=== PATIENT | male | born 1955 | race Caucasian/White ===

== ENCOUNTER 2016-07-17 11:03 | Inpatient (IN) | payer OTHER ==
[~2016-07-17] VITALS: Ht 172.7 cm; Wt 62.0 kg
[~2016-07-17 11:03] MED LIST: ATIVAN 2 MG. TAB2 MG PO; COREG 12.5MG12.5 MG PO; FIRST-VANCOM25 MG/ML PO; FOLIC ACID 1 MG PO; LISINOPRIL20 MG PO; MAGNESIUM OXID400 MG PO; METFORMIN HCL500 MG PO; NICODERM C14 MG/24 H TOP; NOVOLOG100 U/ML SC; PROBIOTIC FORMU1 CAP PO; Theragran Vitamins PO; VITAMIN B1100 MG PO
--- NOTE | 2016-07-17 11:05 | NUR ---
BIBA AFTER BEING FOUND ON FLOOR FOR UNKNOWN LENGTH OF TIME. FINGER STICK GLUCOSE READ HIGH PER EMS. PT WITH GARBLED SPEECH, VERY DRY MOUTH, SOME CONFUSION. SKIN MOTTLED, COLD, TEMP 91.4 RECTAL TEMP. NO RESP DISTRESS, DENIES PAIN. NON BLANCHABLE REDNESS ON RIGHT ELBOW, SACRAL AREA
--- NOTE | 2016-07-17 11:20 | NUR ---
PT AWAKE, ALERT WITH VERY GARBLED SPEECH. MOUTH WITH DRIED SALIVA IN IT. PT GIVEN SIP OF WATER TO HELP IMPROVED SPEECH. PT COUGHED AFTER SIP OF WATER. PT SOMEWHAT CONFUSED. KNOWS WHERE HE IS BUT CONFUSED ABOUT MONTH. FOLLOWING SOME COMMANDS BUT NOT ALL COMMANDS. POSSIBLE LEFT ARM WEAKNESS BUT NO DRIFT NOTED IN ARMS OR LEGS.
--- NOTE | 2016-07-17 11:25 | NUR ---
BEAR PABLITO PLACED FOR RECTAL TEMP OF 91.3. DR. GEOVANNY WALSH.
--- NOTE | 2016-07-17 11:25 | NUR ---
IV PLACED AND LABS AND BLOOD CULTURES DRAWN. TYMPANIC TEMP 93. RECTAL TEMP CHECKED. PT PLACED ON BEAR HUGGER.
--- NOTE | 2016-07-17 11:43 | NUR ---
DR. SMALL AT BEDSIDE FOR EVAL.
--- NOTE | 2016-07-17 12:09 | NUR ---
PT SENT FOR CT SCAN
[2016-07-17 12:18] LABS: ABSOLUTE BASOPHIL COUNT 0 /CUMM (0.0-0.2); ABSOLUTE EOSINOPHIL COUNT 0 /CUMM (0.0-0.7); ABSOLUTE GRANULOCYTE CT 9.8 /CUMM (1.4-6.5); ABSOLUTE LYMPH COUNT 1.5 /CUMM (1.2-3.4); ABSOLUTE MONOCYTE COUNT 1.6 /CUMM (0.10-0.60); BASOPHIL % 0.3 % (0.0-2.0); EOSINOPHIL % 0 % (0-5); MEAN CORPUSCULAR HGB 28.7 PG (27.0-31.0); MEAN CORPUSCULAR VOLUME 86.8 FL (80.0-94.0); MEAN PLATELET VOLUME 9.3 FL (7.4-10.4); PLATELET COUNT 191 /CUMM (130-400); RBC DISTRIBUTION WIDTH 14.1 % (11.5-14.5); RED BLOOD CELL CT 5.19 /CUMM (4.70-6.10); WHITE BLOOD CELL COUNT 12.9 /CUMM (4.8-10.8)
--- NOTE | 2016-07-17 12:37 | RADIOLOGY REPORT ---
EXAMINATION: XR PORTABLE CHEST CLINICAL INFORMATION: Weakness COMPARISON: Priors are not available TECHNIQUE: Portable AP view of the chest was obtained. FINDINGS: Heart size is normal. Pulmonary vascularity is normal. The aorta is tortuous. Lungs are clear. No focal consolidation or atelectasis is seen. There is no pneumothorax or pleural effusion. There is probable old healed fracture of the left fifth lateral rib. No acute bony abnormality is seen IMPRESSION: Normally expanded and grossly clear lungs with no acute findings.
--- NOTE | 2016-07-17 12:41 | NUR ---
PT RETURNED FROM CT SCAN. PUT BACK ON BEAR HUGGER. TEMP CHECKED AND IS RISING. 93.9. PEREZ PLACED AND URINE SPECIMEN SENT TO LAB.
--- NOTE | 2016-07-17 12:47 | CT SCAN REPORT ---
EXAMINATION: CT HEAD WITHOUT CONTRAST CLINICAL INFORMATION: 60-year-old man with slurred speech. COMPARISON: 10/28/[address] report TECHNIQUE: Contiguous axial imaging was performed from the skull base to vertex without intravenous administration of contrast. DLP: 601 mGy-cm. FINDINGS: There is no evidence of acute intracranial hemorrhage or territorial infarction. No abnormal mass effect or midline shift is seen. Wolf to white matter differentiation is well preserved. No extra-axial fluid collections are identified. The ventricles are normal in size. Mild chronic microvascular ischemic changes are seen throughout the supratentorial white matter. The osseous structures and soft tissues are normal. The mastoid air cells and visualized portions of the paranasal sinuses are well aerated. IMPRESSION: No acute intracranial pathology.
--- NOTE | 2016-07-17 12:54 | NUR ---
CRITICAL TEST RESULTS [id number] JENNA GIBBONS 60 M TESTS AND RESULTS: GLUCOSE 753, CARBON DIOXIDE 6 AND TROPONIN 0.11 Results received and read back by: VINCE PALACIOS Results received date and time: 07/17/16 1254 The following provider was notified of the results, and read the results back: DR. SMALL Notified date and time: 07/17/16 at 1253
--- NOTE | 2016-07-17 13:14 | NUR ---
PT SLEEPING BUT EASILY AROUSABLE. MOUTH CARE GIVEN DUE TO DRY CRUSTED SALIVA IN MOUTH AND LIPS. PT WITH FOUL SMELLING BREATH. MOUTH CLEANED WITH BOTH GREEN TIP SWABS AND LEMON GLYCERIN SWABS
--- NOTE | 2016-07-17 13:31 | ED AMS/SEIZURE/WEAK/DIZZY ---
History of Present Illness General Chief Complaint: Fall Stated Complaint: UNWITNESS FALL, HIGH GLUCOSE Source: patient, family, old records Exam Limitations: clinical condition Vital Signs & Intake/Output Vital Signs & Intake/Output Vital Signs Date Time Temp Pulse Resp B/P Pulse O2 O2 Flow FiO2 Ox Delivery Rate 07/17 1425 98 16 138/75 98 Room Air 07/17 1400 96.1 110 18 127/75 100 Room Air 07/17 1242 Room Air 07/17 1239 93.9 102 16 125/83 96 Room Air 07/17 1110 91.3 100 18 128/68 100 Room Air Allergies Coded Allergies: NO KNOWN ALLERGIES (03/17/14) Reconcile Medications Carvedilol (Coreg) 12.5 MG TABLET 1 TAB PO BID BLOOD PRESSURE Folic Acid 1 MG TABLET 1 TAB PO DAILY SUPPLEMENT Insulin Aspart, Recombinant (Novolog) 100 U/ML DAMARIS 0 UNITS SC SI DIABETES 80-150 no chnage 151-200 plus 2 units 201-250 plus 4 units 251-300 plus 6 units 301-350 plus 8 units 351-400 plus 10 units >400 plus 12 units and call your doctor PLEASE CHECK FINGER STICKS BEFORE EACH MEAL Lactobacillus Acidophilus (Probiotic Formula Capsule) 1 EACH CAPSULE 1 CAP PO BID PROBIOTIC Lisinopril 20 MG TABLET 1 TAB PO DAILY BLOOD PRESSURE Magnesium Oxide 400 MG TABLET 1 TAB PO BID HYPOMAGNESEMIA recheck serum magnesium levels on 11/11 and continue magnesium supplements if appropriate Metformin Hydrochloride (Metformin HCl) 500 MG TAB 1 TAB PO BID DIABETES Nicotine (Nicoderm Cq) 14 MG/24 HR TDM 1 PAT TOP DAILY SMOKING CESSATION PLEASE DO NOT APPLY IF YOU RESTART SMOKING [Theragran Vitamins] 1 TAB PO DAILY SUPPLEMENT Thiamine (Vitamin B1) 100 MG TAB 1 TAB PO DAILY SUPPLEMENT Vancomycin Oral Solution 25MG/Ml (First-Vancomycin 25) 25 MG/ML DAMARIS 1 TAB PO Q4 C.DIFF DIARRHEA last dose of vancomycin on 11/14 evening Triage Note: BIBA AFTER BEING FOUND ON FLOOR FOR UNKNOWN LENGTH OF TIME. FINGER STICK GLUCOSE READ HIGH PER EMS. PT WITH GARBLED SPEECH, VERY DRY MOUTH, SOME CONFUSION. SKIN MOTTLED, COLD, TEMP 91.4 RECTAL TEMP. NO RESP DISTRESS, DENIES PAIN. NON BLANCHABLE REDNESS ON RIGHT ELBOW, SACRAL AREA Triage Nurses Notes Reviewed? yes Onset: possibly 3-4 days Duration: day(s):, constant, continues in ED Timing: recent history Injury Environment: home Severity: moderate Modifying Factors: Improves With: rest. Worsens With: movement. HPI: The patient was lasting 3-4 days prior to admission. He was found prior to admission by friends who check in on him. He was noted to have difficulty speaking increased weakness unable to get off floor and unable to right legibly. He denies fever chills nausea vomiting diarrhea abdominal pain chest pain shortness of breath headache dysuria rash bleeding Past History Travel History Traveled to [place] past 21 day No Medical History Any Pertinent Medical History? see below for history Neurological: UNKNOWN EENT: NONE Cardiovascular: hypertension, hyperlipidemia Respiratory: NONE Gastrointestinal: NONE Hepatic: NONE Renal: NONE Musculoskeletal: AMBULATES WITH WALKER Psychiatric: by history, alcohol abuse Endocrine: DIABETES (PATIENT DENIES) Blood Disorders: NONE Cancer(s): NONE History of MRSA: No History of VRE: No History of CDIFF: No Surgical History Surgical History: non-contributory Psychosocial History Who do you live with Patient/Self Services at Home Social Work What is your primary language Pashto Tobacco Use: Never used ETOH Use: denies use Family History Family History, If Any: FATHER, , Age 60+. MOTHER, , Age 60+. Relation not specified for: FH: dementia Hx Contributory? No Review of Systems Review of Systems Constitutional: Reports: see HPI, weakness. EENTM: Reports: no symptoms. Respiratory: Reports: no symptoms. Cardiovascular: Reports: no symptoms. GI: Reports: no symptoms. Genitourinary: Reports: no symptoms. Musculoskeletal: Reports: no symptoms. Skin: Reports: no symptoms. Neurological/Psychological: Reports: see HPI, confusion, weakness. Hematologic/Endocrine: Reports: no symptoms. Immunologic/Allergic: Reports: no symptoms. All Other Systems: Reviewed and Negative Physical Exam Physical Exam General Appearance: well developed/nourished, alert, awake, moderate distress, thin Head: atraumatic, normal appearance Eyes: Bilateral: normal appearance, PERRL, EOMI. Ears, Nose, Throat: normal pharynx, normal ENT inspection, dry mucous membranes Neck: normal inspection, supple, full range of motion Respiratory: normal breath sounds, chest non-tender, no respiratory distress, quiet respiration, lungs clear Cardiovascular: regular rate/rhythm, murmur, normal peripheral pulses, norml femoral pulses equa Peripheral Pulses: 4+ carotid (R), 4+ carotid (L), 2+ radial (R), 2+ radial (L) Gastrointestinal: normal bowel sounds, soft, non-tender, no organomegaly Back: normal inspection, normal range of motion Extremities: normal range of motion, no ligament instability Neurologic/Psych: awake, alert, aphasia, disoriented x 3, motor weakness Reflexes: 2+: bicep (R), bicep (L). Skin: intact, normal color Lymphatic: no anterior cervical linn Core Measures ACS in differential dx? Yes CVA/TIA Diagnosis: No Severe Sepsis Present: No Septic Shock Present: No Progress Differential Diagnosis: arrythmia, CVA/stroke, electrolyte imbalance, hypoglycemia, hypoxia, intracranial Hem., pneumonia, sepsis, UTI/pyelo Plan of Care: Orders Procedure Date/time Status Nothing by Mouth 07/17 D Active TSH REFLEX 07/17 1500 Active ICU LAB BUNDLE 07/17 1500 Active FREE T4 07/17 1500 Active LACTIC ACID 07/17 1449 Active Pathway - chart 07/17 1423 Active House Staff 07/17 1423 Active Patient Data 07/17 1423 Active Code Status 07/17 1423 Active ARTERIAL BLOOD GAS (GEN) 07/17 1411 Complete FingerStick- Glucose 07/17 1411 Active Patient Data 07/17 1315 Active Admit to inpatient 07/17 1258 Active Bales, Insertion/Removal/Asses 07/17 1241 Active Intake & Output 07/17 1216 Active BLOOD CULTURE 07/17 1149 Active URINALYSIS 07/17 1149 Complete TROPONIN LEVEL 07/17 1149 Complete SERUM OSMOLALITY 07/17 1149 Complete LACTIC ACID 07/17 1149 Complete COMPREHENSIVE METABOLIC PANEL 07/17 1149 Complete CREATINE PHOSPHOKINASE 07/17 1149 Complete CBC WITHOUT DIFFERENTIAL 07/17 1149 Complete ACETONE 07/17 1149 Complete EKG 07/17 1149 Active FingerStick- Glucose 07/17 1116 Active XRY-SHOULDER COMPLETE-RIGHT 07/17 UNK Active XRY-HIP 2-3 VIEWS, RIGHT 07/17 UNK Active VTE Mechanical Prophylaxis 07/17 UNK Active Current Medications Sig/Lorrie Start time Last Medication Dose Stop Time Status Admin Sodium Chloride 1,000 ML BOLUS ONE 07/17 1515 CAN (Normal Saline 0.9%) 07/17 1714 Sodium Chloride 1,000 ML .Q2H 07/17 1445 AC 07/17 1849 Heparin Sodium 5,000 UNIT Q8 07/17 1418 AC (Porcine) Ondansetron HCl 4 MG Q8P PRN 07/17 1415 AC (Zofran) Laboratory Tests 07/17/16 1504: Lactic Acid Pending 07/17/16 1504: Sodium Pending, Potassium Pending, Chloride Pending, Carbon Dioxide Pending, Anion Gap Pending, BUN Pending, Creatinine Pending, Glucose Pending, Calcium Pending, Phosphorus Pending, Magnesium Pending, Total Bilirubin Pending, AST Pending, ALT Pending, Albumin Pending, Free T4 Pending, TSH &T3 &Free T4 Intrp Pending 07/17/16 1422: pH 7.27 *L, pCO2 13 L, pO2 111 H, HCO3 6 L, ABG O2 Sat (Measured) 98.0, P-50 (Temp Corrected) YES, Carboxyhemoglobin 0.2 L, O2 Concentration % RA, Temperature 93.9 L, O2 Delivery Method RA, Phlebotomy Draw Site RIGHT RADIAL 07/17/16 1225: Urine Color YEL, Urine Clarity CLEAR, Urine pH 6.0, Ur Specific [place] 1.020, Urine Protein 30 H, Urine Ketones >=80, Urine Nitrite NEG, Urine Bilirubin NEG@ ICTO, Urine Urobilinogen 0.2, Ur Leukocyte Esterase NEG, Ur Microscopic SEDIMENT EXAMINED, Urine RBC 5-10 H, Urine WBC RARE, Ur Epithelial Cells RARE, Hyaline Casts RARE H, Granular Casts 1-3 H, Urine Mucus FEW, Urine Hemoglobin MOD H, Urine Glucose >=1000 H 07/17/16 1145: Anion Gap 39 H, Estimated GFR 32 L, BUN/Creatinine Ratio 30.0 H, Glucose 753 *H, Serum Osmolality 410 H, Lactic Acid 1.7, Calcium 9.9, Total Bilirubin 0.6, AST 12 L, ALT 17 L, Alkaline Phosphatase 228 H, Creatine Kinase 126, Troponin I 0.11 *H, Total Protein 7.9, Albumin 4.7, Globulin 3.2, Albumin/Globulin Ratio 1.5, CBC w Diff NO MAN DIFF REQ, RBC 5.19, MCV 86.8, MCH 28.7, RDW 14.1, MPV 9.3 , Gran % 76.0 H, Lymphocytes % 11.6 L, Monocytes % 12.1 H, Eosinophils % 0, Basophils % 0.3, Absolute Granulocytes 9.8 H, Absolute Lymphocytes 1.5, Absolute Monocytes 1.6 H, Absolute Eosinophils 0, Absolute Basophils 0, PUBS MCHC 33.0, Acetone Level POSITIVE AT 1:16 DIL Microbiology 07/17 1249 BLOOD: Blood Culture - RECD 07/17 1145 BLOOD: Blood Culture - RECD Diagnostic Imaging: Viewed by Me: Radiology Read, CT Scan. Discussed w/RAD: Radiology Read, CT Scan. Radiology Impression: no acute abnormality CXR Impression: no acute abnormality Initial ED EKG: normal axis, normal intervals, normal p-waves, normal QRS complex, normal sinus rhythm, nonspecific ST T wave chg Prior EKG: unchanged Rhythm Strip: normal sinus rhythm Departure Departure Time of Disposition: 8 Disposition: STILL A PATIENT Condition: Stable Clinical Impression Primary Impression: DKA (diabetic ketoacidoses) Qualifiers: Diabetes mellitus type: other specified (including MACHELLE) Diabetes mellitus complication detail: without coma Qualified Code: E13.10 - Other specified diabetes mellitus with ketoacidosis without coma Secondary Impressions: Acute kidney injury (nontraumatic) Elevated troponin Hypothermia Qualifiers: Encounter type: initial encounter Qualified Code: T68.XXXA - Hypothermia, initial encounter Syncope and collapse Referrals: HAIM HERNANDEZ,BRIDGET [facility] (PCP/Family) Departure Forms: Customer Survey General Discharge Information Admission Note Spoke With: ANGIE BHARDWAJ M.D Documentation of Exam: Documentation of any treatments & extenuating circumstances including Concerns Regarding Discharge (functional status, medication knowledge or non-compliance, living conditions, etc.) that warrant an admission rather than observation: Insulin drip IV hydration serial lab exam cardiac monitoring medication adjustment physical therapy neurology evaluation endocrinology evaluation and care discharge planning Critical Care Note Critical Care Note Critical Care Time: 30-74 min (45)
--- NOTE | 2016-07-17 13:48 | NUR ---
HOUSE STAFF IN TO SEE PT
--- NOTE | 2016-07-17 14:02 | NUR ---
SPOKE WITH MAK TINSLEY TO CLARIFY PLAN OF CARE. WILL DO HOURLY FINGERSTICKS AND CALL TO TABLET MAKING MACHINE OPERATOR HELPER/RESIDENT. WILL RECHECK LABS AT 1500.
--- NOTE | 2016-07-17 14:04 | NUR ---
PT TURNED AND REPOSITIONED. TALIA CARE DONE. TEMP 96,1 RECTALLY. SKIN COLOR IMPROVING. MOST OF MOTTLED COLOR IS GONE. PT STILL WITH REDNESS TO BOTH KNEES, RIGHT ELBOW AND SACRAL/BUTTOCKS AREA. BUTTOCKS WITH DIFFUSE REDNESS THAT IS RASH LIKE IN APPEARANCE. BUTTOCKS CLEANED WITH TALIA WIPES. PT POSITIONED TO LEFT SIDE WITH PILLOWS.
--- NOTE | 2016-07-17 14:14 | NUR ---
SPOKE WITH MAK TINSLEY ON PHONE. NOTIFIED HIM OF TEMP 96.1 RECTAL. ORDERS RECIVED TO KEEP PT ON WARMING BLANKET UNTIL TEMP 98.6
--- NOTE | 2016-07-17 14:31 | History & Physical ---
MAK SANCHEZ 07/17/16 1424: General Information and HPI MD Statement: I have seen and personally examined JENNA SANCHEZ and documented this H&P. The patient is a 60 year old M who presented with a patient stated chief complaint of [UNWITNESSED FALL, DKA]. Source of Information: patient, old records Exam Limitations: unable to give history, not alert/orientated, clinical condition, confusion History of Present Illness: Please note that the history was obtained from previous records as well as the emergency department staff as the patient is confused and not oriented. Mr. Sanchez is a 60-year-old gentleman with a past medical history of hypertension, hyperlipidemia, and diabetes who is brought in by ambulance after being found down on the floor at home for an unknown time. The patient lives home alone and has friends checking on him every 2 days. Per the ED staff, his friends saw him on Monday and and felt he was at baseline. They came in today and found him on the floor unable to get up. They note that at baseline he does have difficulty with speech. He is unable to communicate any medical history and denies that has DM or is on any medications. He does repeat a complaint that he is in pain, but cannot localize or describe the pain. Allergies/Medications Allergies: Coded Allergies: NO KNOWN ALLERGIES (03/17/14) Home Med list Carvedilol (Coreg) 12.5 MG TABLET 1 TAB PO BID BLOOD PRESSURE Finasteride 5 MG TABLET 1 TAB PO DAILY HTN (Reported) Folic Acid 1 MG TABLET 1 TAB PO DAILY SUPPLEMENT Insulin Aspart, Recombinant (Novolog) 100 U/ML DAMARIS 0 UNITS SC SI DIABETES 80-150 no chnage 151-200 plus 2 units 201-250 plus 4 units 251-300 plus 6 units 301-350 plus 8 units 351-400 plus 10 units >400 plus 12 units and call your doctor PLEASE CHECK FINGER STICKS BEFORE EACH MEAL Lactobacillus Acidophilus (Probiotic Formula Capsule) 1 EACH CAPSULE 1 CAP PO BID PROBIOTIC Lisinopril 20 MG TABLET 1 TAB PO DAILY BLOOD PRESSURE Magnesium Oxide 400 MG TABLET 1 TAB PO BID HYPOMAGNESEMIA recheck serum magnesium levels on 11/11 and continue magnesium supplements if appropriate Metformin Hydrochloride (Metformin HCl) 500 MG TAB 1 TAB PO BID DIABETES Montelukast Sodium 10 MG TABLET 1 TAB PO DAILY NOT SURE OF REASON (Reported) Nicotine (Nicoderm Cq) 14 MG/24 HR TDM 1 PAT TOP DAILY SMOKING CESSATION PLEASE DO NOT APPLY IF YOU RESTART SMOKING Phenytoin Sodium Extended 100 MG CAPSULE 1 CAP PO TID UNSURE OF REASON ( Reported) [Theragran Vitamins] 1 TAB PO DAILY SUPPLEMENT Thiamine (Vitamin B1) 100 MG TAB 1 TAB PO DAILY SUPPLEMENT Vancomycin Oral Solution 25MG/Ml (First-Vancomycin 25) 25 MG/ML DAMARIS 1 TAB PO Q4 C.DIFF DIARRHEA last dose of vancomycin on 11/14 evening Compliance With Home Meds: UNKNOWN Past History Travel History Traveled to [place] past 21 day No Medical History Neurological: UNKNOWN EENT: NONE Cardiovascular: hypertension, hyperlipidemia Respiratory: NONE Gastrointestinal: NONE Hepatic: NONE Renal: NONE Musculoskeletal: AMBULATES WITH WALKER Psychiatric: by history, alcohol abuse Endocrine: DIABETES (PATIENT DENIES) Blood Disorders: NONE Cancer(s): NONE History of MRSA: No History of VRE: No History of CDIFF: No Surgical History Surgical History: non-contributory Past Family/Social History Family History Relations & Conditions if any FATHER, , Age 60+. MOTHER, , Age 60+. Relation not specified for: FH: dementia Psychosocial History Services at Home: Social Work ETOH Use: denies use Review of Systems Review of Systems Constitutional: Reports: see HPI (unable to obtain). Exam & Diagnostic Data Last 24 Hrs of Vital Signs/I&O Vital Signs Date Time Temp Pulse Resp B/P Pulse O2 O2 Flow FiO2 Ox Delivery Rate 07/17 1425 98 16 138/75 98 Room Air 07/17 1400 96.1 110 18 127/75 100 Room Air 07/17 1242 Room Air 07/17 1239 93.9 102 16 125/83 96 Room Air 07/17 1110 91.3 100 18 128/68 100 Room Air Intake & Output 07/17 1600 07/17 0800 07/17 0000 Intake Total 1000 Output Total Balance 1000 Intake, IV 1000 Patient 82.1 kg Weight Physical Exam General Appearance Alert, Mild Distress, oriented x1 Skin multiple areas of hyperemia noted, not warm, possibly due to being down right sided HEENT Atraumatic, PERRLA, EOMI Neck Supple, No JVD, +2 Carotid Pulse wo Bruit Cardiovascular Regular Rate, Normal S1, Normal S2 Lungs Clear to Auscultation, Normal Air Movement Abdomen Normal Bowel Sounds, Soft, No Tenderness Neurological abnormal speech - slurring (worse than baseline per records) patient is unable to follow commands and raises on his left arm and wiggles right toes. strength cannot be fully assessed, but sensation appears to be in tact. cranial nerves could not be fully examined (unable to follow commands) but are grossly WNL. Extremities No Clubbing, No Cyanosis, No Tenderness/Swelling Last 24 Hrs of Labs/Elmer: Laboratory Tests 07/17/16 1422: pH 7.27 *L, pCO2 13 L, pO2 111 H, HCO3 6 L, ABG O2 Sat (Measured) 98.0, P-50 (Temp Corrected) YES, Carboxyhemoglobin 0.2 L, O2 Concentration % RA, Temperature 93.9 L, O2 Delivery Method RA, Phlebotomy Draw Site RIGHT RADIAL 07/17/16 1225: Urine Color YEL, Urine Clarity CLEAR, Urine pH 6.0, Ur Specific [place] 1.020, Urine Protein 30 H, Urine Ketones >=80, Urine Nitrite NEG, Urine Bilirubin NEG@ ICTO, Urine Urobilinogen 0.2, Ur Leukocyte Esterase NEG, Ur Microscopic SEDIMENT EXAMINED, Urine RBC 5-10 H, Urine WBC RARE, Ur Epithelial Cells RARE, Hyaline Casts RARE H, Granular Casts 1-3 H, Urine Mucus FEW, Urine Hemoglobin MOD H, Urine Glucose >=1000 H 07/17/16 1145: Anion Gap 39 H, Estimated GFR 32 L, BUN/Creatinine Ratio 30.0 H, Glucose 753 *H, Serum Osmolality 410 H, Lactic Acid 1.7, Calcium 9.9, Total Bilirubin 0.6, AST 12 L, ALT 17 L, Alkaline Phosphatase 228 H, Creatine Kinase 126, Troponin I 0.11 *H, Total Protein 7.9, Albumin 4.7, Globulin 3.2, Albumin/Globulin Ratio 1.5, CBC w Diff NO MAN DIFF REQ, RBC 5.19, MCV 86.8, MCH 28.7, RDW 14.1, MPV 9.3 , Gran % 76.0 H, Lymphocytes % 11.6 L, Monocytes % 12.1 H, Eosinophils % 0, Basophils % 0.3, Absolute Granulocytes 9.8 H, Absolute Lymphocytes 1.5, Absolute Monocytes 1.6 H, Absolute Eosinophils 0, Absolute Basophils 0, PUBS MCHC 33.0, Acetone Level POSITIVE AT 1:16 DIL Microbiology 07/17 1249 BLOOD: Blood Culture - RECD 07/17 1144 BLOOD: Blood Culture - RECD Diagnostic Data EKG Results sinus ryhthem at 98 with T wave inversions in 2, 3, aVF and V3-V6. No other ST-T changes noted CXR Results SERVICE DATE: 07/17/16 EXAM TYPE: RAD - XRY-PORTABLE CHEST XRAY EXAMINATION: XR PORTABLE CHEST CLINICAL INFORMATION: Weakness COMPARISON: Priors are not available TECHNIQUE: Portable AP view of the chest was obtained. FINDINGS: Heart size is normal. Pulmonary vascularity is normal. The aorta is tortuous. Lungs are clear. No focal consolidation or atelectasis is seen. There is no pneumothorax or pleural effusion. There is probable old healed fracture of the left fifth lateral rib. No acute bony abnormality is seen IMPRESSION: Normally expanded and grossly clear lungs with no acute findings. Other Results SERVICE DATE: 07/17/16 EXAM TYPE: CAT - CT HEAD WO IV CONTRAST EXAMINATION: CT HEAD WITHOUT CONTRAST CLINICAL INFORMATION: 60-year-old man with slurred speech. COMPARISON: 10/28/[address] report TECHNIQUE: Contiguous axial imaging was performed from the skull base to vertex without intravenous administration of contrast. DLP: 601 mGy-cm. FINDINGS: There is no evidence of acute intracranial hemorrhage or territorial infarction. No abnormal mass effect or midline shift is seen. Wolf to white matter differentiation is well preserved. No extra-axial fluid collections are identified. The ventricles are normal in size. Mild chronic microvascular ischemic changes are seen throughout the supratentorial white matter. The osseous structures and soft tissues are normal. The mastoid air cells and visualized portions of the paranasal sinuses are well aerated. IMPRESSION: No acute intracranial pathology. Assessment/Plan Assessment: Mr. Sanchez is a 60-year-old gentleman with a past medical history of hypertension, hyperlipidemia, and diabetes who is brought in by ambulance after being found down on the floor at home for an unknown time. He was found to be in DKA and was started on an insulin drip in the ED. Problem list/Assessment and Plan DKA * ? 2/2 non-compliance as patient was down for an unknown period of time and could not take his meds vs infectious process - CXR and UA show no signs of infection * Admit the patient to the ICU * pH showed significant metabolic acidosis w resp compensation = 7.27/HCO3 6/CO2 13 * He is currently on an insulin drip @8 units (0.1 units/kg) - blood sugar was 753 on admission with ketonuria, AG of 39, Bicarb of 6. Calculated Osm 370 or 353 if BUN is not taken into account. The meaured Osm was 410, giving him a significant osmolar gap - which explains his confusion/stupor at the moment * We will continue insulin drip at 8units/hour and check FSG hourly * Note he is also hypernatremic at 153. Taking his hyperglycemia into account, his corrected Na is 169. As he is clinically euvolemic and hypernatremic, we will start 1/2NS at 500cc/hour for 2 hours and reassess labs q2h. * His free water deficit was 10.2L * K is now 5.2 with no concerning EKG changes - we will consider adding K to his fluids once K drops <5.0 * Also consider adding dextrose to IVF once glucose drops <250 * We will repeat labs at 1500 and q2h from there until his gap closes/bicarb comes up Elevated troponin * Trop was 0.11 with EKG showing T wave flattenings/inversion in the inferior and precordial leads - previous review of his EKG in 2014 showed incomplete LBBB and nonspecific EKG changes. ECHO at that time was 35-40%. * We will trend trop and EKG for now and inform cardiology, he was seen by Dr. Rainey in the past. * Likely 2/2 demand/FAYE w acidosis. No active chest pain. ASA 325 given. We will not heparinize for now. Hypothermia * Litzy hugger on, last temp check 96 * Continue Litzy Hugger for now and we will d/c once his temp is approx 98 ?Seizure d/o * Med rec review shows the patient is on dilantin * dilantin level was low at 3 * I did speak w the inpatient pharamcy (patient fills his meds in the outpt pharm here @), and there is question of whether he gets 100XR of dilantin daily vs TID. As his level was low, we will dose TID, but please call the outpt pharmacy in the am to confirm. HTN/BPH/FAYE * Continue carvedilol 12.5 and holding lisinorpril due to FAYE * Continue finasteride for BPH FC NPO pain path tylenol PO, IV and morhine for severe heparin for dvt ppx As Ranked By This Provider Problem List: 1. Elevated troponin 2. Acute kidney injury (nontraumatic) 3. Hypothermia Qualifiers Encounter type: initial encounter Qualified Code: T68.XXXA - Hypothermia, initial encounter 4. DKA (diabetic ketoacidoses) Qualifiers Diabetes mellitus type: other specified (including MACHELLE) Diabetes mellitus complication detail: without coma Qualified Code: E13.10 - Other specified diabetes mellitus with ketoacidosis without coma Core Measures/Miscellaneous Acute Coronary Syndrome ACS Diagnosis: No Last Known EF % 35 Cerebrovascular Accident CVA/TIA Diagnosis: No Congestive Heart Failure CHF Diagnosis: No Venous Thromboembolism VTE Risk Factors: Acute medical illness, Age > 40 VTE Prophylaxis Ordered Inpt: Pharm- Heparin No Mech VTE prophylaxis d/t: No contraindications No VTE Pharm Prophylaxis d/t: VTE low risk, No contraindications VTE Diagnosis: No VTE Type: NONE VTE Confirmed by (Test): NONE Severe Sepsis Severe Sepsis Present: No Septic Shock Septic Shock Present: No Miscellaneous Documentation Attending Case Discussed With: ANGIE BHARDWAJ M.D Primary Care Physician: BRIDGET WHITMORE MD Patient sees these Specialists n/a Level of Patient Care: Critical Care (CRI) ANGIE BHARDWAJ MD 07/17/16 1535: Attending MD Review Statement Attending Statement Attending MD Statement: examined this patient, discuss w/resident/PA/CHIEF ADMINISTRATIVE OFFICER, agreed w/resident/PA/CHIEF ADMINISTRATIVE OFFICER, reviewed EMR data (avail), discussed with nursing, amended to note Attending Assessment/Plan: Patient is a 60-year-old male with medical history significant for hypertension, dyslipidemia and insulin-dependent diabetes mellitus. Was last seen by friends on . They went to check up on him today and found him on the floor and he would get up. It is unknown when exactly he fell how long he has been on the ground. Patient is awake and follows simple commands however his speech is markedly slurred and he is unable to provide any history. He is able to move his extremities to command very weakly with power of 3 over 5. Pupils were equal and reactive with no nystagmus. He had no carotid bruit. Heart sounds are regular with no audible normal. Lungs are clear to auscultation bilaterally. Abdomen soft and nontender. He had no peripheral edema. Skin was intact with no open areas. Patient's friends and family were not present in the emergency room by the time of my evaluation. I did leave a message on their answering machine. Problems: 1. Diabetic ketoacidosis 2. Encephalopathy; probably metabolic secondary to above 3. Troponin elevation; rule out that he currently syndrome. He does have T- wave inversions in the anterolateral leads new from previous EKGs. 4. Acute kidney injury 5. Chronic heart failure with reduced ejection fraction 6. Hypernatremia Plan: -Admit to the intensive care unit for further management. -Continue insulin infusion. He received a liter bolus in the emergency room. Recommend repeated fluid boluses 2 more liters and then maintenance fluid at 100 mL an hour. Utilizing 0.45% NaCl -When serum glucose level reaches 200 mg per DL change fluid to D5 1/2 NS at 150 mL per hour. -Check serum chemistry every 2 hours. Add potassium chloride to IV fluids if repeat potassium level remains less than 5.3. -Monitor pulse oximetry and respiratory status closely in view of his history of systolic dysfunction. -Repeat troponin on telemetry begin to trend downwards. Obtain echocardiogram. Obtain cardiology consultation. -Patient currently denies chest pain. Follow-up with the cardiology service regarding heparin infusion in view of his ischemic EKG and abnormal troponin. -Please fully catheter monitor input output closely. -Obtain a renal sonogram in a.m. if no significant improvement of renal function. -DVT prophylaxis with heparin subcutaneous. -Check urine and blood cultures. -Neuro watch every 4 hours. Follow-up with family and friends regarding baseline mental status. If this is not his baseline and he has no improvement of mental status following correction of his metabolic derangement would recommend an MRI for further evaluation. -Med list shows dilantin last filled in October 2015. Confirm med list with family. -Case discussed with Critical Care Medicine Jose Enrique Christensen MD. Place endocrinology consult.
--- NOTE | 2016-07-17 14:34 | NUR ---
MAK KEMP NOTIFIED OF GLUCOSE READING GREATER THEN 500 AFTER GETTING INSULIN IVP 10 UNITS AND GTT INFUSING AT 8 UNITS FOR 1 HOUR. ORDERS RECIEVED TO KEEP GTT AT 8 UNITS/HR BUT WILL CHANGE IVF TO 1/2NS
--- NOTE | 2016-07-17 15:19 | NUR ---
PT ADMITTED TO ROOM 105
--- NOTE | 2016-07-17 15:30 | NUR ---
ENDOCRINE MD IN TO SEE PT.
--- NOTE | 2016-07-17 15:32 | NUR ---
GLUCOSE CHECKED AND IS 406. MAK TINSLEY NOTIFIED AND ORDERS RECIEVED TO KEEP GTT AT 8UNITS/HR, PLAN IS TO REPEAT LABS AT 1700
--- NOTE | 2016-07-17 15:34 | Admission Certification ---
Admission Certification Certification Statement - As attending physician, I certify that at the time of - admission, based on clinical presentation, severity of - symptoms, need for further diagnostic testing and - therapeutic interventions, and risk of adverse outcomes - without in-hospital treatment, in my clinical assessment, - this patient requires an acute hospital stay for a minimum - of two nights or longer. I have also considered psychsocial - factors such as support system, advanced age, financial - issues, cognitive issues, and failed out-patient treatments, - past re-admission history, safety of patient, and lack of - compliance as applicable. Specific rationale supporting this admission is: Patient is being admitted to the intensive care unit where he will receive glucose infusion.
--- NOTE | 2016-07-17 15:39 | RADIOLOGY REPORT ---
EXAMINATION: XR SHOULDER, RIGHT XR HIP, RIGHT CLINICAL INFORMATION: Difficulty moving right shoulder and right leg following a fall. Patient unresponsive. COMPARISON: No relevant prior studies are available for comparison. TECHNIQUE: Two views of the right shoulder as well as 2 views of the right hip were obtained. FINDINGS: RIGHT SHOULDER: The right humerus is internally rotated. There is no fracture or dislocation. There is mild joint space narrowing and marginal osteophytosis at the acromioclavicular joint. There is no osseous erosion. There is no abnormal soft tissue calcification. RIGHT HIP: No fracture or dislocation. No significant joint space narrowing or marginal osteophytosis. No osseous erosion. Right inguinal atherosclerotic calcifications. Partially visualized Bales catheter. IMPRESSION: Right shoulder: Internally rotated humerus. No fracture or dislocation. Left hip: No fracture or dislocation.
--- NOTE | 2016-07-17 15:55 | Cons- Endocrinology ---
General Information and HPI Consulting Request Date of Consult: 07/17/16 Requested By: medical team Reason for Consult: Diabetic ketoacidosis Exam Limitations: unable to give history History of Present Illness: This 60-year-old male with a known history of diabetes treated with metformin and insulin in the past was found on the floor at home. An ambulance was called and he came to the emergency room. The patient cannot give a history at present. Review of his records reveals that he was last in the [facility] in 2014. At that time he was treated for C. difficile colitis. In addition to the diabetes there is a history of hypertension and hyperlipidemia. There is also mention of possible alcohol abuse. Review of his medications filled at [facility] prior to admission reveals that Dilantin was reported. Allergies/Medications Allergies: Coded Allergies: NO KNOWN ALLERGIES (03/17/14) Home Med List: Aspirin (Aspirin*) 81 MG TAB.CHEW 1 TAB PO DAILY Heart Health (Reported) Carvedilol (Coreg) 12.5 MG TABLET 1 TAB PO BID BLOOD PRESSURE Finasteride 5 MG TABLET 1 TAB PO DAILY HTN (Reported) Folic Acid 1 MG TABLET 1 TAB PO DAILY SUPPLEMENT Insulin Aspart (Novolog) 100 UNIT/ML VIAL 0 UNITS SC TIDAC/HS diabetes BEFORE MEALS Blood Insulin Sugar Units <80 0 81-150 4 151-200 6 201-250 8 251-300 9 301-350 10 351-400 11 >400 Call Doctor AT BEDTIME Blood Insulin Sugar Units <80 0 81-100 0 101-200 0 201-250 2 251-300 3 301-350 4 351-400 5 >400 Call Doctor Insulin Detemir (Levemir) 100 UNIT/ML VIAL 10 UNITS SC BID diabetes mellitus Lactobacillus Acidophilus (Probiotic Formula Capsule) 1 EACH CAPSULE 1 CAP PO BID PROBIOTIC Magnesium Oxide 400 MG TABLET 1 TAB PO BID HYPOMAGNESEMIA recheck serum magnesium levels on 11/11 and continue magnesium supplements if appropriate Montelukast Sodium 10 MG TABLET 1 TAB PO DAILY ALLERGY (Reported) Nicotine (Nicoderm Cq) 14 MG/24 HR TDM 1 PAT TOP DAILY SMOKING CESSATION PLEASE DO NOT APPLY IF YOU RESTART SMOKING Phenytoin Sodium Extended 100 MG CAPSULE 1 CAP PO SI SEIZURE DISORDER ( Reported) GIVE 2 TABLETS 8 :00 AM GIVE 1 TABLET 1:00 PM GIVE 2 TABLET 7:00 PM [Theragran Vitamins] 1 TAB PO DAILY SUPPLEMENT Thiamine (Vitamin B1) 100 MG TAB 1 TAB PO DAILY SUPPLEMENT Review of Systems Review of Systems Constitutional: Reports: no symptoms (cannot give review of systems). Past History Travel History Traveled to [place] past 21 day No Medical History Neurological: UNKNOWN EENT: NONE Cardiovascular: hypertension, hyperlipidemia Respiratory: NONE Gastrointestinal: NONE Hepatic: NONE Renal: NONE Musculoskeletal: AMBULATES WITH WALKER Psychiatric: by history, alcohol abuse Endocrine: DIABETES (PATIENT DENIES) Blood Disorders: NONE Cancer(s): NONE Surgical History Surgical History: non-contributory Family History Relations & Conditions If Any: FATHER, , Age 60+. MOTHER, , Age 60+. Relation not specified for: FH: dementia Psychosocial History Services at Home: Social Work ETOH Use: denies use Exam & Diagnostic Data Last 24 Hrs of Vital Signs/I&O Vital Signs Date Time Temp Pulse Resp B/P Pulse O2 O2 Flow FiO2 Ox Delivery Rate 07/17 1535 96.3 111 20 163/84 98 Room Air 07/17 1425 98 16 138/75 98 Room Air 07/17 1400 96.1 110 18 127/75 100 Room Air 07/17 1242 Room Air 07/17 1239 93.9 102 16 125/83 96 Room Air 07/17 1110 91.3 100 18 128/68 100 Room Air Intake & Output 07/17 1600 07/17 0800 07/17 0000 Intake Total 1500 Output Total Balance 1500 Intake, IV 1500 Patient 181 lb Weight Vital Signs Date Time Temp Pulse Resp B/P Pulse O2 O2 Flow FiO2 Ox Delivery Rate 07/17 1535 96.3 111 20 163/84 98 Room Air 07/17 1425 98 16 138/75 98 Room Air 07/17 1400 96.1 110 18 127/75 100 Room Air 07/17 1242 Room Air 07/17 1239 93.9 102 16 125/83 96 Room Air 07/17 1110 91.3 100 18 128/68 100 Room Air Intake & Output 07/17 1600 07/17 0800 07/17 0000 Intake Total 1500 Output Total Balance 1500 Intake, IV 1500 Patient 181 lb Weight Physical Exam General Appearance: alert, awake, confused Head: normal appearance Eyes: Bilateral: PERRL. Neck: normal inspection Respiratory: normal breath sounds Cardiovascular: regular rate/rhythm Gastrointestinal: normal bowel sounds, soft Extremities: normal inspection Neurologic/Psych: awake Skin: intact Labs/Elmer Results: Laboratory Tests 07/17 07/17 07/17 1504 1504 1422 Blood Gas pH (7.35 - 7.45 PH) 7.27 *L pCO2 (35 - 45 TORR) 13 L pO2 (80 - 100 TORR) 111 H HCO3 (21 - 28 MEQ/L) 6 L ABG O2 Sat (Measured) (>96.0 %) 98.0 P-50 (Temp Corrected) YES Carboxyhemoglobin (1.5 - 5.0 %) 0.2 L O2 Concentration % RA Temperature (97.0 - 100.0 FARH) 93.9 L O2 Delivery Method RA Chemistry Sodium Pending Potassium Pending Chloride Pending Carbon Dioxide Pending Anion Gap Pending BUN Pending Creatinine Pending Glucose Pending Lactic Acid Pending Calcium Pending Phosphorus Pending Magnesium Pending Total Bilirubin Pending AST Pending ALT Pending Albumin Pending Free T4 Pending TSH &T3 &Free T4 Intrp Pending Miscellaneous Phlebotomy Draw Site RIGHT RADIAL 07/17 1225 Urines Urine Color (YEL,AMB,STR) YEL Urine Clarity (CLEAR) CLEAR Urine pH (5.0 - 8.0) 6.0 Ur Specific [place] (1.001 - 1.035) 1.020 Urine Protein (NEG,<30 MG/DL) 30 H Urine Ketones (NEG) >=80 Urine Nitrite (NEG) NEG Urine Bilirubin (NEG) NEG@ICTO Urine Urobilinogen (0.1 - 1.0 EU/dl) 0.2 Ur Leukocyte Esterase (NEG) NEG Ur Microscopic SEDIMENT EXAMINED Urine RBC (0 - 5 /HPF) 5-10 H Urine WBC (0 - 2 /HPF) RARE Ur Epithelial Cells (NONE,FEW) RARE Hyaline Casts (0/LPF) RARE H Granular Casts (NONE /LPF) 1-3 H Urine Mucus (FEW,NONE) FEW Urine Hemoglobin (NEG) MOD H Urine Glucose (N MG/DL) >=1000 H 07/17 1145 Chemistry Sodium (137 - 145 mmol/L) 153 H Potassium (3.5 - 5.1 mmol/L) 5.2 H Chloride (98 - 107 mmol/L) 108 H Carbon Dioxide (22 - 30 mmol/L) 6 *L Anion Gap (5 - 16) 39 H BUN (9 - 20 mg/dL) 63 H Creatinine (0.7 - 1.2 mg/dL) 2.1 H Estimated GFR (>60 ml/min) 32 L BUN/Creatinine Ratio (7 - 25 %) 30.0 H Glucose (65 - 99 mg/dL) 753 *H Serum Osmolality (285 - 295 MOSM/KG) 410 H Lactic Acid (0.7 - 2.1 mmol/L) 1.7 Calcium (8.4 - 10.2 mg/dL) 9.9 Total Bilirubin (0.2 - 1.3 mg/dL) 0.6 AST (17 - 59 U/L) 12 L ALT (21 - 72 U/L) 17 L Alkaline Phosphatase (< 127 U/L) 228 H Creatine Kinase (55 - 170 U/L) 126 Troponin I (<0.11 ng/ml) 0.11 *H Total Protein (6.3 - 8.2 g/dL) 7.9 Albumin (3.5 - 5.0 g/dL) 4.7 Globulin (1.9 - 4.2 gm/dL) 3.2 Albumin/Globulin Ratio (1.1 - 2.2 %) 1.5 Hematology CBC w Diff NO MAN DIFF REQ WBC (4.8 - 10.8 /CUMM) 12.9 H RBC (4.70 - 6.10 /CUMM) 5.19 Hgb (14.0 - 18.0 G/DL) 14.9 Hct (42 - 52 %) 45.0 MCV (80.0 - 94.0 FL) 86.8 MCH (27.0 - 31.0 PG) 28.7 RDW (11.5 - 14.5 %) 14.1 Plt Count (130 - 400 /CUMM) 191 MPV (7.4 - 10.4 FL) 9.3 Gran % (42.2 - 75.2 %) 76.0 H Lymphocytes % (20.5 - 51.1 %) 11.6 L Monocytes % (1.7 - 9.3 %) 12.1 H Eosinophils % (0 - 5 %) 0 Basophils % (0.0 - 2.0 %) 0.3 Absolute Granulocytes (1.4 - 6.5 /CUMM) 9.8 H Absolute Lymphocytes (1.2 - 3.4 /CUMM) 1.5 Absolute Monocytes (0.10 - 0.60 /CUMM) 1.6 H Absolute Eosinophils (0.0 - 0.7 /CUMM) 0 Absolute Basophils (0.0 - 0.2 /CUMM) 0 PUBS MCHC (33.0 - 37.0 G/DL) 33.0 Toxicology Acetone Level (NEGATIVE) POSITIVE AT 1:16 DIL Assessment/Plan Assessment/Plan This 60-year-old male with a known history of diabetes was found on the floor by his friends. Apparently he lives alone and it is not known how long he was on the floor. His labs show glucose 753 BUN 63 creatinine 2.1. Sodium is elevated at 153 potassium 5.2 and carbon dioxide is 6. Anion gap is elevated at 39 along with a highly positive serum acetone. The patient's effective osmolality is 353. The current findings are consistent with diabetic ketoacidosis. The patient is very hyperosmolar in view of the very high sugar and high sodium at the same time. The patient should be treated with an insulin drip at at 0.1 units per kilogram per hour. Fingerstick blood sugars should be measured every hour. Since the patient is hypernatremic we should give IV fluids in the form of half-normal saline. We should repeat his labs including BUN/creatinine electrolytes and blood sugar every 2 hours. We do not want to correct the serum sodium by more than 1-2 mEq per hour. When his fingerstick sugar gets to 250 we can change his fluid to D5 half-normal saline with 20 mEq KCl so that we can continue to give the insulin drip. The patient also has evidence of acute renal insufficiency. There is a creatinine in the [employer] computer of 0.6 about one month ago. His present creatinine is 2.1. Since he is making some urine I feel we can continue the half-normal saline at 500 mL an hour for the next 2 hours and then reevaluate. Once the patient's potassium is less than 5.1 we can add 20 mEq of potassium to his IV fluids. Dilantin is listed as one of his drugs at the [facility]. We should measure a Dilantin level. Consult Acknowledgment - Thank you for your consult request.
--- NOTE | 2016-07-17 16:09 | NUR ---
PT NOT TOLERATING BEAR HUGGER BLANKET. COMPLAINING OF BEING HOT. PT KEEPS PULLING BLANKET OFF OF HIMSELF.
--- NOTE | 2016-07-17 16:09 | NUR ---
SECOND IV LINE PLACED. PT RESTING QUIETLY. SPEECH REMAINS GARBLED. PT ASKING FOR AND TOLERATING ICE CHIPS.
--- NOTE | 2016-07-17 16:10 | NUR ---
PT REPORTEDLY HAS NO FAMILY, SEVERAL YEARS AGO AND PT STATES HE HAS NO CHILDREN. UPON ARRIVAL TO ED PT WAS ACCOMPANIED BY FRIENDS WHO SAY THEY CHECK ON PT FREQUENTLY. THEY STATE THEY WERE SICK AND DID NOT CHECK ON HIM FOR A FEW DAYS. THEY HAVE PROVIDED SOME HISTORY ON PATIENT INCLUDING INSURANCE CARD. CONTACT INFORMATION FOR THEM IS FOLLOWS DANIELLE ROJAS [phone], . DANIELLE IS UNSURE IF PT HAS POA
--- NOTE | 2016-07-17 16:14 | NUR ---
CRITICAL TEST RESULTS [id number] JENNA GIBBONS 60 M TESTS AND RESULTS: GLUCOSE 504, SODIUM 160, POTASSIUM 3.3, CO2 9 Results received and read back by: VINCE PALACIOS Results received date and time: 07/17/16 1615 The following provider was notified of the results, and read the results back: MAK TALBOT MD Notified date and time: 07/17/16 at 1615
--- NOTE | 2016-07-17 16:47 | NUR ---
REPORT CALLED TO JANNET IN ICU
--- NOTE | 2016-07-17 16:48 | NUR ---
GLUCOSE 302. PAGED MAK TINSLEY TO REPORT GLUCOSE
--- NOTE | 2016-07-17 17:56 | NUR ---
DR TINSLEY NOTIFIED THAT HEART BEAT APPEARS TO BE AFIB , 12 LEAD INTERPRETATION IS WANDERING PACEMAKER. LAUREANO AWARE THAT GLUCOSE IS 318 AND INSULIN GTT CONTINUES AT 8U/HR. LAUREANO AWARE 1700 LABS WERE DRAWN AND ARE PENDING AND THAT A LAV TUBE WAS SENT WITH 1500 LABS
--- NOTE | 2016-07-17 17:57 | NUR ---
CRITICAL TEST RESULTS [id number] JENNA GIBBONS 60 [place] TESTS AND RESULTS: LACTIC ACID 2.4 Results received and read back by: MIO JARVIS Results received date and time: 07/17/16 1757 The following provider was notified of the results, and read the results back: MAK TINSLEY Notified date and time: 07/17/16 at 1757
[2016-07-17 18:35] LABS: ABSOLUTE BASOPHIL COUNT 0 /CUMM (0.0-0.2); ABSOLUTE EOSINOPHIL COUNT 0 /CUMM (0.0-0.7); ABSOLUTE GRANULOCYTE CT 8.4 /CUMM (1.4-6.5); ABSOLUTE MONOCYTE COUNT 1.3 /CUMM (0.10-0.60); BASOPHIL % 0.2 % (0.0-2.0); EOSINOPHIL % 0 % (0-5); GRANULOCYTE % 71.4 % (42.2-75.2); MEAN CORPUSCULAR HGB CONC 33.4 G/DL (33.0-37.0); MEAN CORPUSCULAR VOLUME 86.7 FL (80.0-94.0); MEAN PLATELET VOLUME 9.3 FL (7.4-10.4); PLATELET COUNT 171 /CUMM (130-400); RED BLOOD CELL CT 4.47 /CUMM (4.70-6.10); WHITE BLOOD CELL COUNT 11.8 /CUMM (4.8-10.8)
--- NOTE | 2016-07-17 18:36 | NUR ---
PT BROUGHT UP TO ICU
--- NOTE | 2016-07-17 18:37 | NUR ---
PRIOR TO LEAVE ED. RHYTHM EXAMINED WITH DR TINSLEY. DETERMINED THAT PT IN SINUS TACH AND NOT AFIB
--- NOTE | 2016-07-17 18:37 | NUR ---
CRITICAL TEST RESULTS [id number] JENNA GIBBONS 60 M TESTS AND RESULTS: NA 157 Results received and read back by: MIO JARVIS Results received date and time: 07/17/16 1837 The following provider was notified of the results, and read the results back: MAK TINSLEY Notified date and time: 07/17/16 at 1825
[2016-07-17] MEDS ORDERED: FINASTERIDE5 M1 PO (18:40)
[2016-07-17] MEDS ORDERED: MONTELUKAST SOD10 M1 PO (18:41)
[2016-07-17] MEDS ORDERED: PHENYTOIN SODI100 MG PO (18:41)
--- NOTE | 2016-07-17 18:42 | NUR ---
SPOKE WITH DANIELLE ON PHONE-PTS FRIEND AND ASKED IF SOMEONE COULD BRING IN ALL MEDS AND INSULIN FOR PT SO WE CAN VERIFY WHAT PT IS TAKING
[2016-07-17 18:43] LABS: HEMATOCRIT 38.7 % (42-52)
[2016-07-17 23:59] VITALS: BP 100/60
--- NOTE | 2016-07-18 00:30 | NUR ---
PT ADMITTED FROM ER. BEDSIDE REPORT RECEIVED FROM [employer]. PT IS AWAKE, SPEECH IS SLOW, WHICH HE STATES IS FROM HIS DIABETES. HE DENIES PAIN OR NAUSEA. HE HAS HAD SOME CONFUSION, IS CALLING OUT FOR HELP FREQUENTLY, DOES KNOW WHERE HE IS BUT IS UNABLE TO HOLD A COHERENT CONVERSATION. ACCUCHECKS DONE HOURLY AND INSULIN DRIP ADJUSTED ACCORDINGLY. IVF ARE CURRENTLY D51/2NS WITH 40 KCL AT 125 PER HOUR. HE WAS ABLE TO TAKE ALL HIS MEDS WITH WATER. HE WILL HAVE A SKIN ASSESSMENT IN THE AM AND THE APPROPRIATE MATTRESS WILL BE ORDERED. HIS COCCYX AND BUTTOCKS ARE NOT BLANCHABLE AND DISCOLORED. HIS KNEES AND ELBOWS LOOK LIKE EARLY BRUISING. HE IS IDENTIFIED HIGH FALL RISK AND HAS BED ALARM ON. HE WILL NEED SOCIAL SERVICE, RAIL BONDER CONSULT IT IS UNCLEAR WHAT HIS LIVING SITUATION IS WITH REGARD TO FOOD AND TRANSPORTATION AND MEDS.
[2016-07-18 04:36] LABS: ABSOLUTE BASOPHIL COUNT 0 /CUMM (0.0-0.2); ABSOLUTE EOSINOPHIL COUNT 0 /CUMM (0.0-0.7); ABSOLUTE MONOCYTE COUNT 1.9 /CUMM (0.10-0.60); MEAN PLATELET VOLUME 8.9 FL (7.4-10.4)
[2016-07-18 04:45] LABS: ABSOLUTE GRANULOCYTE CT 6.9 /CUMM (1.4-6.5); ABSOLUTE LYMPH COUNT 1.5 /CUMM (1.2-3.4); BASOPHIL % 0.3 % (0.0-2.0); EOSINOPHIL % 0.3 % (0-5); GRANULOCYTE % 66.7 % (42.2-75.2); MEAN CORPUSCULAR HGB 29.1 PG (27.0-31.0); MEAN CORPUSCULAR HGB CONC 34.1 G/DL (33.0-37.0); MEAN CORPUSCULAR VOLUME 85.5 FL (80.0-94.0); PLATELET COUNT 140 /CUMM (130-400); RBC DISTRIBUTION WIDTH 13.9 % (11.5-14.5); RED BLOOD CELL CT 3.88 /CUMM (4.70-6.10); WHITE BLOOD CELL COUNT 10.3 /CUMM (4.8-10.8)
[2016-07-18 04:53] LABS: HEMATOCRIT 33.2 % (42-52)
--- NOTE | 2016-07-18 07:34 | PN- Diabetes ---
Assessment/Plan Assessment: The patient is drowsy this morning. His blood pressure is borderline low and his urine output has gone down. The patient remains on an insulin drip at 4.5 units per hour and also D5 half- normal 40 mEq KCl at 1 25 mL per hour. His most recent labs show glucose 166 BUN 56 creatinine 1.4 sodium 153 potassium 4.8 chloride 122 CO2 21 anion gap 9. Plan: The patient's IV fluid should be changed to D5 half normal saline with 20 mEq KCl. We should increase the rate of his IV fluids to 175 mL per hour of the next 3-4 hours. His insulin drip should be adjusted to keep his sugar in the 180-200 range. I would repeat his labs including BUN/creatinine electrolytes and blood sugar in 4 hours. When he is more alert we should do a swallowing evaluation and begin his diet. When his diet is begun we can switch him to subcutaneous insulin. I would recommend giving Levemir 20 units twice a day the first dose stat at that time. We can also place him on sliding scale NovoLog. Sliding-scale NovoLog before meals should be 80-150 give 6 units NovoLog, 151-200 give 8 units NovoLog, 201- 250 give 9 units NovoLog, 251-300 give 10 units NovoLog, 301-350 give 11 units NovoLog, 351 of 400 give 12 units NovoLog. Subjective Subjective: Does not answer questions this morning Objective Last 24 Hrs of Vital Signs/I&O Vital Signs Date Time Temp Pulse Resp B/P Pulse O2 O2 Flow FiO2 Ox Delivery Rate 07/18 0400 96 Room Air 07/18 0000 Room Air 07/17 2359 98.5 92 12 100/60 97 Room Air 07/17 2250 100 123/70 07/17 1749 96.5 103 18 137/67 98 Room Air 07/17 1650 Room Air 07/17 1648 96.1 106 18 132/75 98 Room Air 07/17 1535 96.3 111 20 163/84 98 Room Air 07/17 1425 98 16 138/75 98 Room Air 07/17 1400 96.1 110 18 127/75 100 Room Air 07/17 1242 Room Air 07/17 1239 93.9 102 16 125/83 96 Room Air 07/17 1110 91.3 100 18 128/68 100 Room Air Intake & Output 07/18 0800 07/18 0000 07/17 1600 Intake Total 1215 4047 2560 Output Total 550 460 375 Balance 665 3587 2185 Intake, IV 1115 3247 2500 Intake, Oral 100 800 60 Number 0 Bowel Movements Output, Urine 550 460 375 Patient 137 lb 181 lb Weight Vital Signs Date Time Temp Pulse Resp B/P Pulse O2 O2 Flow FiO2 Ox Delivery Rate 07/18 0400 96 Room Air 07/18 0000 Room Air 07/17 2359 98.5 92 12 100/60 97 Room Air 07/17 2250 100 123/70 07/17 1749 96.5 103 18 137/67 98 Room Air 07/17 1650 Room Air 07/17 1648 96.1 106 18 132/75 98 Room Air 07/17 1535 96.3 111 20 163/84 98 Room Air 07/17 1425 98 16 138/75 98 Room Air 07/17 1400 96.1 110 18 127/75 100 Room Air 07/17 1242 Room Air 07/17 1239 93.9 102 16 125/83 96 Room Air 07/17 1110 91.3 100 18 128/68 100 Room Air Intake & Output 07/18 0800 07/18 0000 07/17 1600 Intake Total 1215 4047 2560 Output Total 550 460 375 Balance 665 3587 2185 Intake, IV 1115 3247 2500 Intake, Oral 100 800 60 Number 0 Bowel Movements Output, Urine 550 460 375 Patient 137 lb 181 lb Weight Physical Exam General Appearance: lethargic Head: normal appearance Neck: normal inspection Respiratory: normal breath sounds Cardiovascular: regular rate/rhythm Abdomen: normal bowel sounds Extremities: normal inspection Current Medications: Current Medications Sig/Lorrie Start time Last Medication Dose Route Stop Time Status Admin Acetaminophen 650 MG Q6P PRN 07/18 0030 AC PO Acetaminophen 1,000 MG Q6P PRN 07/18 0030 AC N/A 1 UNIT IV Aspirin 325 MG ONCE ONE 07/17 1999 DC 07/17 PO 07/17 2000 225 Carvedilol 12.5 MG BID 07/17 2199 AC 07/17 PO 2250 Finasteride 5 MG DAILY 07/17 194 AC 07/17 PO 2250 Heparin Sodium 0 .STK-MED ONE 07/17 1654 DC (Porcine) .ROUTE Heparin Sodium 5,000 UNIT Q8 07/17 1418 AC 07/18 (Porcine) SC 0547 Influenza Virus 0.5 ML ONCE ONE 07/17 2100 DC 07/17 Vaccine IM 07/17 2101 2251 Insulin Human Regular 10 UNITS ONCE ONE 07/17 1300 DC 07/17 IV 07/17 1301 1325 Insulin Human Regular 100 UNIT Q24H 07/17 1300 AC 07/17 Sodium Chloride 100 ML IV 1325 Non-Formulary 0 SEE ADMIN CRITERIA 07/17 1630 DC Medication ANY Ondansetron HCl 4 MG Q8P PRN 07/17 1415 AC IV Oxycodone/ 1 TAB Q6P PRN 07/18 0030 AC Acetaminophen PO Patient Medication 1 UNIT ONE NR 07/17 2000 DC Teaching ED 07/17 2030 Patient Medication 1 UNIT ONE NR 07/17 1430 DC Teaching ED 07/17 1500 Phenytoin 100 MG TID 07/17 2200 AC 07/17 PO 2252 Potassium Chloride 40 MEQ Q8H 07/17 2000 AC 07/18 Dextrose/Sodium 1,000 ML IV 0329 Chloride Potassium Chloride 0 .STK-MED ONE 07/17 1654 DC PO Potassium Chloride 40 MEQ ONE ONE 07/17 1645 DC 07/17 Sodium Chloride 500 ML IV 07/17 2044 1753 Potassium Chloride 40 MEQ ONCE ONE 07/17 1630 DC 07/17 PO 07/17 1631 1702 Potassium Phosphate 15 mMol ONE ONE 07/18 0045 DC 07/18 Dextrose/Water 245 ML IV 07/18 0444 0144 Sodium Chloride 1,000 ML BOLUS ONE 07/17 1515 CAN IV 07/17 1714 Sodium Chloride 1,000 ML .Q2H 07/17 1445 DC 07/17 IV 07/17 1849 1753 Sodium Chloride 1,000 ML BOLUS ONE 07/17 1415 DC 07/17 IV 07/17 1614 1400 Sodium Chloride 1,000 ML BOLUS ONE 07/17 1200 DC 07/17 IV 07/17 1259 1203 Findings Pertinent Lab/Elmer Results: Laboratory Tests 07/18 07/18 07/18 0315 0315 0300 Chemistry Sodium (137 - 145 mmol/L) 153 H Cancelled Potassium (3.5 - 5.1 mmol/L) 4.8 Cancelled Chloride (98 - 107 mmol/L) 122 H Cancelled Carbon Dioxide (22 - 30 mmol/L) 21 L Cancelled Anion Gap (5 - 16) 9 Cancelled BUN (9 - 20 mg/dL) 56 H Cancelled Creatinine (0.7 - 1.2 mg/dL) 1.4 H Cancelled Estimated GFR (>60 ml/min) 52 L Glucose (65 - 99 mg/dL) 166 H Cancelled Lactic Acid (0.7 - 2.1 mmol/L) 1.4 Calcium (8.4 - 10.2 mg/dL) 8.5 Cancelled Phosphorus (2.5 - 4.5 mg/dL) 2.0 L Cancelled Magnesium (1.6 - 2.3 mg/dL) 2.2 Cancelled Total Bilirubin (0.2 - 1.3 mg/dL) 0.4 Cancelled AST (17 - 59 U/L) 11 L Cancelled ALT (21 - 72 U/L) 18 L Cancelled Troponin I (<0.11 ng/ml) 0.22 *H Albumin (3.5 - 5.0 g/dL) 3.1 L Cancelled Hematology CBC w Diff NO MAN DIFF REQ WBC (4.8 - 10.8 /CUMM) 10.3 RBC (4.70 - 6.10 /CUMM) 3.88 L Hgb (14.0 - 18.0 G/DL) 11.3 L Hct (42 - 52 %) 33.2 L MCV (80.0 - 94.0 FL) 85.5 MCH (27.0 - 31.0 PG) 29.1 RDW (11.5 - 14.5 %) 13.9 Plt Count (130 - 400 /CUMM) 140 MPV (7.4 - 10.4 FL) 8.9 Gran % (42.2 - 75.2 %) 66.7 Lymphocytes % (20.5 - 51.1 %) 14.4 L Monocytes % (1.7 - 9.3 %) 18.3 H Eosinophils % (0 - 5 %) 0.3 Basophils % (0.0 - 2.0 %) 0.3 Absolute Granulocytes (1.4 - 6.5 /CUMM) 6.9 H Absolute Lymphocytes (1.2 - 3.4 /CUMM) 1.5 Absolute Monocytes (0.10 - 0.60 /CUMM) 1.9 H Absolute Eosinophils (0.0 - 0.7 /CUMM) 0 Absolute Basophils (0.0 - 0.2 /CUMM) 0 PUBS MCHC (33.0 - 37.0 G/DL) 34.1 07/18 07/17 07/17 07/17 07/17 0100 2255 2100 1950 1723 Chemistry Sodium (137 - 145 mmol/L) Cancelled 155 H Cancelled 156 *H 157 *H Potassium (3.5 - 5.1 mmol/L) Cancelled 4.2 Cancelled 4.1 3.5 Chloride (98 - 107 mmol/L) Cancelled 121 H Cancelled 119 H 118 H Carbon Dioxide (22 - 30 mmol/L) Cancelled 21 L Cancelled 19 L 14 L Anion Gap (5 - 16) Cancelled 12 Cancelled 18 H 25 H BUN (9 - 20 mg/dL) Cancelled 57 H Cancelled 61 H 65 H Creatinine (0.7 - 1.2 mg/dL) Cancelled 1.4 H Cancelled 1.5 H 1.7 H Estimated GFR (>60 ml/min) 52 L 48 L 41 L Glucose (65 - 99 mg/dL) Cancelled 150 H Cancelled 198 H 325 H Lactic Acid (0.7 - 2.1 mmol/L) 2.9 H Calcium (8.4 - 10.2 mg/dL) Cancelled 8.7 Cancelled 8.6 8.8 Phosphorus (2.5 - 4.5 mg/dL) Cancelled 1.3 L Cancelled 1.8 L 2.1 L Magnesium (1.6 - 2.3 mg/dL) Cancelled 2.2 Cancelled 2.2 2.4 H Total Bilirubin (0.2 - 1.3 mg/dL) Cancelled 0.4 Cancelled 0.5 0.6 AST (17 - 59 U/L) Cancelled 12 L Cancelled 12 L 12 L ALT (21 - 72 U/L) Cancelled 19 L Cancelled 19 L 16 L Troponin I (<0.11 ng/ml) 0.20 *H 0.14 *H Albumin (3.5 - 5.0 g/dL) Cancelled 3.3 L Cancelled 3.4 L 3.5 07/17 07/17 07/17 1504 1504 1500 Chemistry Sodium (137 - 145 mmol/L) 160 *H Potassium (3.5 - 5.1 mmol/L) 3.3 L Chloride (98 - 107 mmol/L) 119 H Carbon Dioxide (22 - 30 mmol/L) 9 *L Anion Gap (5 - 16) 32 H BUN (9 - 20 mg/dL) 63 H Creatinine (0.7 - 1.2 mg/dL) 1.9 H Estimated GFR (>60 ml/min) 36 L Glucose (65 - 99 mg/dL) 504 *H Lactic Acid (0.7 - 2.1 mmol/L) 2.4 H Calcium (8.4 - 10.2 mg/dL) 8.8 Phosphorus (2.5 - 4.5 mg/dL) 3.7 Magnesium (1.6 - 2.3 mg/dL) 2.6 H Total Bilirubin (0.2 - 1.3 mg/dL) 0.5 AST (17 - 59 U/L) 11 L ALT (21 - 72 U/L) 16 L Albumin (3.5 - 5.0 g/dL) 3.7 Free T4 (0.78 - 2.44 ng/dL) 0.77 L Total T3 (0.97 - 1.69 ng/mL) 0.44 L TSH &T3 &Free T4 Intrp (0.27 - 4.20 uIU/mL) 2.980 Hematology CBC w Diff NO MAN DIFF REQ WBC (4.8 - 10.8 /CUMM) 11.8 H RBC (4.70 - 6.10 /CUMM) 4.47 L Hgb (14.0 - 18.0 G/DL) 12.9 L Hct (42 - 52 %) 38.7 L MCV (80.0 - 94.0 FL) 86.7 MCH (27.0 - 31.0 PG) 29.0 RDW (11.5 - 14.5 %) 14.0 Plt Count (130 - 400 /CUMM) 171 MPV (7.4 - 10.4 FL) 9.3 Gran % (42.2 - 75.2 %) 71.4 Lymphocytes % (20.5 - 51.1 %) 17.0 L Monocytes % (1.7 - 9.3 %) 11.4 H Eosinophils % (0 - 5 %) 0 Basophils % (0.0 - 2.0 %) 0.2 Absolute Granulocytes (1.4 - 6.5 /CUMM) 8.4 H Absolute Lymphocytes (1.2 - 3.4 /CUMM) 2.0 Absolute Monocytes (0.10 - 0.60 /CUMM) 1.3 H Absolute Eosinophils (0.0 - 0.7 /CUMM) 0 Absolute Basophils (0.0 - 0.2 /CUMM) 0 PUBS MCHC (33.0 - 37.0 G/DL) 33.4 07/17 07/17 1422 1225 Blood Gas pH (7.35 - 7.45 PH) 7.27 *L pCO2 (35 - 45 TORR) 13 L pO2 (80 - 100 TORR) 111 H HCO3 (21 - 28 MEQ/L) 6 L ABG O2 Sat (Measured) (>96.0 %) 98.0 P-50 (Temp Corrected) YES Carboxyhemoglobin (1.5 - 5.0 %) 0.2 L O2 Concentration % RA Temperature (97.0 - 100.0 FARH) 93.9 L O2 Delivery Method RA Miscellaneous Phlebotomy Draw Site RIGHT RADIAL Toxicology Urine Opiates Screen (>2000 NG/ML) < 100.00 Methadone Screen (>300 NG/ML) < 40 Barbiturate Screen (>200 NG/ML) < 60 Ur Phencyclidine Scrn (>25 NG/ML) < 6.00 Amphetamines Screen (>1000 NG/ML) < 100 U Benzodiazepines Scrn (>200 NG/ML) < 85 Urine Cocaine Screen (>300 NG/ML) < 50 Urine Cannabis Screen (>50 NG/ML) < 5.00 Urines Urine Color (YEL,AMB,STR) YEL Urine Clarity (CLEAR) CLEAR Urine pH (5.0 - 8.0) 6.0 Ur Specific [place] (1.001 - 1.035) 1.020 Urine Protein (NEG,<30 MG/DL) 30 H Urine Ketones (NEG) >=80 Urine Nitrite (NEG) NEG Urine Bilirubin (NEG) NEG@ICTO Urine Urobilinogen (0.1 - 1.0 EU/dl) 0.2 Ur Leukocyte Esterase (NEG) NEG Ur Microscopic SEDIMENT EXAMINED Urine RBC (0 - 5 /HPF) 5-10 H Urine WBC (0 - 2 /HPF) RARE Ur Epithelial Cells (NONE,FEW) RARE Hyaline Casts (0/LPF) RARE H Granular Casts (NONE /LPF) 1-3 H Urine Mucus (FEW,NONE) FEW Urine Hemoglobin (NEG) MOD H Urine Glucose (N MG/DL) >=1000 H 07/17 1145 Chemistry Sodium (137 - 145 mmol/L) 153 H Potassium (3.5 - 5.1 mmol/L) 5.2 H Chloride (98 - 107 mmol/L) 108 H Carbon Dioxide (22 - 30 mmol/L) 6 *L Anion Gap (5 - 16) 39 H BUN (9 - 20 mg/dL) 63 H Creatinine (0.7 - 1.2 mg/dL) 2.1 H Estimated GFR (>60 ml/min) 32 L BUN/Creatinine Ratio (7 - 25 %) 30.0 H Glucose (65 - 99 mg/dL) 753 *H Serum Osmolality (285 - 295 MOSM/KG) 410 H Lactic Acid (0.7 - 2.1 mmol/L) 1.7 Calcium (8.4 - 10.2 mg/dL) 9.9 Total Bilirubin (0.2 - 1.3 mg/dL) 0.6 AST (17 - 59 U/L) 12 L ALT (21 - 72 U/L) 17 L Alkaline Phosphatase (< 127 U/L) 228 H Creatine Kinase (55 - 170 U/L) 126 Troponin I (<0.11 ng/ml) 0.11 *H Total Protein (6.3 - 8.2 g/dL) 7.9 Albumin (3.5 - 5.0 g/dL) 4.7 Globulin (1.9 - 4.2 gm/dL) 3.2 Albumin/Globulin Ratio (1.1 - 2.2 %) 1.5 Hematology CBC w Diff NO MAN DIFF REQ WBC (4.8 - 10.8 /CUMM) 12.9 H RBC (4.70 - 6.10 /CUMM) 5.19 Hgb (14.0 - 18.0 G/DL) 14.9 Hct (42 - 52 %) 45.0 MCV (80.0 - 94.0 FL) 86.8 MCH (27.0 - 31.0 PG) 28.7 RDW (11.5 - 14.5 %) 14.1 Plt Count (130 - 400 /CUMM) 191 MPV (7.4 - 10.4 FL) 9.3 Gran % (42.2 - 75.2 %) 76.0 H Lymphocytes % (20.5 - 51.1 %) 11.6 L Monocytes % (1.7 - 9.3 %) 12.1 H Eosinophils % (0 - 5 %) 0 Basophils % (0.0 - 2.0 %) 0.3 Absolute Granulocytes (1.4 - 6.5 /CUMM) 9.8 H Absolute Lymphocytes (1.2 - 3.4 /CUMM) 1.5 Absolute Monocytes (0.10 - 0.60 /CUMM) 1.6 H Absolute Eosinophils (0.0 - 0.7 /CUMM) 0 Absolute Basophils (0.0 - 0.2 /CUMM) 0 PUBS MCHC (33.0 - 37.0 G/DL) 33.0 Toxicology Phenytoin (10.0 - 20.0 ug/mL) < 3.0 L Acetone Level (NEGATIVE) POSITIVE AT 1:16 DIL
[2016-07-18 08:00] VITALS: BP 109/66
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
--- NOTE | 2016-07-18 13:11 | NUR ---
PT VSS. RA, LUNGS CLR, SATS >97. PT IS ON HOURLY ACCUCHECKS AND IS CURRENTLY ON INSULIN GTT AT 2U/ HR. CURRENT BS 146. SWALLOW EVAL OBTAINED. PT TO START PO DIET, INSULIN GTT TO BE DC'D AND STARTED ON SQ LEVIMER AND NOVOLOG.
[2016-07-18] MEDS ORDERED: ASPIRIN81 M4 PO (14:09)
--- NOTE | 2016-07-18 14:51 | Cons- Neurology ---
General Information and HPI Consulting Request Date of Consult: 07/18/16 Requested By: ANGIE BHARDWAJ M.D History of Present Illness: 60-year-old male admitted to Hospital on July 17 after he was found on the ground at his home. Patient is not certain as to how long he had been lying on the ground. This was an unwitnessed event. He was found yesterday with difficulty communicating and confused, unable to get up from the ground Patient stated that he tripped but this was not observed. There was no history of head trauma. On admission he was stated to the grossly confused and could not give a history Allergies/Medications Allergies: Coded Allergies: NO KNOWN ALLERGIES (03/17/14) Home Med List: Aspirin (Aspirin*) 81 MG TAB.CHEW 1 TAB PO DAILY Heart Health (Reported) Carvedilol (Coreg) 12.5 MG TABLET 1 TAB PO BID BLOOD PRESSURE Finasteride 5 MG TABLET 1 TAB PO DAILY HTN (Reported) Folic Acid 1 MG TABLET 1 TAB PO DAILY SUPPLEMENT Insulin Aspart, Recombinant (Novolog) 100 U/ML DAMARIS 0 UNITS SC SI DIABETES 80-150 no chnage 151-200 plus 2 units 201-250 plus 4 units 251-300 plus 6 units 301-350 plus 8 units 351-400 plus 10 units >400 plus 12 units and call your doctor PLEASE CHECK FINGER STICKS BEFORE EACH MEAL Lactobacillus Acidophilus (Probiotic Formula Capsule) 1 EACH CAPSULE 1 CAP PO BID PROBIOTIC Lisinopril 20 MG TABLET 1 TAB PO DAILY BLOOD PRESSURE Magnesium Oxide 400 MG TABLET 1 TAB PO BID HYPOMAGNESEMIA recheck serum magnesium levels on 11/11 and continue magnesium supplements if appropriate Metformin Hydrochloride (Metformin HCl) 500 MG TAB 1 TAB PO BID DIABETES Montelukast Sodium 10 MG TABLET 1 TAB PO DAILY ALLERGY (Reported) Nicotine (Nicoderm Cq) 14 MG/24 HR TDM 1 PAT TOP DAILY SMOKING CESSATION PLEASE DO NOT APPLY IF YOU RESTART SMOKING Phenytoin Sodium Extended 100 MG CAPSULE 1 CAP PO TID UNSURE OF REASON ( Reported) [Theragran Vitamins] 1 TAB PO DAILY SUPPLEMENT Thiamine (Vitamin B1) 100 MG TAB 1 TAB PO DAILY SUPPLEMENT Current Medications: Current Medications Sig/Lorrie Start time Last Medication Dose Route Stop Time Status Admin Acetaminophen 650 MG Q6P PRN 07/18 0030 AC PO Acetaminophen 1,000 MG Q6P PRN 07/18 0030 AC N/A 1 UNIT IV Aspirin 81 MG DAILY 07/18 1409 AC PO Aspirin 325 MG ONCE ONE 07/17 2000 DC 07/17 PO 07/17 2000 2250 Carvedilol 12.5 MG BID 07/17 2200 AC 07/18 PO 1220 Finasteride 5 MG DAILY 07/17 1943 AC 07/18 PO 1218 Heparin Sodium 0 .STK-MED ONE 07/17 1654 DC (Porcine) .ROUTE Heparin Sodium 5,000 UNIT Q8 07/17 1418 AC 07/18 (Porcine) SC 1346 Influenza Virus 0.5 ML ONCE ONE 07/17 2100 DC 07/17 Vaccine IM 07/17 2101 2251 Insulin Aspart 0 TIDAC 07/18 1700 AC SC Insulin Detemir 20 UNITS BID 07/18 1324 AC 07/18 SC 1347 Insulin Human Regular 100 UNIT Q24H 07/17 1300 DC 07/17 Sodium Chloride 100 ML IV 1325 Lactobacillus 1 CAP BID 07/18 2200 AC Acidophilus PO Montelukast Sodium 10 MG AT BEDTIME 07/18 2200 AC PO Multivitamins 1 TAB DAILY 07/19 1000 AC PO Non-Formulary 0 SEE ADMIN CRITERIA 07/17 1630 DC Medication ANY Ondansetron HCl 4 MG Q8P PRN 07/17 1415 AC IV Oxycodone/ 1 TAB Q6P PRN 07/18 0030 AC Acetaminophen PO Patient Medication 1 UNIT ONE NR 07/17 2000 [facility] 07/17 2030 Patient Medication 1 UNIT ONE NR 07/17 1430 [facility] Teaching ED 07/17 1500 Phenytoin 100 MG TID 07/17 2200 AC 07/18 PO 1218 Phosphate 250 MG ONCE ONE 07/18 0745 CAN PO 07/18 0746 Potassium Chloride 20 MEQ Q8H 07/18 0745 AC 07/18 Dextrose/Sodium 1,000 ML IV 0841 Chloride Potassium Chloride 40 MEQ Q8H 07/17 2000 DC 07/18 Dextrose/Sodium 1,000 ML IV 0329 Chloride Potassium Chloride 0 .STK-MED ONE 07/17 1654 DC PO Potassium Chloride 40 MEQ ONE ONE 07/17 1645 DC 07/17 Sodium Chloride 500 ML IV 07/17 2044 1753 Potassium Chloride 40 MEQ ONCE ONE 07/17 1630 DC 07/17 PO 07/17 1631 1702 Potassium Phosphate 15 mMol ONE ONE 07/18 1200 AC Dextrose/Water 245 ML IV 07/18 1559 Potassium Phosphate 15 mMol ONE ONE 07/18 0045 DC 07/18 Dextrose/Water 245 ML IV 07/18 0444 0144 Sodium Chloride 1,000 ML .Q2H 07/17 1445 DC 07/17 IV 07/17 1849 1753 Thiamine HCl 100 MG DAILY 07/19 1000 AC PO Review of Systems Review of Systems: Denies headache, vertigo, head trauma, weight loss, difficulty swallowing, chest pain, breathing difficulties, nausea or vomiting, incontinence, recent fevers or swelling He states that he has had speech difficulty for a few years. This is of an unknown etiology He has gait disorder and walks with a walker Past History Travel History Traveled to [place] past 21 day No Medical History Blood Transfusion Hx: No Neurological: UNKNOWN EENT: NONE Cardiovascular: hypertension, hyperlipidemia Respiratory: NONE Gastrointestinal: NONE Hepatic: NONE Renal: NONE Musculoskeletal: AMBULATES WITH WALKER Psychiatric: by history, alcohol abuse Endocrine: diabetes, DIABETES (PATIENT DENIES) Blood Disorders: NONE Cancer(s): NONE Surgical History Surgical History: non-contributory Family History Relations & Conditions If Any: FATHER, , Age 60+. MOTHER, , Age 60+. Relation not specified for: FH: dementia Psychosocial History Where Do You Live? Home Services at Home: Social Work Smoking Status: Current Everyday Smoker ETOH Use: denies use Functional Ability ADLs Independent: dressing, eating, toileting, bathing. IADLs Independent: shopping, housework, finances, food prep, telephone, transportation , medication admin. Exam & Diagnostic Data Vital Signs and I&O Vital Signs Date Time Temp Pulse Resp B/P Pulse O2 O2 Flow FiO2 Ox Delivery Rate 07/18 1220 82 133/86 07/18 1200 98 Room Air Room Air 07/18 0800 97 Room Air Room Air 07/18 0800 98.1 86 20 109/66 97 Room Air Room Air 07/18 0400 96 Room Air 07/18 0000 Room Air 07/17 2359 98.5 92 12 100/60 97 Room Air 07/17 2250 100 123/70 07/17 1749 96.5 103 18 137/67 98 Room Air 07/17 1650 Room Air 07/17 1648 96.1 106 18 132/75 98 Room Air 07/17 1535 96.3 111 20 163/84 98 Room Air Intake & Output 07/18 1600 07/18 0800 07/18 0000 Intake Total 1215 4047 Output Total 550 460 Balance 665 3587 Intake, IV 1115 3247 Intake, Oral 100 800 Number 0 Bowel Movements Output, Urine 550 460 Patient 137 lb Weight Alert, comfortable, Oriented to place, unsure as to how many days he has been in hospital Dysarthric Fund of knowledge impaired Extraocular movements full, pupils equal and reactive, fundi benign, visual johnson intact, no facial weakness, palate tongue and shoulders intact, hearing grossly intact Normal tone and strength upper and lower extremities No sensory loss to light touch Deep tendon reflexes diffusely hyperactive According to functions upper extremities intact Attempted gait not made due to absence of walker Physical Exam: Alert, cooperative, in no distress Oriented to place, confused as to days patient has been in hospital Unsure as to age Fund of knowledge impaired Heart sounds normal No carotid bruits Distal pulses intact Extraocular movements full, pupils equal reactive, fundi not adequately visualized, visual johnson intact, no facial weakness or sensory loss, palate tongue and shoulders intact, hearing grossly intact Dysarthric Normal tone and strength upper and lower extremities Deep tendon reflexes mildly hyperactive Coordinative functions upper extremities intact Gait not assessed due to absence of walker Last 48 Hours of Lab Results: Laboratory Tests 07/18 07/18 07/18 0930 0930 0315 Chemistry Sodium (137 - 145 mmol/L) 153 H Potassium (3.5 - 5.1 mmol/L) 4.4 Chloride (98 - 107 mmol/L) 124 H Carbon Dioxide (22 - 30 mmol/L) 20 L Anion Gap (5 - 16) 9 BUN (9 - 20 mg/dL) 51 H Creatinine (0.7 - 1.2 mg/dL) 1.2 Estimated GFR (>60 ml/min) > 60 Glucose (65 - 99 mg/dL) 134 H Lactic Acid (0.7 - 2.1 mmol/L) 1.4 Calcium (8.4 - 10.2 mg/dL) 8.5 Phosphorus (2.5 - 4.5 mg/dL) 2.1 L Magnesium (1.6 - 2.3 mg/dL) 2.2 Total Bilirubin (0.2 - 1.3 mg/dL) 0.4 AST (17 - 59 U/L) 13 L ALT (21 - 72 U/L) 17 L Troponin I (<0.11 ng/ml) Cancelled 0.19 *H Albumin (3.5 - 5.0 g/dL) 3.0 L 07/18 07/18 07/18 0315 0300 0100 Chemistry Sodium (137 - 145 mmol/L) 153 H Cancelled Cancelled Potassium (3.5 - 5.1 mmol/L) 4.8 Cancelled Cancelled Chloride (98 - 107 mmol/L) 122 H Cancelled Cancelled Carbon Dioxide (22 - 30 mmol/L) 21 L Cancelled Cancelled Anion Gap (5 - 16) 9 Cancelled Cancelled BUN (9 - 20 mg/dL) 56 H Cancelled Cancelled Creatinine (0.7 - 1.2 mg/dL) 1.4 H Cancelled Cancelled Estimated GFR (>60 ml/min) 52 L Glucose (65 - 99 mg/dL) 166 H Cancelled Cancelled Calcium (8.4 - 10.2 mg/dL) 8.5 Cancelled Cancelled Phosphorus (2.5 - 4.5 mg/dL) 2.0 L Cancelled Cancelled Magnesium (1.6 - 2.3 mg/dL) 2.2 Cancelled Cancelled Total Bilirubin (0.2 - 1.3 mg/dL) 0.4 Cancelled Cancelled AST (17 - 59 U/L) 11 L Cancelled Cancelled ALT (21 - 72 U/L) 18 L Cancelled Cancelled Troponin I (<0.11 ng/ml) 0.22 *H Albumin (3.5 - 5.0 g/dL) 3.1 L Cancelled Cancelled Hematology CBC w Diff NO MAN DIFF REQ WBC (4.8 - 10.8 /CUMM) 10.3 RBC (4.70 - 6.10 /CUMM) 3.88 L Hgb (14.0 - 18.0 G/DL) 11.3 L Hct (42 - 52 %) 33.2 L MCV (80.0 - 94.0 FL) 85.5 MCH (27.0 - 31.0 PG) 29.1 RDW (11.5 - 14.5 %) 13.9 Plt Count (130 - 400 /CUMM) 140 MPV (7.4 - 10.4 FL) 8.9 Gran % (42.2 - 75.2 %) 66.7 Lymphocytes % (20.5 - 51.1 %) 14.4 L Monocytes % (1.7 - 9.3 %) 18.3 H Eosinophils % (0 - 5 %) 0.3 Basophils % (0.0 - 2.0 %) 0.3 Absolute Granulocytes (1.4 - 6.5 /CUMM) 6.9 H Absolute Lymphocytes (1.2 - 3.4 /CUMM) 1.5 Absolute Monocytes (0.10 - 0.60 /CUMM) 1.9 H Absolute Eosinophils (0.0 - 0.7 /CUMM) 0 Absolute Basophils (0.0 - 0.2 /CUMM) 0 PUBS MCHC (33.0 - 37.0 G/DL) 34.1 07/17 07/17 07/17 07/17 07/17 2255 2100 1950 1723 1504 Chemistry Sodium (137 - 145 mmol/L) 155 H Cancelled 156 *H 157 *H Potassium (3.5 - 5.1 mmol/L) 4.2 Cancelled 4.1 3.5 Chloride (98 - 107 mmol/L) 121 H Cancelled 119 H 118 H Carbon Dioxide (22 - 30 mmol/L) 21 L Cancelled 19 L 14 L Anion Gap (5 - 16) 12 Cancelled 18 H 25 H BUN (9 - 20 mg/dL) 57 H Cancelled 61 H 65 H Creatinine (0.7 - 1.2 mg/dL) 1.4 H Cancelled 1.5 H 1.7 H Estimated GFR (>60 ml/min) 52 L 48 L 41 L Glucose (65 - 99 mg/dL) 150 H Cancelled 198 H 325 H Lactic Acid (0.7 - 2.1 mmol/L) 2.9 H 2.4 H Calcium (8.4 - 10.2 mg/dL) 8.7 Cancelled 8.6 8.8 Phosphorus (2.5 - 4.5 mg/dL) 1.3 L Cancelled 1.8 L 2.1 L Magnesium (1.6 - 2.3 mg/dL) 2.2 Cancelled 2.2 2.4 H Total Bilirubin (0.2 - 1.3 mg/dL) 0.4 Cancelled 0.5 0.6 AST (17 - 59 U/L) 12 L Cancelled 12 L 12 L ALT (21 - 72 U/L) 19 L Cancelled 19 L 16 L Troponin I (<0.11 ng/ml) 0.20 *H 0.14 *H Albumin (3.5 - 5.0 g/dL) 3.3 L Cancelled 3.4 L 3.5 07/17 07/17 1504 1500 Chemistry Sodium (137 - 145 mmol/L) 160 *H Potassium (3.5 - 5.1 mmol/L) 3.3 L Chloride (98 - 107 mmol/L) 119 H Carbon Dioxide (22 - 30 mmol/L) 9 *L Anion Gap (5 - 16) 32 H BUN (9 - 20 mg/dL) 63 H Creatinine (0.7 - 1.2 mg/dL) 1.9 H Estimated GFR (>60 ml/min) 36 L Glucose (65 - 99 mg/dL) 504 *H Calcium (8.4 - 10.2 mg/dL) 8.8 Phosphorus (2.5 - 4.5 mg/dL) 3.7 Magnesium (1.6 - 2.3 mg/dL) 2.6 H Total Bilirubin (0.2 - 1.3 mg/dL) 0.5 AST (17 - 59 U/L) 11 L ALT (21 - 72 U/L) 16 L Albumin (3.5 - 5.0 g/dL) 3.7 Free T4 (0.78 - 2.44 ng/dL) 0.77 L Total T3 (0.97 - 1.69 ng/mL) 0.44 L TSH &T3 &Free T4 Intrp (0.27 - 4.20 uIU/mL) 2.980 Hematology CBC w Diff NO MAN DIFF REQ WBC (4.8 - 10.8 /CUMM) 11.8 H RBC (4.70 - 6.10 /CUMM) 4.47 L Hgb (14.0 - 18.0 G/DL) 12.9 L Hct (42 - 52 %) 38.7 L MCV (80.0 - 94.0 FL) 86.7 MCH (27.0 - 31.0 PG) 29.0 RDW (11.5 - 14.5 %) 14.0 Plt Count (130 - 400 /CUMM) 171 MPV (7.4 - 10.4 FL) 9.3 Gran % (42.2 - 75.2 %) 71.4 Lymphocytes % (20.5 - 51.1 %) 17.0 L Monocytes % (1.7 - 9.3 %) 11.4 H Eosinophils % (0 - 5 %) 0 Basophils % (0.0 - 2.0 %) 0.2 Absolute Granulocytes (1.4 - 6.5 /CUMM) 8.4 H Absolute Lymphocytes (1.2 - 3.4 /CUMM) 2.0 Absolute Monocytes (0.10 - 0.60 /CUMM) 1.3 H Absolute Eosinophils (0.0 - 0.7 /CUMM) 0 Absolute Basophils (0.0 - 0.2 /CUMM) 0 PUBS MCHC (33.0 - 37.0 G/DL) 33.4 07/17 07/17 1422 1225 Blood Gas pH (7.35 - 7.45 PH) 7.27 *L pCO2 (35 - 45 TORR) 13 L pO2 (80 - 100 TORR) 111 H HCO3 (21 - 28 MEQ/L) 6 L ABG O2 Sat (Measured) (>96.0 %) 98.0 P-50 (Temp Corrected) YES Carboxyhemoglobin (1.5 - 5.0 %) 0.2 L O2 Concentration % RA Temperature (97.0 - 100.0 FARH) 93.9 L O2 Delivery Method RA Miscellaneous Phlebotomy Draw Site RIGHT RADIAL Toxicology Urine Opiates Screen (>2000 NG/ML) < 100.00 Methadone Screen (>300 NG/ML) < 40 Barbiturate Screen (>200 NG/ML) < 60 Ur Phencyclidine Scrn (>25 NG/ML) < 6.00 Amphetamines Screen (>1000 NG/ML) < 100 U Benzodiazepines Scrn (>200 NG/ML) < 85 Urine Cocaine Screen (>300 NG/ML) < 50 Urine Cannabis Screen (>50 NG/ML) < 5.00 Urines Urine Color (YEL,AMB,STR) YEL Urine Clarity (CLEAR) CLEAR Urine pH (5.0 - 8.0) 6.0 Ur Specific [place] (1.001 - 1.035) 1.020 Urine Protein (NEG,<30 MG/DL) 30 H Urine Ketones (NEG) >=80 Urine Nitrite (NEG) NEG Urine Bilirubin (NEG) NEG@ICTO Urine Urobilinogen (0.1 - 1.0 EU/dl) 0.2 Ur Leukocyte Esterase (NEG) NEG Ur Microscopic SEDIMENT EXAMINED Urine RBC (0 - 5 /HPF) 5-10 H Urine WBC (0 - 2 /HPF) RARE Ur Epithelial Cells (NONE,FEW) RARE Hyaline Casts (0/LPF) RARE H Granular Casts (NONE /LPF) 1-3 H Urine Mucus (FEW,NONE) FEW Urine Hemoglobin (NEG) MOD H Urine Glucose (N MG/DL) >=1000 H 07/17 1145 Chemistry Sodium (137 - 145 mmol/L) 153 H Potassium (3.5 - 5.1 mmol/L) 5.2 H Chloride (98 - 107 mmol/L) 108 H Carbon Dioxide (22 - 30 mmol/L) 6 *L Anion Gap (5 - 16) 39 H BUN (9 - 20 mg/dL) 63 H Creatinine (0.7 - 1.2 mg/dL) 2.1 H Estimated GFR (>60 ml/min) 32 L BUN/Creatinine Ratio (7 - 25 %) 30.0 H Glucose (65 - 99 mg/dL) 753 *H Serum Osmolality (285 - 295 MOSM/KG) 410 H Lactic Acid (0.7 - 2.1 mmol/L) 1.7 Calcium (8.4 - 10.2 mg/dL) 9.9 Total Bilirubin (0.2 - 1.3 mg/dL) 0.6 AST (17 - 59 U/L) 12 L ALT (21 - 72 U/L) 17 L Alkaline Phosphatase (< 127 U/L) 228 H Creatine Kinase (55 - 170 U/L) 126 Troponin I (<0.11 ng/ml) 0.11 *H Total Protein (6.3 - 8.2 g/dL) 7.9 Albumin (3.5 - 5.0 g/dL) 4.7 Globulin (1.9 - 4.2 gm/dL) 3.2 Albumin/Globulin Ratio (1.1 - 2.2 %) 1.5 Hematology CBC w Diff NO MAN DIFF REQ WBC (4.8 - 10.8 /CUMM) 12.9 H RBC (4.70 - 6.10 /CUMM) 5.19 Hgb (14.0 - 18.0 G/DL) 14.9 Hct (42 - 52 %) 45.0 MCV (80.0 - 94.0 FL) 86.8 MCH (27.0 - 31.0 PG) 28.7 RDW (11.5 - 14.5 %) 14.1 Plt Count (130 - 400 /CUMM) 191 MPV (7.4 - 10.4 FL) 9.3 Gran % (42.2 - 75.2 %) 76.0 H Lymphocytes % (20.5 - 51.1 %) 11.6 L Monocytes % (1.7 - 9.3 %) 12.1 H Eosinophils % (0 - 5 %) 0 Basophils % (0.0 - 2.0 %) 0.3 Absolute Granulocytes (1.4 - 6.5 /CUMM) 9.8 H Absolute Lymphocytes (1.2 - 3.4 /CUMM) 1.5 Absolute Monocytes (0.10 - 0.60 /CUMM) 1.6 H Absolute Eosinophils (0.0 - 0.7 /CUMM) 0 Absolute Basophils (0.0 - 0.2 /CUMM) 0 PUBS MCHC (33.0 - 37.0 G/DL) 33.0 Toxicology Phenytoin (10.0 - 20.0 ug/mL) < 3.0 L Acetone Level (NEGATIVE) POSITIVE AT 1:16 DIL Imaging/Other Studies: CT HEAD FINDINGS: There is no evidence of acute intracranial hemorrhage or territorial infarction. No abnormal mass effect or midline shift is seen. Wolf to white matter differentiation is well preserved. No extra-axial fluid collections are identified. The ventricles are normal in size. Mild chronic microvascular ischemic changes are seen throughout the supratentorial white matter. The osseous structures and soft tissues are normal. The mastoid air cells and visualized portions of the paranasal sinuses are well aerated. IMPRESSION: No acute intracranial pathology. Assessment/Plan Assessment: Unclear if patient fell or lost consciousness due to absence of witness Recommendations: Physical therapy B12 level Glucose and electrolyte correction EEG Consult Acknowledgment - Thank you for your consult request.
[2016-07-18 16:00] VITALS: BP 98/64
--- NOTE | 2016-07-18 22:00 | NUR ---
PT REMOVING BRIEF AND GRABBING FECES FROM RECTUM, TOLD PT THAT THIS BEHAVIOR IS NOT ACCEPTABLE AND UNHYGIENIC. AFTER LEAVING ROOM, PT CONTINUES TO REPEAT SAME BEHAVIORS, MD SANCHEZ NOTIFIED. BILATERAL MITTS APPLIED.
--- NOTE | 2016-07-18 23:32 | ECHOCARDIOGRAM REPORT ---
JENNA GIBBONS Age: 60 : 1955 Gender: M Exam Date: 07/18/2016 16:06 Exam Location: [facility] Ht (in): 68 Wt (lb): 136 BSA: 1.72 BP: 109 / 66 Ordering Physician: MAK SANCHEZ MD Referring Physician: MAK SANCHEZ MD Technologist: Gina Kim [facility] Room Number: 105 Indications: LV FUNCTION AFTER ACS Rhythm: Sinus Technical Quality: good FINDINGS Left Ventricle Normal left ventricular size with mild left ventricular hypertrophy. Normal systolic function with no obvious regional wall motion abnormalities. Normal left ventricular diastolic filling pattern for age. The ejection fraction is visually estimated at 60%. Right Ventricle The right ventricle is normal in size and function. Right Atrium The right atrium is normal in size. Left Atrium The left atrium is normal in size. The interatrial septum is intact. Mitral Valve The mitral valve demonstrates mild annular calcification with normal function. There is no mitral regurgitation. Aortic Valve Structurally normal aortic valve without significant sclerosis or stenosis. There is no aortic regurgitation. Tricuspid Valve The tricuspid valve is normal in structure and function. There is no tricuspid regurgitation. Pulmonic Valve Structurally normal pulmonic valve. There is no pulmonic regurgitation. Pericardium Normal pericardium without effusion. No pleural effusion. Great Vessels Normal aortic root dimension. The aortic arch and great vessels are well seen and are normal. CONCLUSIONS 1. Normal EF of 60%. 2. mild left ventricular hypertrophy. Ted Albrecht M.D. (Electronically Signed) Final Date: 18 July 2016 23:31 MEASUREMENTS (Male / Female) Normal Values 2D ECHO LV Diastolic Diameter PLAX 3.6 cm 4.2 - 5.9 / 3.9 - 5.3 cm LV Systolic Diameter PLAX 2.4 cm 2.1 - 4.0 cm LV Fractional Shortening PLAX 33.3 % 25 - 46 % LV Ejection Fraction 2D Teich 63.0 % IVS Diastolic Thickness 1.3 cm LVPW Diastolic Thickness 1.3 cm LV Relative Wall Thickness 0.7 RV Internal Dim ED PLAX 2.4 cm 1.9 - 3.8 cm LVOT Diameter 1.9 cm Aortic Root Diameter 3.8 cm LA Systolic Diameter LX 3.7 cm 3.0 - 4.0 / 2.7 - 3.8 cm LA Volume 28.0 cm 18 - 58 / 22 - 52 cm DOPPLER AV Peak Velocity 125.0 cm/s AV Peak Gradient 6.3 mmHg AV Mean Velocity 83.4 cm/s AV Mean Gradient 3.0 mmHg AV Velocity Time Integral 21.9 cm LVOT Peak Velocity 82.0 cm/s LVOT Peak Gradient 2.7 mmHg LVOT Mean Velocity 56.2 cm/s LVOT Mean Gradient 1.0 mmHg LVOT Velocity Time Integral 16.1 cm LVOT Stroke Volume 45.6 cm AV Area Cont Eq vti 2.1 cm AV Area Cont Eq pk 1.9 cm MV Peak Velocity 77.2 cm/s MV Peak Gradient 2.4 mmHg MV Mean Velocity 44.3 cm/s MV Mean Gradient 1.0 mmHg Mitral E Point Velocity 53.8 cm/s Mitral A Point Velocity 55.8 cm/s Mitral E to A Ratio 1.0 MV PHT Velocity 67.2 cm/s MV Deceleration [place] 254.0 cm/s MV Pressure Half Time 79.4 ms MV Area PHT 2.8 cm MV Deceleration Time 288.0 ms PV Peak Velocity 88.4 cm/s PV Peak Gradient 3.1 mmHg PV Mean Velocity 65.9 cm/s PV Mean Gradient 2.0 mmHg PV Velocity Time Integral 15.7 cm LV E' Lateral Velocity 8.6 cm/s Mitral E to LV E' Lateral Ratio 6.3 LV E' Septal Velocity 6.8 cm/s Mitral E to LV E' Septal Ratio 7.9
--- NOTE | 2016-07-18 23:46 | ELECTROENCEPHALOGRAM REPORT ---
Electroencephalogram Report Electroencephalogram Results Date of service: 07/18/16 Attending MD: ANGIE BHARDWAJ M.D Director Of Plant Operations: Priyanka Dhaliwal EEG Number: [id number] Test Utilizes: 21 electrode system Pertinent Hx/Physical/Neuro Findings/Clin Diagnosis: seizure disorder Inpatient Medications: Current Medications Sig/Lorrie Start time Last Medication Dose Route Stop Time Status Admin Acetaminophen 650 MG Q6P PRN 07/18 0030 AC PO Acetaminophen 1,000 MG Q6P PRN 07/18 0030 AC N/A 1 UNIT IV Aspirin 81 MG DAILY 07/18 1409 AC 07/18 PO 1513 Calcium Carbonate 500 MG DAILY NEEDED 07/18 1900 AC PO Carvedilol 12.5 MG BID 07/17 2200 AC 07/18 PO 2116 Finasteride 5 MG DAILY 07/17 1943 AC 07/18 PO 1218 Heparin Sodium 5,000 UNIT Q8 07/17 1418 AC 07/18 (Porcine) SC 2114 Insulin Aspart 0 TIDAC/HS 07/18 2100 AC 07/18 SC 2113 Insulin Aspart 0 TIDAC 07/18 1700 DC 07/18 SC 1636 Insulin Detemir 20 UNITS BID 07/18 1324 AC 07/18 SC 2115 Insulin Human Regular 100 UNIT Q24H 07/17 1300 DC 07/18 Sodium Chloride 100 ML IV 1513 Lactobacillus 1 CAP BID 07/18 2200 AC 07/18 Acidophilus PO 211 Montelukast Sodium 10 MG AT BEDTIME 07/18 2200 AC 07/18 PO 2115 Multivitamins 1 TAB DAILY 07/19 1000 AC PO Ondansetron HCl 4 MG Q8P PRN 07/17 1415 AC IV Oxycodone/ 1 TAB Q6P PRN 07/18 0030 AC Acetaminophen PO Phenytoin 100 MG TID 07/17 2200 AC 07/18 PO 2115 Phosphate 250 MG PC AND AT BEDTIME 07/18 1800 AC 07/18 PO 2114 Phosphate 250 MG ONCE ONE 07/18 0745 CAN PO 07/18 0746 Potassium Chloride 20 MEQ Q8H 07/18 1730 AC 07/18 Sodium Chloride 1,000 ML IV 1851 Potassium Chloride 20 MEQ Q8H 07/18 0745 DC 07/18 Dextrose/Sodium 1,000 ML IV 1513 Chloride Potassium Chloride 40 MEQ Q8H 07/17 2000 DC 07/18 Dextrose/Sodium 1,000 ML IV 0329 Chloride Potassium Phosphate 15 mMol ONE ONE 07/18 1200 CAN Dextrose/Water 245 ML IV 07/18 1559 Potassium Phosphate 15 mMol ONE ONE 07/18 0045 DC 07/18 Dextrose/Water 245 ML IV 07/18 0444 0144 Simethicone 80 MG Q6P PRN 07/18 1900 AC 07/18 PO 2115 Thiamine HCl 100 MG DAILY 07/19 1000 AC PO Interpretation: During wakefulness, background is 8 cps activity. In drowsyness, background slows to 506 cps activity Photic stim: no abnormalities No focal or epileptiform activity Impression: Normal EEG in wake and drowsy states
[2016-07-19] VITALS: BP 110/66
[2016-07-19 05:21] LABS: ABSOLUTE BASOPHIL COUNT 0 /CUMM (0.0-0.2); ABSOLUTE EOSINOPHIL COUNT 0 /CUMM (0.0-0.7); ABSOLUTE GRANULOCYTE CT 4.9 /CUMM (1.4-6.5); ABSOLUTE LYMPH COUNT 1.8 /CUMM (1.2-3.4); ABSOLUTE MONOCYTE COUNT 0.9 /CUMM (0.10-0.60); BASOPHIL % 0.2 % (0.0-2.0); EOSINOPHIL % 0.2 % (0-5); GRANULOCYTE % 63.7 % (42.2-75.2); HEMATOCRIT 30.8 % (42-52); MEAN CORPUSCULAR HGB 29.3 PG (27.0-31.0); MEAN CORPUSCULAR HGB CONC 33.9 G/DL (33.0-37.0); MEAN CORPUSCULAR VOLUME 86.4 FL (80.0-94.0); MEAN PLATELET VOLUME 8.8 FL (7.4-10.4); PLATELET COUNT 90 /CUMM (130-400); RBC DISTRIBUTION WIDTH 14.2 % (11.5-14.5); RED BLOOD CELL CT 3.57 /CUMM (4.70-6.10); WHITE BLOOD CELL COUNT 7.6 /CUMM (4.8-10.8)
--- NOTE | 2016-07-19 07:54 | PN- Diabetes ---
Assessment/Plan Assessment: The patient awakens easily this morning. He answers questions appropriately. His speech is somewhat garbled but apparently this is his baseline. The patient is now on Levemir 20 units twice a day subcutaneous as well as sliding scale NovoLog. His blood sugar in the lab this morning at 4:56 AM was 114 and is presently 85 by fingerstick. Patient is eating well. The patient's ketoacidosis is resolved. His blood sugar may be becoming somewhat low on an insulin regimen. Suggest reduce his Levemir to 16 units twice a day and continue the present sliding scale NovoLog before meals. However bedtime sliding scale should be less than 250 give no insulin, 251-300 give 2 units NovoLog, a 50 give 3 units NovoLog, 351 of 400 give 4 units NovoLog.. The patient serum sodium is almost normal and we can probably stop the IV fluids. I would also discontinue Neutra-Phos as phosphate repletion in patients with ketoacidosis has been shown to have detrimental effects rather than improve the outlook. If the patient eats normally he will automatically restore his phosphorus level to normal. I suggest that we measure the patient's anti-ANITRA antibody to see if he has evidence of autoimmune diabetes. This will be important in his future management. Plan: See above Subjective Subjective: Feels okay Objective Last 24 Hrs of Vital Signs/I&O Vital Signs Date Time Temp Pulse Resp B/P Pulse O2 O2 Flow FiO2 Ox Delivery Rate 07/19 0000 99.5 78 20 110/66 97 Room Air Room Air 07/18 2116 82 124/82 07/18 1600 98.0 80 10 98/64 98 Room Air Room Air 07/18 1600 98 Room Air Room Air 07/18 1220 82 133/86 07/18 1200 98 Room Air Room Air 07/18 0800 97 Room Air Room Air 07/18 0800 98.1 86 20 109/66 97 Room Air Room Air Intake & Output 07/19 0800 07/19 0000 07/18 1600 Intake Total 1030 1505 1483 Output Total 600 1000 350 Balance 696 454 7306 Intake, IV 910 1145 1423 Intake, Oral 120 360 60 Number 1 2 0 Bowel Movements Output, Urine 600 1000 350 Vital Signs Date Time Temp Pulse Resp B/P Pulse O2 O2 Flow FiO2 Ox Delivery Rate 07/19 0000 99.5 78 20 110/66 97 Room Air Room Air 07/18 2116 82 124/82 07/18 1600 98.0 80 10 98/64 98 Room Air Room Air 07/18 1600 98 Room Air Room Air 07/18 1220 82 133/86 07/18 1200 98 Room Air Room Air 07/18 0800 97 Room Air Room Air 07/18 0800 98.1 86 20 109/66 97 Room Air Room Air Intake & Output 07/19 0800 07/19 0000 07/18 1600 Intake Total 1030 1505 1483 Output Total 600 1000 350 Balance 097 708 6643 Intake, IV 910 1145 1423 Intake, Oral 120 360 60 Number 1 2 0 Bowel Movements Output, Urine 600 1000 350 Physical Exam General Appearance: alert, awake, comfortable Head: normal appearance Neck: normal inspection Respiratory: normal breath sounds Cardiovascular: regular rate/rhythm Extremities: normal inspection Skin: intact Current Medications: Current Medications Sig/Lorrie Start time Last Medication Dose Route Stop Time Status Admin Acetaminophen 650 MG Q6P PRN 07/18 0030 AC PO Acetaminophen 1,000 MG Q6P PRN 07/18 0030 AC N/A 1 UNIT IV Aspirin 81 MG DAILY 07/18 1409 AC 07/18 PO 1513 Calcium Carbonate 500 MG DAILY NEEDED 07/18 1900 AC PO Carvedilol 12.5 MG BID 07/17 2200 AC 07/18 PO 2116 Finasteride 5 MG DAILY 07/17 1943 AC 07/18 PO 1218 Heparin Sodium 5,000 UNIT Q8 07/17 1418 AC 07/19 (Porcine) [place] 0558 Insulin Aspart 0 TIDAC/HS 07/18 2100 AC 07/18 [place] 2112 Insulin Aspart 0 TIDAC 07/18 1700 DC 07/18 [place] 1636 Insulin Detemir 20 UNITS BID 07/18 1324 AC 07/18 SC 2115 Insulin Human Regular 100 UNIT Q24H 07/17 1300 DC 07/18 Sodium Chloride 100 ML IV 1513 Lactobacillus 1 CAP BID 07/18 2200 AC 07/18 Acidophilus PO 211 Montelukast Sodium 10 MG AT BEDTIME 07/18 2200 AC 07/18 PO 2115 Multivitamins 1 TAB DAILY 07/19 1000 AC PO Ondansetron HCl 4 MG Q8P PRN 07/17 1415 AC IV Oxycodone/ 1 TAB Q6P PRN 07/18 0030 AC Acetaminophen PO Phenytoin 100 MG TID 07/17 2200 AC 07/18 PO 211 Phosphate 250 MG PC AND AT BEDTIME 07/18 1800 DC 07/18 PO 2114 Phosphate 250 MG ONCE ONE 07/18 0745 CAN PO 07/18 0746 Potassium Chloride 20 MEQ Q8H 07/18 1730 DC 07/19 Sodium Chloride 1,000 ML IV 0347 Potassium Chloride 20 MEQ Q8H 07/18 0745 DC 07/18 Dextrose/Sodium 1,000 ML IV 1513 Chloride Potassium Phosphate 15 mMol ONE ONE 07/19 0645 CAN Dextrose/Water 250 ML IV 07/19 1044 Potassium Phosphate 15 mMol ONE ONE 07/18 1200 CAN Dextrose/Water 245 ML IV 07/18 1559 Simethicone 80 MG Q6P PRN 07/18 1900 AC 07/18 PO 2114 Thiamine HCl 100 MG DAILY 07/19 1000 AC PO Findings Pertinent Lab/Elmer Results: Laboratory Tests 07/19 07/19 07/18 07/18 0445 0025 1855 1528 Chemistry Sodium (137 - 145 mmol/L) 146 H 146 H 146 H 148 H Potassium (3.5 - 5.1 mmol/L) 3.9 4.3 4.2 4.6 Chloride (98 - 107 mmol/L) 118 H 117 H 116 H 117 H Carbon Dioxide (22 - 30 mmol/L) 20 L 19 L 19 L 21 L Anion Gap (5 - 16) 7 10 11 11 BUN (9 - 20 mg/dL) 35 H 40 H 46 H 48 H Creatinine (0.7 - 1.2 mg/dL) 0.8 0.9 1.1 1.1 Estimated GFR (>60 ml/min) > 60 > 60 > 60 > 60 Glucose (65 - 99 mg/dL) 114 H 244 H 435 H 343 H Calcium (8.4 - 10.2 mg/dL) 8.4 8.6 8.2 L 8.2 L Phosphorus (2.5 - 4.5 mg/dL) 1.7 L 1.6 L 1.8 L 2.0 L Magnesium (1.6 - 2.3 mg/dL) 2.0 2.1 2.0 2.0 Total Bilirubin (0.2 - 1.3 mg/dL) 0.4 0.4 0.4 0.4 AST (17 - 59 U/L) 17 18 16 L 15 L ALT (21 - 72 U/L) 17 L 16 L 13 L 20 L Albumin (3.5 - 5.0 g/dL) 2.7 L 2.8 L 2.9 L 3.0 L Hematology CBC w Diff NO MAN DIFF REQ WBC (4.8 - 10.8 /CUMM) 7.6 RBC (4.70 - 6.10 /CUMM) 3.57 L Hgb (14.0 - 18.0 G/DL) 10.4 L Hct (42 - 52 %) 30.8 L MCV (80.0 - 94.0 FL) 86.4 MCH (27.0 - 31.0 PG) 29.3 RDW (11.5 - 14.5 %) 14.2 Plt Count (130 - 400 /CUMM) 90 L MPV (7.4 - 10.4 FL) 8.8 Gran % (42.2 - 75.2 %) 63.7 Lymphocytes % (20.5 - 51.1 %) 23.6 Monocytes % (1.7 - 9.3 %) 12.3 H Eosinophils % (0 - 5 %) 0.2 Basophils % (0.0 - 2.0 %) 0.2 Absolute Granulocytes (1.4 - 6.5 /CUMM) 4.9 Absolute Lymphocytes (1.2 - 3.4 /CUMM) 1.8 Absolute Monocytes (0.10 - 0.60 /CUMM) 0.9 H Absolute Eosinophils (0.0 - 0.7 /CUMM) 0 Absolute Basophils (0.0 - 0.2 /CUMM) 0 PUBS MCHC (33.0 - 37.0 G/DL) 33.9 07/18 07/18 0930 0930 Chemistry Sodium (137 - 145 mmol/L) 153 H Potassium (3.5 - 5.1 mmol/L) 4.4 Chloride (98 - 107 mmol/L) 124 H Carbon Dioxide (22 - 30 mmol/L) 20 L Anion Gap (5 - 16) 9 BUN (9 - 20 mg/dL) 51 H Creatinine (0.7 - 1.2 mg/dL) 1.2 Estimated GFR (>60 ml/min) > 60 Glucose (65 - 99 mg/dL) 134 H Calcium (8.4 - 10.2 mg/dL) 8.5 Phosphorus (2.5 - 4.5 mg/dL) 2.1 L Magnesium (1.6 - 2.3 mg/dL) 2.2 Total Bilirubin (0.2 - 1.3 mg/dL) 0.4 AST (17 - 59 U/L) 13 L ALT (21 - 72 U/L) 17 L Troponin I (<0.11 ng/ml) Cancelled 0.19 *H Albumin (3.5 - 5.0 g/dL) 3.0 L
[2016-07-19 08:00] VITALS: BP 100/62
--- NOTE | 2016-07-19 10:14 | PN- CRCU ---
Subjective HPI/Critical Care Issues: Is much more awake and alert. His speech however remains garbled which is reported to be his baseline. He states he wants to go home. As per the staff, he was agitated overnight. Objective Current Medications: Current Medications Sig/Lorrie Start time Last Medication Dose Route Stop Time Status Admin Acetaminophen 650 MG Q6P PRN 07/18 0030 AC PO Acetaminophen 1,000 MG Q6P PRN 07/18 0030 AC N/A 1 UNIT IV Aspirin 81 MG DAILY 07/18 1409 AC 07/19 PO 1005 Calcium Carbonate 500 MG DAILY NEEDED 07/18 1900 AC PO Carvedilol 12.5 MG BID 07/17 2200 AC 07/19 PO 1005 Finasteride 5 MG DAILY 07/17 1943 AC 07/19 PO 1006 Heparin Sodium 5,000 UNIT Q8 07/17 1418 AC 07/19 (Porcine) SC 0558 Insulin Aspart 0 TIDAC/HS 07/18 2100 AC 07/18 SC 2113 Insulin Aspart 0 TIDAC 07/18 1700 DC 07/18 SC 1636 Insulin Detemir 20 UNITS BID 07/18 1324 AC 07/19 SC 1005 Insulin Human Regular 100 UNIT Q24H 07/17 1300 DC 07/18 Sodium Chloride 100 ML IV 1513 Lactobacillus 1 CAP BID 07/18 2200 AC 07/19 Acidophilus PO 1005 Montelukast Sodium 10 MG AT BEDTIME 07/18 2200 AC 07/18 PO 2115 Multivitamins 1 TAB DAILY 07/19 1000 AC 07/19 PO 1005 Ondansetron HCl 4 MG Q8P PRN 07/17 1415 AC IV Oxycodone/ 1 TAB Q6P PRN 07/18 0030 AC Acetaminophen PO Phenytoin 100 MG TID 07/17 2200 AC 07/19 PO 1005 Phosphate 250 MG PC AND AT BEDTIME 07/18 1800 DC 07/18 PO 2114 Phosphate 250 MG ONCE ONE 07/18 0745 CAN PO 07/18 0746 Potassium Chloride 20 MEQ Q8H 07/18 1730 DC 07/19 Sodium Chloride 1,000 ML IV 0347 Potassium Chloride 20 MEQ Q8H 07/18 0745 DC 07/18 Dextrose/Sodium 1,000 ML IV 1513 Chloride Potassium Phosphate 15 mMol ONE ONE 07/19 0645 CAN Dextrose/Water 250 ML IV 07/19 1044 Potassium Phosphate 15 mMol ONE ONE 07/18 1200 CAN Dextrose/Water 245 ML IV 07/18 1559 Simethicone 80 MG Q6P PRN 07/18 1900 AC 07/18 PO 2115 Thiamine HCl 100 MG DAILY 07/19 1000 AC 07/19 PO 1005 Vital Signs & I&O Last 24 Hrs of Vitals and I&O: Vital Signs Date Time Temp Pulse Resp B/P Pulse O2 O2 Flow FiO2 Ox Delivery Rate 07/19 1005 82 110/60 07/19 0800 100.3 80 18 100/62 97 Room Air 07/19 0000 99.5 78 20 110/66 97 Room Air Room Air 07/18 2116 82 124/82 07/18 1600 98.0 80 10 98/64 98 Room Air Room Air 07/18 1600 98 Room Air Room Air 07/18 1220 82 133/86 07/18 1200 98 Room Air Room Air Intake & Output 07/19 1600 07/19 0800 07/19 0000 Intake Total 1030 1505 Output Total 600 1000 Balance 430 505 Intake, IV 910 1145 Intake, Oral 120 360 Number 1 2 Bowel Movements Output, Urine 600 1000 Physical Exam General Appearance: well developed/nourished, mild distress Head: atraumatic, normal appearance Eyes: normal appearance, PERRL. Ears, Nose, Throat: normal pharynx Neck: normal inspection Respiratory: normal breath sounds, chest non-tender Cardiovascular: regular rate/rhythm Gastrointestinal: soft, non-tender Results Last 24 Hrs of Lab Results: Laboratory Tests 07/19/16 0445: Anion Gap 7, Estimated GFR > 60, Glucose 114 H, Calcium 8.4, Phosphorus 1.7 L, Magnesium 2.0, Total Bilirubin 0.4, AST 17, ALT 17 L, Albumin 2.7 L, CBC w Diff NO MAN DIFF REQ, RBC 3.57 L, MCV 86.4, MCH 29.3, RDW 14.2, MPV 8.8, Gran % 63.7, Lymphocytes % 23.6, Monocytes % 12.3 H, Eosinophils % 0.2, Basophils % 0.2, Absolute Granulocytes 4.9, Absolute Lymphocytes 1.8, Absolute Monocytes 0.9 H, Absolute Eosinophils 0, Absolute Basophils 0, PUBS MCHC 33.9 07/19/16 0025: Anion Gap 10, Estimated GFR > 60, Glucose 244 H, Calcium 8.6, Phosphorus 1.6 L , Magnesium 2.1, Total Bilirubin 0.4, AST 18, ALT 16 L, Albumin 2.8 L 07/18/16 1855: Anion Gap 11, Estimated GFR > 60, Glucose 435 H, Calcium 8.2 L, Phosphorus 1.8 L, Magnesium 2.0, Total Bilirubin 0.4, AST 16 L, ALT 13 L, Albumin 2.9 L 07/18/16 1528: Anion Gap 11, Estimated GFR > 60, Glucose 343 H, Calcium 8.2 L, Phosphorus 2.0 L, Magnesium 2.0, Total Bilirubin 0.4, AST 15 L, ALT 20 L, Albumin 3.0 L Impression/Plan Impression/Plan Impression/Plan: 1. Diabetic you acidosis with improvement in blood sugar and anion gap. 2. Hypernatremia, resolving. 3. Dehydration. 4. Resolved leukocytosis. 5. Thrombocytopenia, rule out etiology. 6. Positive troponin with T-wave inversions, demand ischemia versus non-ST elevation TX. Recommendations: * Follow up endocrinology's recommendations. Will discontinue IV fluids and adjust insulin as recommended. * Will follow up neurology's recommendations as well. * Please consult cardiology - Dr. Rainey, for evaluation of abnormal EKG and positive troponin. * Continue multivitamin, thiamine and folate. * Discontinue subcutaneous heparin as the patient's platelet count is dropping. * Alps for DVT prophylaxis. * Increase activity, out of bed to chair. * Downgrade to telemetry. * Continue home medications. * Appreciate all consultants input.
--- NOTE | 2016-07-19 10:37 | NUR ---
@0800-PT ALERT AND ORIENTED, GARBLED SPEECH-PT BASELINE. FOLLOWS COMMANDS. MITTS NOTED IN PLACE DUE TO ATTEMPTS TO REMOVE LINES OVERNIGHT-WILL ASSESS NEED FOR RESTRAINTS THIS AM. CONT ON RA, LUNGS CLEAR-DENIES SOB. NSR HR 60-80S. BP STABLE. C3 DIET PROVIDED, GOOD APPETITE NOTED. AM NOVOLOG SS DOSE HELD DUE TO ACCUCHECK 85-PER HOUSESTAFF-SS TO BE READJUSTED. PEREZ IN PLACE WITH ADEQUATE OUTPUT NOTED-RENEWED THIS AM. SKIN INTACT, BLANCHABLE REDDENED BUTTOCKS-CREAM APPLIED. IVF AND KPHOS BOLUS DISCONTINUED PER REQUEST OF DR ANTUNEZ. CONT TO MONITOR CLOSELY. CALL MCCANN WITHIN REACH.
--- NOTE | 2016-07-19 12:01 | PN- Resident CRCU ---
Subjective HPI/CRCU Issues: Pt in ICU for DKA; Hypernatremia Overnight pt was repeatedly found flicking his stool onto the floor of his room. He was requested to stop multiple times but he kept repeating the habit and as a result was placed in mitts. Otherwise, vitals stable. His blood sugars 116/269/483/146 and one episode of 86. Was given dextrose. Objective Vital Signs & I&O Last 8 Hrs of Vitals and I&O: Laboratory Tests 07/19 07/19 07/18 07/18 0445 0025 1855 1528 Chemistry Sodium (137 - 145 mmol/L) 146 H 146 H 146 H 148 H Potassium (3.5 - 5.1 mmol/L) 3.9 4.3 4.2 4.6 Chloride (98 - 107 mmol/L) 118 H 117 H 116 H 117 H Carbon Dioxide (22 - 30 mmol/L) 20 L 19 L 19 L 21 L Anion Gap (5 - 16) 7 10 11 11 BUN (9 - 20 mg/dL) 35 H 40 H 46 H 48 H Creatinine (0.7 - 1.2 mg/dL) 0.8 0.9 1.1 1.1 Estimated GFR (>60 ml/min) > 60 > 60 > 60 > 60 Glucose (65 - 99 mg/dL) 114 H 244 H 435 H 343 H Calcium (8.4 - 10.2 mg/dL) 8.4 8.6 8.2 L 8.2 L Phosphorus (2.5 - 4.5 mg/dL) 1.7 L 1.6 L 1.8 L 2.0 L Magnesium (1.6 - 2.3 mg/dL) 2.0 2.1 2.0 2.0 Total Bilirubin (0.2 - 1.3 mg/dL) 0.4 0.4 0.4 0.4 AST (17 - 59 U/L) 17 18 16 L 15 L ALT (21 - 72 U/L) 17 L 16 L 13 L 20 L Albumin (3.5 - 5.0 g/dL) 2.7 L 2.8 L 2.9 L 3.0 L Hematology CBC w Diff NO MAN DIFF REQ WBC (4.8 - 10.8 /CUMM) 7.6 RBC (4.70 - 6.10 /CUMM) 3.57 L Hgb (14.0 - 18.0 G/DL) 10.4 L Hct (42 - 52 %) 30.8 L MCV (80.0 - 94.0 FL) 86.4 MCH (27.0 - 31.0 PG) 29.3 RDW (11.5 - 14.5 %) 14.2 Plt Count (130 - 400 /CUMM) 90 L MPV (7.4 - 10.4 FL) 8.8 Gran % (42.2 - 75.2 %) 63.7 Lymphocytes % (20.5 - 51.1 %) 23.6 Monocytes % (1.7 - 9.3 %) 12.3 H Eosinophils % (0 - 5 %) 0.2 Basophils % (0.0 - 2.0 %) 0.2 Absolute Granulocytes (1.4 - 6.5 /CUMM) 4.9 Absolute Lymphocytes (1.2 - 3.4 /CUMM) 1.8 Absolute Monocytes (0.10 - 0.60 /CUMM) 0.9 H Absolute Eosinophils (0.0 - 0.7 /CUMM) 0 Absolute Basophils (0.0 - 0.2 /CUMM) 0 PUBS MCHC (33.0 - 37.0 G/DL) 33.9 Exam General Appearance: well developed/nourished, no apparent distress, alert, awake , comfortable Head: atraumatic, normal appearance Ears, Nose, Throat: normal pharynx, normal ENT inspection Neck: supple Respiratory: normal breath sounds, chest non-tender Cardiovascular: regular rate/rhythm Gastrointestinal: soft, non-tender IV Drips IV Drips: IVF: 1/2 NS Nutrition Nutrition: P.O. diet Current Medications: Current Medications Sig/Lorrie Start time Last Medication Dose Route Stop Time Status Admin Acetaminophen 650 MG Q6P PRN 07/18 0030 AC PO Acetaminophen 1,000 MG Q6P PRN 07/18 0030 AC N/A 1 UNIT IV Aspirin 81 MG DAILY 07/18 1409 AC 07/19 PO 1005 Calcium Carbonate 500 MG DAILY NEEDED 07/18 1900 AC PO Carvedilol 12.5 MG BID 07/17 2200 AC 07/19 PO 1005 Finasteride 5 MG DAILY 07/17 1943 AC 07/19 PO 1006 Heparin Sodium 5,000 UNIT Q8 07/17 1418 AC 07/19 (Porcine) SC 0558 Insulin Aspart 0 TIDAC/HS 07/18 2100 AC 07/19 SC 1155 Insulin Aspart 0 TIDAC 07/18 1700 DC 07/18 SC 1636 Insulin Detemir 20 UNITS BID 07/18 1324 AC 07/19 SC 1005 Insulin Human Regular 100 UNIT Q24H 07/17 1300 DC 07/18 Sodium Chloride 100 ML IV 1513 Lactobacillus 1 CAP BID 07/18 2200 AC 07/19 Acidophilus PO 1005 Montelukast Sodium 10 MG AT BEDTIME 07/18 2200 AC 07/18 PO 2115 Multivitamins 1 TAB DAILY 07/19 1000 AC 07/19 PO 1005 Ondansetron HCl 4 MG Q8P PRN 07/17 1415 AC IV Oxycodone/ 1 TAB Q6P PRN 07/18 0030 AC Acetaminophen PO Phenytoin 100 MG TID 07/17 2200 AC 07/19 PO 1005 Phosphate 250 MG PC AND AT BEDTIME 07/18 1800 DC 07/18 PO 2114 Potassium Chloride 20 MEQ Q8H 07/18 1730 DC 07/19 Sodium Chloride 1,000 ML IV 0347 Potassium Chloride 20 MEQ Q8H 07/18 0745 DC 07/18 Dextrose/Sodium 1,000 ML IV 1513 Chloride Potassium Phosphate 15 mMol ONE ONE 07/19 0645 CAN Dextrose/Water 250 ML IV 07/19 1044 Potassium Phosphate 15 mMol ONE ONE 07/18 1200 CAN Dextrose/Water 245 ML IV 07/18 1559 Simethicone 80 MG Q6P PRN 07/18 1900 AC 07/18 PO 2115 Thiamine HCl 100 MG DAILY 07/19 1000 AC 07/19 PO 1005 Impression/Plan Impression/Problem List Impression: This is a 60-year-old male with past medical history of hypertension, hyperlipidemia, diabetes BIBA after found on her floor. ED workup showed evidence of DKA, and patient was found to be hypothermic, with right-sided weakness and elevated troponins. As he required insulin drip patient was Admitted to ICU for further management. PLAN: Respiratory: STABLE.On admission ABG showed pH 7.27, PCO2 13, bicarbonate 6. This a.m., patient clinically looks improved. He is satting well on room air. He came in with metab alkalosis with respiratory compensation. Stable. Continue to monitor. ID: 1. Leukocytosis: RESOLVED. Patient came with white count 12.9, this a.m. at 7.6. His leukocytosis is likely reactionary secondary to his DKA. Blood cultures continue to be negative. X-ray on admission showed no acute intrathoracic pathology. CT head negative for any intracranial pathology * Follow-up blood cultures * Monitor CBC and vitals CVS: 1. T-wave inversion: Sinus rhythm at 98 with T wave inversions in 2, 3, aVF and V3-V6. No other ST-T changes noted. * Thank you cardiology recommendations. 2. Hypertension/Hyperlipidemia: Per patient's pharmacy he does not get lisinopril that is part of his home medication list. We will continue to hold the inpatient and monitor his blood pressure. * Hold lisinopril as he was hypotensive. * Monitor BP Heme/Onc: Stable; con't monitor. Musculoskeletal: Pt had some unilateral weakness noted after admission. He does have hx of difficulty with speech. He continues to have same weakness this morning. He is still confused this AM. * PT/OT GI: PO intake improving. He is now eating 50% of his plate. Cont' monitor Neuro: Pt has hx of seizures for which he takes Penytoin. However, on inspection of his pill bottles, there seems to be many doses of the previous month remaining. Unsure of pt's compliance with medication. It is possible that his fall was 2/2 seizure. His EEG during admission was negative. * Appreciate Neuro consult * F/U VIT B12 Endo: 1. DKA: Pt came in with DKA in blood sugar of 753. Anion gap of 39. He also had signficant osmolar gap. Pt is now off insulin drip and started on Levemir 20 bid and a sliding scale. However, he had an episode of hypoglycemia to 84 this AM. * Levemir 16 BID * Fingerstick every TIDAC/HS * Appreciate Endocrine consult * STOP repleting phos * Decrease mealtime sliding scale. 2. Hypernatremia: Patient came in with sodium at 170.Free water deficit calculated at 10.2 L. This am Na at 146. * D/C ivf * Monitor potassium repleted as necessary Consistent Carb 3 diet Full code chemical dvt ppx Problem List: 1. Elevated troponin 2. Acute kidney injury (nontraumatic) 3. DKA (diabetic ketoacidoses) Pain Ratin Tomorrow's Labs & Rationales: icu cbc Plan DVT/Prophylaxis: pharmacological
--- NOTE | 2016-07-19 13:50 | NUR ---
SPEECH THERAPY: SPOKE TO PT'S VISITING NURSE, KATHY, TO CLARIFY PT'S BASELINE. PER HER REPORT, PT HAS BASELINE SLURRED SPEECH, SPEAKS IN SHORT 1-2 WORD UTTERANCES, AND WILL REPEAT PHRASES; ST ALSO ASKED ABOUT UNRELIABLE RESPONSE TO YES/NO? AND SHE STATES THIS IS ALSO TYPICAL/BASELINE. FOLLOWING CONVERSATION WITH VISITING NURSE, PT'S SPEECH/LANGUAGE APPEARS TO BE AT BASELINE. A RESULT, NO SPEECH/LANGUAGE EVALUATION INDICATED AT THIS TIME. PER RN, PT TOLERATING OF REGULAR/THIN LIQUIDS W/ NO DIFFICULTY. DISCUSSED ALL RESULTS W/ PT'S RN, ANJALI. ST CONTINUE TO FOLLOW FOR DIET TOLERANCE X1 CLINICALLY INDICATED.
--- NOTE | 2016-07-19 13:53 | Cons- Cardiology ---
General Information and HPI Consulting Request Date of Consult: 07/19/16 Requested By: ANGIE BHARDWAJ M.D Reason for Consult: Positive troponin History of Present Illness: The patient is a 60-year-old male with history of hypertension, diabetes mellitus, and hyperlipidemia who was brought to the hospital by ambulance after being found down on the floor was home for an unknown period of time. The patient lives alone and has friends checking on him every 2 days. His friends found him on the floor unable to get up, and called EMS. At the time of admission he was having speech difficulty. The patient was found to be in diabetic ketoacidosis and was admitted to the intensive care unit. He was placed on insulin drip, and treated with IV fluid. Mental status has improved. DKA has improved with decrease in blood sugar an anion gap. I am consulted because of a positive troponin. The patient denies any recent chest discomfort. He also denies shortness of breath. No palpitations. No orthopnea. During his previous admission in 2014, he was noted to have decreased left ventricular systolic function, with LVEF 35 to 40%. He has not been seen for follow-up since that time. Allergies/Medications Allergies: Coded Allergies: NO KNOWN ALLERGIES (03/17/14) Home Med List: Aspirin (Aspirin*) 81 MG TAB.CHEW 1 TAB PO DAILY Heart Health (Reported) Carvedilol (Coreg) 12.5 MG TABLET 1 TAB PO BID BLOOD PRESSURE Finasteride 5 MG TABLET 1 TAB PO DAILY HTN (Reported) Folic Acid 1 MG TABLET 1 TAB PO DAILY SUPPLEMENT Insulin Aspart, Recombinant (Novolog) 100 U/ML DAMARIS 0 UNITS SC SI DIABETES 80-150 no chnage 151-200 plus 2 units 201-250 plus 4 units 251-300 plus 6 units 301-350 plus 8 units 351-400 plus 10 units >400 plus 12 units and call your doctor PLEASE CHECK FINGER STICKS BEFORE EACH MEAL Lactobacillus Acidophilus (Probiotic Formula Capsule) 1 EACH CAPSULE 1 CAP PO BID PROBIOTIC Lisinopril 20 MG TABLET 1 TAB PO DAILY BLOOD PRESSURE Magnesium Oxide 400 MG TABLET 1 TAB PO BID HYPOMAGNESEMIA recheck serum magnesium levels on 11/11 and continue magnesium supplements if appropriate Metformin Hydrochloride (Metformin HCl) 500 MG TAB 1 TAB PO BID DIABETES Montelukast Sodium 10 MG TABLET 1 TAB PO DAILY ALLERGY (Reported) Nicotine (Nicoderm Cq) 14 MG/24 HR TDM 1 PAT TOP DAILY SMOKING CESSATION PLEASE DO NOT APPLY IF YOU RESTART SMOKING Phenytoin Sodium Extended 100 MG CAPSULE 1 CAP PO TID UNSURE OF REASON ( Reported) [Theragran Vitamins] 1 TAB PO DAILY SUPPLEMENT Thiamine (Vitamin B1) 100 MG TAB 1 TAB PO DAILY SUPPLEMENT Current Medications: Current Medications Sig/Lorrie Start time Last Medication Dose Route Stop Time Status Admin Acetaminophen 650 MG Q6P PRN 07/18 0030 AC PO Acetaminophen 1,000 MG Q6P PRN 07/18 0030 AC N/A 1 UNIT IV Aspirin 81 MG DAILY 07/18 1409 AC 07/19 PO 1005 Calcium Carbonate 500 MG DAILY NEEDED 07/18 1900 AC PO Carvedilol 12.5 MG BID 07/17 2200 AC 07/19 PO 1005 Docusate Sodium 100 MG BID 07/19 1557 AC 07/19 PO 1637 Finasteride 5 MG DAILY 07/17 1943 AC 07/19 PO 1006 Heparin Sodium 0 .STK-MED ONE 07/17 1654 CAN (Porcine) .ROUTE Heparin Sodium 5,000 UNIT Q8 07/17 1418 DC 07/19 (Porcine) SC 0558 Insulin Aspart 0 TIDAC/HS 07/18 2100 AC 07/19 SC 1637 Insulin Aspart 0 TIDAC 07/18 1700 DC 07/18 SC 1636 Insulin Detemir 16 UNITS BID 07/19 2200 AC SC Insulin Detemir 20 UNITS BID 07/18 1324 DC 07/19 SC 1005 Lactobacillus 1 CAP BID 07/18 2200 AC 07/19 Acidophilus PO 1005 Montelukast Sodium 10 MG AT BEDTIME 07/18 2200 AC 07/18 PO 2115 Multivitamins 1 TAB DAILY 07/19 1000 AC 07/19 PO 1005 Ondansetron HCl 4 MG Q8P PRN 07/17 1415 AC IV Oxycodone/ 1 TAB Q6P PRN 07/18 0030 AC Acetaminophen PO Phenytoin 100 MG TID 07/17 2200 AC 07/19 PO 1637 Phosphate 250 MG PC AND AT BEDTIME 07/18 1800 DC 07/18 PO 2114 Potassium Chloride 20 MEQ Q8H 07/18 1730 DC 07/19 Sodium Chloride 1,000 ML IV 0347 Potassium Chloride 20 MEQ Q8H 07/18 0745 DC 07/18 Dextrose/Sodium 1,000 ML IV 1513 Chloride Potassium Phosphate 15 mMol ONE ONE 07/19 0645 CAN Dextrose/Water 250 ML IV 07/19 1044 Simethicone 80 MG Q6P PRN 07/18 1900 AC 07/18 PO 211 Thiamine HCl 100 MG DAILY 07/19 1000 AC 07/19 PO 1005 Review of Systems Review of Systems: No rash. No tremor. No melena. All other systems are reviewed and are noted to be negative. Past History Travel History Traveled to [place] past 21 day No Medical History Blood Transfusion Hx: No Neurological: UNKNOWN EENT: NONE Cardiovascular: hypertension, hyperlipidemia Respiratory: NONE Gastrointestinal: NONE Hepatic: NONE Renal: NONE Musculoskeletal: AMBULATES WITH WALKER Psychiatric: by history, alcohol abuse Endocrine: diabetes, DIABETES (PATIENT DENIES) Blood Disorders: NONE Cancer(s): NONE Surgical History Surgical History: non-contributory Family History Relations & Conditions If Any: FATHER, , Age 60+. MOTHER, , Age 60+. Relation not specified for: FH: dementia Psychosocial History Where Do You Live? Home Services at Home: Social Work Smoking Status: Current Everyday Smoker ETOH Use: denies use Functional Ability ADLs Independent: dressing, eating, toileting, bathing. IADLs Independent: shopping, housework, finances, food prep, telephone, transportation , medication admin. Exam & Diagnostic Data Vital Signs and I&O Vital Signs Date Time Temp Pulse Resp B/P Pulse O2 O2 Flow FiO2 Ox Delivery Rate 07/19 1600 98.7 79 18 106/68 94 Room Air 07/19 1005 82 110/60 07/19 0800 100.3 80 18 100/62 97 Room Air 07/19 0000 99.5 78 20 110/66 97 Room Air Room Air 07/18 2116 82 124/82 Intake & Output 07/19 1600 07/19 0800 07/19 0000 07/18 1600 07/18 0800 07/18 0000 Intake Total 500 1030 1505 1483 1215 4047 Output Total 536 191 0418 350 550 460 Balance 50 381 214 3737 665 3587 Intake, IV 0 910 1145 1423 1115 3247 Intake, Oral 500 120 360 60 100 800 Number 1 1 2 0 0 Bowel Movements Output, Urine 100 578 4402 350 550 460 Patient 137 lb Weight Physical Exam: Gen: The patient is in no acute distress HEENT: Normal nose, ears, and oropharynx. Pupils equal bilaterally. Conjunctiva normal. Neck: Supple with no JVD, no masses, and no thyromegaly Lungs: Clear to auscultation with normal respiratory effort Heart: RRR, S1, S2, no murmurs. No peripheral edema, 2+ pulses in the lower extremities bilaterally Abdomen: Soft, nontender, no masses. No hepatomegaly. No splenomegaly Extremities: No clubbing or cyanosis. Normal muscle strength in the upper and lower extremities. Skin: Normal skin turgor with no skin ulcers or lesions noted. Neuro: Cranial nerves intact. Sensation intact Psych: Alert and oriented 3 with appropriate affect Labs/Elmer Results: Laboratory Tests 07/19 07/19 07/19 0445 0025 0000 Chemistry Sodium (137 - 145 mmol/L) 146 H 146 H Potassium (3.5 - 5.1 mmol/L) 3.9 4.3 Chloride (98 - 107 mmol/L) 118 H 117 H Carbon Dioxide (22 - 30 mmol/L) 20 L 19 L Anion Gap (5 - 16) 7 10 BUN (9 - 20 mg/dL) 35 H 40 H Creatinine (0.7 - 1.2 mg/dL) 0.8 0.9 Estimated GFR (>60 ml/min) > 60 > 60 Glucose (65 - 99 mg/dL) 114 H 244 H Calcium (8.4 - 10.2 mg/dL) 8.4 8.6 Phosphorus (2.5 - 4.5 mg/dL) 1.7 L 1.6 L Magnesium (1.6 - 2.3 mg/dL) 2.0 2.1 Total Bilirubin (0.2 - 1.3 mg/dL) 0.4 0.4 AST (17 - 59 U/L) 17 18 ALT (21 - 72 U/L) 17 L 16 L Albumin (3.5 - 5.0 g/dL) 2.7 L 2.8 L Hematology CBC w Diff NO MAN DIFF REQ WBC (4.8 - 10.8 /CUMM) 7.6 RBC (4.70 - 6.10 /CUMM) 3.57 L Hgb (14.0 - 18.0 G/DL) 10.4 L Hct (42 - 52 %) 30.8 L MCV (80.0 - 94.0 FL) 86.4 MCH (27.0 - 31.0 PG) 29.3 RDW (11.5 - 14.5 %) 14.2 Plt Count (130 - 400 /CUMM) 90 L MPV (7.4 - 10.4 FL) 8.8 Gran % (42.2 - 75.2 %) 63.7 Lymphocytes % (20.5 - 51.1 %) 23.6 Monocytes % (1.7 - 9.3 %) 12.3 H Eosinophils % (0 - 5 %) 0.2 Basophils % (0.0 - 2.0 %) 0.2 Absolute Granulocytes (1.4 - 6.5 /CUMM) 4.9 Absolute Lymphocytes (1.2 - 3.4 /CUMM) 1.8 Absolute Monocytes (0.10 - 0.60 /CUMM) 0.9 H Absolute Eosinophils (0.0 - 0.7 /CUMM) 0 Absolute Basophils (0.0 - 0.2 /CUMM) 0 PUBS MCHC (33.0 - 37.0 G/DL) 33.9 Immunology ANITRA Antibody Pending 07/18 07/18 07/18 07/18 07/18 1855 1528 0930 0930 0315 Chemistry Sodium (137 - 145 mmol/L) 146 H 148 H 153 H Potassium (3.5 - 5.1 mmol/L) 4.2 4.6 4.4 Chloride (98 - 107 mmol/L) 116 H 117 H 124 H Carbon Dioxide (22 - 30 mmol/L) 19 L 21 L 20 L Anion Gap (5 - 16) 11 11 9 BUN (9 - 20 mg/dL) 46 H 48 H 51 H Creatinine (0.7 - 1.2 mg/dL) 1.1 1.1 1.2 Estimated GFR (>60 ml/min) > 60 > 60 > 60 Glucose (65 - 99 mg/dL) 435 H 343 H 134 H Lactic Acid (0.7 - 2.1 mmol/L) 1.4 Calcium (8.4 - 10.2 mg/dL) 8.2 L 8.2 L 8.5 Phosphorus (2.5 - 4.5 mg/dL) 1.8 L 2.0 L 2.1 L Magnesium (1.6 - 2.3 mg/dL) 2.0 2.0 2.2 Total Bilirubin (0.2 - 1.3 mg/dL) 0.4 0.4 0.4 AST (17 - 59 U/L) 16 L 15 L 13 L ALT (21 - 72 U/L) 13 L 20 L 17 L Troponin I (<0.11 ng/ml) Cancelled 0.19 *H Albumin (3.5 - 5.0 g/dL) 2.9 L 3.0 L 3.0 L 07/18 07/18 07/18 0315 0300 0100 Chemistry Sodium (137 - 145 mmol/L) 153 H Cancelled Cancelled Potassium (3.5 - 5.1 mmol/L) 4.8 Cancelled Cancelled Chloride (98 - 107 mmol/L) 122 H Cancelled Cancelled Carbon Dioxide (22 - 30 mmol/L) 21 L Cancelled Cancelled Anion Gap (5 - 16) 9 Cancelled Cancelled BUN (9 - 20 mg/dL) 56 H Cancelled Cancelled Creatinine (0.7 - 1.2 mg/dL) 1.4 H Cancelled Cancelled Estimated GFR (>60 ml/min) 52 L Glucose (65 - 99 mg/dL) 166 H Cancelled Cancelled Calcium (8.4 - 10.2 mg/dL) 8.5 Cancelled Cancelled Phosphorus (2.5 - 4.5 mg/dL) 2.0 L Cancelled Cancelled Magnesium (1.6 - 2.3 mg/dL) 2.2 Cancelled Cancelled Total Bilirubin (0.2 - 1.3 mg/dL) 0.4 Cancelled Cancelled AST (17 - 59 U/L) 11 L Cancelled Cancelled ALT (21 - 72 U/L) 18 L Cancelled Cancelled Troponin I (<0.11 ng/ml) 0.22 *H Albumin (3.5 - 5.0 g/dL) 3.1 L Cancelled Cancelled Hematology CBC w Diff NO MAN DIFF REQ WBC (4.8 - 10.8 /CUMM) 10.3 RBC (4.70 - 6.10 /CUMM) 3.88 L Hgb (14.0 - 18.0 G/DL) 11.3 L Hct (42 - 52 %) 33.2 L MCV (80.0 - 94.0 FL) 85.5 MCH (27.0 - 31.0 PG) 29.1 RDW (11.5 - 14.5 %) 13.9 Plt Count (130 - 400 /CUMM) 140 MPV (7.4 - 10.4 FL) 8.9 Gran % (42.2 - 75.2 %) 66.7 Lymphocytes % (20.5 - 51.1 %) 14.4 L Monocytes % (1.7 - 9.3 %) 18.3 H Eosinophils % (0 - 5 %) 0.3 Basophils % (0.0 - 2.0 %) 0.3 Absolute Granulocytes (1.4 - 6.5 /CUMM) 6.9 H Absolute Lymphocytes (1.2 - 3.4 /CUMM) 1.5 Absolute Monocytes (0.10 - 0.60 /CUMM) 1.9 H Absolute Eosinophils (0.0 - 0.7 /CUMM) 0 Absolute Basophils (0.0 - 0.2 /CUMM) 0 PUBS MCHC (33.0 - 37.0 G/DL) 34.1 07/17 07/17 07/17 07/17 2255 2100 1950 1723 Chemistry Sodium (137 - 145 mmol/L) 155 H Cancelled 156 *H 157 *H Potassium (3.5 - 5.1 mmol/L) 4.2 Cancelled 4.1 3.5 Chloride (98 - 107 mmol/L) 121 H Cancelled 119 H 118 H Carbon Dioxide (22 - 30 mmol/L) 21 L Cancelled 19 L 14 L Anion Gap (5 - 16) 12 Cancelled 18 H 25 H BUN (9 - 20 mg/dL) 57 H Cancelled 61 H 65 H Creatinine (0.7 - 1.2 mg/dL) 1.4 H Cancelled 1.5 H 1.7 H Estimated GFR (>60 ml/min) 52 L 48 L 41 L Glucose (65 - 99 mg/dL) 150 H Cancelled 198 H 325 H Lactic Acid (0.7 - 2.1 mmol/L) 2.9 H Calcium (8.4 - 10.2 mg/dL) 8.7 Cancelled 8.6 8.8 Phosphorus (2.5 - 4.5 mg/dL) 1.3 L Cancelled 1.8 L 2.1 L Magnesium (1.6 - 2.3 mg/dL) 2.2 Cancelled 2.2 2.4 H Total Bilirubin (0.2 - 1.3 mg/dL) 0.4 Cancelled 0.5 0.6 AST (17 - 59 U/L) 12 L Cancelled 12 L 12 L ALT (21 - 72 U/L) 19 L Cancelled 19 L 16 L Troponin I (<0.11 ng/ml) 0.20 *H 0.14 *H Albumin (3.5 - 5.0 g/dL) 3.3 L Cancelled 3.4 L 3.5 Diagnostic Data EKG Results EKG tracing is independently reviewed, and reveals normal sinus rhythm at 86, premature atrial complexes, low voltage in the frontal leads, T-wave abnormality CXR Results chest x-ray: Normally expanded and grossly clear lungs with no acute findings. Other Results Head CT: No acute intracranial pathology. Assessment/Plan Assessment/Plan The patient is a 63-year-old male with history of hypertension, hyperlipidemia, and diabetes mellitus who was admitted after a prolonged downtime, and is noted to be in DKA. He has now improved after several days treatment in the ICU. He is noted to have a mild troponin elevation, however he has had no definite cardiac symptoms. His EKG is abnormal with low voltage and T-wave abnormality. Previous echocardiogram in 2014 showed reduced ejection fraction, however the ejection fraction has now normalized. Recommendations: * Continue aspirin for cardiac protection * Continue carvedilol * Nuclear stress test as outpatient once clinically stable to rule out ischemia Consult Acknowledgment - Thank you for your consult request.
--- NOTE | 2016-07-19 14:35 | NUR ---
@1300-THIS RN DISIMPACTED PT AFTER MULT ATTEMPTS BY PT TO HAVE BM ON BEDPAN. DISIMPACTED MOD AMTS OF HARD STOOL. REPORTED TO HOUSESTAFF. ? START ON STOOL SOFTNER.
--- NOTE | 2016-07-19 15:33 | NUR ---
wound care: reported by nursing skin alterations present on admission - hx obtained from chart review and nursing - pt was noted on floor unknown period of time prior to admission - reports also of self inflicted injuries to rectum and perirectal tissue requiring redirection from nursing staff - alexandro elbows noted with areas of hyperpigmentation presumed dti 3 cm each - alexandro knees also noted wtih slight hyperpigmentation ? trauma related to recent falls - coccyx presents with poorly blanching erythema extending to alexandro buttocks wtih intact skin at this time - stage 1 begining vs evolving dti recommendation: cont with specialty mattress - encourage sidelying position and q 15 position shifts when oob to chair - monitor skin integrity qs, and apply moisture barrier qs and after inc episodes
[2016-07-19 16:00] VITALS: BP 106/68
[2016-07-19 19:30] VITALS: BP 100/64
--- NOTE | 2016-07-19 21:38 | NUR ---
UPON ASSESSMENT PT WAS COOL/CLAMMY BS WAS 56. 240ML OF OJ AND 2 PACKS OF CRACKERS GIVEN. UPON 30 MIN RECHECK BS WAS 112. PER MOIRS HICKS. WILL CONTINUE TO MONITOR.
[2016-07-19 22:00] VITALS: BP 102/62
--- NOTE | 2016-07-20 07:14 | PN- Housestaff ---
See Addendum AC HERNANDEZ,BETO 07/20/16 0714: Subjective Follow-up For: Diabetic ketoacidosis Anemia Complaints: no complaints Tele-Events Since Last Visit: No any overnight cardiac events Subjective: Patient is seen and examined at the bedside. He is having slurring of speech, which started a month ago for which he has already seen to the PCP and evaluated.He was not having any active complaints. Review of Systems Constitutional: Denies: no symptoms. EENTM: Denies: no symptoms. Cardiovascular: Denies: no symptoms. Respiratory: Denies: no symptoms. Gastrointestinal: Denies: no symptoms. Genitourinary: Denies: no symptoms. Musculoskeletal: Denies: no symptoms. Skin: Denies: no symptoms. Neurological/Psychological: Denies: no symptoms. Objective Last 24 Hrs of Vital Signs/I&O Vital Signs Date Time Temp Pulse Resp B/P Pulse O2 O2 Flow FiO2 Ox Delivery Rate 07/20 1052 108/70 07/20 0815 98.3 74 18 100/62 95 Room Air 07/20 0000 Room Air 07/19 2200 83 102/62 07/19 2200 99.1 83 16 102/62 98 Room Air 07/19 1930 98.1 84 18 100/64 100 Room Air 07/19 1600 98.7 79 18 106/68 94 Room Air Intake & Output 07/20 1600 07/20 0800 07/20 0000 Intake Total 260 Output Total 600 400 Balance -600 -140 Intake, Oral 260 Output, Urine 600 400 Physical Exam General Appearance: Alert, Oriented X3, Cooperative, No Acute Distress Skin: No Rashes, No Breakdown Neck: Supple, No JVD Cardiovascular: Regular Rate, Normal S1, Normal S2 Lungs: Clear to Auscultation, Normal Air Movement Abdomen: Soft, No Tenderness Neurological: slurred speech Extremities: No Clubbing, No Cyanosis, No Edema Vascular: Normal Pulses, Pulses Symmetrical Assessment/Plan Assessment: History was obtained from previous records as well as the emergency department staff as the patient is confused and not oriented. Mr. Sanchez is a 60-year- old gentleman with a past medical history of hypertension, hyperlipidemia, and diabetes who is brought in by ambulance after being found down on the floor at home for an unknown time. Vital signs-temperature 98.3, pulse 74, respiratory rate 18, blood pressure 100/ 62, SPO2 95% Problem list - Diabetic ketoacidosis Type 2 diabetes Normocytic Anemia Hyperkalemia recovered Demand ischemia Hypertension Plan - * Possible discharge tomorrow * According to the patient, he was not on elizalde catheter at the home, so we removed the Elizalde and will try for a voiding trial. * His blood sugars are -112, 142, 167, according to Dr. Huerta will continue the same amount of the insulin. We will wait for anti-nathaly antibody, to decide for his antidiabetic regimen at home. * He is taking lisinopril 40 mgs daily,we got the information from [employer], we will start at a low dose is 10 mgs per day, as blood pressure allowed and resume it to his doses slowely. * We'll continue aspirin/carvedilol/lisinopril/phenytoin as before. * He is able to go to the bathroom without any help.According to the PT patient should go to STR. * Diet - Diabetic diet * DVT prophylaxis-ALP S/heparin * CODE STATUS-full code Problem List: 1. Elevated troponin 2. Acute kidney injury (nontraumatic) 3. DKA (diabetic ketoacidoses) Pain Ratin Pain Location: none Pain Goal: Remain pain free Pain Plan: mild Tomorrow's Labs & Rationales: nothing DVT/Prophylaxis: mechanical, pharmacological YVETTE HERNANDEZ,PHU 07/20/16 1000: Attending MD Review Statement Attending Statement Attending MD Statement: examined this patient, discuss w/resident/PA/INSPECTOR [employer]BAG FRAMES, agreed w/resident/PA/INSPECTOR [employer]BAG FRAMES, reviewed EMR data (avail), discussed with nursing, discussed with case mgmt Attending Assessment/Plan: 60-year-old male past medical history diabetes, hypertension and hyperlipidemia who was admitted with diabetic ketoacidosis and a fall. He was also noted to have borderline troponin likely demand ischemia in the setting of his multiple risk factors. On Admission his antihypertensives were held and now is slowly clarifying and restarting. He is on aspirin and statin and beta michaela and will clarify the use of the OTTONIEL inhibitor. Endocrine is helping us with the diabetes management. He has slurred speech but that apparently is his baseline. His EEG was normal and his echo didn't show any acute wall motion abnormalities and normal EF. PT is recommending STR.
--- NOTE | 2016-07-20 07:55 | Patient Discharge Instructions ---
Discharge Instructions General Discharge Information Special Instructions: Please follow up with your chief crna for Nuclear Stress Test as outpatient for further monitoring of abnormal EKG. Please follow up with your PCP within one week of discharge. Please continue to monitor your blood sugars on daily basis. Your BP medication - Lisinorpil has been held. If BP on higher side please resume at low doses 10mg first and increase as needed to regular home dosage 20mg and then 40 mg. Please continue to take your seizure medications 200mg QAM, 100 MG 1pm and 200 MG QHS and please recheck medication level in 1 to 2 weeks from now and report to your PCP. Diet Continue normal diet: No Recommended Diet: Heart Healthy Activity Full Activity/No Limits: No Activity Self Limited: Yes Acute Coronary Syndrome Inclusion Criteria At DC or during hospital stay patient has or had the following: ACS DIAGNOSIS No Discharge Core Measures Meds if any: Prescribed or Continued at Discharge Meds if any: NOT Prescribed or Continued at Discharge Congestive Heart Failure Inclusion Criteria At DC or during hospital stay patient has or had the following: CHF DIAGNOSIS No Discharge Core Measures Meds if any: Prescribed or Continued at Discharge Meds if any: NOT Prescribed or Continued at Discharge Cerebrovascular accident Inclusion Criteria At DC or during hospital stay patient has or had the following: CVA/TIA Diagnosis No Discharge Core Measures Meds if any: Prescribed or Continued at Discharge Meds if any: NOT Prescribed or Continued at Discharge Venous thromboembolism Inclusion Criteria VTE Diagnosis No VTE Type NONE VTE Confirmed by (Test) NONE Discharge Core Measures - Per Current guidelines, there needs to be overlap - treatment for the first 5 days of Warfarin therapy. - If discharged on Warfarin prior to 5 days of - overlap therapy, the patient will need to be - assessed for post discharge needs including - *Post discharge parental anticoagulation - *Warfarin and/or parental anticoagulation education - *Follow up date to check INR post discharge At least 5 days overlap therapy as Inpatient No Meds if any: Prescribed or Continued at Discharge Note: Overlap Therapy is Warfarin and Anticoagulant Meds if any: NOT Prescribed or Continued at Discharge
[2016-07-20 07:56] LABS: ABSOLUTE BASOPHIL COUNT 0 /CUMM (0.0-0.2); ABSOLUTE EOSINOPHIL COUNT 0 /CUMM (0.0-0.7); ABSOLUTE GRANULOCYTE CT 4.3 /CUMM (1.4-6.5); ABSOLUTE LYMPH COUNT 2.5 /CUMM (1.2-3.4); ABSOLUTE MONOCYTE COUNT 0.7 /CUMM (0.10-0.60); BASOPHIL % 0.1 % (0.0-2.0); EOSINOPHIL % 0.3 % (0-5); HEMATOCRIT 31.5 % (42-52); MEAN CORPUSCULAR HGB 29.6 PG (27.0-31.0); MEAN CORPUSCULAR HGB CONC 33.9 G/DL (33.0-37.0); MEAN CORPUSCULAR VOLUME 87.2 FL (80.0-94.0); MEAN PLATELET VOLUME 9.5 FL (7.4-10.4); RBC DISTRIBUTION WIDTH 14.6 % (11.5-14.5); RED BLOOD CELL CT 3.61 /CUMM (4.70-6.10); WHITE BLOOD CELL COUNT 7.5 /CUMM (4.8-10.8)
--- NOTE | 2016-07-20 08:12 | Transfer of Care Summary ---
Hospital Course Course Hospital Course: This is a 60-year-old male with past medical history of hypertension, hyperlipidemia, unknown seizure and gait disorder, Diabetes who was BIBA after being found on his floor. ED workup showed evidence of DKA, patient was found to be hypothermic, with right-sided weakness and elevated troponins. As he required insulin drip patient was Admitted to ICU for further management. PLAN: 1. DKA: Pt came in with DKA in blood sugar of 753; AG of 39, Bicarb of 6. Calculated Osm 370 or 353 if BUN is not taken into account. The meaured Osm was 410, giving him a significant osmolar gap. Patient was started on insulin drip and transitioned to sliding scale insulin with Levemir for coverage. Endo was consulted. Diet restarted. Subsequently, gap closed and pt less obtunded and confused. 2. Hypernatremia: Patient came in with corrected sodium at 169. Free water deficit calculated at 10.2 L. He was given aggressive hydration with D5 1/2 NS and eventually just 1/2NS; his electrolytes were repleted as necessary. Next day the Na dropped to 146 and we continued to encourage PO intake of fluids. * Reassess fluid status. 3. Respiratory Alkalosis: On admission ABG showed pH 7.27, PCO2 13, bicarbonate 6. He came in with metab alkalosis with respiratory compensation. Yesterday pt was satting well on NC and on room air. Continue to monitor. 4. Leukocytosis. RESOLVED. Patient came with white count 12.9, next measured at 7.6. His leukocytosis is likely reactionary secondary to his DKA. Blood cultures continue to be negative. X-ray on admission showed no acute intrathoracic pathology. CT head negative for any intracranial pathology * Follow-up blood cultures * Monitor CBC and vitals 5. T-wave inversion: Sinus rhythm at 98 with T wave inversions in 2, 3, aVF and V3-V6. No other ST-T changes noted. These changes were noted during admission and remained persistent. In addition pt. leaked troponins up to .22, then trended down. * Dr. Santacruz worth following and he states Nuclear stress test outpatient and to continue asa, carvedilol. 6. Hypertension/Hyperlipidemia: Per patient's pharmacy he does not get lisinopril that is part of his home medication list. We will continue to hold the medication while inpatient and monitor his blood pressure. * Monitor BP if elevated consider re-starting med 7. Musculoskeletal/gait disorder: Pt had some unilateral weakness noted after admission. He does have hx of difficulty with speech and gait disorder. He uses a walker at baseline. 8. Neuro: Pt has a hx of head trauma--> seizure disorder and gait disorder. During initial presentation he was obtunded and confused. However after 24 hrs he improved and is able to respond to commands. Additionally, he came in with r.sided weakness that he seems to think is his baseline. Head CT didn't show any remarkable findings. His baseline seems to be a little confused. This gentleman does not seem like he is capable of taking all his medications as necessary and he lives alone. Additionally, EEG done was WNL; no evidence of seizure disorder. * Follow up B 12 level * Consider social work and STR. Assessment/Plan: see above. water deficit calculated at 10.2 L. * We started him on 20 mEq of potassium with D5 half and S running at 175 mL/h this AM. * Monitor potassium repleted as necessary * Dextrose to IV fluids once glucose dropped below 250 * Repeat labs at 3 PM Assessment/Plan: see above.
[2016-07-20 08:15] VITALS: BP 100/62
--- NOTE | 2016-07-20 08:16 | Discharge Summary ---
Visit Information Visit Dates Admission Date: 07/17/16 Discharge Date: 07/21/2016 Hospital Course Course Attending Physician: YVETTE HERNANDEZ,PHU Ly Primary Care Physician: BRIDGET WHITMORE MD Consulting Request: Consulting Specialty: Cardiology Hospital Course: This is a 60-year-old male with past medical history of hypertension, hyperlipidemia, unknown seizure and gait disorder, Diabetes who was BIBA after being found on his floor. ED workup showed evidence of DKA, was brought in on after being found down on the floor at home for unknown time and was found to be hypothermic, with right-sided weakness and elevated troponins on admission.As he required insulin drip patient ,he was Admitted to ICU for further management.He was further downgraded to telemetry on day 4 of admission. 1. DKA: * Pt came in with DKA in blood sugar of 753; AG of 39, Bicarb of 6. Calculated Osm 370 or 353 if BUN is not taken into account. The measured Osm gap was 410, giving him a significant osmolar gap.Endocrinology was on board. * Patient was started on insulin drip , once gap was closed and bicarbonate levels improved he was transitioned to sliding scale insulin with Levemir for coverage. 2. Metabolic Encephalopathy * This was thought to be 2/2 to him being in DKA. His mental statsu resolved as his hyperglycemia improved, AG closed and electrolytes were within normal limit. 3. Hypernatremia: * Patient came in with corrected sodium at 169. Free water deficit calculated at 10.2 L. He was given aggressive hydration with D5 1/2 NS and eventually just 1/2NS; his electrolytes were repleted as necessary. Next day the Na dropped to 146 and continued to encourage PO intake of fluids. 4. Respiratory Alkalosis: * On admission ABG showed pH 7.27, PCO2 13, bicarbonate 6. He came in with metab alkalosis with respiratory compensation. Yesterday pt was satting well on NC and on room air. 5. Leukocytosis. * Patient came with white count 12.9, next measured at 7.6. His leukocytosis is likely reactionary secondary to his DKA. Blood cultures continue to be negative. X-ray on admission showed no acute intrathoracic pathology. CT head negative for any intracranial pathology 6. T-wave inversion : * Sinus rhythm at 98 with T wave inversions in 2, 3, aVF and V3-V6. No other ST- T changes noted. These changes were noted during admission and remained persistent. In addition pt. leaked troponins up to .22, then trended down. * Dr. Santacruz worth following and hepatient will be following up with him Out Patient for Nuclear stress test and he is to continue asa, carvedilol. 7. Hypertension/Hyperlipidemia : * Per patient's pharmacy he does not get lisinopril that is part of his home medication list, but we went throught the records from his PCP and talked to her , and as per them lisinopril was never stopped.His B/p is slightly on lower side for now. * We will continue to hold the lisinorpil for now with the instructions for close monitoring of the BP. We have instructed him that at any point his BP is noted to be on higher side he can start taking lisinorpil at 10 mg daily and increase if need be after consulting PCP. 7. Musculoskeletal/gait disorder : * Pt had some unilateral weakness noted after admission. He does have hx of difficulty with speech and gait disorder. He uses a walker at baseline. 8. Seizure Disorder : * Pt has a hx of head trauma--> seizure disorder and gait disorder. During initial presentation he was obtunded and confused. However after 24 hrs he improved and is able to respond to commands. Additionally, he came in with r.sided weakness that he seems to think is his baseline. Head CT didn't show any remarkable findings. His baseline seems to be a little confused. This gentleman does not seem like he is capable of taking all his medications as necessary and he lives alone. Additionally, EEG done was WNL; no evidence of seizure disorder.We also clarified his antiseizure medications which were phenytoin TID daily- 200 mg in am and QHS and 100 mg at 1 pm. WE will discharge o nthe same dose but will ask him to repeat dilantin levels in a week from now, to make sure levels are not too high and if any further titration of medication is needed. He is follow up with his PCP within one week of discharge. Allergies: Coded Allergies: NO KNOWN ALLERGIES (03/17/14) Significant Procedures: SERVICE DATE: 07/17/16- EXAM TYPE: RAD - XRY-HIP 2-3 VIEWS, RIGHT; XRY-SHOULDER COMPLETE-RIGHT FINDINGS: RIGHT SHOULDER: The right humerus is internally rotated. There is no fracture or dislocation. There is mild joint space narrowing and marginal osteophytosis at the acromioclavicular joint. There is no osseous erosion. There is no abnormal soft tissue calcification. RIGHT HIP: No fracture or dislocation. No significant joint space narrowing or marginal osteophytosis. No osseous erosion. Right inguinal atherosclerotic calcifications. Partially visualized Bales catheter. IMPRESSION: Right shoulder: Internally rotated humerus. No fracture or dislocation. Left hip: No fracture or dislocation. SERVICE DATE: 07/17/16 EXAM TYPE: RAD - XRY-PORTABLE CHEST XRAY IMPRESSION: Normally expanded and grossly clear lungs with no acute findings. SERVICE DATE: 07/17/16 EXAM TYPE: CAT - CT HEAD WO IV CONTRAST FINDINGS: There is no evidence of acute intracranial hemorrhage or territorial infarction. No abnormal mass effect or midline shift is seen. Wolf to white matter differentiation is well preserved. No extra-axial fluid collections are identified. The ventricles are normal in size. Mild chronic microvascular ischemic changes are seen throughout the supratentorial white matter. The osseous structures and soft tissues are normal. The mastoid air cells and visualized portions of the paranasal sinuses are well aerated. IMPRESSION: No acute intracranial pathology. SERVICE DATE: 07/18/16- EXAM TYPE: CARD - ECHOCARDIOGRAM FINDINGS Left Ventricle Normal left ventricular size with mild left ventricular hypertrophy. Normal systolic function with no obvious regional wall motion abnormalities. Normal left ventricular diastolic filling pattern for age. The ejection fraction is visually estimated at 60%. Right Ventricle The right ventricle is normal in size and function. Right Atrium The right atrium is normal in size. Left Atrium The left atrium is normal in size. The interatrial septum is intact. Mitral Valve The mitral valve demonstrates mild annular calcification with normal function. There is no mitral regurgitation. Aortic Valve Structurally normal aortic valve without significant sclerosis or stenosis. There is no aortic regurgitation. Tricuspid Valve The tricuspid valve is normal in structure and function. There is no tricuspid regurgitation. Pulmonic Valve Structurally normal pulmonic valve. There is no pulmonic regurgitation. Pericardium Normal pericardium without effusion. No pleural effusion. Great Vessels Normal aortic root dimension. The aortic arch and great vessels are well seen and are normal. CONCLUSIONS 1. Normal EF of 60%. 2. mild left ventricular hypertrophy. Ted Albrecht M.D. (Electronically Signed) Final Date: 18 July 2016 23:31 MEASUREMENTS (Male / Female) Normal Values 2D ECHO LV Diastolic Diameter PLAX 3.6 cm 4.2 - 5.9 / 3.9 - 5.3 cm LV Systolic Diameter PLAX 2.4 cm 2.1 - 4.0 cm LV Fractional Shortening PLAX 33.3 % 25 - 46 % LV Ejection Fraction 2D Teich 63.0 % IVS Diastolic Thickness 1.3 cm LVPW Diastolic Thickness 1.3 cm LV Relative Wall Thickness 0.7 RV Internal Dim ED PLAX 2.4 cm 1.9 - 3.8 cm LVOT Diameter 1.9 cm Aortic Root Diameter 3.8 cm LA Systolic Diameter LX 3.7 cm 3.0 - 4.0 / 2.7 - 3.8 cm LA Volume 28.0 cm 18 - 58 / 22 - 52 cm DOPPLER AV Peak Velocity 125.0 cm/s AV Peak Gradient 6.3 mmHg AV Mean Velocity 83.4 cm/s AV Mean Gradient 3.0 mmHg AV Velocity Time Integral 21.9 cm LVOT Peak Velocity 82.0 cm/s LVOT Peak Gradient 2.7 mmHg LVOT Mean Velocity 56.2 cm/s LVOT Mean Gradient 1.0 mmHg LVOT Velocity Time Integral 16.1 cm LVOT Stroke Volume 45.6 cm AV Area Cont Eq vti 2.1 cm AV Area Cont Eq pk 1.9 cm MV Peak Velocity 77.2 cm/s MV Peak Gradient 2.4 mmHg MV Mean Velocity 44.3 cm/s MV Mean Gradient 1.0 mmHg Mitral E Point Velocity 53.8 cm/s Mitral A Point Velocity 55.8 cm/s Mitral E to A Ratio 1.0 MV PHT Velocity 67.2 cm/s MV Deceleration [place] 254.0 cm/s MV Pressure Half Time 79.4 ms MV Area PHT 2.8 cm MV Deceleration Time 288.0 ms PV Peak Velocity 88.4 cm/s PV Peak Gradient 3.1 mmHg PV Mean Velocity 65.9 cm/s PV Mean Gradient 2.0 mmHg PV Velocity Time Integral 15.7 cm LV E' Lateral Velocity 8.6 cm/s Mitral E to LV E' Lateral Ratio 6.3 LV E' Septal Velocity 6.8 cm/s Mitral E to LV E' Septal Ratio 7.9 DICTATED BY: RUEL HERNANDEZ PhD,TED [place] DATE/TIME DICTATED:07/18/162330 RN HOME CARE:RAHEEL DATE/TIME TRANSCRIBED:07/18/162330 Electroencephalogram Report Electroencephalogram Results Date of service: 07/18/16 Attending MD: ANGIE BHARDWAJ M.D Interpretation: During wakefulness, background is 8 cps activity. In drowsyness, background slows to 506 cps activity Photic stim: no abnormalities No focal or epileptiform activity Impression: Normal EEG in wake and drowsy states Disposition Summary Disposition Principal Diagnosis: Diabetic Ketoacidosis Additional Diagnosis: Hypernatremia, Demand ischemia, Chronic thrombocytopenia Discharge Disposition: SNF Discharge Instructions General Discharge Information Code Status: Full Code Patient's Diet: Consistent Carbohydrate (diabetic) diet Patient's Activity: As tolerated Follow-Up Instructions/Appts: 1. Please follow up with your senior category manager for Nuclear Stress Test as outpatient for further monitoring of abnormal EKG. 2. Please follow up with your PCP within one week of discharge. 3. Please continue to monitor your blood sugars on daily basis. 4. Your BP medication - Lisinorpil has been held. If BP on higher side please resume at low doses 10mg first and increase as needed to regular home dosage 20mg and then 40 mg. 5. Please continue to take your seizure medications 200mg QAM, 100 MG 1pm and 200 MG QHS and please recheck medication level in 1 to 2 weeks from now and report to your PCP. Medications at Discharge Discharge Medications: Stop taking the following medications: Lisinopril (Lisinopril) 20 MG TABLET ORAL DAILY Qty = 20 Vancomycin Oral Solution 25MG/Ml (First-Vancomycin 25) 25 MG/ML DAMARIS ORAL Every 4 hours Qty = 30 Continue taking these medications: Folic Acid (Folic Acid) 1 MG TABLET 1 Tablet ORAL DAILY Days = 30 Comments: LAST DOSE GIVEN 11/07/14 AT 09:30 [Theragran Vitamins] 1 Tablet ORAL DAILY Qty = 30 Comments: LAST DOSE GIVEN 11/07/14 AT 09:30 Nicotine (Nicoderm Cq) 14 MG/24 HR TDM 1 Patch On the skin DAILY Qty = 7 Instructions: PLEASE DO NOT APPLY IF YOU RESTART SMOKING Comments: LAST DOSE GIVEN 11/07/14 AT 09:30 Thiamine (Vitamin B1) 100 MG TAB 1 Tablet ORAL DAILY Qty = 30 Comments: LAST DOSE GIVEN 11/07/14 AT 09:30 Carvedilol (Coreg) 12.5 MG TABLET 1 Tablet ORAL TWICE DAILY Qty = 30 Comments: LAST DOSE GIVEN 11/07/14 AT 09:30 Lactobacillus Acidophilus (Probiotic Formula Capsule) 1 EACH CAPSULE 1 Capsule ORAL TWICE DAILY Qty = 30 Comments: LAST DOSE GIVEN 11/07/14 AT 09:30 Insulin Aspart, Recombinant (Novolog) 100 U/ML DAMARIS 0 Units Inject into fatty tissue See Instructions Qty = 1 Instructions: 80-150 no chnage 151-200 plus 2 units 201-250 plus 4 units 251-300 plus 6 units 301-350 plus 8 units 351-400 plus 10 units >400 plus 12 units and call your doctor PLEASE CHECK FINGER STICKS BEFORE EACH MEAL Comments: LAST DOSE GIVEN 11/07/14 AT 12:30, 4 UNITS GIVEN Metformin Hydrochloride (Metformin HCl) 500 MG TAB 1 Tablet ORAL TWICE DAILY Qty = 20 Comments: PATIENT DID NOT RECIEVE WHILE HOSPITALIZED Magnesium Oxide (Magnesium Oxide) 400 MG TABLET 1 Tablet ORAL TWICE DAILY Qty = 10 Instructions: recheck serum magnesium levels on 11/11 and continue magnesium supplements if appropriate Comments: IV MAGNESIUM BOLUS GIVEN 11/07/14 AT 10:00 Finasteride (Finasteride) 5 MG TABLET 1 Tablet ORAL DAILY Qty = 30 Phenytoin Sodium Extended (Phenytoin Sodium Extended) 100 MG CAPSULE 1 Capsule ORAL See Instructions Qty = 30 Instructions: GIVE 2 TABLETS 8 :00 AM GIVE 1 TABLET 1:00 PM GIVE 2 TABLET 7:00 PM Montelukast Sodium (Montelukast Sodium) 10 MG TABLET 1 Tablet ORAL DAILY Qty = 30 Aspirin (Aspirin*) 81 MG TAB.CHEW 1 Tablet ORAL DAILY Copies To: HAIM HERNANDEZ,BRIDGET [place]; ALEENA HERNANDEZ,KORINA
[2016-07-20 08:44] LABS: PLATELET COUNT 58 /CUMM (130-400)
--- NOTE | 2016-07-20 08:57 | PN- Diabetes ---
Assessment/Plan Assessment: The patient is awake this morning. He answers questions appropriately. His speech is somewhat garbled but apparently this is his baseline. The patient is now on Levemir 16 units units twice a day subcutaneous as well as sliding scale NovoLog. His blood sugar this morning is 142 which is in a good range. His Levemir was reduced yesterday. Patient is eating well. I Plan: Suggest continue the present insulin. As continue the Bales catheter. The patient should probably go to rehabilitation until he is stronger. We need to await the anti-ANITRA antibody before making further decisions as to his diabetic regimen. Subjective Subjective: Feels improved Review of Systems Constitutional: Denies: chills, fever. Cardiovascular: Denies: chest pain. Respiratory: Denies: short of breath. Neurological/Psychological: Denies: anxiety. Objective Last 24 Hrs of Vital Signs/I&O Vital Signs Date Time Temp Pulse Resp B/P Pulse O2 O2 Flow FiO2 Ox Delivery Rate 07/20 814 98.3 74 18 100/ 95 Room Air 07/20 0000 Room Air 07/19 2199 83 102/07/19 99.1 83 16 / 98 Room Air 07/19 1930 98.1 84 18 100/64 100 Room Air 07/19 1600 98.7 79 18 / 94 Room Air 07/19 1005 82 110/60 Intake & Output 07/20 1600 07/20 0000 Intake Total 260 Output Total 600 400 Balance -600 -140 Intake, Oral 260 Output, Urine 600 400 Vital Signs Date Time Temp Pulse Resp B/P Pulse O2 O2 Flow FiO2 Ox Delivery Rate 07/20 814 98.3 74 18 100/62 95 Room Air 07/20 0000 Room Air 07/190 83 102/62 07/190 99.1 83 16 102/62 98 Room Air 07/19 1930 98.1 84 18 100/64 100 Room Air 07/19 1600 98.7 79 18 106/ 94 Room Air 07/19 1005 82 110/60 Intake & Output 07/20 1600 07/20 0000 Intake Total 260 Output Total 600 400 Balance -600 -140 Intake, Oral 260 Output, Urine 600 400 Physical Exam General Appearance: alert, awake, comfortable Head: normal appearance Respiratory: normal breath sounds Cardiovascular: regular rate/rhythm Abdomen: normal bowel sounds Extremities: no edema Current Medications: Current Medications Sig/Lorrie Start time Last Medication Dose Route Stop Time Status Admin Acetaminophen 650 MG Q6P PRN 07/18 0030 AC PO Acetaminophen 1,000 MG Q6P PRN 07/18 0030 AC N/A 1 UNIT IV Aspirin 81 MG DAILY 07/18 1409 AC 07/19 PO 1005 Calcium Carbonate 500 MG DAILY NEEDED 07/18 1900 AC PO Carvedilol 12.5 MG BID 07/17 2200 AC 07/19 PO 2200 Docusate Sodium 100 MG BID 07/19 1557 AC 07/19 PO 2200 Finasteride 5 MG DAILY 07/17 1943 AC 07/19 PO 1006 Heparin Sodium 0 .STK-MED ONE 07/17 1654 CAN (Porcine) .ROUTE Heparin Sodium 5,000 UNIT Q8 07/17 1418 DC 07/19 (Porcine) SC 0558 Insulin Aspart 0 TIDAC/HS 07/18 2100 AC 07/20 SC 0825 Insulin Detemir 16 UNITS BID 07/19 2200 AC SC Insulin Detemir 20 UNITS BID 07/18 1324 DC 07/19 NH 1005 Lactobacillus 1 CAP BID 07/18 2200 AC 07/19 Acidophilus PO 2159 Montelukast Sodium 10 MG AT BEDTIME 07/18 2200 AC 07/19 PO 2159 Multivitamins 1 TAB DAILY 07/19 1000 AC 07/19 PO 1005 Ondansetron HCl 4 MG Q8P PRN 07/17 1415 AC IV Oxycodone/ 1 TAB Q6P PRN 07/18 0030 AC Acetaminophen PO Phenytoin 100 MG TID 07/17 2200 AC 07/19 PO 2200 Potassium Chloride 20 MEQ BID 07/20 1000 AC PO Simethicone 80 MG Q6P PRN 07/18 1900 AC 07/18 PO 2115 Thiamine HCl 100 MG DAILY 07/19 1000 AC 07/19 PO 1005 Findings Pertinent Lab/Elmer Results: Laboratory Tests 07/20 0620 Chemistry Sodium (137 - 145 mmol/L) 142 Potassium (3.5 - 5.1 mmol/L) 3.6 Chloride (98 - 107 mmol/L) 112 H Carbon Dioxide (22 - 30 mmol/L) 24 Anion Gap (5 - 16) 6 BUN (9 - 20 mg/dL) 23 H Creatinine (0.7 - 1.2 mg/dL) 0.7 Estimated GFR (>60 ml/min) > 60 Glucose (65 - 99 mg/dL) 126 H Calcium (8.4 - 10.2 mg/dL) 8.1 L Phosphorus (2.5 - 4.5 mg/dL) 2.7 Magnesium (1.6 - 2.3 mg/dL) 1.9 Total Bilirubin (0.2 - 1.3 mg/dL) 0.4 AST (17 - 59 U/L) 21 ALT (21 - 72 U/L) 21 Albumin (3.5 - 5.0 g/dL) 2.4 L Hematology CBC w Diff NO MAN DIFF REQ WBC (4.8 - 10.8 /CUMM) 7.5 RBC (4.70 - 6.10 /CUMM) 3.61 L Hgb (14.0 - 18.0 G/DL) 10.7 L Hct (42 - 52 %) 31.5 L MCV (80.0 - 94.0 FL) 87.2 MCH (27.0 - 31.0 PG) 29.6 RDW (11.5 - 14.5 %) 14.6 H Plt Count (130 - 400 /CUMM) 58 L MPV (7.4 - 10.4 FL) 9.5 Gran % (42.2 - 75.2 %) 57.0 Lymphocytes % (20.5 - 51.1 %) 33.2 Monocytes % (1.7 - 9.3 %) 9.4 H Eosinophils % (0 - 5 %) 0.3 Basophils % (0.0 - 2.0 %) 0.1 Absolute Granulocytes (1.4 - 6.5 /CUMM) 4.3 Absolute Lymphocytes (1.2 - 3.4 /CUMM) 2.5 Absolute Monocytes (0.10 - 0.60 /CUMM) 0.7 H Absolute Eosinophils (0.0 - 0.7 /CUMM) 0 Absolute Basophils (0.0 - 0.2 /CUMM) 0 PUBS MCHC (33.0 - 37.0 G/DL) 33.9
--- NOTE | 2016-07-20 10:53 | PN- Cardiology ---
Subjective Subjective: The patient sitting at his bedside chair. He denies any specific cardiovascular symptoms or complaints. He is very anxious to go home. Objective Vital Signs and I&Os Vital Signs Date Time Temp Pulse Resp B/P Pulse O2 O2 Flow FiO2 Ox Delivery Rate 07/20 0815 98.3 74 18 100/62 95 Room Air 07/20 0000 Room Air 07/19 2200 83 102/62 07/19 2200 99.1 83 16 102/62 98 Room Air 07/19 1930 98.1 84 18 100/64 100 Room Air 07/19 1600 98.7 79 18 106/68 94 Room Air Intake & Output 07/20 1600 07/20 0800 07/20 0000 07/19 1600 07/19 0800 07/19 0000 Intake Total 796 742 3730 1505 Output Total 600 400 638 920 7289 Balance -600 -140 50 430 505 Intake, IV 0 910 1145 Intake, Oral 260 500 120 360 Number 1 1 2 Bowel Movements Output, Urine 600 400 555 420 2772 Physical Exam: General Appearance alert and oriented, vital signs stable, no specific complaints HEENT normal Neck Supple, JVP normal, carotids normal bilaterally with no bruits Cardiovascular Regular Rate, Normal S1, Normal S2, 1/6 systolic murmur Lungs Clear to Auscultation and percussion bilaterally Abdomen Normal Neurological nonfocal; the patient's speech is slightly distorted, however, this is apparently his baseline Extremities no cyanosis, clubbing, or edema Current Medications: Current Medications Sig/Lorrie Start time Last Medication Dose Route Stop Time Status Admin Acetaminophen 650 MG Q6P PRN 07/18 0030 AC PO Acetaminophen 1,000 MG Q6P PRN 07/18 0030 AC N/A 1 UNIT IV Aspirin 81 MG DAILY 07/18 1409 AC 07/19 PO 1005 Calcium Carbonate 500 MG DAILY NEEDED 07/18 1900 AC PO Carvedilol 12.5 MG BID 07/17 2200 AC 07/19 PO 2200 Docusate Sodium 100 MG BID 07/19 1557 AC 07/19 PO 2200 Finasteride 5 MG DAILY 07/17 1943 AC 07/19 PO 1006 Heparin Sodium 0 .STK-MED ONE 07/17 1654 CAN (Porcine) .ROUTE Heparin Sodium 5,000 UNIT Q8 07/17 1418 DC 07/19 (Porcine) SC 0558 Insulin Aspart 0 TIDAC/HS 07/18 2100 AC 07/20 MD 0825 Insulin Detemir 16 UNITS BID 07/190 AC SC Insulin Detemir 20 UNITS BID 07/18 1324 DC 07/19 SC 1005 Lactobacillus 1 CAP BID 07/18 2199 AC 07/19 Acidophilus PO 2158 Montelukast Sodium 10 MG AT BEDTIME 07/18 220 AC 07/19 PO 2159 Multivitamins 1 TAB DAILY 07/19 1000 AC 07/19 PO 1005 Ondansetron HCl 4 MG Q8P PRN 07/17 1415 AC IV Oxycodone/ 1 TAB Q6P PRN 07/18 0030 AC Acetaminophen PO Phenytoin 100 MG TID 07/17 220 AC 07/19 PO 2200 Potassium Chloride 20 MEQ BID 07/20 1000 AC PO Simethicone 80 MG Q6P PRN 07/18 1900 AC 07/18 PO 2115 Thiamine HCl 100 MG DAILY 07/19 1000 AC 07/19 PO 1005 Results Last 48 Hrs of Labs/Mics: Laboratory Tests 07/20/16 0620: Anion Gap 6, Estimated GFR > 60, Glucose 126 H, Calcium 8.1 L, Phosphorus 2.7, Magnesium 1.9, Total Bilirubin 0.4, AST 21, ALT 21, Albumin 2.4 L, CBC w Diff NO MAN DIFF REQ, RBC 3.61 L, MCV 87.2, MCH 29.6, RDW 14.6 H, MPV 9.5, Gran % 57.0, Lymphocytes % 33.2, Monocytes % 9.4 H, Eosinophils % 0.3, Basophils % 0.1 , Absolute Granulocytes 4.3, Absolute Lymphocytes 2.5, Absolute Monocytes 0.7 H , Absolute Eosinophils 0, Absolute Basophils 0, PUBS MCHC 33.9 07/19/16 0445: Anion Gap 7, Estimated GFR > 60, Glucose 114 H, Calcium 8.4, Phosphorus 1.7 L, Magnesium 2.0, Total Bilirubin 0.4, AST 17, ALT 17 L, Albumin 2.7 L, CBC w Diff NO MAN DIFF REQ, RBC 3.57 L, MCV 86.4, MCH 29.3, RDW 14.2, MPV 8.8, Gran % 63.7, Lymphocytes % 23.6, Monocytes % 12.3 H, Eosinophils % 0.2, Basophils % 0.2, Absolute Granulocytes 4.9, Absolute Lymphocytes 1.8, Absolute Monocytes 0.9 H, Absolute Eosinophils 0, Absolute Basophils 0, PUBS MCHC 33.9 07/19/16 0025: Anion Gap 10, Estimated GFR > 60, Glucose 244 H, Calcium 8.6, Phosphorus 1.6 L , Magnesium 2.1, Total Bilirubin 0.4, AST 18, ALT 16 L, Albumin 2.8 L 07/19/16 0000: ANITRA Antibody Pending 07/18/16 1855: Anion Gap 11, Estimated GFR > 60, Glucose 435 H, Calcium 8.2 L, Phosphorus 1.8 L, Magnesium 2.0, Total Bilirubin 0.4, AST 16 L, ALT 13 L, Albumin 2.9 L 07/18/16 1528: Anion Gap 11, Estimated GFR > 60, Glucose 343 H, Calcium 8.2 L, Phosphorus 2.0 L, Magnesium 2.0, Total Bilirubin 0.4, AST 15 L, ALT 20 L, Albumin 3.0 L Assessment/Plan Assessment/Plan Assessment: 1. Mild troponin elevation 2. Previously abnormal left ventricular ejection fraction on echocardiogram-now improved 3. DKA 4. Hypertension 5. Hypokalemia 6. Diabetes 7. Normocytic anemia Recommendations: -Continue current medication regimen -Follow-up with Dr. Rainey post discharge. Pharmacologic nuclear stress test to be arranged as outpatient. -Out of bed with ambulation;? PT evaluation Continue telemetry? Yes
--- NOTE | 2016-07-20 13:29 | NUR ---
Referral received late on 07/18/16. The patient is a 60 year old man, admitted to the hospital om 07/17/16 with DKA. Reason for social work consult was related to patients lack of support in the community, and the need for
--- NOTE | 2016-07-20 13:49 | NUR ---
Referral received late in day on 07/18/16. Patient is a 60 year old man, admitted to the hospital on 07/17/16 with DKA. Social Work consult received due to lack of support in the community. Call received from home care agency, [facility], reporting that it is their opinion that patient needs a higher level of care. EHR review reveals involvement with Elderly Protective Services at time of last inpatient hospitalization Will discuss with case management and support efforts for appropriate discharge planning.
[2016-07-20 16:00] VITALS: BP 100/72
[2016-07-21] VITALS: BP 120/78
[2016-07-21 08:22] VITALS: BP 100/62
--- NOTE | 2016-07-21 08:40 | PN- Diabetes ---
Assessment/Plan Assessment: The patient is awake this morning. He answers questions appropriately. His speech is somewhat garbled but apparently this is his baseline. The patient is now on Levemir 16 units units twice a day subcutaneous as well as sliding scale NovoLog. He is also on sliding scale NovoLog. His blood sugar became low this morning at 64. I Plan: Suggest reduce the patient's Levemir to 10 units twice a day. Continue sliding- scale NovoLog but would reduce the sliding scale before meals to 80-150 give 4 units NovoLog, 151-200 give 6 units NovoLog, 201-250 give 8 units NovoLog, 251- 300 give 9 units NovoLog, 301-350 give 10 units NovoLog, 351 of 400 give 11 units NovoLog. Bedtime sliding scale NovoLog can remain the same. Subjective Subjective: feels OK. Objective Last 24 Hrs of Vital Signs/I&O Vital Signs Date Time Temp Pulse Resp B/P Pulse O2 O2 Flow FiO2 Ox Delivery Rate 07/21 821 97.8 72 18 100/62 99 Room Air 07/21 0000 98.4 76 18 120/78 99 Room Air 07/20 2110 76 120/78 07/20 1600 98.7 72 20 100/72 96 Room Air 07/20 1516 Room Air Room Air 07/20 1052 108/70 Intake & Output 07/21 1600 07/21 0807/21 0000 Intake Total 120 0 Output Total 500 Balance -380 0 Intake, Oral 120 0 Output, Urine 500 Vital Signs Date Time Temp Pulse Resp B/P Pulse O2 O2 Flow FiO2 Ox Delivery Rate 07/21 821 97.8 72 18 100/62 99 Room Air 07/21 0000 98.4 76 18 120/78 99 Room Air 07/20 2110 76 120/78 07/20 1600 98.7 72 20 100/72 96 Room Air 07/20 1516 Room Air Room Air 07/20 1052 108/70 Intake & Output 07/21 1600 07/21 0807/21 0000 Intake Total 120 0 Output Total 500 Balance -380 0 Intake, Oral 120 0 Output, Urine 500 Physical Exam General Appearance: alert, awake, comfortable Head: normal appearance Neck: normal inspection Respiratory: normal breath sounds Cardiovascular: regular rate/rhythm Abdomen: normal bowel sounds Extremities: normal inspection Current Medications: Current Medications Sig/Lorrie Start time Last Medication Dose Route Stop Time Status Admin Acetaminophen 650 MG Q6P PRN 07/18 0030 AC PO Acetaminophen 1,000 MG Q6P PRN 07/18 0030 AC N/A 1 UNIT IV Aspirin 81 MG DAILY 07/18 1409 AC 07/20 PO 1052 Calcium Carbonate 500 MG DAILY NEEDED 07/18 1900 AC PO Carvedilol 12.5 MG BID 07/17 2200 AC 07/20 PO 2110 Docusate Sodium 100 MG BID 07/19 1557 AC 07/19 PO 2200 Finasteride 5 MG DAILY 07/17 1943 AC 07/20 PO 1052 Insulin Aspart 0 TIDAC/HS 07/18 2100 AC 07/20 SC 1725 Insulin Detemir 16 UNITS BID 07/19 220 AC 07/20 SC 2252 Lactobacillus 1 CAP BID 07/18 220 AC 07/20 Acidophilus PO 2110 Montelukast Sodium 10 MG AT BEDTIME 07/18 2200 AC 07/20 PO 2110 Multivitamins 1 TAB DAILY 07/19 1000 AC 07/20 PO 1052 Ondansetron HCl 4 MG Q8P PRN 07/17 1415 AC IV Oxycodone/ 1 TAB Q6P PRN 07/18 0030 AC Acetaminophen PO Phenytoin 100 MG TID 07/17 2200 AC 07/20 PO 2110 Polyethylene Glycol 17 GM DAILY 07/20 1418 AC PO Potassium Chloride 20 MEQ BID 07/20 1000 AC 07/20 PO 2110 Senna/Docusate Sodium 1 TAB BID 07/20 1418 AC PO Simethicone 80 MG Q6P PRN 07/18 1900 AC 07/18 PO 2115 Thiamine HCl 100 MG DAILY 07/19 1000 AC 07/20 PO 1052
[2016-07-21] MEDS ORDERED: LEVEMIR100 UNIT/1 SC (09:42)
[2016-07-21] MEDS ORDERED: NOVOLOG100 UNIT/2 SC (09:45)
--- NOTE | 2016-07-21 10:23 | PN- Att Addend ---
Attending Addendum Attending Brief Note Patient seen and examined. Agree with the financial services internship's note. He was walking around with physical therapy with assistance. He is a 60-year-old with diabetes and a history of alcohol abuse in the past and chronic thrombocytopenia was admitted with a fall and DKA. His sugars are much better and will to the Levemir and insulin sliding scale per endocrine. Is going to leave on his beta michaela and aspirin. They can watch his blood pressure and restart the OTTONIEL inhibitor as his BP tolerates and is can have outpatient follow-up for a stress test.
[2016-07-21 10:30] VITALS: BP 108/60
--- NOTE | 2016-07-21 11:21 | PN- Housestaff ---
Subjective Follow-up For: Diabetic ketoacidosis Anemia Complaints: no complaints Tele-Events Since Last Visit: No any overnight cardiac events Subjective: Patient is seen and examined at the bedside. He is having slurring of speech, which started a month ago for which he has already seen to the PCP and evaluated.He was not having any active complaints Review of Systems Constitutional: Reports: no symptoms. Objective Last 24 Hrs of Vital Signs/I&O Last 24 Hrs of Vital Signs/I&O Vital Signs Date Time Temp Pulse Resp B/P Pulse O2 O2 Flow FiO2 Ox Delivery Rate 07/20 1052 108/70 07/20 0815 98.3 74 18 100/62 95 Room Air 07/20 0000 Room Air 07/19 2200 83 102/62 07/19 2200 99.1 83 16 102/62 98 Room Air 07/19 1930 98.1 84 18 100/64 100 Room Air 07/19 1600 98.7 79 18 106/68 94 Room Air Physical Exam General Appearance: Alert, Oriented X3, Cooperative, No Acute Distress Skin: No Rashes, No Breakdown HEENT: Atraumatic, PERRLA, EOMI Neck: Supple, No JVD Cardiovascular: Regular Rate, Normal S1, Normal S2 Lungs: Clear to Auscultation, Normal Air Movement Abdomen: Soft, No Tenderness Neurological: slurred speech Extremities: No Clubbing, No Cyanosis, No Edema Vascular: Normal Pulses, Pulses Symmetrical Assessment/Plan Assessment: History was obtained from previous records as well as the emergency department staff as the patient is confused and not oriented. Mr. Sanchez is a 60-year- old gentleman with a past medical history of hypertension, hyperlipidemia, and diabetes who is brought in by ambulance after being found down on the floor at home for an unknown time. Vital signs-temperature 98.3, pulse 74, respiratory rate 18, blood pressure 100/ 62, SPO2 95% Problem list - Diabetic ketoacidosis Type 2 diabetes Normocytic Anemia Hyperkalemia recovered Demand ischemia Hypertension Plan - * Discharge today * His blood sugars are -112, 142, 167, according to Dr. Huerta will continue the same amount of the insulin. We will wait for anti-nathaly antibody, to decide for his antidiabetic regimen at home. * He is taking lisinopril 40 mgs daily,we got the information from [place], we will start at a low dose is 10 mgs per day, as blood pressure allowed and resume it to his doses slowely. * We'll continue aspirin/carvedilol/lisinopril/phenytoin as before. * He is able to go to the bathroom without any help.According to the PT patient should go to [facility]. * Diet - Diabetic diet * DVT prophylaxis-ALP S/heparin * CODE STATUS-full code Problem List: 1. Diabetes 2. DKA (diabetic ketoacidoses) Pain Ratin Pain Location: none Pain Goal: Remain pain free Pain Plan: mild Tomorrow's Labs & Rationales: none DVT/Prophylaxis: mechanical Consulting Request: Consulting Specialty: Cardiology
--- NOTE | 2016-07-21 13:10 | NUR ---
Late Entry: Aware of patients discharge this am. Patient was accepted at and secured a bed for himself at [facility]. Call placed to [employer], as it was noted that he had been involved with that agency during his last admission. EPS did not have an active case with this client currently, and as there was a safe plan being inplemented for him, there was not an indication for the agency to reopen the case. Please call if other social work needs arise.
== END 2016-07-21 12:05 | DRG 420 ==
LOC: ENRESERVTM → ENRESERVDT → ERH 11:03 → CRI 12:58 → ERHI 12:58 → 1NO 12:58 → ENPENDDIS 12:58 → CRI 18:45 → 1NO 07-19 19:27
PROVIDERS: Emergency Medicine; Internal Medicine Cardiovascular Disease; Student in an Organized Health Care Education/Training Program; ADMIT Internal Medicine
DX: E13.10 Other specified diabetes mellitus with ketoacidosis without coma (principal); Z79.4 Long term (current) use of insulin; Z79.84 Long term (current) use of oral hypoglycemic drugs; T68.XXXA Hypothermia, initial encounter; G93.41 Metabolic encephalopathy; I11.0 Hypertensive heart disease with heart failure; I50.22 Chronic systolic (congestive) heart failure; N17.9 Acute kidney failure, unspecified; E87.0 Hyperosmolality and hypernatremia; E86.0 Dehydration; D69.6 Thrombocytopenia, unspecified; I24.8 Other forms of acute ischemic heart disease; E78.5 Hyperlipidemia, unspecified; Z72.0 Tobacco use; G40.909 Epilepsy, unspecified, not intractable, without status epilepticus; R26.9 Unspecified abnormalities of gait and mobility
CPT/HCPCS: 1NSP; 83519; CCU; 36415; 73030-RT; 73502-RT; 80307; 81001; 82436; 87040; 93005; 93010; 93306; 95816; 96361; 96374; 97110-GO; 97116-GO; 97162-GP; 97166-GO; 97530-GO; 99291; J1644; J1815; J3490; J7042; J7060; Q2036

== ENCOUNTER 2017-07-14 14:29 | Inpatient (IN) | payer OTHER ==
[~2017-07-14] VITALS: Ht 170.2 cm; Wt 56.7 kg
[~2017-07-14 14:29] MED LIST changes: +ASPIRIN81 M4 PO; +FINASTERIDE5 M1 PO; +LEVEMIR100 UNIT/1 SC; +MONTELUKAST SOD10 M1 PO; +NOVOLOG100 UNIT/2 SC; +PHENYTOIN SODI100 MG PO
--- NOTE | 2017-07-14 14:53 | ED AMS/SEIZURE/WEAK/DIZZY ---
History of Present Illness General Chief Complaint: Altered Mental Status Stated Complaint: BIBA AMS Source: patient, EMS Exam Limitations: poor historian Vital Signs & Intake/Output Vital Signs & Intake/Output Vital Signs Date Time Temp Pulse Resp B/P B/P Pulse O2 O2 Flow FiO2 Mean Ox Delivery Rate 07/18 0843 81 118/66 07/18 0800 97.3 78 18 118/66 96 Room Air 07/18 0600 70 20 124/50 07/18 0400 70 20 120/60 ED Intake and Output 07/19 0000 07/18 1200 Intake Total 1200 200 Output Total 620 450 Balance 580 -250 Intake, Oral 1200 200 Number 0 Bowel Movements Output, Stool 0 Output, Urine 620 450 Allergies Coded Allergies: NO KNOWN ALLERGIES (03/17/14) Triage Nurses Notes Reviewed? yes Onset: Gradual Duration: week(s): Timing: recent history Injury Environment: home Severity: severe HPI: 61-year-old male with history of diabetes brought in by ambulance from home for altered mental status. HPI is limited due to patient's difficulty speaking and altered status. Patient states he has not taken his insulin for 2 weeks. Patient had a visiting nurse see him today, today was the first encountered together. Visiting nurse felt the patient was altered and called for an ambulance. En route to the hospital patient's blood glucose was >650 on glucometer. Patient is currently denying pain. He does report shortness of breath. He denies recent fevers, chills, illness, nausea, vomiting, abdominal pain, chest pain. (Joyce HESTER,Christal Garcia) Reconcile Medications Aspirin (Aspirin*) 81 MG TAB.CHEW 1 TAB PO DAILY Heart Health (Reported) Carvedilol 12.5 MG TABLET 1 TAB PO BID HEART HEALTH (Reported) Fexofenadine HCl 180 MG TABLET 1 TAB PO DAILY ALLERGIES (Reported) Finasteride 5 MG TABLET 1 TAB PO DAILY HTN (Reported) Furosemide 40 MG TABLET 1 TAB PO BID WATER RETENTION (Reported) Insulin Aspart (Novolog) 100 UNIT/ML VIAL 0 SC ADD ADMIN CRITERIA DM Insulin Detemir (Levemir) 100 UNIT/ML VIAL 15 UNITS SC BID DM Levothyroxine Sodium 50 MCG TABLET 1 TAB PO DAILY THYROID HEALTH (Reported) Montelukast Sodium 10 MG TABLET 1 TAB PO DAILY ALLERGY (Reported) Phenytoin Sodium Extended 100 MG CAPSULE 1 CAP PO 1300 SEIZURE (Reported) (Avis HERNANDEZ,Familia Heredia) Past History Travel History Traveled to [place] past 21 day No Medical History Any Pertinent Medical History? see below for history Neurological: UNKNOWN EENT: NONE Cardiovascular: hypertension, hyperlipidemia Respiratory: NONE Gastrointestinal: NONE Hepatic: NONE Renal: NONE Musculoskeletal: AMBULATES WITH WALKER Psychiatric: by history, alcohol abuse Endocrine: diabetes, DIABETES (PATIENT DENIES) Blood Disorders: NONE Cancer(s): NONE History of MRSA: No History of VRE: No History of CDIFF: No Surgical History Surgical History: non-contributory Psychosocial History Who do you live with Patient/Self Services at Home Social Work What is your primary language Maltese Family History Family History, If Any: FATHER, , Age 60+. MOTHER, , Age 60+. Relation not specified for: FH: dementia Hx Contributory? No (Christal Vang) Review of Systems Review of Systems Constitutional: Reports: see HPI. EENTM: Reports: no symptoms. Respiratory: Reports: see HPI. Cardiovascular: Reports: no symptoms. GI: Reports: no symptoms. Genitourinary: Reports: no symptoms. Musculoskeletal: Reports: no symptoms. Skin: Reports: no symptoms. Neurological/Psychological: Reports: see HPI. Hematologic/Endocrine: Reports: see HPI. Immunologic/Allergic: Reports: no symptoms. All Other Systems: Reviewed and Negative (Christal Vang) Physical Exam Physical Exam General Appearance: well developed/nourished, no apparent distress, alert, awake Head: atraumatic, normal appearance Eyes: Bilateral: normal appearance, PERRL, EOMI. Ears, Nose, Throat: normal pharynx, hearing grossly normal Neck: normal inspection, supple, full range of motion Respiratory: normal breath sounds, no respiratory distress Cardiovascular: tachycardia Gastrointestinal: normal bowel sounds, soft, non-tender, no organomegaly Back: normal inspection, vertebral tenderness Extremities: normal range of motion Neurologic/Psych: awake, alert, oriented to person and place, not to time Skin: intact, normal color, warm/dry Core Measures ACS in differential dx? Yes CVA/TIA Diagnosis No Sepsis Present: No Sepsis Focused Exam Completed? No (Christal Vang) Progress Differential Diagnosis: arrythmia, alcohol intoxication, anemia, CVA/stroke, dehydration, encephalitis, electrolyte imbalance, hypoglycemia, intracranial Hem., intracranial mass/tumor, pneumonia, DKA, hyperglycemia, sepsis Plan of Care: Orders Procedure Date/time Status Change service to 07/18 1328 Active Therapeutic Exercise 07/18 UNK Complete Gait Training 07/18 UNK Complete Discharge Patient 07/18 UNK Active Laboratory Tests 07/18/17 0600: Anion Gap 9, Estimated GFR > 60, Glucose 162 H, Calcium 8.6, Phosphorus 2.5, Magnesium 2.2, Total Bilirubin 0.3, AST 19, ALT 19 L, Albumin 3.0 L, CBC w Diff NO MAN DIFF REQ, RBC 4.38 L, MCV 85.5, MCH 28.9, MCHC 33.8, RDW 13.6, MPV 10.2, Gran % 53.2, Lymphocytes % 37.1, Monocytes % 8.6, Eosinophils % 0.7, Basophils % 0.4, Absolute Granulocytes 4.3, Absolute Lymphocytes 3.0, Absolute Monocytes 0.7 H, Absolute Eosinophils 0.1, Absolute Basophils 0 Patient's blood work shows signs of DKA with elevated anion gap, glucose greater than 700, BUN/creatinine and GFR elevated. Blood gas obtained. Patient started on IV fluids, IV and subcutaneous insulin. Spoke with Dr. Pearce regarding this patient, she recommends insulin drip at 6 units per hour, potassium replacement. Dr. Pearce present to see and evaluate patient. Discussed this patient with Dr. Marcelino regarding his ICU admission for DKA. Diagnostic Imaging: Viewed by Me: CT Scan. Discussed w/RAD: CT Scan. Radiology Impression: PATIENT: JENNA GIBBONS PRESENT AGE: 61 PATIENT ACCOUNT NO: [id number] : 54 LOCATION: [facility] ORDERING PHYSICIAN: Christal HESTER SERVICE DATE: 07/14/17-1524 EXAM TYPE: CAT - CT HEAD WO IV CONTRAST EXAMINATION: CT HEAD WITHOUT CONTRAST CLINICAL INFORMATION: Facial droop. Altered mental status. Suspected intracranial hemorrhage. COMPARISON: CT of the head done on 07/17/2016. TECHNIQUE: Contiguous axial imaging was performed from the skull base to vertex without intravenous administration of contrast. DLP: 614.76 mGy-cm FINDINGS: There is no evidence of acute intracranial hemorrhage or territorial infarction. No abnormal mass effect or midline shift is seen. Wolf to white matter differentiation is well preserved. No extra-axial fluid collections are identified. The ventricles are normal in size. Age-appropriate mild diffuse cortical atrophy and mild chronic microvascular deep white matter ischemic changes are noted. Incidental note is made of a small lacunar infarction within the upper part of the candi to the left of the midline, similar to prior study ( see the wasserman images). The osseous structures and soft tissues are normal. The mastoid air cells and visualized portions of the paranasal sinuses are well aerated. IMPRESSION: No acute intracranial pathology, unchanged since 2016. DICTATED BY: aGnesh Rodríguez MD DATE/TIME DICTATED:07/14/171553 EMBROIDERY ASSISTANT:RAHEEL DATE/TIME TRANSCRIBED:07/14/171553 CONFIDENTIAL, DO NOT COPY WITHOUT APPROPRIATE AUTHORIZATION. <Electronically signed in Other Vendor System> SIGNED BY: Ganesh Rodríguez MD 07/14/17 1602 Initial ED EKG: sinus rhythm @97bpm, artifact present Prior EKG: changed (07/18/16) (Joyce HESTER,Christal Garcia) Departure Departure Disposition: STILL A PATIENT Condition: Stable Referrals: Melissa HERNANDEZ,Sailaja Vences (PCP/Family) Departure Forms: Customer Survey General Discharge Information Admission Note Spoke With: Faith Marcelino MD Documentation of Exam: Documentation of any treatments & extenuating circumstances including Concerns Regarding Discharge (functional status, medication knowledge or non-compliance, living conditions, etc.) that warrant an admission rather than observation: [ Diabetic ketoacidosis requiring IV fluids, IV insulin drip, repeat labs, monitoring of electrolytes, potassium replacement, endocrinology consult, ICU monitoring, premature discharge would be medically unsafe.] (Christal Vang) Departure Clinical Impression Primary Impression: DKA (diabetic ketoacidoses) Qualifiers: Diabetes mellitus complication detail: without coma Secondary Impressions: Altered mental status Prescriptions: Current Visit Scripts Insulin Aspart (Novolog) 0 SC ADD ADMIN CRITERIA #30 VIAL Insulin Detemir (Levemir) 15 UNITS SC BID #30 VIAL PA/[employer] Co-Sign Statement Statement: ED Attending supervision documentation- [X] I saw and evaluated the patient. I have also reviewed all the pertinent lab results and diagnostic results. I agree with the findings and the plan of care as documented in the PA's/[employer]'s documentation. [] I have reviewed the ED Record and agree with the PA's/[employer]'s documentation. [] Additions or exceptions (if any) to the PAs/[employer]'s note and plan are summarized below: [] (Avis HERNANDEZ,Familia Heredia) Critical Care Note Critical Care Note Critical Care Time: 30-74 min (Joyce HESTER,Christal Garcia) Acetone Level POSITIVE AT 1:16 DIL Microbiology 07/14 1655 BLOOD: Blood Culture - ORD 07/14 1655 BLOOD: Blood Culture - ORD 07/14 1644 URINE ROUT: Urine Culture - RECD Patient's blood work shows signs of DKA with elevated anion gap, glucose greater than 700, BUN/creatinine and GFR elevated. Blood gas obtained. Patient started on IV fluids, IV and subcutaneous insulin. Spoke with Dr. Pearce regarding this patient, she recommends insulin drip at 6 units per hour, potassium replacement. Dr. Pearce present to see and evaluate patient. Discussed this patient with Dr. Marcelino regarding his ICU admission for DKA. Diagnostic Imaging: Viewed by Me: CT Scan. Discussed w/RAD: CT Scan. Radiology Impression: PATIENT: JENNA GIBBONS PRESENT AGE: 61 PATIENT ACCOUNT NO: [id number] : 54 LOCATION: [facility] ORDERING PHYSICIAN: Christal HESTER SERVICE DATE: 07/14/17 EXAM TYPE: CAT - CT HEAD WO IV CONTRAST EXAMINATION: CT HEAD WITHOUT CONTRAST CLINICAL INFORMATION: Facial droop. Altered mental status. Suspected intracranial hemorrhage. COMPARISON: CT of the head done on 07/17/2016. TECHNIQUE: Contiguous axial imaging was performed from the skull base to vertex without intravenous administration of contrast. DLP: 614.76 mGy-cm FINDINGS: There is no evidence of acute intracranial hemorrhage or territorial infarction. No abnormal mass effect or midline shift is seen. Wolf to white matter differentiation is well preserved. No extra-axial fluid collections are identified. The ventricles are normal in size. Age-appropriate mild diffuse cortical atrophy and mild chronic microvascular deep white matter ischemic changes are noted. Incidental note is made of a small lacunar infarction within the upper part of the candi to the left of the midline, similar to prior study ( see the wasserman images). The osseous structures and soft tissues are normal. The mastoid air cells and visualized portions of the paranasal sinuses are well aerated. IMPRESSION: No acute intracranial pathology, unchanged since 2016. DICTATED BY: Ganesh Rodríguez MD DATE/TIME DICTATED:07/14/171553 EMBROIDERY ASSISTANT:RAHEEL DATE/TIME TRANSCRIBED:07/14/171553 CONFIDENTIAL, DO NOT COPY WITHOUT APPROPRIATE AUTHORIZATION. <Electronically signed in Other Vendor System> SIGNED BY: Ganesh Rodríguez MD 07/14/17 1602 Initial ED EKG: sinus rhythm @97bpm, artifact present Prior EKG: changed (07/18/16) Departure Departure Disposition: STILL A PATIENT Condition: Stable Clinical Impression Primary Impression: DKA (diabetic ketoacidoses) Qualifiers: Diabetes mellitus complication detail: without coma Secondary Impressions: Altered mental status Referrals: Melissa HERNANDEZ,Sailaja Vences (PCP/Family) Departure Forms: Customer Survey General Discharge Information Admission Note Spoke With: Faith Marcelino MD Documentation of Exam: Documentation of any treatments & extenuating circumstances including Concerns Regarding Discharge (functional status, medication knowledge or non-compliance, living conditions, etc.) that warrant an admission rather than observation: [ Diabetic ketoacidosis requiring IV fluids, IV insulin drip, repeat labs, monitoring of electrolytes, potassium replacement, endocrinology consult, ICU monitoring, premature discharge would be medically unsafe.] Critical Care Note Critical Care Note Critical Care Time: 30-74 min
[2017-07-14] MEDS ORDERED: FUROSEMIDE40 M1 PO (15:02)
[2017-07-14] MEDS ORDERED: LEVOTHYROXINE50 MCG PO (15:03)
[2017-07-14] MEDS ORDERED: FEXOFENADINE H180 MG PO (15:05)
[2017-07-14] MEDS ORDERED: CARVEDILOL12.5 M1 PO (15:06)
[2017-07-14 15:08] LABS: ABSOLUTE BASOPHIL COUNT 0 /CUMM (0.0-0.2); ABSOLUTE EOSINOPHIL COUNT 0 /CUMM (0.0-0.7); ABSOLUTE GRANULOCYTE CT 14.3 /CUMM (1.4-6.5); ABSOLUTE LYMPH COUNT 1.4 /CUMM (1.2-3.4); ABSOLUTE MONOCYTE COUNT 1.5 /CUMM (0.10-0.60); BASOPHIL % 0.1 % (0.0-2.0); EOSINOPHIL % 0 % (0-5); GRANULOCYTE % 83.2 % (42.2-75.2); HEMATOCRIT 46.2 % (42-52); MEAN CORPUSCULAR HGB 28.9 PG (27.0-31.0); MEAN CORPUSCULAR HGB CONC 33.5 G/DL (33.0-37.0); MEAN CORPUSCULAR VOLUME 86.2 FL (80.0-94.0); MEAN PLATELET VOLUME 10.5 FL (7.4-10.4); PLATELET COUNT 243 /CUMM (130-400); RBC DISTRIBUTION WIDTH 13.6 % (11.5-14.5); RED BLOOD CELL CT 5.36 /CUMM (4.70-6.10); WHITE BLOOD CELL COUNT 17.2 /CUMM (4.8-10.8)
--- NOTE | 2017-07-14 16:02 | CT SCAN REPORT ---
EXAMINATION: CT HEAD WITHOUT CONTRAST CLINICAL INFORMATION: Facial droop. Altered mental status. Suspected intracranial hemorrhage. COMPARISON: CT of the head done on 07/17/2016. TECHNIQUE: Contiguous axial imaging was performed from the skull base to vertex without intravenous administration of contrast. DLP: 614.76 mGy-cm FINDINGS: There is no evidence of acute intracranial hemorrhage or territorial infarction. No abnormal mass effect or midline shift is seen. Wolf to white matter differentiation is well preserved. No extra-axial fluid collections are identified. The ventricles are normal in size. Age-appropriate mild diffuse cortical atrophy and mild chronic microvascular deep white matter ischemic changes are noted. Incidental note is made of a small lacunar infarction within the upper part of the candi to the left of the midline, similar to prior study (see the wasserman images). The osseous structures and soft tissues are normal. The mastoid air cells and visualized portions of the paranasal sinuses are well aerated. IMPRESSION: No acute intracranial pathology, unchanged since 07/17/2016.
--- NOTE | 2017-07-14 16:22 | History & Physical ---
Nelsy Mcpherson 07/14/17 1621: General Information and HPI MD Statement: I have seen and personally examined JENNA GIBBONS and documented this H&P. The patient is a 61 year old M who presented with a patient stated chief complaint of [altered mental status]. Source of Information: patient, friend Exam Limitations: clinical condition History of Present Illness: 61-year-old male with a past medical history of DM, hypertension, hyperlipidemia , seizure disorder who presents to the ER with chief complaint of altered mental status. History is limited as patient is minimally verbal at baseline. History ois obtained from the nursing staff down in the ER who spoke with the patient's friend Nikki ([phone]). Reportedly patient was [facility] about [facility] ago ( unsure why he was at [facility]). He had some insurance issues and was not able to get insulin. Reportedly, patient lives by himself and had a visiting nurse come to his house for the first time today and found him confused. SHe called 911 and brought the patient in. Patient during most of [facility] intervbiew, nods and is minimally verbal . Deneis any CP, SOB, does endorse nasuea, and an episode of non-bloody emesis. Deneis any abdominal pain, dysuria, diarrhea, fevers, chills, recent URI. Of note he drinks 2 galsses of vodka on a daily basis. Was a former smoker. Ambulates by himself. He does have bruises on his body incluing his knees and elbows, hwoever deneis any abuse or falls at home. Reportedly, his just . Allergies/Medications Allergies: Coded Allergies: NO KNOWN ALLERGIES (03/17/14) Home Med list Aspirin (Aspirin*) 81 MG TAB.CHEW 1 TAB PO DAILY Heart Health (Reported) Carvedilol 12.5 MG TABLET 1 TAB PO BID HEART HEALTH (Reported) Fexofenadine HCl 180 MG TABLET 1 TAB PO DAILY ALLERGIES (Reported) Finasteride 5 MG TABLET 1 TAB PO DAILY HTN (Reported) Furosemide 40 MG TABLET 1 TAB PO BID WATER RETENTION (Reported) Insulin Aspart (Novolog) 100 UNIT/ML VIAL 0 UNITS SC TIDAC/HS diabetes BEFORE MEALS Blood Insulin Sugar Units <80 0 81-150 4 151-200 6 201-250 8 251-300 9 301-350 10 351-400 11 >400 Call Doctor AT BEDTIME Blood Insulin Sugar Units <80 0 81-100 0 101-200 0 201-250 2 251-300 3 301-350 4 351-400 5 >400 Call Doctor Insulin Detemir (Levemir) 100 UNIT/ML VIAL 12 UNITS SC BID DM (Reported) Levothyroxine Sodium 50 MCG TABLET 1 TAB PO DAILY THYROID HEALTH (Reported) Montelukast Sodium 10 MG TABLET 1 TAB PO DAILY ALLERGY (Reported) Phenytoin Sodium Extended 100 MG CAPSULE 1 CAP PO 1300 SEIZURE (Reported) Compliance With Home Meds: POOR Past History Travel History Traveled to [place] past 21 day No Medical History Neurological: NONE EENT: NONE Cardiovascular: hypertension, hyperlipidemia Respiratory: NONE Gastrointestinal: NONE Hepatic: NONE Renal: NONE Musculoskeletal: AMBULATES WITH WALKER Psychiatric: by history, alcohol abuse Endocrine: diabetes, DIABETES (PATIENT DENIES) Blood Disorders: NONE Cancer(s): NONE 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 MOTHER, , Age 60+. Relation not specified for: FH: dementia Psychosocial History Where do you live? Home Who Do You Live With? self Services at Home: Nursing Smoking Status: Former Smoker ETOH Use: daily use of vodka Illicit Drug Use: NONE Functional Ability ADLs Independent: dressing, eating, toileting, bathing. Ambulation: independent IADLs Independent: shopping, housework, finances, food prep, telephone, transportation , medication admin. Review of Systems Review of Systems Constitutional: Denies: chills, fever, weakness. EENTM: Denies: visual changes. Cardiovascular: Denies: chest pain, orthopena, palpitations, syncope. Respiratory: Denies: cough, orthopnea, short of breath, sputum production, wheezing. GI: Reports: nausea, vomiting. Denies: abdominal pain, constipation, diarrhea, changes in stool. Genitourinary: Denies: discharge, dysuria, frequency, hematuria. Musculoskeletal: Reports: no symptoms. Neurological/Psychological: Denies: headache, numbness, tingling, tremors. Exam & Diagnostic Data Last 24 Hrs of Vital Signs/I&O Vital Signs Date Time Temp Pulse Resp B/P B/P Pulse O2 O2 Flow FiO2 Mean Ox Delivery Rate 07/14 2208 97.6 106 18 141/80 100 Room Air 07/14 220 98.9 106 18 141/80 07/14 2026 98.7 103 18 143/84 100 Room Air 07/14 1912 104 13 145/78 100 Room Air 07/14 1807 99.2 101 18 162/75 100 Room Air 07/14 1711 100 16 150/83 100 Room Air 07/14 1455 Room Air 07/14 1434 98.0 97 18 148/82 99 Room Air Intake & Output 07/15 0800 07/15 0000 07/14 1600 Intake Total 1000 1000 Output Total 750 Balance 250 1000 Intake, IV 1000 1000 Output, Urine 750 Patient 125 lb Weight Weight Reported by Patient Measurement Method Physical Exam General Appearance Alert, Cooperative, No Acute Distress, oreinted to place and person ? off HEENT Atraumatic, PERRLA, EOMI, very dry mucous membranes Neck Supple, No JVD, No thryomegaly Cardiovascular Regular Rate, Normal S1, Normal S2, No Murmurs Lungs Clear to Auscultation, Normal Air Movement Abdomen Normal Bowel Sounds, Soft, No Tenderness Neurological minimally verbal, and a little dysarthic Extremities trace edema, has brusies on his knees bilaterally,a nd his elbows. Vascular Normal Pulses, Pulses Symmetrical Last 24 Hrs of Labs/Elmer: Laboratory Tests 07/15/17 0030: Anion Gap 17 H, Estimated GFR 47 L, Glucose 240 H, Calcium 9.1, Phosphorus 1.6 L, Magnesium 2.4 H, Total Bilirubin 0.5, AST 19, ALT 17 L, Albumin 3.6 07/14/172104: Anion Gap 24 H, Estimated GFR 44 L, BUN/Creatinine Ratio 36.9 H, Phosphorus 1.7 L, Magnesium 2.5 H, Troponin I 0.15 *H 07/14/17 170: Lactic Acid 2.0 07/14/17 170: Anion Gap 35 H, Estimated GFR 34 L, BUN/Creatinine Ratio 29.0 H, Glucose 620 *H, Calcium 9.0, Total Bilirubin 0.4, AST 19, ALT 19 L, Alkaline Phosphatase 139 H, Total Protein 7.1, Albumin 4.5, Globulin 2.6, Albumin/Globulin Ratio 1.7 07/14/17 1644: Urinalysis MOD H, Urine Color YEL, Urine Clarity CLEAR, Urine pH 6.0, Ur Specific [place] 1.025, Urine Protein 30 H, Urine Ketones 40 H, Urine Nitrite NEG, Urine Bilirubin NEG@ICTO, Urine Urobilinogen 0.2, Ur Leukocyte Esterase NEG , Ur Microscopic SEDIMENT EXAMINED, Urine RBC 1-3, Urine WBC 1-3 H, Granular Casts RARE H, Urine Hemoglobin MOD H, Urine Glucose >=1000 H 07/14/17 1600: pH 7.16 *L, pCO2 13 L, pO2 142 H, HCO3 4.5 L, ABG O2 Sat (Measured) 98.0, Carboxyhemoglobin 0.3 L, O2 Concentration % RA, O2 Delivery Method RA, Phlebotomy Draw Site LEFT RADIAL 07/14/17 1505: Ammonia 10 07/14/17 1459: Anion Gap 34 H, Estimated GFR 34 L, BUN/Creatinine Ratio 29.0 H, Glucose 718 *H, Lactic Acid 1.6, Calcium 9.5, Total Bilirubin 0.5, AST 19, ALT 16 L, Alkaline Phosphatase 155 H, Troponin I 0.11 *H, Total Protein 7.8, Albumin 5.0, Globulin 2.8, Albumin/Globulin Ratio 1.8, CBC w Diff MAN DIFF ORDERED, RBC 5.36, MCV 86.2, MCH 28.9, MCHC 33.5, RDW 13.6, MPV 10.5 H, Gran % 83.2 H, Lymphocytes % 8.0 L, Monocytes % 8.7, Eosinophils % 0, Basophils % 0.1, Absolute Granulocytes 14.3 H, Segmented Neutrophils 88 H, Band Neutrophils 3, Absolute Lymphocytes 1.4, Lymphocytes 5 L, Monocytes 4, Absolute Monocytes 1.5 H, Absolute Eosinophils 0, Absolute Basophils 0, Platelet Estimate ADEQUATE, Normocytic RBCs VERIFIED, Normochromic RBCs VERIFIED, Serum Alcohol < 10.0, Acetone Level POSITIVE AT 1:16 DIL Microbiology 07/15 0130 GI: Surveillance Culture - RECD 07/15 0010 UPPER RESP: Surveillance Culture - RECD 07/140 BLOOD: Blood Culture - RECD 07/14 2245 BLOOD: Blood Culture - RECD 07/14 1644 URINE ROUT: Urine Culture - RECD Diagnostic Data EKG Results NSR, HR: 97, T wave inversion in V4-V6 (unachneged from prior) Other Results Head CT FINDINGS: There is no evidence of acute intracranial hemorrhage or territorial infarction. No abnormal mass effect or midline shift is seen. Wolf to white matter differentiation is well preserved. No extra-axial fluid collections are identified. The ventricles are normal in size. Age-appropriate mild diffuse cortical atrophy and mild chronic microvascular deep white matter ischemic changes are noted. Incidental note is made of a small lacunar infarction within the upper part of the candi to the left of the midline, similar to prior study (see the wasserman images). The osseous structures and soft tissues are normal. The mastoid air cells and visualized portions of the paranasal sinuses are well aerated. IMPRESSION: No acute intracranial pathology, unchanged since 07/17/2016. Assessment/Plan Assessment: 61-year-old male with a past medical history of insulin, hypertension, hyperlipidemia, seizure disorder who presents to the ER with chief complaint of altered mental status. Vitals on admission blood pressure 148/82, respiratory rate of 18, pulse 97, afebrile saturating 99% on room air. Labs pertinent for leukocytosis with a white blood cell count of 17,200, H&H of 15.5/46.2 and an MCV of 86.2 with a platelet count of 243. Serum chemistries pertinent for sodium of 141, potassium of 4.3, bicarbonate of 8, anion gap of 34 , BUN 58 with a creatinine of 2.0 and serum glucose elevated to 718. Lactic acid was 1.6. LFTs pertinent for an AST/ALT of 19/16, total bili 0.5 and an alkaline phosphatase of 155. First set of troponin 0.11. Serum acetone was positive and serum alcohol was less than 10. UA not receive. Head CT showed no acute intracranial pathology. There is a small lacunar infarct within the upper part of the candi to the left middle which is unchanged from previous study. Echo done in June 2016 showed a normal left ventricular ejection fraction of 60% In the ER he received a normal saline bolus of 1 L and 10 units of subcutaneous Novolin R 8 units of IV. Assessment and Plan: Admit patient to ICU for DKA #DKA - His ABG and serum chemisteries are c/w metabolic acidosis - Give him boluses of NS 500mls x2, and F/U pending ICU bundle. - Pending results of his blood work, will switch him to 40Meq of KCL with wither NS/ 1/2 NS. - Start him on an insulin drip @ 6units per hr and F/U FSG q 1 hr. - Once FSG < 250, will switch to D5 I/2NS - Ensure to mainatin K>4 - Titrate insulin drip accordingly. - COntinueto monitor ICU bundle incluidng K, AG, HCO3 q4 hrs to ensure anion gap is resloving and h=bicarb is coming up. - Will not adminster bicarb as his pH is above 7. - Dr. Pearce already saw the patient. Will follow up with her regarding further recs. Pancultuer to endurse he does not have any udnerlying infection given leukocytosis (most likely recative) which may have sent him to DKA (jose j). #Elevated troponins - No changes in EKG, most liekly demand ischemia. - Of note patient has underlying CAD sicne he is a diabetic - Trend trop and EKG x3 till they peak. - Echo to r/o RWMA - Cardio consult with Dr. Dyson in AM has been placed. #AGMA - Most likely 2/2 DKA iwth underlying alcoholic ketosis given patient drinks 2 pints of vodka on a daily basis. #FAYE - Most likely 2/2 dehydration - Will hydrate with IVF and F/U BEP q 4 hrs. #HTN - Continue Coreg # BPH - Continue Finasteride. #Hypothyroidism - Continue Levothyroxine #Seizure disorder - Contineu Phenytoin #Alcohol dependence - Will start him on ATivan per CIWA protocol. - DVT prophylaxis - Heaprni 5000IU TID SC - Diet - NPO fo rnow - Code Status - Full code Would obatin further details form his friend Nikki [phone], adn JOHNNY Farfan [phone] As Ranked By This Provider Problem List: 1. Altered mental status 2. Elevated troponin 3. Acute kidney injury (nontraumatic) 4. DKA (diabetic ketoacidoses) Qualifiers Diabetes mellitus complication detail: without coma Core Measures/Misc (03/05) Acute Coronary Syndrome ACS Diagnosis: No Congestive Heart Failure Congestive Heart Failure Diagnosis No Cerebrovascular Accident CVA/TIA Diagnosis: No VTE (View Protocol) VTE Risk Factors Age>40 No Mechanical VTE Prophylaxis d/t N/A MechProphylax Ordered No VTE Pharm Prophylaxis d/t NA PharmProphylax ordered Sepsis (View protocol) Sepsis Present: No Resident Review Statement Resident Statement: admitted by resident Chari HERNANDEZMarileecadence 07/14/171950: Attending MD Review Statement Attending Statement Attending MD Statement: examined this patient, discuss w/resident/PA/ASSEMBLER [employer]AY UPS, agreed w/resident/PA/ASSEMBLER [employer]AY UPS, reviewed EMR data (avail) Attending Assessment/Plan: 61M PMH HTN, HLD, T2DM with a history of DKA sent in by visiting nurse for lethargy and confusion, found to be in DKA. Patient is poor historian due to his confusion. Similar presentation to a year ago. Patient appears dehydrated and confused. Labs show hyperglycemia 700 with anion gap 38, bicarb 7, creatinine 2.0. 1. Type 2 diabetic ketoacidosis 2. Metabolic encephalopathy 3. Severe metabolic acidosis, anion gap Plan - Admit to ICU - Insulin drip - Aggressive IV hydration - Replete potassium aggressively - BEP, VBG, Mg, Phos q4h - Replete Mg an Phos as needed - Send blood and urine cultures - Neuro checks qshift - Endocrine consult - DVT PPx
[2017-07-14] MEDS ORDERED: PHENYTOIN SODI100 MG PO (16:35)
[2017-07-14] MEDS ORDERED: LEVEMIR100 UNIT/1 SC (16:36)
--- NOTE | 2017-07-14 16:41 | Cons- Endocrinology ---
General Information and HPI Consulting Request Date of Consult: 07/14/17 Requested By: ER Reason for Consult: management of DKA Source of Information: patient, old records Exam Limitations: poor historian History of Present Illness: 61 y/o male with a hx of ETOH abuse, was in in 06/2016 for DKA. ANITRA 65 antibody was negative. He was supposed to be on Levemir 12 units twice a day, Novolog coverage before meals. However, as per patient, he wasn't taking insulin for the past two weeks. He was brought to ER for changes of mental status. In ER , his glucose level was 718, Cr 2.0, carbon dioxide 8, AG 34 , K 4.3 and Troponin 0.11. ABG showed pH 7.16. He was given insulin sc and insulin iv and then insulin drip at 6 units per hour. In addition, he has been on NA with 20 meq of KCL at 250 ml/hour. His glucose level has been improving. Allergies/Medications Allergies: Coded Allergies: NO KNOWN ALLERGIES (03/17/14) Home Med List: Aspirin (Aspirin*) 81 MG TAB.CHEW 1 TAB PO DAILY Heart Health (Reported) Carvedilol 12.5 MG TABLET 1 TAB PO BID HEART HEALTH (Reported) Fexofenadine HCl 180 MG TABLET 1 TAB PO DAILY ALLERGIES (Reported) Finasteride 5 MG TABLET 1 TAB PO DAILY HTN (Reported) Furosemide 40 MG TABLET 1 TAB PO BID WATER RETENTION (Reported) Insulin Aspart (Novolog) 100 UNIT/ML VIAL 0 UNITS SC TIDAC/HS diabetes BEFORE MEALS Blood Insulin Sugar Units <80 0 81-150 4 151-200 6 201-250 8 251-300 9 301-350 10 351-400 11 >400 Call Doctor AT BEDTIME Blood Insulin Sugar Units <80 0 81-100 0 101-200 0 201-250 2 251-300 3 301-350 4 351-400 5 >400 Call Doctor Insulin Detemir (Levemir) 100 UNIT/ML VIAL 12 UNITS SC BID DM (Reported) Levothyroxine Sodium 50 MCG TABLET 1 TAB PO DAILY THYROID HEALTH (Reported) Montelukast Sodium 10 MG TABLET 1 TAB PO DAILY ALLERGY (Reported) Phenytoin Sodium Extended 100 MG CAPSULE 1 CAP PO 1300 SEIZURE (Reported) Review of Systems Review of Systems Constitutional: Reports: see HPI, weakness. Cardiovascular: Denies: chest pain. Respiratory: Denies: short of breath. GI: Denies: abdominal pain, nausea. Genitourinary: Denies: dysuria. Neurological/Psychological: Reports: confusion. Hematologic/Endocrine: Denies: polyuria, polydipsia. 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 MOTHER, , Age 60+. Relation not specified for: FH: dementia Psychosocial History Services at Home: Social Work ETOH Use: occasional use Illicit Drug Use: NONE Functional Ability ADLs Independent: dressing, eating, toileting, bathing. IADLs Independent: shopping, housework, finances, food prep, telephone, transportation , medication admin. Exam & Diagnostic Data Last 24 Hrs of Vital Signs/I&O Vital Signs Date Time Temp Pulse Resp B/P B/P Pulse O2 O2 Flow FiO2 Mean Ox Delivery Rate 07/14 2026 98.7 103 18 143/84 100 Room Air 07/14 1912 104 13 145/78 100 Room Air 07/14 1807 99.2 101 18 162/75 100 Room Air 07/14 1711 100 16 150/83 100 Room Air 07/14 1455 Room Air 07/14 1434 98.0 97 18 148/82 99 Room Air Intake & Output 07/14 1600 07/14 0800 07/14 0000 Intake Total Output Total Balance Patient 125 lb Weight Weight Reported by Patient Measurement Method Physical Exam General Appearance: mild distress, mild confusion Neck: normal inspection Respiratory: lungs clear Cardiovascular: tachycardia Gastrointestinal: soft, non-tender Extremities: no edema Neurologic/Psych: awake Skin: dry Labs/Elmer Results: Laboratory Tests 07/14 07/14 07/14 1701 1701 1644 Chemistry Sodium (137 - 145 mmol/L) 147 H Potassium (3.5 - 5.1 mmol/L) 3.7 Chloride (98 - 107 mmol/L) 105 Carbon Dioxide (22 - 30 mmol/L) 7 *L Anion Gap (5 - 16) 35 H BUN (9 - 20 mg/dL) 58 H Creatinine (0.7 - 1.2 mg/dL) 2.0 H Estimated GFR (>60 ml/min) 34 L BUN/Creatinine Ratio (7 - 25 %) 29.0 H Glucose (65 - 99 mg/dL) 620 *H Lactic Acid (0.7 - 2.1 mmol/L) 2.0 Calcium (8.4 - 10.2 mg/dL) 9.0 Total Bilirubin (0.2 - 1.3 mg/dL) 0.4 AST (17 - 59 U/L) 19 ALT (21 - 72 U/L) 19 L Alkaline Phosphatase (< 127 U/L) 139 H Total Protein (6.3 - 8.2 g/dL) 7.1 Albumin (3.5 - 5.0 g/dL) 4.5 Globulin (1.9 - 4.2 gm/dL) 2.6 Albumin/Globulin Ratio (1.1 - 2.2 %) 1.7 Urines Urinalysis MOD H Urine Color (YEL,AMB,STR) YEL Urine Clarity (CLEAR) CLEAR Urine pH (5.0 - 8.0) 6.0 Ur Specific [place] (1.001 - 1.035) 1.025 Urine Protein (NEG,<30 MG/DL) 30 H Urine Ketones (NEG) 40 H Urine Nitrite (NEG) NEG Urine Bilirubin (NEG) NEG@ICTO Urine Urobilinogen (0.1 - 1.0 EU/dl) 0.2 Ur Leukocyte Esterase (NEG) NEG Ur Microscopic SEDIMENT EXAMINED Urine RBC (0 - 5 /HPF) 1-3 Urine WBC (0 - 2 /HPF) 1-3 H Granular Casts (NONE /LPF) RARE H Urine Hemoglobin (NEG) MOD H Urine Glucose (N MG/DL) >=1000 H 07/14 07/14 1600 1505 Blood Gas pH (7.35 - 7.45 PH) 7.16 *L pCO2 (35 - 45 TORR) 13 L pO2 (80 - 100 TORR) 142 H HCO3 (21 - 28 MEQ/L) 4.5 L ABG O2 Sat (Measured) (>96.0 %) 98.0 Carboxyhemoglobin (1.5 - 5.0 %) 0.3 L O2 Concentration % RA O2 Delivery Method RA Chemistry Ammonia (9 - 30 umol/L) 10 Miscellaneous Phlebotomy Draw Site LEFT RADIAL 01/26 1459 Chemistry Sodium (137 - 145 mmol/L) 141 Potassium (3.5 - 5.1 mmol/L) 4.3 Chloride (98 - 107 mmol/L) 99 Carbon Dioxide (22 - 30 mmol/L) 8 *L Anion Gap (5 - 16) 34 H BUN (9 - 20 mg/dL) 58 H Creatinine (0.7 - 1.2 mg/dL) 2.0 H Estimated GFR (>60 ml/min) 34 L BUN/Creatinine Ratio (7 - 25 %) 29.0 H Glucose (65 - 99 mg/dL) 718 *H Lactic Acid (0.7 - 2.1 mmol/L) 1.6 Calcium (8.4 - 10.2 mg/dL) 9.5 Total Bilirubin (0.2 - 1.3 mg/dL) 0.5 AST (17 - 59 U/L) 19 ALT (21 - 72 U/L) 16 L Alkaline Phosphatase (< 127 U/L) 155 H Troponin I (<0.11 ng/ml) 0.11 *H Total Protein (6.3 - 8.2 g/dL) 7.8 Albumin (3.5 - 5.0 g/dL) 5.0 Globulin (1.9 - 4.2 gm/dL) 2.8 Albumin/Globulin Ratio (1.1 - 2.2 %) 1.8 Hematology CBC w Diff MAN DIFF ORDERED WBC (4.8 - 10.8 /CUMM) 17.2 H RBC (4.70 - 6.10 /CUMM) 5.36 Hgb (14.0 - 18.0 G/DL) 15.5 Hct (42 - 52 %) 46.2 MCV (80.0 - 94.0 FL) 86.2 MCH (27.0 - 31.0 PG) 28.9 MCHC (33.0 - 37.0 G/DL) 33.5 RDW (11.5 - 14.5 %) 13.6 Plt Count (130 - 400 /CUMM) 243 MPV (7.4 - 10.4 FL) 10.5 H Gran % (42.2 - 75.2 %) 83.2 H Lymphocytes % (20.5 - 51.1 %) 8.0 L Monocytes % (1.7 - 9.3 %) 8.7 Eosinophils % (0 - 5 %) 0 Basophils % (0.0 - 2.0 %) 0.1 Absolute Granulocytes (1.4 - 6.5 /CUMM) 14.3 H Segmented Neutrophils (42.2 - 75.2 %) 88 H Band Neutrophils (0.0 - 5.0 %) 3 Absolute Lymphocytes (1.2 - 3.4 /CUMM) 1.4 Lymphocytes (20.5 - 51.1 %) 5 L Monocytes (1.7 - 9.3 %) 4 Absolute Monocytes (0.10 - 0.60 /CUMM) 1.5 H Absolute Eosinophils (0.0 - 0.7 /CUMM) 0 Absolute Basophils (0.0 - 0.2 /CUMM) 0 Platelet Estimate (ADEQUATE) ADEQUATE Normocytic RBCs VERIFIED Normochromic RBCs VERIFIED Toxicology Serum Alcohol (<10 MG/DL) < 10.0 Acetone Level (NEGATIVE) POSITIVE AT 1:16 DIL Assessment/Plan Assessment/Plan 61 y/o male with a hx of ETOH abuse, was in in 06/2016 for DKA. ANITRA 65 antibody was negative. He was supposed to be on Levemir 12 units twice a day, Novolog coverage before meals. However, as per patient, he wasn't taking insulin for the past two weeks. He was brought to ER for changes of mental status. In ER , his glucose level was 718, Cr 2.0, carbon dioxide 8, AG 34 , K 4.3 and Troponin 0.11. ABG showed pH 7.16.1 DM type 1 / DKA managment: 1. continue insulin drip and monitor FSG every one hour; 2. adjust insulin drip accordingly to lower glucose level by 50-100 mg/dl/hour; 3. monitor in/out and electrolytes every 3-4 hours, then adjust IVF accordingly; 4. replete K to keep K level at around 4.0; 5. add dextrose to the IVF after glucose level is below 250; 6. continue the current other supportive treatment. will follow. Please call if there are any questions. Consult Acknowledgment - Thank you for your consult request.
--- NOTE | 2017-07-14 20:02 | Admission Certification ---
Admission Certification Certification Statement - As attending physician, I certify that at the time of - admission, based on clinical presentation, severity of - symptoms, need for further diagnostic testing and - therapeutic interventions, and risk of adverse outcomes - without in-hospital treatment, in my clinical assessment, - this patient requires an acute hospital stay for a minimum - of two nights or longer. I have also considered psychsocial - factors such as support system, advanced age, financial - issues, cognitive issues, and failed out-patient treatments, - past re-admission history, safety of patient, and lack of - compliance as applicable. Specific rationale supporting this admission is: DKA
[2017-07-15] VITALS: BP 98/58
[2017-07-15 02:00] VITALS: BP 110/80
[2017-07-15 05:59] LABS: ABSOLUTE BASOPHIL COUNT 0.1 /CUMM (0.0-0.2); ABSOLUTE EOSINOPHIL COUNT 0 /CUMM (0.0-0.7); ABSOLUTE LYMPH COUNT 1.1 /CUMM (1.2-3.4); ABSOLUTE MONOCYTE COUNT 0.8 /CUMM (0.10-0.60); BASOPHIL % 0.5 % (0.0-2.0); EOSINOPHIL % 0 % (0-5); MEAN CORPUSCULAR HGB 29.3 PG (27.0-31.0); MEAN CORPUSCULAR HGB CONC 34.1 G/DL (33.0-37.0); MEAN CORPUSCULAR VOLUME 85.8 FL (80.0-94.0); MEAN PLATELET VOLUME 9.3 FL (7.4-10.4); PLATELET COUNT 161 /CUMM (130-400); RBC DISTRIBUTION WIDTH 13.4 % (11.5-14.5); RED BLOOD CELL CT 4.21 /CUMM (4.70-6.10); WHITE BLOOD CELL COUNT 12.9 /CUMM (4.8-10.8)
[2017-07-15 06:19] LABS: HEMATOCRIT 36.1 % (42-52)
[2017-07-15 07:35] LABS: GRANULOCYTE % 85.2 % (42.2-75.2)
--- NOTE | 2017-07-15 07:51 | Event Note ---
Event Note Event Note: I spoke with employee benefits insurance agent Dr. Pearce regarding patient's blood sugar levels and management of his DKA over phone. Since his glucose was <250 ml/hr, his IV fluids was changed to "D5 1/2 NS with 40 meq KCl" at 250 ml/hr, and his Insulin drip was being tapered. His sugar level started to rise instead of lower after the change. Of note, the phos supplement was also in D5 although not much in volume. At 7: 30 am, the supplement was over, and BEP was back with normal K level, 147 Na, anion gap closed, normal bicarb and this was relayed to Dr Pearce. She suggested: - Continue Insulin drip at 3 U/hr and titrate it down. - Decrease the rate of IV fluids from 250 ml/hr to 150 ml/hr. - No other changes for now. Will monitor for sugar level changes in next couple of hrs. When glc is less than 250, most likely we will switch the insulin drip to SQ insulin. - Continue to manage per endocrinology protocol.
[2017-07-15 08:00] VITALS: BP 126/50
--- NOTE | 2017-07-15 08:27 | PN- Resident CRCU ---
See Addendum Subjective HPI/CRCU Issues: DKA Elevated troponins FAYE 24 Hour Events: No acute events overnight. Patient currently on insulin drip for correction of his DKA. His white count has trended down though still slightly elevated. His Cr has improved. Patient seen and examined this morning. Offers no complaints. Objective Vital Signs & I&O Last 8 Hrs of Vitals and I&O: . Intake & Output 07/15 1600 Intake Total Output Total Balance Patient 125 lb Weight Exam General Appearance: well developed/nourished, no apparent distress, lethargic Head: atraumatic, normal appearance Neck: normal inspection, supple Respiratory: normal breath sounds, chest non-tender, lungs clear Cardiovascular: regular rate/rhythm Gastrointestinal: soft, non-tender Extremities: no edema Cranial Nerves: normal hearing, normal speech Skin: intact Skin Temp/Moisture Exam: Warm/Dry Sepsis Skin Exam (color): Normal for Ethnicity Current Medications: Current Medications Sig/Lorrie Start time Last Medication Dose Route Stop Time Status Admin Aspirin 81 MG DAILY 07/15 1000 AC 07/15 PO 1051 Carvedilol 12.5 MG BID 07/14 2200 AC 07/15 PO 1051 Finasteride 5 MG DAILY 07/14 1919 AC 07/15 PO 1051 Folic Acid 1 MG DAILY 07/15 1000 AC 07/15 PO 1051 Heparin Sodium 5,000 UNIT Q8 07/14 2200 AC 07/15 (Porcine) SC 0603 Heparin Sodium 0 .STK-MED ONE 07/14 2157 DC (Porcine) .ROUTE Insulin Human Regular 100 UNIT Q20H 07/15 1100 AC 07/15 Sodium Chloride 100 ML IV 1051 Insulin Human Regular 100 UNIT Q24H 07/14 1730 DC Sodium Chloride 100 ML IV Insulin Human Regular 100 UNIT ONCE ONE 07/14 1645 DC 07/14 Sodium Chloride 100 ML IV 07/14 1646 1836 Insulin Human Regular 10 UNITS ONCE ONE 07/14 1600 DC 07/14 SC 07/14 1601 1606 Insulin Human Regular 8 UNITS ONCE ONE 07/14 1600 DC 07/14 IV 07/14 1601 1606 Levothyroxine Sodium 0.05 MG DAILY AC 07/15 0700 AC 07/15 PO 0659 Lorazepam 0 Q1P PRN 07/14 1800 AC IV Magnesium Sulfate 1 GM Q2H 07/14 2200 CAN Dextrose/Water 100 ML IV 07/15 0159 Multivitamins 1 TAB DAILY 07/15 1000 AC 07/15 PO 1051 Ondansetron HCl 4 MG Q6P PRN 07/14 2315 AC 07/15 IV 0124 Phenytoin 100 MG 1300 07/15 1300 AC PO Phosphate 250 MG ONCE ONE 07/14 2200 DC PO 07/14 2201 Potassium Chloride 40 MEQ Q6H 07/15 1100 AC 07/15 Dextrose/Sodium 1,000 ML IV 1052 Chloride Potassium Chloride 40 MEQ Q4H 07/15 0200 DC 07/15 Dextrose/Sodium 1,000 ML IV 0603 Chloride Potassium Chloride 40 MEQ CONTINOUS INFUSION 07/15 0145 CAN IV Potassium Chloride 10 MEQ Q1H 07/14 2215 DC 07/15 IV 07/14 2216 0054 Potassium Chloride 20 MEQ Q8H 07/14 1930 DC 07/14 Sodium Chloride 1,000 ML IV 07/14 2329 2221 Potassium Chloride 40 MEQ Q4H 07/14 1915 DC 07/14 Sodium Chloride 1,000 ML IV 2110 Potassium Chloride 20 MEQ Q8H 07/14 1730 DC 07/14 Sodium Chloride 1,000 ML IV 2010 Potassium Chloride 20 MEQ ONCE ONE 07/14 1630 CAN Sodium Chloride 1,000 ML IV 07/14 2029 Potassium Phosphate 15 mMol ONE ONE 07/15 0145 DC 07/15 Dextrose/Water 250 ML IV 07/15 0549 0252 Sodium Chloride 1,000 ML BOLUS ONE 07/14 1600 DC 07/14 IV 07/14 1659 1602 Sodium Chloride 1,000 ML BOLUS ONE 07/14 1600 DC 07/14 IV 07/14 1659 1636 Thiamine HCl 100 MG DAILY 07/15 1000 AC 07/15 PO 1051 Impression/Plan Impression/Problem List Impression: 61-year-old male with a past medical history of insulin, hypertension, hyperlipidemia, seizure disorder who presented to the ER with chief complaint of altered mental status. Echo in June 2016 showed a normal left ventricular ejection fraction of 60% Assessment and Plan: Diabetic KetoAcidosis: * Continue Insulin drip until anion gap closes and glucose <200. Currently at 3units. Will titrate accordingly. * Will transition to SC insulin once above goals are met. * Continue D5-1/2NS @75ml/hr. * Repeat BEP q4 for now. * Endo recs appreciated. Elevated troponins: * No EKG changes. Could be due to reduced clearance in the setting of FAYE or Type II UT. He does have risk factors for CAD. * His troponins have a slight elevation. * Will continue to trend until peak * Cardiology consult with Dr Rainey. FAYE: * Most likely due to dehydration. * Cr has improved today to 1.3 from 2.0 on admission. * Will continue IVF History of Hypertension: * Continue Coreg History of BPH: * Continue Finasteride. History of Hypothyroidism: * Continue Levothyroxine History of Seizures: * Continue Phenytoin Alcohol dependence: * Continue Aivan per CIWA protocol. DVT Prophylaxis * SC Heparin x3 Diet: * Continue NPO for now Code Status: Full code Further details may be obtained from his friend Nikki , and JOHNNY Farfan [phone] Problem List: 1. DKA (diabetic ketoacidoses) Pain Ratin Tomorrow's Labs & Rationales: CBC, ICU bundle Plan DVT/Prophylaxis: mechanical
--- NOTE | 2017-07-15 12:53 | PN- Diabetes ---
Assessment/Plan Assessment: 61 y/o male with a hx of ETOH abuse, was in in 06/2016 for DKA. ANITRA 65 antibody was negative. He was supposed to be on Levemir 12 units twice a day, Novolog coverage before meals. However, as per patient, he wasn't taking insulin for the past two weeks. He was brought to ER for changes of mental status. In ER , his glucose level was 718, Cr 2.0, carbon dioxide 8, AG 34 , K 4.3 and Troponin 0.11. ABG showed pH 7.16.1 He was on IVF and iv insulin drip. Clinically he has been feeling better and he feels hungry and would like to eat. Currently he is on D5 1/2 NS with 40 meq of KCL at 75 ml/hour. Insulin drip at 4 units per hour. His last FSG was 294. Plan: 1. change IVF to 1/2 NS at 75 ml/hour; 2. start Levemir 12 units twice a day with first dose now; then insulin drip can be discontinued in one hour; 3. start Novolog coverage before meals and Novolog coverage at bedtime; detail see the insulin orders; 4. monitor FSGs; 5. monitor electrolytes later today. will follow. Inpatient Diabetes Orders Before Each Meal: Bolus Insulin: Novolog < 80 mg/dl: no coverage 80-100 mg/dl: 4 units 101-120 mg/dl: 4 units 121-150 mg/dl: 4 units 151-200 mg/dl: 5 units 201-250 mg/dl: 6 units 251-300 mg/dl: 7 units 301-350 mg/dl: 8 units 351-400 mg/dl: 9 units > 400 mg/dl: 10 units Bedtime: Bolus Insulin: Novolog < 80 mg/dl: no coverage 80-100 mg/dl: no coverage 101-120 mg/dl: no coverage 121-150 mg/dl: no coverage 151-200 mg/dl: no coverage 201-250 mg/dl: no coverage 251-300 mg/dl: 2 units 301-350 mg/dl: 3 units 351-400 mg/dl: 4 units > 400 mg/dl: 5 units Subjective Subjective: He feels better and would like to eat. Objective Last 24 Hrs of Vital Signs/I&O Vital Signs Date Time Temp Pulse Resp B/P B/P Pulse O2 O2 Flow FiO2 Mean Ox Delivery Rate 07/15 1051 88 131/68 07/15 0800 Room Air 07/15 0800 98.8 86 14 126/50 97 Room Air 07/15 0200 84 18 110/80 07/15 0000 88 18 98/58 07/15 0000 96 Room Air 07/14 2209 97.6 106 18 141/80 100 Room Air 07/14 2201 98.9 106 18 141/80 07/14 2027 98.7 103 18 143/84 100 Room Air 07/14 1912 104 13 145/78 100 Room Air 07/14 1807 99.2 101 18 162/75 100 Room Air 07/14 1711 100 16 150/83 100 Room Air 07/14 1455 Room Air 07/14 1434 98.0 97 18 148/82 99 Room Air Intake & Output 07/15 1600 07/15 0800 07/15 0000 Intake Total 2000 Output Total 750 Balance 1250 Intake, IV 2000 Output, Urine 750 Patient 125 lb 162 lb Weight Findings Pertinent Lab/Elmer Results: Laboratory Tests 07/15 07/15 07/15 1003 1003 0530 Chemistry Sodium (137 - 145 mmol/L) Pending Cancelled 147 H Potassium (3.5 - 5.1 mmol/L) Pending Cancelled 4.5 Chloride (98 - 107 mmol/L) Pending Cancelled 117 H Carbon Dioxide (22 - 30 mmol/L) Pending Cancelled 17 L Anion Gap (5 - 16) Pending Cancelled 14 BUN (9 - 20 mg/dL) Pending Cancelled 51 H Creatinine (0.7 - 1.2 mg/dL) Pending Cancelled 1.3 H Estimated GFR (>60 ml/min) 56 L BUN/Creatinine Ratio (7 - 25 %) Pending Cancelled Glucose (65 - 99 mg/dL) 350 H Calcium (8.4 - 10.2 mg/dL) 8.6 Phosphorus (2.5 - 4.5 mg/dL) 1.8 L 2.6 Magnesium (1.6 - 2.3 mg/dL) 2.3 2.3 Total Bilirubin (0.2 - 1.3 mg/dL) 0.3 AST (17 - 59 U/L) 19 ALT (21 - 72 U/L) 20 L Troponin I (<0.11 ng/ml) 0.14 *H Albumin (3.5 - 5.0 g/dL) 3.2 L Triglycerides (<150 mg/dL) 121 Cholesterol (< 200 MG/DL) 188 LDL Cholesterol, Calc (65 - 129 mg/dL) 109 HDL Cholesterol (40 - 60 mg/dL) 55 Cholesterol/HDL Ratio (0.00 - 4.88 %) 3 Hematology CBC w Diff NO MAN DIFF REQ WBC (4.8 - 10.8 /CUMM) 12.9 H RBC (4.70 - 6.10 /CUMM) 4.21 L Hgb (14.0 - 18.0 G/DL) 12.3 L Hct (42 - 52 %) 36.1 L MCV (80.0 - 94.0 FL) 85.8 MCH (27.0 - 31.0 PG) 29.3 MCHC (33.0 - 37.0 G/DL) 34.1 RDW (11.5 - 14.5 %) 13.4 Plt Count (130 - 400 /CUMM) 161 MPV (7.4 - 10.4 FL) 9.3 Gran % (42.2 - 75.2 %) 85.2 H Lymphocytes % (20.5 - 51.1 %) 8.1 L Monocytes % (1.7 - 9.3 %) 6.2 Eosinophils % (0 - 5 %) 0 Basophils % (0.0 - 2.0 %) 0.5 Absolute Granulocytes (1.4 - 6.5 /CUMM) 11.0 H Absolute Lymphocytes (1.2 - 3.4 /CUMM) 1.1 L Absolute Monocytes (0.10 - 0.60 /CUMM) 0.8 H Absolute Eosinophils (0.0 - 0.7 /CUMM) 0 Absolute Basophils (0.0 - 0.2 /CUMM) 0.1 07/15 07/15 07/14 07/14 07/14 0230 0030 2105 1701 1701 Chemistry Sodium (137 - 145 mmol/L) 148 H 148 H 147 H Potassium (3.5 - 5.1 mmol/L) 3.3 L 3.0 L 3.7 Chloride (98 - 107 mmol/L) 114 H 112 H 105 Carbon Dioxide (22 - 30 mmol/L) 16 L 12 L 7 *L Anion Gap (5 - 16) 17 H 24 H 35 H BUN (9 - 20 mg/dL) 57 H 59 H 58 H Creatinine (0.7 - 1.2 mg/dL) 1.5 H 1.6 H 2.0 H Estimated GFR (>60 ml/min) 47 L 44 L 34 L BUN/Creatinine Ratio (7 - 25 %) 36.9 H 29.0 H Glucose (65 - 99 mg/dL) 240 H 620 *H Lactic Acid (0.7 - 2.1 mmol/L) 2.0 Calcium (8.4 - 10.2 mg/dL) 9.1 9.0 Phosphorus (2.5 - 4.5 mg/dL) 1.6 L 1.7 L Magnesium (1.6 - 2.3 mg/dL) 2.4 H 2.5 H Total Bilirubin (0.2 - 1.3 mg/dL) 0.5 0.4 AST (17 - 59 U/L) 19 19 ALT (21 - 72 U/L) 17 L 19 L Alkaline Phosphatase (< 127 U/L) 139 H Troponin I (<0.11 ng/ml) 0.18 *H 0.15 *H Total Protein (6.3 - 8.2 g/dL) 7.1 Albumin (3.5 - 5.0 g/dL) 3.6 4.5 Globulin (1.9 - 4.2 gm/dL) 2.6 Albumin/Globulin Ratio (1.1 - 2.2 %) 1.7 07/14 07/14 07/14 1644 1600 1505 Blood Gas pH (7.35 - 7.45 PH) 7.16 *L pCO2 (35 - 45 TORR) 13 L pO2 (80 - 100 TORR) 142 H HCO3 (21 - 28 MEQ/L) 4.5 L ABG O2 Sat (Measured) (>96.0 %) 98.0 Carboxyhemoglobin (1.5 - 5.0 %) 0.3 L O2 Concentration % RA O2 Delivery Method RA Chemistry Ammonia (9 - 30 umol/L) 10 Miscellaneous Phlebotomy Draw Site LEFT RADIAL Urines Urinalysis MOD H Urine Color (YEL,AMB,STR) YEL Urine Clarity (CLEAR) CLEAR Urine pH (5.0 - 8.0) 6.0 Ur Specific [place] (1.001 - 1.035) 1.025 Urine Protein (NEG,<30 MG/DL) 30 H Urine Ketones (NEG) 40 H Urine Nitrite (NEG) NEG Urine Bilirubin (NEG) NEG@ICTO Urine Urobilinogen (0.1 - 1.0 EU/dl) 0.2 Ur Leukocyte Esterase (NEG) NEG Ur Microscopic SEDIMENT EXAMINED Urine RBC (0 - 5 /HPF) 1-3 Urine WBC (0 - 2 /HPF) 1-3 H Granular Casts (NONE /LPF) RARE H Urine Hemoglobin (NEG) MOD H Urine Glucose (N MG/DL) >=1000 H 07/14 1459 Chemistry Sodium (137 - 145 mmol/L) 141 Potassium (3.5 - 5.1 mmol/L) 4.3 Chloride (98 - 107 mmol/L) 99 Carbon Dioxide (22 - 30 mmol/L) 8 *L Anion Gap (5 - 16) 34 H BUN (9 - 20 mg/dL) 58 H Creatinine (0.7 - 1.2 mg/dL) 2.0 H Estimated GFR (>60 ml/min) 34 L BUN/Creatinine Ratio (7 - 25 %) 29.0 H Glucose (65 - 99 mg/dL) 718 *H Lactic Acid (0.7 - 2.1 mmol/L) 1.6 Calcium (8.4 - 10.2 mg/dL) 9.5 Total Bilirubin (0.2 - 1.3 mg/dL) 0.5 AST (17 - 59 U/L) 19 ALT (21 - 72 U/L) 16 L Alkaline Phosphatase (< 127 U/L) 155 H Troponin I (<0.11 ng/ml) 0.11 *H Total Protein (6.3 - 8.2 g/dL) 7.8 Albumin (3.5 - 5.0 g/dL) 5.0 Globulin (1.9 - 4.2 gm/dL) 2.8 Albumin/Globulin Ratio (1.1 - 2.2 %) 1.8 Hematology CBC w Diff MAN DIFF ORDERED WBC (4.8 - 10.8 /CUMM) 17.2 H RBC (4.70 - 6.10 /CUMM) 5.36 Hgb (14.0 - 18.0 G/DL) 15.5 Hct (42 - 52 %) 46.2 MCV (80.0 - 94.0 FL) 86.2 MCH (27.0 - 31.0 PG) 28.9 MCHC (33.0 - 37.0 G/DL) 33.5 RDW (11.5 - 14.5 %) 13.6 Plt Count (130 - 400 /CUMM) 243 MPV (7.4 - 10.4 FL) 10.5 H Gran % (42.2 - 75.2 %) 83.2 H Lymphocytes % (20.5 - 51.1 %) 8.0 L Monocytes % (1.7 - 9.3 %) 8.7 Eosinophils % (0 - 5 %) 0 Basophils % (0.0 - 2.0 %) 0.1 Absolute Granulocytes (1.4 - 6.5 /CUMM) 14.3 H Segmented Neutrophils (42.2 - 75.2 %) 88 H Band Neutrophils (0.0 - 5.0 %) 3 Absolute Lymphocytes (1.2 - 3.4 /CUMM) 1.4 Lymphocytes (20.5 - 51.1 %) 5 L Monocytes (1.7 - 9.3 %) 4 Absolute Monocytes (0.10 - 0.60 /CUMM) 1.5 H Absolute Eosinophils (0.0 - 0.7 /CUMM) 0 Absolute Basophils (0.0 - 0.2 /CUMM) 0 Platelet Estimate (ADEQUATE) ADEQUATE Normocytic RBCs VERIFIED Normochromic RBCs VERIFIED Toxicology Serum Alcohol (<10 MG/DL) < 10.0 Acetone Level (NEGATIVE) POSITIVE AT 1:16 DIL
[2017-07-15 16:00] VITALS: BP 100/60
[2017-07-15 20:00] VITALS: BP 126/80
--- NOTE | 2017-07-15 20:48 | Cons- Cardiology ---
General Information and HPI Consulting Request Date of Consult: 07/15/17 Requested By: Faith Marcelino MD Reason for Consult: Elevated troponin History of Present Illness: The patient is a 61-year-old male with history diabetes mellitus, hypertension, and hyperlipidemia, seizure disorder brought to the emergency department with altered mental status. The patient was discharged from [facility] 2 weeks ago. He has of insurance issues she was not able to get insulin. Now admitted with DKA. He is noted to have mild troponin elevation. He has had no chest pain. No palpitations.The pain shortness of breath. Allergies/Medications Allergies: Coded Allergies: NO KNOWN ALLERGIES (03/17/14) Home Med List: Aspirin (Aspirin*) 81 MG TAB.CHEW 1 TAB PO DAILY Heart Health (Reported) Carvedilol 12.5 MG TABLET 1 TAB PO BID HEART HEALTH (Reported) Fexofenadine HCl 180 MG TABLET 1 TAB PO DAILY ALLERGIES (Reported) Finasteride 5 MG TABLET 1 TAB PO DAILY HTN (Reported) Furosemide 40 MG TABLET 1 TAB PO BID WATER RETENTION (Reported) Insulin Aspart (Novolog) 100 UNIT/ML VIAL 0 UNITS SC TIDAC/HS diabetes BEFORE MEALS Blood Insulin Sugar Units <80 0 81-150 4 151-200 6 201-250 8 251-300 9 301-350 10 351-400 11 >400 Call Doctor AT BEDTIME Blood Insulin Sugar Units <80 0 81-100 0 101-200 0 201-250 2 251-300 3 301-350 4 351-400 5 >400 Call Doctor Insulin Detemir (Levemir) 100 UNIT/ML VIAL 12 UNITS SC BID DM (Reported) Levothyroxine Sodium 50 MCG TABLET 1 TAB PO DAILY THYROID HEALTH (Reported) Montelukast Sodium 10 MG TABLET 1 TAB PO DAILY ALLERGY (Reported) Phenytoin Sodium Extended 100 MG CAPSULE 1 CAP PO 1300 SEIZURE (Reported) Past History Travel History Traveled to [place] past 21 day No Medical History Neurological: NONE EENT: NONE Cardiovascular: hypertension, hyperlipidemia Respiratory: NONE Gastrointestinal: NONE Hepatic: NONE Renal: NONE Musculoskeletal: AMBULATES WITH WALKER Psychiatric: by history, alcohol abuse Endocrine: diabetes, DIABETES (PATIENT DENIES) Blood Disorders: NONE Cancer(s): NONE VISUAL COORDINATOR/Reproductive: NONE Surgical History Surgical History: unobtainable Family History Relations & Conditions If Any: FATHER, , Age 60+. MOTHER, , Age 60+. Relation not specified for: FH: dementia Psychosocial History Where Do You Live? Home Who Do You Live With? self Services at Home: Nursing Smoking Status: Former Smoker ETOH Use: daily use of vodka Illicit Drug Use: NONE Functional Ability ADLs Independent: dressing, eating, toileting, bathing. Ambulation: independent IADLs Independent: shopping, housework, finances, food prep, telephone, transportation , medication admin. Exam & Diagnostic Data Vital Signs and I&O Vital Signs Date Time Temp Pulse Resp B/P B/P Pulse O2 O2 Flow FiO2 Mean Ox Delivery Rate 07/15 1600 98.3 68 14 100/60 07/15 1600 97 Room Air 07/15 1600 98.3 68 14 100/60 97 Room Air 07/15 1051 88 131/68 07/15 0800 Room Air 07/15 0800 98.8 86 14 126/50 97 Room Air 07/15 0200 84 18 110/80 07/15 0000 88 18 98/58 07/15 0000 96 Room Air 07/14 2209 97.6 106 18 141/80 100 Room Air 07/14 2201 98.9 106 18 141/80 Intake & Output 07/15 1600 07/15 0800 07/15 0000 07/14 1600 07/14 0800 07/14 0000 Intake Total 670 1000 1000 Output Total 210 750 Balance 583 223 8284 Intake, IV 450 1000 1000 Intake, Oral 220 Output, Urine 210 750 Patient 125 lb 162 lb 125 lb Weight Weight Reported by Patient Measurement Method Labs/Elmer Results: Laboratory Tests 07/15 07/15 07/15 07/15 1800 1438 1003 1003 Chemistry Sodium (137 - 145 mmol/L) 148 H 148 H Cancelled Potassium (3.5 - 5.1 mmol/L) 4.1 4.2 Cancelled Chloride (98 - 107 mmol/L) 118 H 118 H Cancelled Carbon Dioxide (22 - 30 mmol/L) 18 L 17 L Cancelled Anion Gap (5 - 16) 12 13 Cancelled BUN (9 - 20 mg/dL) 43 H 47 H Cancelled Creatinine (0.7 - 1.2 mg/dL) 1.1 1.2 Cancelled Estimated GFR (>60 ml/min) > 60 > 60 BUN/Creatinine Ratio (7 - 25 %) 39.1 H 39.2 H Cancelled Phosphorus (2.5 - 4.5 mg/dL) Cancelled 1.8 L Magnesium (1.6 - 2.3 mg/dL) 2.3 Troponin I (<0.11 ng/ml) 0.14 *H 07/15 07/15 07/15 0530 0230 0030 Chemistry Sodium (137 - 145 mmol/L) 147 H 148 H Potassium (3.5 - 5.1 mmol/L) 4.5 3.3 L Chloride (98 - 107 mmol/L) 117 H 114 H Carbon Dioxide (22 - 30 mmol/L) 17 L 16 L Anion Gap (5 - 16) 14 17 H BUN (9 - 20 mg/dL) 51 H 57 H Creatinine (0.7 - 1.2 mg/dL) 1.3 H 1.5 H Estimated GFR (>60 ml/min) 56 L 47 L Glucose (65 - 99 mg/dL) 350 H 240 H Calcium (8.4 - 10.2 mg/dL) 8.6 9.1 Phosphorus (2.5 - 4.5 mg/dL) 2.6 1.6 L Magnesium (1.6 - 2.3 mg/dL) 2.3 2.4 H Total Bilirubin (0.2 - 1.3 mg/dL) 0.3 0.5 AST (17 - 59 U/L) 19 19 ALT (21 - 72 U/L) 20 L 17 L Troponin I (<0.11 ng/ml) 0.18 *H Albumin (3.5 - 5.0 g/dL) 3.2 L 3.6 Triglycerides (<150 mg/dL) 121 Cholesterol (< 200 MG/DL) 188 LDL Cholesterol, Calc (65 - 129 mg/dL) 109 HDL Cholesterol (40 - 60 mg/dL) 55 Cholesterol/HDL Ratio (0.00 - 4.88 %) 3 Hematology CBC w Diff NO MAN DIFF REQ WBC (4.8 - 10.8 /CUMM) 12.9 H RBC (4.70 - 6.10 /CUMM) 4.21 L Hgb (14.0 - 18.0 G/DL) 12.3 L Hct (42 - 52 %) 36.1 L MCV (80.0 - 94.0 FL) 85.8 MCH (27.0 - 31.0 PG) 29.3 MCHC (33.0 - 37.0 G/DL) 34.1 RDW (11.5 - 14.5 %) 13.4 Plt Count (130 - 400 /CUMM) 161 MPV (7.4 - 10.4 FL) 9.3 Gran % (42.2 - 75.2 %) 85.2 H Lymphocytes % (20.5 - 51.1 %) 8.1 L Monocytes % (1.7 - 9.3 %) 6.2 Eosinophils % (0 - 5 %) 0 Basophils % (0.0 - 2.0 %) 0.5 Absolute Granulocytes (1.4 - 6.5 /CUMM) 11.0 H Absolute Lymphocytes (1.2 - 3.4 /CUMM) 1.1 L Absolute Monocytes (0.10 - 0.60 /CUMM) 0.8 H Absolute Eosinophils (0.0 - 0.7 /CUMM) 0 Absolute Basophils (0.0 - 0.2 /CUMM) 0.1 07/14 07/14 07/14 2105 1701 1701 Chemistry Sodium (137 - 145 mmol/L) 148 H 147 H Potassium (3.5 - 5.1 mmol/L) 3.0 L 3.7 Chloride (98 - 107 mmol/L) 112 H 105 Carbon Dioxide (22 - 30 mmol/L) 12 L 7 *L Anion Gap (5 - 16) 24 H 35 H BUN (9 - 20 mg/dL) 59 H 58 H Creatinine (0.7 - 1.2 mg/dL) 1.6 H 2.0 H Estimated GFR (>60 ml/min) 44 L 34 L BUN/Creatinine Ratio (7 - 25 %) 36.9 H 29.0 H Glucose (65 - 99 mg/dL) 620 *H Lactic Acid (0.7 - 2.1 mmol/L) 2.0 Calcium (8.4 - 10.2 mg/dL) 9.0 Phosphorus (2.5 - 4.5 mg/dL) 1.7 L Magnesium (1.6 - 2.3 mg/dL) 2.5 H Total Bilirubin (0.2 - 1.3 mg/dL) 0.4 AST (17 - 59 U/L) 19 ALT (21 - 72 U/L) 19 L Alkaline Phosphatase (< 127 U/L) 139 H Troponin I (<0.11 ng/ml) 0.15 *H Total Protein (6.3 - 8.2 g/dL) 7.1 Albumin (3.5 - 5.0 g/dL) 4.5 Globulin (1.9 - 4.2 gm/dL) 2.6 Albumin/Globulin Ratio (1.1 - 2.2 %) 1.7 07/14 07/14 07/14 1644 1600 1505 Blood Gas pH (7.35 - 7.45 PH) 7.16 *L pCO2 (35 - 45 TORR) 13 L pO2 (80 - 100 TORR) 142 H HCO3 (21 - 28 MEQ/L) 4.5 L ABG O2 Sat (Measured) (>96.0 %) 98.0 Carboxyhemoglobin (1.5 - 5.0 %) 0.3 L O2 Concentration % RA O2 Delivery Method RA Chemistry Ammonia (9 - 30 umol/L) 10 Miscellaneous Phlebotomy Draw Site LEFT RADIAL Urines Urinalysis MOD H Urine Color (YEL,AMB,STR) YEL Urine Clarity (CLEAR) CLEAR Urine pH (5.0 - 8.0) 6.0 Ur Specific [place] (1.001 - 1.035) 1.025 Urine Protein (NEG,<30 MG/DL) 30 H Urine Ketones (NEG) 40 H Urine Nitrite (NEG) NEG Urine Bilirubin (NEG) NEG@ICTO Urine Urobilinogen (0.1 - 1.0 EU/dl) 0.2 Ur Leukocyte Esterase (NEG) NEG Ur Microscopic SEDIMENT EXAMINED Urine RBC (0 - 5 /HPF) 1-3 Urine WBC (0 - 2 /HPF) 1-3 H Granular Casts (NONE /LPF) RARE H Urine Hemoglobin (NEG) MOD H Urine Glucose (N MG/DL) >=1000 H 07/14 1459 Chemistry Sodium (137 - 145 mmol/L) 141 Potassium (3.5 - 5.1 mmol/L) 4.3 Chloride (98 - 107 mmol/L) 99 Carbon Dioxide (22 - 30 mmol/L) 8 *L Anion Gap (5 - 16) 34 H BUN (9 - 20 mg/dL) 58 H Creatinine (0.7 - 1.2 mg/dL) 2.0 H Estimated GFR (>60 ml/min) 34 L BUN/Creatinine Ratio (7 - 25 %) 29.0 H Glucose (65 - 99 mg/dL) 718 *H Lactic Acid (0.7 - 2.1 mmol/L) 1.6 Calcium (8.4 - 10.2 mg/dL) 9.5 Total Bilirubin (0.2 - 1.3 mg/dL) 0.5 AST (17 - 59 U/L) 19 ALT (21 - 72 U/L) 16 L Alkaline Phosphatase (< 127 U/L) 155 H Troponin I (<0.11 ng/ml) 0.11 *H Total Protein (6.3 - 8.2 g/dL) 7.8 Albumin (3.5 - 5.0 g/dL) 5.0 Globulin (1.9 - 4.2 gm/dL) 2.8 Albumin/Globulin Ratio (1.1 - 2.2 %) 1.8 Hematology CBC w Diff MAN DIFF ORDERED WBC (4.8 - 10.8 /CUMM) 17.2 H RBC (4.70 - 6.10 /CUMM) 5.36 Hgb (14.0 - 18.0 G/DL) 15.5 Hct (42 - 52 %) 46.2 MCV (80.0 - 94.0 FL) 86.2 MCH (27.0 - 31.0 PG) 28.9 MCHC (33.0 - 37.0 G/DL) 33.5 RDW (11.5 - 14.5 %) 13.6 Plt Count (130 - 400 /CUMM) 243 MPV (7.4 - 10.4 FL) 10.5 H Gran % (42.2 - 75.2 %) 83.2 H Lymphocytes % (20.5 - 51.1 %) 8.0 L Monocytes % (1.7 - 9.3 %) 8.7 Eosinophils % (0 - 5 %) 0 Basophils % (0.0 - 2.0 %) 0.1 Absolute Granulocytes (1.4 - 6.5 /CUMM) 14.3 H Segmented Neutrophils (42.2 - 75.2 %) 88 H Band Neutrophils (0.0 - 5.0 %) 3 Absolute Lymphocytes (1.2 - 3.4 /CUMM) 1.4 Lymphocytes (20.5 - 51.1 %) 5 L Monocytes (1.7 - 9.3 %) 4 Absolute Monocytes (0.10 - 0.60 /CUMM) 1.5 H Absolute Eosinophils (0.0 - 0.7 /CUMM) 0 Absolute Basophils (0.0 - 0.2 /CUMM) 0 Platelet Estimate (ADEQUATE) ADEQUATE Normocytic RBCs VERIFIED Normochromic RBCs VERIFIED Toxicology Serum Alcohol (<10 MG/DL) < 10.0 Acetone Level (NEGATIVE) POSITIVE AT 1:16 DIL Diagnostic Data EKG Results EKG tracing is independently reviewed, and reveals normal sinus rhythm at 78, premature atrial complexes, nonspecific T-wave abnormality Other Results Head CT: No acute intracranial pathology, unchanged since 07/17/2016. Echocardiogram 07/18/16: 1. Normal EF of 60%. 2. mild left ventricular hypertrophy. Assessment/Plan Assessment/Plan 1. DKA 2. Mild troponin elevation, likely secondary to type II ID. No evidence of acute coronary syndrome at this time 3. Acute kidney injury 4. Hypertension Plan: * Continue cardiac medications * Monitor for chest pain * Echocardiogram Consult Acknowledgment - Thank you for your consult request.
[2017-07-15 22:00] VITALS: BP 135/71
[2017-07-16] VITALS (7 sets, daily range): BP systolic 92–140; BP diastolic 56–80
[2017-07-16 04:24] LABS: ABSOLUTE BASOPHIL COUNT 0 /CUMM (0.0-0.2); ABSOLUTE EOSINOPHIL COUNT 0 /CUMM (0.0-0.7); ABSOLUTE GRANULOCYTE CT 4.8 /CUMM (1.4-6.5); ABSOLUTE LYMPH COUNT 2.3 /CUMM (1.2-3.4); ABSOLUTE MONOCYTE COUNT 0.7 /CUMM (0.10-0.60); BASOPHIL % 0.4 % (0.0-2.0); EOSINOPHIL % 0.1 % (0-5); GRANULOCYTE % 60.9 % (42.2-75.2); HEMATOCRIT 34.4 % (42-52); MEAN CORPUSCULAR HGB 29.1 PG (27.0-31.0); MEAN CORPUSCULAR HGB CONC 33.9 G/DL (33.0-37.0); MEAN CORPUSCULAR VOLUME 85.9 FL (80.0-94.0); MEAN PLATELET VOLUME 10.4 FL (7.4-10.4); PLATELET COUNT 134 /CUMM (130-400); RBC DISTRIBUTION WIDTH 13.5 % (11.5-14.5); RED BLOOD CELL CT 4.01 /CUMM (4.70-6.10); WHITE BLOOD CELL COUNT 7.8 /CUMM (4.8-10.8)
--- NOTE | 2017-07-16 08:47 | PN- Resident CRCU ---
See Addendum Subjective HPI/CRCU Issues: - DKA - Type II AR - FAYE 2/2 dehydration - Alcohol dependence 24 Hour Events: Patient seen and exmaiend at bedside. He stats he is doing great, and denies any rest discomfort, changes of breath, nausea, vomiting, abdominal pain, diarrhea or constipation. Vitals over the past 24 hours normal sinus rhythm, afebrile heart rate between 68-86 with a respiratory rate between 11-14. His blood pressure was between 107-135 systolic and 65-78 diastolic. Accu-Cheks within the past 24 hours of being between 2 and 3-419. Of note patient is off insulin drip and was transitioned to subcutaneous insulin after his anion gap closed yesterday His total input has been 3740 mL balloon output has been 18.0. Of note is leukocytosis has resolved. Objective Vital Signs & I&O Last 8 Hrs of Vitals and I&O: Vital Signs Date Time Temp Pulse Resp B/P B/P Pulse O2 O2 Flow FiO2 Mean Ox Delivery Rate 07/16 0953 98 122/68 07/16 0800 98.7 75 20 140/80 95 Room Air 07/16 0600 72 18 95/56 07/16 0400 97.6 84 20 122/60 07/16 0400 95 Room Air 07/16 0200 58 16 112/60 07/16 0000 97.7 71 16 120/70 07/16 0000 96 Room Air 07/16 0000 96.3 71 16 120/70 96 Room Air 07/15 2220 76 20 134/74 07/15 2200 74 14 135/71 07/15 2000 97.6 80 14 126/80 07/15 2000 96 Room Air 07/15 1600 98.3 68 14 100/60 07/15 1600 97 Room Air 07/15 1600 98.3 68 14 100/60 97 Room Air Intake & Output 07/16 1600 07/16 0800 07/16 0000 Intake Total 800 1460 Output Total 400 850 Balance 400 610 Intake, IV 600 860 Intake, Oral 200 600 Output, Urine 400 850 Exam General Appearance: no apparent distress, alert, awake, comfortable Head: atraumatic Neck: supple Respiratory: normal breath sounds, chest non-tender, no respiratory distress, quiet respiration, lungs clear Cardiovascular: regular rate/rhythm Gastrointestinal: normal bowel sounds, soft, non-tender Extremities: no edema, bruises on knees bilaterally and his elbows Cranial Nerves: normal hearing, PERRL, abnormal speech Nutrition Nutrition: P.O. diet Current Medications: Current Medications Sig/Lorrie Start time Last Medication Dose Route Stop Time Status Admin Aspirin 81 MG DAILY 07/15 1000 AC 07/15 PO 1051 Carvedilol 12.5 MG BID 07/14 2200 AC 07/15 PO 2220 Finasteride 5 MG DAILY 07/14 1919 AC 07/15 PO 1051 Folic Acid 1 MG DAILY 07/15 1000 AC 07/15 PO 1051 Heparin Sodium 5,000 UNIT Q8 07/14 2200 AC 07/16 (Porcine) SC 0530 Insulin Aspart 0 TIDAC/HS 07/15 1700 AC 07/16 SC 0807 Insulin Detemir 12 UNITS BID 07/15 1343 AC 07/16 SC 0807 Insulin Human Regular 100 UNIT Q20H 07/15 1100 DC 07/15 Sodium Chloride 100 ML IV 07/15 1440 1051 Insulin Human Regular 100 UNIT Q24H 07/14 1730 DC Sodium Chloride 100 ML IV Levothyroxine Sodium 0.05 MG DAILY AC 07/15 0700 AC 07/16 PO 0609 Lorazepam 0 Q1P PRN 07/14 1800 AC IV Multivitamins 1 TAB DAILY 07/15 1000 AC 07/15 PO 1051 Ondansetron HCl 4 MG Q6P PRN 07/14 2315 AC 07/15 IV 0124 Phenytoin 100 MG 1300 07/15 1300 AC 07/15 PO 1325 Potassium Chloride 40 MEQ Q13H 07/15 1330 DC Dextrose/Sodium 1,000 ML IV Chloride Potassium Chloride 40 MEQ Q20H 07/15 1215 DC Dextrose/Sodium 1,000 ML IV Chloride Potassium Chloride 40 MEQ Q6H 07/15 1100 DC 07/15 Dextrose/Sodium 1,000 ML IV 1052 Chloride Potassium Chloride 40 MEQ Q4H 07/15 0200 DC 07/15 Dextrose/Sodium 1,000 ML IV 0603 Chloride Potassium Phosphate 15 mMol ONE ONE 07/15 1530 DC 07/15 Dextrose/Water 250 ML IV 07/15 1934 1723 Sodium Chloride 1,000 ML .[id number] 07/15 1400 AC 07/16 IV 0400 Thiamine HCl 100 MG DAILY 07/15 1000 AC 07/15 PO 1051 Antibiotics Antibiotics? none CT Scan Findings: CAT - CT HEAD WO IV CONTRAST FINDINGS: There is no evidence of acute intracranial hemorrhage or territorial infarction. No abnormal mass effect or midline shift is seen. Wolf to white matter differentiation is well preserved. No extra-axial fluid collections are identified. The ventricles are normal in size. Age-appropriate mild diffuse cortical atrophy and mild chronic microvascular deep white matter ischemic changes are noted. Incidental note is made of a small lacunar infarction within the upper part of the candi to the left of the midline, similar to prior study (see the wasserman images). The osseous structures and soft tissues are normal. The mastoid air cells and visualized portions of the paranasal sinuses are well aerated. IMPRESSION: No acute intracranial pathology, unchanged since 07/17/2016. Impression/Plan Impression/Problem List Impression: 61-year-old male with a past medical history of insulin, hypertension, hyperlipidemia, seizure disorder who presents to the ER with chief complaint of altered mental status. Vitals on admission blood pressure 148/82, respiratory rate of 18, pulse 97, afebrile saturating 99% on room air. Labs pertinent for leukocytosis with a white blood cell count of 17,200, H&H of 15.5/46.2 and an MCV of 86.2 with a platelet count of 243. Serum chemistries pertinent for sodium of 141, potassium of 4.3, bicarbonate of 8, anion gap of 34 , BUN 58 with a creatinine of 2.0 and serum glucose elevated to 718. Lactic acid was 1.6. LFTs pertinent for an AST/ALT of 19/16, total bili 0.5 and an alkaline phosphatase of 155. First set of troponin 0.11. Serum acetone was positive and serum alcohol was less than 10. UA not receive. Head CT showed no acute intracranial pathology. There is a small lacunar infarct within the upper part of the candi to the left middle which is unchanged from previous study. Echo done in June 2016 showed a normal left ventricular ejection fraction of 60% In the ER he received a normal saline bolus of 1 L and 10 units of subcutaneous Novolin R 8 units of IV. Assessment and Plan: Admit patient to ICU for DKA #DKA - Resolved. - Transitioned to levemir 12 units BID, adn Novolog sliding scale. - FSGs elevated to 300's yesterday, 2/2 unclear instructions for sliding scale. - Readjusted his regimen today. - Appreciate Endo recs. - Patient can be downgraded to Tele. #Elevated troponins - 2/2 type II AR - Of note patient has underlying CAD sicne he is a diabetic - F/U Echo to r/o RWMA - Appreciate cardiology recs. #AGMA - Resolved - Most likely 2/2 DKA with underlying alcoholic ketosis given patient drinks 2 pints of vodka on a daily basis. #FAYE - Resolved - Most likely 2/2 dehydration #HTN - Continue Coreg 12.5mg BID # BPH - Continue Finasteride. #Hypothyroidism - Continue Levothyroxine #Seizure disorder - Continue Phenytoin #Alcohol dependence - Continue Ativan per [facility] protocol. - DVT prophylaxis - HeapriN 5000IU TID SC - Diet - DiaBetic diet - Code Status - Full code Problem List: 1. Alcohol withdrawal 2. DKA (diabetic ketoacidoses) Pain Ratin Tomorrow's Labs & Rationales: ICU- electolytes and CBC - H&H Plan DVT/Prophylaxis: mechanical
--- NOTE | 2017-07-16 11:24 | PN- Diabetes ---
Assessment/Plan Assessment: 61 y/o male with a hx of ETOH abuse, was in in 06/2016 for DKA. ANITRA 65 antibody was negative. He was supposed to be on Levemir 12 units twice a day, Novolog coverage before meals. However, as per patient, he wasn't taking insulin for the past two weeks. He was brought to ER for changes of mental status. In ER , his glucose level was 718, Cr 2.0, carbon dioxide 8, AG 34 , K 4.3 and Troponin 0.11. ABG showed pH 7.16.1 He was on IVF and iv insulin drip. Now he is on Levemir 12 units twice a day, Novolog coverage before meals, Novolog coverage at bedtime. Due to the confusion of the order of Novolog coverage before meals, patient was receiving 3 units Novolog before meals when his glucose level was > 300. His FSGs were 246, 203, 367 and 296. Plan: 1. continue the current Levemir 12 units twice a day; 2. adjusted order for Novolog coverage before meals Before Each Meal: Bolus Insulin: Novolog < 80 mg/dl: no coverage 80-100 mg/dl: 4 units 101-120 mg/dl: 4 units 121-150 mg/dl: 4 units 151-200 mg/dl: 5 units 201-250 mg/dl: 6 units 251-300 mg/dl: 7 units 301-350 mg/dl: 8 units 351-400 mg/dl: 9 units > 400 mg/dl: 10 units 3. continue the current Novolog coverage at bedtime; 4. monitor FSGs. will follow. Subjective Subjective: He feels much better this morning. Objective Last 24 Hrs of Vital Signs/I&O Vital Signs Date Time Temp Pulse Resp B/P B/P Pulse O2 O2 Flow FiO2 Mean Ox Delivery Rate 07/16 0953 98 122/68 07/16 0800 98.7 75 20 140/80 95 Room Air 07/16 0600 72 18 95/56 07/16 0400 97.6 84 20 122/60 07/16 0400 95 Room Air 07/16 0200 58 16 112/60 07/16 0000 97.7 71 16 120/70 07/16 0000 96 Room Air 07/16 0000 96.3 71 16 120/70 96 Room Air 07/15 2220 76 20 134/74 07/15 2200 74 14 135/71 07/15 1999 97.6 80 14 126/80 07/15 1999 96 Room Air 07/15 1600 98.3 68 14 100/60 07/15 1600 97 Room Air 07/15 1600 98.3 68 14 97 Room Air Intake & Output 07/16 1600 07/16 0800 07/16 0000 Intake Total 800 1460 Output Total 400 850 Balance 400 610 Intake, IV 600 860 Intake, Oral 200 600 Output, Urine 400 850 Findings Pertinent Lab/Elmer Results: Laboratory Tests 07/16 07/15 07/15 0343 2145 1800 Chemistry Sodium (137 - 145 mmol/L) 145 143 Potassium (3.5 - 5.1 mmol/L) 3.9 4.5 Chloride (98 - 107 mmol/L) 114 H 113 H Carbon Dioxide (22 - 30 mmol/L) 16 L 17 L Anion Gap (5 - 16) 16 13 BUN (9 - 20 mg/dL) 36 H 42 H Creatinine (0.7 - 1.2 mg/dL) 1.0 1.3 H Estimated GFR (>60 ml/min) > 60 56 L Glucose (65 - 99 mg/dL) 316 H 390 H Calcium (8.4 - 10.2 mg/dL) 8.5 8.5 Phosphorus (2.5 - 4.5 mg/dL) 2.7 3.2 Cancelled Magnesium (1.6 - 2.3 mg/dL) 2.2 2.2 Total Bilirubin (0.2 - 1.3 mg/dL) 0.5 0.3 AST (17 - 59 U/L) 26 32 ALT (21 - 72 U/L) 19 L 22 Albumin (3.5 - 5.0 g/dL) 2.9 L 3.0 L Hematology CBC w Diff NO MAN DIFF REQ WBC (4.8 - 10.8 /CUMM) 7.8 RBC (4.70 - 6.10 /CUMM) 4.01 L Hgb (14.0 - 18.0 G/DL) 11.7 L Hct (42 - 52 %) 34.4 L MCV (80.0 - 94.0 FL) 85.9 MCH (27.0 - 31.0 PG) 29.1 MCHC (33.0 - 37.0 G/DL) 33.9 RDW (11.5 - 14.5 %) 13.5 Plt Count (130 - 400 /CUMM) 134 MPV (7.4 - 10.4 FL) 10.4 Gran % (42.2 - 75.2 %) 60.9 Lymphocytes % (20.5 - 51.1 %) 29.1 Monocytes % (1.7 - 9.3 %) 9.5 H Eosinophils % (0 - 5 %) 0.1 Basophils % (0.0 - 2.0 %) 0.4 Absolute Granulocytes (1.4 - 6.5 /CUMM) 4.8 Absolute Lymphocytes (1.2 - 3.4 /CUMM) 2.3 Absolute Monocytes (0.10 - 0.60 /CUMM) 0.7 H Absolute Eosinophils (0.0 - 0.7 /CUMM) 0 Absolute Basophils (0.0 - 0.2 /CUMM) 0 07/15 1438 Chemistry Sodium (137 - 145 mmol/L) 148 H Potassium (3.5 - 5.1 mmol/L) 4.1 Chloride (98 - 107 mmol/L) 118 H Carbon Dioxide (22 - 30 mmol/L) 18 L Anion Gap (5 - 16) 12 BUN (9 - 20 mg/dL) 43 H Creatinine (0.7 - 1.2 mg/dL) 1.1 Estimated GFR (>60 ml/min) > 60 BUN/Creatinine Ratio (7 - 25 %) 39.1 H
--- NOTE | 2017-07-16 15:10 | Transfer of Care Summary ---
Hospital Course Course Hospital Course: 61-year-old male with a past medical history of DM, hypertension, hyperlipidemia , seizure disorder alcohol dependence who presents to the ER with chief complaint of altered mental status. Reportedly patient was discharged from [facility] rehab about 2 weeks ago ( unsure why he was at the rehab facility). He had some insurance issues and was not able to get insulin. Reportedly, patient lives by himself and had a visiting nurse come to his house for the first time on day of admission and found him confused. She called 911 and brought the patient in. Patient during most of the intervbiew, nods and is minimally verbal Vitals on admission blood pressure 148/82, respiratory rate of 18, pulse 97, afebrile saturating 99% on room air. Labs on admission pertinent for leukocytosis with a white blood cell count of 17 ,200, H&H of 15.5/46.2 and an MCV of 86.2 with a platelet count of 243. Serum chemistries pertinent for sodium of 141, potassium of 4.3, bicarbonate of 8, anion gap of 34, BUN 58 with a creatinine of 2.0 and serum glucose elevated to 718. Lactic acid was 1.6. LFTs pertinent for an AST/ALT of 19/16, total bili 0.5 and an alkaline phosphatase of 155. First set of troponin 0.11. Serum acetone was positive and serum alcohol was less than 10. UA not receive. Head CT showed no acute intracranial pathology. There is a small lacunar infarct within the upper part of the candi to the left middle which is unchanged from previous study. Echo done in June 2016 showed a normal left ventricular ejection fraction of 60% In the ER he received a normal saline bolus of 1 L and 10 units of subcutaneous Novolin R 8 units of IV. He was admit to ICU for managament of DKA. #DKA - He was started on insulin drip and subseuqently transitioned to levemir 12 units BID, and Novolog sliding scale as per Endo recommendations once his anion gap closed. - Of note his FSGs were elevated to 300's yesterday, 2/2 unclear instructions for sliding scale. His scale was readjusted today. - F/U Endo recs - Accuchecks TIDAC/HS - F/U HbA1c. #AMS 2/2 DKA. Patient mentation improved with resolution of his DKA. Of note he does have some dysarthia at baseline. #Elevated troponins - Patient had elevated troponins on admission 2/2 type II SD. His trop peaked at 0.18. He was seen by cardiology. - Of note patient must has underlying CAD sicne he is a diabetic. F/U Echo to r/o RWMA. - Cardio on board. F/U recs #AGMA - Resolved - Most likely 2/2 DKA with underlying alcoholic ketosis given patient drinks 2 pints of vodka on a daily basis. #FAYE - Resolved. This was most likely 2/2 dehydration #HTN - He was continued on Coreg 12.5mg BID # BPH - He was continued on Finasteride. #Hypothyroidism - He as continued on Levothyroxine #Seizure disorder - He was continued on Phenytoin #Alcohol dependence - He was placed on Ativan per [facility] protocol. - Social work consult placed. Of note wayne lives by himself, and has bruises all over. ? safe discharge planning - DVT prophylaxis - HeapriN 5000IU TID SC - Diet - DiaBetic diet - Code Status - Full code Complications: None Significant Procedures: SERVICE DATE: 07/14/17 EXAM TYPE: CAT - CT HEAD WO IV CONTRAST FINDINGS: There is no evidence of acute intracranial hemorrhage or territorial infarction. No abnormal mass effect or midline shift is seen. Wolf to white matter differentiation is well preserved. No extra-axial fluid collections are identified. The ventricles are normal in size. Age-appropriate mild diffuse cortical atrophy and mild chronic microvascular deep white matter ischemic changes are noted. Incidental note is made of a small lacunar infarction within the upper part of the candi to the left of the midline, similar to prior study (see the wasserman images). The osseous structures and soft tissues are normal. The mastoid air cells and visualized portions of the paranasal sinuses are well aerated. IMPRESSION: No acute intracranial pathology, unchanged since 07/17/2016. Assessment/Plan: Please see above
--- NOTE | 2017-07-16 15:22 | PN- Cardiology ---
Subjective Subjective: No chest pain. No SOB. No palp. No lightheadedness. Objective Vital Signs and I&Os Vital Signs Date Time Temp Pulse Resp B/P B/P Pulse O2 O2 Flow FiO2 Mean Ox Delivery Rate 07/16 0953 98 122/68 07/16 0800 98.7 75 20 140/80 95 Room Air 07/16 0600 72 18 95/56 07/16 0400 97.6 84 20 122/60 07/16 0400 95 Room Air 07/16 0200 58 16 112/60 07/16 0000 97.7 71 16 120/70 07/16 0000 96 Room Air 07/16 0000 96.3 71 16 120/70 96 Room Air 07/15 2220 76 20 134/74 07/15 2200 74 14 135/71 07/15 2000 97.6 80 14 126/80 07/15 2000 96 Room Air 07/15 1600 98.3 68 14 100/60 07/15 1600 97 Room Air 07/15 1600 98.3 68 14 100/60 97 Room Air Intake & Output 07/16 1600 07/16 0800 07/16 0000 07/15 1600 07/15 0800 07/15 0000 Intake Total 267 860 9507 670 2000 Output Total 1200 400 850 210 750 Balance -960 400 024 890 2875 Intake, IV 600 681 803 9873 Intake, Oral 240 200 600 220 Output, Urine 1200 400 850 210 750 Patient 125 lb 162 lb Weight Physical Exam: Gen: NAD HEENT: normal Lungs: clear to auscultation, normal resp. effort Heart: RRR, S1, S2, no murmurs Abdomen: Soft, nontender, no masses Extremities: No clubbing, cyanosis, or edema. Neuro: Alert and oriented x 3, cranial nerves intact Current Medications: Current Medications Sig/Lorrie Start time Last Medication Dose Route Stop Time Status Admin Aspirin 81 MG DAILY 07/15 1000 AC 07/16 PO 0953 Carvedilol 12.5 MG BID 07/14 2199 AC 07/16 PO 0953 Finasteride 5 MG DAILY 07/14 1919 AC 07/16 PO 0953 Folic Acid 1 MG DAILY 07/15 1000 AC 07/16 PO 0954 Heparin Sodium 5,000 UNIT Q8 07/140 AC 07/16 (Porcine) SC 1327 Insulin Aspart 0 TIDAC/HS 07/15 1700 AC 07/16 SC 0807 Insulin Detemir 12 UNITS BID 07/15 1343 AC 07/16 SC 0807 Levothyroxine Sodium 0.05 MG DAILY AC 07/15 0700 AC 07/16 PO 0609 Lorazepam 0 Q1P PRN 07/14 1800 AC IV Multivitamins 1 TAB DAILY 07/15 1000 AC 07/16 PO 0954 Ondansetron HCl 4 MG Q6P PRN 07/14 2315 AC 07/15 IV 0124 Phenytoin 100 MG 1300 07/15 1300 AC 07/15 PO 1325 Potassium Phosphate 15 mMol ONE ONE 07/15 1530 DC 07/15 Dextrose/Water 250 ML IV 07/15 1934 1723 Sodium Chloride 1,000 ML .[id number] 07/15 1400 DC 07/16 IV 0400 Thiamine HCl 100 MG DAILY 07/15 1000 AC 07/16 PO 0954 Results Last 48 Hrs of Labs/Mics: Laboratory Tests 07/16/17 0343: Anion Gap 16, Estimated GFR > 60, Glucose 316 H, Hemoglobin A1c Pending, Calcium 8.5, Phosphorus 2.7, Magnesium 2.2, Total Bilirubin 0.5, AST 26, ALT 19 L, Albumin 2.9 L, CBC w Diff NO MAN DIFF REQ, RBC 4.01 L, MCV 85.9, MCH 29.1, MCHC 33.9, RDW 13.5, MPV 10.4, Gran % 60.9, Lymphocytes % 29.1, Monocytes % 9.5 H, Eosinophils % 0.1, Basophils % 0.4, Absolute Granulocytes 4.8, Absolute Lymphocytes 2.3, Absolute Monocytes 0.7 H, Absolute Eosinophils 0, Absolute Basophils 0 07/15/17 2145: Anion Gap 13, Estimated GFR 56 L, Glucose 390 H, Calcium 8.5, Phosphorus 3.2, Magnesium 2.2, Total Bilirubin 0.3, AST 32, ALT 22, Albumin 3.0 L 07/15/17 1800: Phosphorus Cancelled 07/15/17 1438: Anion Gap 12, Estimated GFR > 60, BUN/Creatinine Ratio 39.1 H 07/15/17 1003: Anion Gap 13, Estimated GFR > 60, BUN/Creatinine Ratio 39.2 H, Phosphorus 1.8 L, Magnesium 2.3, Troponin I 0.14 *H 07/15/17 1003: Sodium Cancelled, Potassium Cancelled, Chloride Cancelled, Carbon Dioxide Cancelled, Anion Gap Cancelled, BUN Cancelled, Creatinine Cancelled, BUN/ Creatinine Ratio Cancelled 07/15/17 0530: Anion Gap 14, Estimated GFR 56 L, Glucose 350 H, Calcium 8.6, Phosphorus 2.6, Magnesium 2.3, Total Bilirubin 0.3, AST 19, ALT 20 L, Albumin 3.2 L, Triglycerides 121, Cholesterol 188, LDL Cholesterol, Calc 109, HDL Cholesterol 55, Cholesterol/HDL Ratio 3, CBC w Diff NO MAN DIFF REQ, RBC 4.21 L, MCV 85.8, MCH 29.3, MCHC 34.1, RDW 13.4, MPV 9.3, Gran % 85.2 H, Lymphocytes % 8.1 L, Monocytes % 6.2, Eosinophils % 0, Basophils % 0.5, Absolute Granulocytes 11.0 H , Absolute Lymphocytes 1.1 L, Absolute Monocytes 0.8 H, Absolute Eosinophils 0 , Absolute Basophils 0.1 07/15/17 0230: Troponin I 0.18 *H 07/15/17 0030: Anion Gap 17 H, Estimated GFR 47 L, Glucose 240 H, Calcium 9.1, Phosphorus 1.6 L, Magnesium 2.4 H, Total Bilirubin 0.5, AST 19, ALT 17 L, Albumin 3.6 07/14/17 2105: Anion Gap 24 H, Estimated GFR 44 L, BUN/Creatinine Ratio 36.9 H, Phosphorus 1.7 L, Magnesium 2.5 H, Troponin I 0.15 *H 07/14/17 1701: Lactic Acid 2.0 07/14/17 1701: Anion Gap 35 H, Estimated GFR 34 L, BUN/Creatinine Ratio 29.0 H, Glucose 620 *H, Calcium 9.0, Total Bilirubin 0.4, AST 19, ALT 19 L, Alkaline Phosphatase 139 H, Total Protein 7.1, Albumin 4.5, Globulin 2.6, Albumin/Globulin Ratio 1.7 07/14/17 1644: Urinalysis MOD H, Urine Color YEL, Urine Clarity CLEAR, Urine pH 6.0, Ur Specific [place] 1.025, Urine Protein 30 H, Urine Ketones 40 H, Urine Nitrite NEG, Urine Bilirubin NEG@ICTO, Urine Urobilinogen 0.2, Ur Leukocyte Esterase NEG , Ur Microscopic SEDIMENT EXAMINED, Urine RBC 1-3, Urine WBC 1-3 H, Granular Casts RARE H, Urine Hemoglobin MOD H, Urine Glucose >=1000 H 07/14/17 1600: pH 7.16 *L, pCO2 13 L, pO2 142 H, HCO3 4.5 L, ABG O2 Sat (Measured) 98.0, Carboxyhemoglobin 0.3 L, O2 Concentration % RA, O2 Delivery Method RA, Phlebotomy Draw Site LEFT RADIAL Microbiology 07/15 0130 GI: Surveillance Culture - COMP 07/15 0010 UPPER RESP: Surveillance Culture - COMP METH RESIST STAPH AUREUS 07/14 1644 URINE ROUT: Urine Culture - COMP Assessment/Plan Assessment/Plan 1. DKA 2. Mild troponin elevation, likely secondary to type II AL. No evidence of acute coronary syndrome at this time 3. Acute kidney injury 4. Hypertension Plan: * Continue cardiac medications * Monitor for chest pain * Echocardiogram Continue telemetry? Yes
[2017-07-17] VITALS: BP 120/60
[2017-07-17 02:00] VITALS: BP 120/60
[2017-07-17 04:00] VITALS: BP 124/50
[2017-07-17 04:24] LABS: ABSOLUTE BASOPHIL COUNT 0 /CUMM (0.0-0.2); ABSOLUTE EOSINOPHIL COUNT 0 /CUMM (0.0-0.7); ABSOLUTE GRANULOCYTE CT 3.2 /CUMM (1.4-6.5); ABSOLUTE LYMPH COUNT 2.8 /CUMM (1.2-3.4); ABSOLUTE MONOCYTE COUNT 0.7 /CUMM (0.10-0.60); BASOPHIL % 0.4 % (0.0-2.0); EOSINOPHIL % 0.5 % (0-5); GRANULOCYTE % 47.7 % (42.2-75.2); MEAN CORPUSCULAR HGB 29.3 PG (27.0-31.0); MEAN CORPUSCULAR HGB CONC 34.2 G/DL (33.0-37.0); MEAN CORPUSCULAR VOLUME 85.6 FL (80.0-94.0); MEAN PLATELET VOLUME 10.1 FL (7.4-10.4); PLATELET COUNT 124 /CUMM (130-400); RBC DISTRIBUTION WIDTH 13.5 % (11.5-14.5); RED BLOOD CELL CT 3.98 /CUMM (4.70-6.10); WHITE BLOOD CELL COUNT 6.8 /CUMM (4.8-10.8)
[2017-07-17 06:00] VITALS: BP 124/60
--- NOTE | 2017-07-17 06:59 | PN- Resident CRCU ---
Giselle HERNANDEZ,[facility] 07/17/17 0659: Subjective HPI/CRCU Issues: DKA Elevated troponins FAYE 24 Hour Events: No active issues overnight. Patient has been downgraded to telemetry for further monitoring. Patient was seen and examined at bedside. Offers no complaints. His friend Godwin called this morning mentioning that the patient would benefit from ECF than community home, as he is extremely noncompliant with his insulin and ends up getting back in the hospital. The patient is reported to have slurred speech at baseline. Objective Vital Signs & I&O Last 8 Hrs of Vitals and I&O: Intake & Output 07/17 1600 Intake Total Output Total 350 Balance -350 Output, Urine 350 Exam General Appearance: no apparent distress, alert, awake, comfortable Head: atraumatic, normal appearance Respiratory: normal breath sounds, chest non-tender, lungs clear Cardiovascular: regular rate/rhythm Gastrointestinal: soft, non-tender Extremities: no edema Cranial Nerves: normal hearing, abnormal speech Skin: intact Skin Temp/Moisture Exam: Warm/Dry Sepsis Skin Exam (color): Normal for Ethnicity Current Medications: Current Medications Sig/Lorrie Start time Last Medication Dose Route Stop Time Status Admin Aspirin 81 MG DAILY 07/15 1000 AC 07/17 PO 1032 Carvedilol 12.5 MG BID 07/14 2200 AC 07/17 PO 1032 Finasteride 5 MG DAILY 07/14 1919 AC 07/17 PO 1032 Folic Acid 1 MG DAILY 07/15 1000 AC 07/16 PO 0954 Heparin Sodium 5,000 UNIT Q8 07/14 2200 AC 07/17 (Porcine) SC 0606 Insulin Aspart 0 TIDAC/HS 07/15 1700 AC 07/17 SC 0841 Insulin Detemir 15 UNITS BID 07/17 1000 AC 07/17 SC 1033 Insulin Detemir 12 UNITS BID 07/15 1343 DC 07/16 SC 2212 Levothyroxine Sodium 0.05 MG DAILY AC 07/15 0700 AC 07/17 PO 0605 Lorazepam 0 Q1P PRN 07/14 1800 AC IV Multivitamins 1 TAB DAILY 07/15 1000 AC 07/17 PO 1032 Ondansetron HCl 4 MG Q6P PRN 07/14 2315 AC 07/15 IV 0124 Phenytoin 100 MG 1300 07/15 1300 AC 07/15 PO 1325 Potassium Chloride 40 MEQ ONCE ONE 07/17 0830 CAN PO 07/17 0831 Potassium Chloride 60 MEQ ONCE ONE 07/17 0645 DC 07/17 PO 07/17 0646 0633 Potassium Chloride 40 MEQ ONCE ONE 07/17 0630 CAN PO 07/17 0631 Potassium Chloride 40 MEQ ONCE ONE 07/17 0615 CAN PO 07/17 0616 Potassium Chloride 60 MEQ ONCE ONE 07/17 0600 DC PO 07/17 0601 Thiamine HCl 100 MG DAILY 07/15 1000 AC 07/17 PO 1032 Impression/Plan Impression/Problem List Impression: 61-year-old male with a past medical history of insulin, hypertension, hyperlipidemia, seizure disorder who presented to the ER with chief complaint of altered mental status. Echo in June 2016 showed a normal left ventricular ejection fraction of 60% Assessment and Plan: Diabetic KetoAcidosis: - resolved * Endo recs appreciated. Diabetes: * Continue SC Levemir 15mg BID * Novolog insulin for meal time coverage adjusted per Endo recs. Type II MA: * No EKG changes. Elevated Troponins was likely due to Type II MA * Echocardiogram shows stage I diastolic dysfunction with normal LVEF >60%. * Cardiology recs appreciated. FAYE: - resolved * Most likely due to dehydration. History of Hypertension: * Continue Coreg History of BPH: * Continue Finasteride. History of Hypothyroidism: * Continue Levothyroxine History of Seizures: * Continue Phenytoin Alcohol dependence: * Continue Aivan per [facility] protocol. DVT Prophylaxis * SC Heparin x3 Diet: * Continue NPO for now Code Status: Full code Further details may be obtained from his friend Nikki [phone], and JOHNNY Farfan [phone] Problem List: 1. Elevated troponin Pain Ratin Tomorrow's Labs & Rationales: CBC, BEP Plan DVT/Prophylaxis: anne Finney MD,Tiarra 07/17/17 1151: Attending MD Review Statement Attending Sign Off Attending Cosign Statement: I have: examined this patient, reviewed [facility] EMR data, personally reviewd images, discussd w/resident/PA/POSTMASTER RELIEF, discussed mgmt plan w/jenn, discussed mgmt plan w/pt, agreed w/resident/PA/POSTMASTER RELIEF, amended to note. Other Findings: Patient seen and examined, claims that he feels fine. Patient currently on subcutaneous insulin per endocrinology recommendations. He is off of insulin drip. Blood sugars are running in 200s to 300. His Levemir dose has been increased per Dr. Pearce's recommendations. Vital Signs Date Time Temp Pulse Resp B/P B/P Pulse O2 O2 Flow FiO2 Mean Ox Delivery Rate 07/17 1032 74 118/70 07/17 0600 78 20 124/60 07/17 0400 88 20 124/50 07/17 0200 88 20 120/60 07/17 0000 98.0 86 20 120/60 07/17 0000 96 Room Air 07/17 0000 98.0 86 20 120/60 96 Room Air 07/16 2212 82 132/70 07/16 2200 84 18 132/70 07/16 1600 96.8 81 21 92/60 07/16 1600 99 Room Air 07/16 1600 97.7 73 18 112/68 99 Room Air on exam; awake, nad. cv; s1,s2, rrr resp; clear abnd; soft, nt, bs+ ext; no edema. Laboratory Tests 07/17 399 Chemistry Sodium (137 - 145 mmol/L) 143 Potassium (3.5 - 5.1 mmol/L) 3.4 L Chloride (98 - 107 mmol/L) 110 H Carbon Dioxide (22 - 30 mmol/L) 23 Anion Gap (5 - 16) 10 BUN (9 - 20 mg/dL) 25 H Creatinine (0.7 - 1.2 mg/dL) 0.7 Estimated GFR (>60 ml/min) > 60 Glucose (65 - 99 mg/dL) 201 H Calcium (8.4 - 10.2 mg/dL) 8.4 Phosphorus (2.5 - 4.5 mg/dL) 2.1 L Magnesium (1.6 - 2.3 mg/dL) 2.1 Total Bilirubin (0.2 - 1.3 mg/dL) 0.3 AST (17 - 59 U/L) 23 ALT (21 - 72 U/L) 23 Albumin (3.5 - 5.0 g/dL) 2.7 L Hematology CBC w Diff NO MAN DIFF REQ WBC (4.8 - 10.8 /CUMM) 6.8 RBC (4.70 - 6.10 /CUMM) 3.98 L Hgb (14.0 - 18.0 G/DL) 11.6 L Hct (42 - 52 %) 34.0 L MCV (80.0 - 94.0 FL) 85.6 MCH (27.0 - 31.0 PG) 29.3 MCHC (33.0 - 37.0 G/DL) 34.2 RDW (11.5 - 14.5 %) 13.5 Plt Count (130 - 400 /CUMM) 124 L MPV (7.4 - 10.4 FL) 10.1 Gran % (42.2 - 75.2 %) 47.7 Lymphocytes % (20.5 - 51.1 %) 41.1 Monocytes % (1.7 - 9.3 %) 10.3 H Eosinophils % (0 - 5 %) 0.5 Basophils % (0.0 - 2.0 %) 0.4 Absolute Granulocytes (1.4 - 6.5 /CUMM) 3.2 Absolute Lymphocytes (1.2 - 3.4 /CUMM) 2.8 Absolute Monocytes (0.10 - 0.60 /CUMM) 0.7 H Absolute Eosinophils (0.0 - 0.7 /CUMM) 0 Absolute Basophils (0.0 - 0.2 /CUMM) 0 A/P; 61-year-old male with past history significant for diabetes, hypertension, seizure disorder, codependent admitted with DKA and also has type II NSTEMI. Patient is now off of insulin drip. Blood sugars are running high. Seen by endocrinology in insulin dose has been increased. Also followed by cardiology. Echocardiogram results reviewed and it shows stage I diastolic dysfunction. Patient on aspirin and beta michaela. Continue multivitamin, folate and thiamine. Please order PT evaluation. DVT prophylaxis: Heparin subcutaneous. Disposition: We'll discuss with the case management about safe discharge plan. Apparently patient was not taking insulin at home because he says that he did not have any left.
[2017-07-17 08:00] VITALS: BP 102/70
--- NOTE | 2017-07-17 08:19 | PN- Diabetes ---
Assessment/Plan Assessment: 61 y/o male with a hx of ETOH abuse, was in in 06/2016 for DKA. ANITRA 65 antibody was negative. He was supposed to be on Levemir 12 units twice a day, Novolog coverage before meals. However, as per patient, he wasn't taking insulin for the past two weeks. He was brought to ER for changes of mental status. In ER , his glucose level was 718, Cr 2.0, carbon dioxide 8, AG 34 , K 4.3 and Troponin 0.11. ABG showed pH 7.16.1 He was on IVF and iv insulin drip. Now he is on Levemir 12 units twice a day, Novolog coverage before meals, Novolog coverage at bedtime. His FSGs were 296, 356, 328, 307 and 201. Plan: 1. increase Levemir to 15 units twice a day; 2. adjust Novolog coverage before meals; detail see the inpatient DM order; 3. continue the current Novolog coverage at bedtime; 4. monitor FSGs. 5. replete K; 6. continue monitor electrolytes. will follow. Inpatient Diabetes Orders Before Each Meal: Bolus Insulin: Novolog < 80 mg/dl: no coverage 80-100 mg/dl: 6 units 101-120 mg/dl: 6 units 121-150 mg/dl: 6 units 151-200 mg/dl: 7 units 201-250 mg/dl: 8 units 251-300 mg/dl: 9 units 301-350 mg/dl: 10 units 351-400 mg/dl: 12 units > 400 mg/dl: 14 units Subjective Subjective: He feels well. Objective Last 24 Hrs of Vital Signs/I&O Vital Signs Date Time Temp Pulse Resp B/P B/P Pulse O2 O2 Flow FiO2 Mean Ox Delivery Rate 07/17 0600 78 20 124/60 07/17 0400 88 20 124/50 07/17 0200 88 20 120/60 07/17 0000 98.0 86 20 120/60 07/17 0000 96 Room Air 07/17 0000 98.0 86 20 120/60 96 Room Air 07/16 2212 82 132/70 07/16 2200 84 18 132/70 07/16 1600 96.8 81 21 92/60 07/16 1600 99 Room Air 07/16 1600 97.7 73 18 112/68 99 Room Air 07/16 0953 98 122/68 Intake & Output 07/17 1600 07/17 0800 07/17 0000 Intake Total 240 450 Output Total 650 1000 Balance -410 -550 Intake, Oral 240 450 Output, Stool 0 Output, Urine 650 1000 Findings Pertinent Lab/Elmer Results: Laboratory Tests 07/17 0400 Chemistry Sodium (137 - 145 mmol/L) 143 Potassium (3.5 - 5.1 mmol/L) 3.4 L Chloride (98 - 107 mmol/L) 110 H Carbon Dioxide (22 - 30 mmol/L) 23 Anion Gap (5 - 16) 10 BUN (9 - 20 mg/dL) 25 H Creatinine (0.7 - 1.2 mg/dL) 0.7 Estimated GFR (>60 ml/min) > 60 Glucose (65 - 99 mg/dL) 201 H Calcium (8.4 - 10.2 mg/dL) 8.4 Phosphorus (2.5 - 4.5 mg/dL) 2.1 L Magnesium (1.6 - 2.3 mg/dL) 2.1 Total Bilirubin (0.2 - 1.3 mg/dL) 0.3 AST (17 - 59 U/L) 23 ALT (21 - 72 U/L) 23 Albumin (3.5 - 5.0 g/dL) 2.7 L Hematology CBC w Diff NO MAN DIFF REQ WBC (4.8 - 10.8 /CUMM) 6.8 RBC (4.70 - 6.10 /CUMM) 3.98 L Hgb (14.0 - 18.0 G/DL) 11.6 L Hct (42 - 52 %) 34.0 L MCV (80.0 - 94.0 FL) 85.6 MCH (27.0 - 31.0 PG) 29.3 MCHC (33.0 - 37.0 G/DL) 34.2 RDW (11.5 - 14.5 %) 13.5 Plt Count (130 - 400 /CUMM) 124 L MPV (7.4 - 10.4 FL) 10.1 Gran % (42.2 - 75.2 %) 47.7 Lymphocytes % (20.5 - 51.1 %) 41.1 Monocytes % (1.7 - 9.3 %) 10.3 H Eosinophils % (0 - 5 %) 0.5 Basophils % (0.0 - 2.0 %) 0.4 Absolute Granulocytes (1.4 - 6.5 /CUMM) 3.2 Absolute Lymphocytes (1.2 - 3.4 /CUMM) 2.8 Absolute Monocytes (0.10 - 0.60 /CUMM) 0.7 H Absolute Eosinophils (0.0 - 0.7 /CUMM) 0 Absolute Basophils (0.0 - 0.2 /CUMM) 0
--- NOTE | 2017-07-17 09:33 | ECHOCARDIOGRAM REPORT ---
JENNA GIBBONS Age: 61 : 1955 Gender: M Exam Date: 07/16/2017 08:56 Exam Location: [facility] Ht (in): 67 Wt (lb): 125 BSA: 1.63 BP: 154 / 77 Ordering Physician: Nelsy Mcpherson MD Referring Physician: Juve Rainey MD Technologist: Gina Kim [facility] Room Number: 113 Indications: MYOCARDIAL ISCHEMIA/VA Rhythm: Sinus Technical Quality: Good FINDINGS Left Ventricle Normal size left ventricle. Moderate concentric left ventricular hypertrophy. Normal left ventricular ejection fraction visually estimated at >60%. Abnormal relaxation filling pattern of the left ventricle for age (stage 1 diastolic dysfunction). Right Ventricle Normal right ventricular size and function. Right Atrium Normal right atrial size. Left Atrium Normal left atrial size. Mitral Valve Mild mitral annular calcification. Mitral valve thickened. Trace mitral regurgitation. Aortic Valve Aortic valve mildly thickened.no aortic regurgitation. Tricuspid Valve Tricuspid valve not well visualized, grossly normal. Trace tricuspid regurgitation. No evidence of pulmonary hypertension. Pulmonic Valve Pulmonic valve not well visualized, grossly normal. Mild pulmonic regurgitation. Pericardium No pericardial effusion. Great Vessels Normal size aortic root. CONCLUSIONS Normal size left ventricle. Moderate concentric left ventricular hypertrophy. Normal left ventricular ejection fraction visually estimated at > 60%. Abnormal relaxation filling pattern of the left ventricle for age (stage 1 diastolic dysfunction). Trace mitral regurgitation. Trace tricuspid regurgitation. Mild pulmonic regurgitation. Juve Rainey M.D. (Electronically Signed) Final Date: 17 July 2017 09:32 MEASUREMENTS (Male / Female) Normal Values 2D ECHO LV Diastolic Diameter PLAX 4.4 cm 4.2 - 5.9 / 3.9 - 5.3 cm LV Systolic Diameter PLAX 2.8 cm 2.1 - 4.0 cm LV Fractional Shortening PLAX 36.4 % 25 - 46 % LV Ejection Fraction 2D Teich 66.3 % IVS Diastolic Thickness 1.6 cm LVPW Diastolic Thickness 1.6 cm LV Relative Wall Thickness 0.7 RV Internal Dim ED PLAX 2.7 cm 1.9 - 3.8 cm LVOT Diameter 2.0 cm Aortic Root Diameter 3.6 cm LA Systolic Diameter LX 4.1 cm 3.0 - 4.0 / 2.7 - 3.8 cm LA Volume 42.0 cm 18 - 58 / 22 - 52 cm Ascending Aorta Diameter 3.5 cm DOPPLER AV Peak Velocity 161.0 cm/s AV Peak Gradient 10.4 mmHg AV Mean Velocity 103.0 cm/s AV Mean Gradient 5.0 mmHg AV Velocity Time Integral 27.6 cm LVOT Peak Velocity 114.0 cm/s LVOT Peak Gradient 5.2 mmHg LVOT Mean Velocity 65.3 cm/s LVOT Mean Gradient 2.0 mmHg LVOT Velocity Time Integral 19.1 cm LVOT Stroke Volume 60.0 cm AV Area Cont Eq vti 2.2 cm AV Area Cont Eq pk 2.2 cm MV Peak Velocity 99.2 cm/s MV Peak Gradient 3.9 mmHg MV Mean Velocity 54.0 cm/s MV Mean Gradient 1.0 mmHg Mitral E Point Velocity 75.0 cm/s Mitral A Point Velocity 81.4 cm/s Mitral E to A Ratio 0.9 MV PHT Velocity 78.2 cm/s MV Deceleration Ross 218.0 cm/s MV Pressure Half Time 107.6 ms MV Area PHT 2.0 cm MV Deceleration Time 259.0 ms TR Peak Velocity 116.0 cm/s TR Peak Gradient 5.4 mmHg Right Atrial Pressure 5.0 mmHg Pulmonary Artery Systolic Pressu 10.4 mmHg Right Ventricular Systolic Press 10.4 mmHg PV Peak Velocity 89.6 cm/s PV Peak Gradient 3.2 mmHg PV Mean Velocity 67.2 cm/s PV Mean Gradient 2.0 mmHg PV Velocity Time Integral 17.0 cm LV E' Lateral Velocity 11.0 cm/s Mitral E to LV E' Lateral Ratio 6.8 LV E' Septal Velocity 6.1 cm/s Mitral E to LV E' Septal Ratio 12.2
[2017-07-17 16:00] VITALS: BP 116/78
--- NOTE | 2017-07-17 19:00 | PN- Cardiology ---
Subjective Subjective: The patient is comfortable. He denies any chest pain. No palpitations. No shortness of breath. Objective Vital Signs and I&Os Vital Signs Date Time Temp Pulse Resp B/P B/P Pulse O2 O2 Flow FiO2 Mean Ox Delivery Rate 07/17 1510 Room Air 07/17 1458 Room Air 07/17 1032 74 118/70 07/17 0800 98.1 76 20 102/70 07/17 0800 98.1 76 20 102/70 97 Room Air 07/17 0600 78 20 124/60 07/17 0400 88 20 124/50 07/17 0200 88 20 120/60 07/17 0000 98.0 86 20 120/60 07/17 0000 96 Room Air 07/17 0000 98.0 86 20 120/60 96 Room Air 07/16 2212 82 132/70 07/16 2200 84 18 132/70 Intake & Output 07/17 1600 07/17 0800 07/17 0000 07/16 1600 07/16 0800 07/16 0000 Intake Total 940 240 450 144 697 1868 Output Total 949 837 8780 1200 400 850 Balance 390 -410 -550 -960 400 610 Intake, IV 20 600 860 Intake, Oral 920 240 450 240 200 600 Number 1 Bowel Movements Output, Stool 0 Output, Urine 114 809 4315 1200 400 850 Physical Exam: Gen: NAD HEENT: normal Lungs: clear to auscultation, normal resp. effort Heart: RRR, S1, S2, no murmurs Abdomen: Soft, nontender, no masses Extremities: No clubbing, cyanosis, or edema. Neuro: Alert and oriented x 3, cranial nerves intact Current Medications: Current Medications Sig/Lorrie Start time Last Medication Dose Route Stop Time Status Admin Aspirin 81 MG DAILY 07/15 1000 AC 07/17 PO 1032 Carvedilol 12.5 MG BID 07/14 PO 1032 Finasteride 5 MG DAILY 07/14 1919 AC 07/17 PO 1032 Folic Acid 1 MG DAILY 07/15 1000 AC 07/17 PO 1229 Heparin Sodium 5,000 UNIT Q8 07/14 (Porcine) SC 1452 Insulin Aspart 0 TIDAC/HS 07/15 1700 AC 07/17 SC 1648 Insulin Detemir 15 UNITS BID 07/17 1000 AC 07/17 SC 1033 Insulin Detemir 12 UNITS BID 07/15 1343 DC 07/16 SC 2212 Levothyroxine Sodium 0.05 MG DAILY AC 07/15 0700 AC 07/17 PO 0605 Lorazepam 0 Q1P PRN 07/14 1800 AC IV Multivitamins 1 TAB DAILY 07/15 1000 AC 07/17 PO 1032 Ondansetron HCl 4 MG Q6P PRN 07/14 2315 AC 07/15 IV 0124 Phenytoin 100 MG 1300 07/15 1300 AC 07/15 PO 1325 Potassium Chloride 40 MEQ ONCE ONE 07/17 0830 CAN PO 07/17 0831 Potassium Chloride 60 MEQ ONCE ONE 07/17 0645 DC 07/17 PO 07/17 0646 0633 Potassium Chloride 40 MEQ ONCE ONE 07/17 0630 CAN PO 07/17 0631 Potassium Chloride 40 MEQ ONCE ONE 07/17 0615 CAN PO 07/17 0616 Potassium Chloride 60 MEQ ONCE ONE 07/17 0600 DC PO 07/17 0601 Thiamine HCl 100 MG DAILY 07/15 1000 AC 07/17 PO 1032 Results Last 48 Hrs of Labs/Mics: Laboratory Tests 07/17/17 0400: Anion Gap 10, Estimated GFR > 60, Glucose 201 H, Calcium 8.4, Phosphorus 2.1 L , Magnesium 2.1, Total Bilirubin 0.3, AST 23, ALT 23, Albumin 2.7 L, CBC w Diff NO MAN DIFF REQ, RBC 3.98 L, MCV 85.6, MCH 29.3, MCHC 34.2, RDW 13.5, MPV 10.1, Gran % 47.7, Lymphocytes % 41.1, Monocytes % 10.3 H, Eosinophils % 0.5, Basophils % 0.4, Absolute Granulocytes 3.2, Absolute Lymphocytes 2.8, Absolute Monocytes 0.7 H, Absolute Eosinophils 0, Absolute Basophils 0 07/16/17 0343: Anion Gap 16, Estimated GFR > 60, Glucose 316 H, Hemoglobin A1c 12.7 H, Calcium 8.5, Phosphorus 2.7, Magnesium 2.2, Total Bilirubin 0.5, AST 26, ALT 19 L, Albumin 2.9 L, CBC w Diff NO MAN DIFF REQ, RBC 4.01 L, MCV 85.9, MCH 29.1, MCHC 33.9, RDW 13.5, MPV 10.4, Gran % 60.9, Lymphocytes % 29.1, Monocytes % 9.5 H, Eosinophils % 0.1, Basophils % 0.4, Absolute Granulocytes 4.8, Absolute Lymphocytes 2.3, Absolute Monocytes 0.7 H, Absolute Eosinophils 0, Absolute Basophils 0 07/15/17 2145: Anion Gap 13, Estimated GFR 56 L, Glucose 390 H, Calcium 8.5, Phosphorus 3.2, Magnesium 2.2, Total Bilirubin 0.3, AST 32, ALT 22, Albumin 3.0 L Recent Imaging Studies: Chest x-ray: Normally expanded and grossly clear lungs with no acute findings. Echocardiogram 07/17/17: Normal size left ventricle. Moderate concentric left ventricular hypertrophy. Normal left ventricular ejection fraction visually estimated at > 60%. Abnormal relaxation filling pattern of the left ventricle for age (stage 1 diastolic dysfunction). Trace mitral regurgitation. Trace tricuspid regurgitation. Mild pulmonic regurgitation. Assessment/Plan Assessment/Plan 1. DKA 2. Mild troponin elevation, likely secondary to type II MO. No evidence of acute coronary syndrome at this time 3. Acute kidney injury 4. Hypertension 5. Essentially normal echocardiogram Plan: * Continue current cardiac medications per * Cardiac status is stable. No further inpatient cardiac workup is indicated Continue telemetry? Not applicable
[2017-07-18] VITALS: BP 120/60
[2017-07-18 04:00] VITALS: BP 120/60
[2017-07-18 06:00] VITALS: BP 124/50
[2017-07-18 06:18] LABS: ABSOLUTE BASOPHIL COUNT 0 /CUMM (0.0-0.2); ABSOLUTE EOSINOPHIL COUNT 0.1 /CUMM (0.0-0.7); ABSOLUTE GRANULOCYTE CT 4.3 /CUMM (1.4-6.5); ABSOLUTE MONOCYTE COUNT 0.7 /CUMM (0.10-0.60); BASOPHIL % 0.4 % (0.0-2.0); EOSINOPHIL % 0.7 % (0-5); GRANULOCYTE % 53.2 % (42.2-75.2); HEMATOCRIT 37.5 % (42-52); MEAN CORPUSCULAR HGB 28.9 PG (27.0-31.0); MEAN CORPUSCULAR HGB CONC 33.8 G/DL (33.0-37.0); MEAN CORPUSCULAR VOLUME 85.5 FL (80.0-94.0); MEAN PLATELET VOLUME 10.2 FL (7.4-10.4); PLATELET COUNT 129 /CUMM (130-400); RBC DISTRIBUTION WIDTH 13.6 % (11.5-14.5); RED BLOOD CELL CT 4.38 /CUMM (4.70-6.10); WHITE BLOOD CELL COUNT 8.1 /CUMM (4.8-10.8)
--- NOTE | 2017-07-18 07:33 | PN- Housestaff ---
Giselle HERNANDEZ,[facility] 07/18/17 0733: Subjective Follow-up For: DKA Elevated troponins Complaints: no complaints Subjective: Patient was seen and examined at bedside. Reports doing great. Offers no complaints. Review of Systems Constitutional: Reports: no symptoms. Objective Last 24 Hrs of Vital Signs/I&O Vital Signs Date Time Temp Pulse Resp B/P B/P Pulse O2 O2 Flow FiO2 Mean Ox Delivery Rate 07/18 0843 81 118/66 07/18 0600 70 20 124/50 07/18 0400 70 20 120/60 07/18 0000 98.0 72 20 120/60 07/18 0000 98.0 72 20 120/60 96 Room Air 07/18 0000 96 Room Air 07/17 2201 84 136/74 07/17 1600 97.1 77 16 116/78 07/17 1600 98 Room Air 07/17 1600 97.1 77 16 78 98 Room Air 07/17 1510 Room Air 07/17 1458 Room Air Intake & Output 07/18 1600 07/18 0800 07/18 0000 Intake Total 200 650 Output Total 450 695 Balance -250 -45 Intake, Oral 200 650 Output, Urine 450 695 Physical Exam General Appearance: Alert, Oriented X3, Cooperative, No Acute Distress Skin: No Rashes, No Breakdown Skin Temp/Moisture Exam: Warm/Dry Sepsis Skin Exam (color): Normal for Ethnicity HEENT: Atraumatic Cardiovascular: Normal S1, Normal S2, No Murmurs Lungs: Clear to Auscultation, diminished air entry Abdomen: Soft, No Tenderness Neurological: slurred speech Extremities: No Edema Current Medications: Current Medications Sig/Lorrie Start time Last Medication Dose Route Stop Time Status Admin Aspirin 81 MG DAILY 07/15 1000 AC 07/18 PO 0843 Carvedilol 12.5 MG BID 07/14 2199 AC 07/18 PO 0843 Docusate Sodium 100 MG DAILY PRN 07/17 2130 AC 07/18 PO 0650 Finasteride 5 MG DAILY 07/14 1919 AC 07/18 PO 0843 Folic Acid 1 MG DAILY 07/15 1000 AC 07/18 PO 0843 Heparin Sodium 5,000 UNIT Q8 07/140 AC 07/18 (Porcine) SC 0644 Insulin Aspart 0 TIDAC/HS 07/15 1700 AC 07/18 SC 0837 Insulin Detemir 15 UNITS BID 07/17 1000 AC 07/18 SC 1052 Levothyroxine Sodium 0.05 MG DAILY AC 07/15 0700 AC 07/18 PO 0644 Lorazepam 0 Q1P PRN 07/14 1800 AC IV Multivitamins 1 TAB DAILY 07/15 1000 AC 07/18 PO 0843 Ondansetron HCl 4 MG Q6P PRN 07/14 2315 AC 07/15 IV 0124 Phenytoin 100 MG 1300 07/15 1300 AC 07/15 PO 1325 Polyethylene Glycol 17 GM DAILY PRN 07/17 2130 AC PO Senna 187 MG AT BEDTIME PRN 07/17 2200 AC PO Thiamine HCl 100 MG DAILY 07/15 1000 AC 07/18 PO 0843 Last 24 Hrs of Lab/Elmer Results Last 24 Hrs of Labs/Mics: Laboratory Tests 07/18/17 0600: Anion Gap 9, Estimated GFR > 60, Glucose 162 H, Calcium 8.6, Phosphorus 2.5, Magnesium 2.2, Total Bilirubin 0.3, AST 19, ALT 19 L, Albumin 3.0 L, CBC w Diff NO MAN DIFF REQ, RBC 4.38 L, MCV 85.5, MCH 28.9, MCHC 33.8, RDW 13.6, MPV 10.2, Gran % 53.2, Lymphocytes % 37.1, Monocytes % 8.6, Eosinophils % 0.7, Basophils % 0.4, Absolute Granulocytes 4.3, Absolute Lymphocytes 3.0, Absolute Monocytes 0.7 H, Absolute Eosinophils 0.1, Absolute Basophils 0 Assessment/Plan Assessment: 61-year-old male with a past medical history of insulin, hypertension, hyperlipidemia, seizure disorder who presented to the ER with chief complaint of altered mental status. Echo in June 2016 showed a normal left ventricular ejection fraction of 60% Assessment and Plan: Diabetic KetoAcidosis: - resolved * He is stable to be discharged from a medical standpoint. He awaits a bed placement. If one is available, he can be discharged later during the day. Diabetes: * Continue SC Levemir 15mg BID * Novolog insulin for meal time coverage adjusted per Endo recs. Type II IA: * No EKG changes. Elevated Troponins was likely due to Type II IA * Echocardiogram shows stage I diastolic dysfunction with normal LVEF >60%. * Cardiology recs appreciated. FAYE: - resolved * Most likely due to dehydration. History of Hypertension: * Continue Coreg History of BPH: * Continue Finasteride. History of Hypothyroidism: * Continue Levothyroxine History of Seizures: * Continue Phenytoin DVT Prophylaxis * SC Heparin x3 Diet: * Consistent Carbohydrate 1 Code Status: Full code Problem List: 1. DKA (diabetic ketoacidoses) Pain Ratin Pain Location: none Pain Goal: Remain pain free Pain Plan: none Tomorrow's Labs & Rationales: CBC, BEP Reg HERNANDEZ,Tiarra 07/18/17 1137: Attending MD Review Statement Attending Statement Attending MD Statement: examined this patient, discuss w/resident/PA/PROPERTY STAFF ACCOUNTANT, agreed w/resident/PA/PROPERTY STAFF ACCOUNTANT, reviewed EMR data (avail), discussed with nursing, discussed with case mgmt, reviewed images, amended to note Attending Assessment/Plan: Patient seen and examined, feels well. Offers no complaints. blood sugars are ok this am. Vital Signs Date Time Temp Pulse Resp B/P B/P Pulse O2 O2 Flow FiO2 Mean Ox Delivery Rate 07/18 0843 81 118/66 07/18 0600 70 20 124/50 07/18 0400 70 20 120/60 07/18 0000 98.0 72 20 120/60 07/18 0000 98.0 72 20 120/60 96 Room Air 07/18 0000 96 Room Air 07/17 2201 84 136/74 07/17 1600 97.1 77 16 116/78 07/17 1600 98 Room Air 07/17 1600 97.1 77 16 116/78 98 Room Air 07/17 1510 Room Air 07/17 1458 Room Air on exam; aox3, nad. cv; s1,s2, rrr resp; clear abd; soft, nt, bs+ ext; no edema. Laboratory Tests 07/18 0600 Chemistry Sodium (137 - 145 mmol/L) 141 Potassium (3.5 - 5.1 mmol/L) 3.6 Chloride (98 - 107 mmol/L) 106 Carbon Dioxide (22 - 30 mmol/L) 27 Anion Gap (5 - 16) 9 BUN (9 - 20 mg/dL) 24 H Creatinine (0.7 - 1.2 mg/dL) 0.7 Estimated GFR (>60 ml/min) > 60 Glucose (65 - 99 mg/dL) 162 H Calcium (8.4 - 10.2 mg/dL) 8.6 Phosphorus (2.5 - 4.5 mg/dL) 2.5 Magnesium (1.6 - 2.3 mg/dL) 2.2 Total Bilirubin (0.2 - 1.3 mg/dL) 0.3 AST (17 - 59 U/L) 19 ALT (21 - 72 U/L) 19 L Albumin (3.5 - 5.0 g/dL) 3.0 L Hematology CBC w Diff NO MAN DIFF REQ WBC (4.8 - 10.8 /CUMM) 8.1 RBC (4.70 - 6.10 /CUMM) 4.38 L Hgb (14.0 - 18.0 G/DL) 12.6 L Hct (42 - 52 %) 37.5 L MCV (80.0 - 94.0 FL) 85.5 MCH (27.0 - 31.0 PG) 28.9 MCHC (33.0 - 37.0 G/DL) 33.8 RDW (11.5 - 14.5 %) 13.6 Plt Count (130 - 400 /CUMM) 129 L MPV (7.4 - 10.4 FL) 10.2 Gran % (42.2 - 75.2 %) 53.2 Lymphocytes % (20.5 - 51.1 %) 37.1 Monocytes % (1.7 - 9.3 %) 8.6 Eosinophils % (0 - 5 %) 0.7 Basophils % (0.0 - 2.0 %) 0.4 Absolute Granulocytes (1.4 - 6.5 /CUMM) 4.3 Absolute Lymphocytes (1.2 - 3.4 /CUMM) 3.0 Absolute Monocytes (0.10 - 0.60 /CUMM) 0.7 H Absolute Eosinophils (0.0 - 0.7 /CUMM) 0.1 Absolute Basophils (0.0 - 0.2 /CUMM) 0 A/P; 61-year-old male with past history significant for diabetes, hypertension, seizure disorder, codependent admitted with DKA and also has type II NSTEMI. Patient doing well overall. Blood sugars are running stable. Has been followed by cardiology and no further recommendations were made. Patient is medically stable for discharge today. She spoke with case management about going to rehabilitation. If there is a bed available then he can be discharged to rehabilitation today. Please confirm with endocrinology about dose for Levemir.
[2017-07-18 08:00] VITALS: BP 118/66
[2017-07-18 08:43] VITALS: BP 118/66
--- NOTE | 2017-07-18 11:03 | Patient Discharge Instructions ---
Discharge Instructions General Discharge Information You were seen/treated for: Diabetic Ketoacidosis Type II [place] Special Instructions: Please follow up with your spanish language lecturer, PCP and diabetes doctor within one week of discharge. Diet Continue normal diet: Yes Recommended Diet: Diabetic Activity Full Activity/No Limits: Yes Acute Coronary Syndrome Inclusion Criteria At DC or during hospital stay patient has or had the following: ACS DIAGNOSIS No Discharge Core Measures Meds if any: Prescribed or Continued at Discharge Meds if any: NOT Prescribed or Continued at Discharge Congestive Heart Failure Inclusion Criteria At DC or during hospital stay patient has or had the following: CHF DIAGNOSIS No Discharge Core Measures Meds if any: Prescribed or Continued at Discharge Meds if any: NOT Prescribed or Continued at Discharge Cerebrovascular accident Inclusion Criteria At DC or during hospital stay patient has or had the following: CVA/TIA Diagnosis No Discharge Core Measures Meds if any: Prescribed or Continued at Discharge Meds if any: NOT Prescribed or Continued at Discharge Venous thromboembolism Inclusion Criteria VTE Diagnosis No VTE Type NONE VTE Confirmed by (Test) NONE Discharge Core Measures - Per Current guidelines, there needs to be overlap - treatment for the first 5 days of Warfarin therapy. - If discharged on Warfarin prior to 5 days of - overlap therapy, the patient will need to be - assessed for post discharge needs including - *Post discharge parental anticoagulation - *Warfarin and/or parental anticoagulation education - *Follow up date to check INR post discharge At least 5 days overlap therapy as Inpatient No Meds if any: Prescribed or Continued at Discharge Note: Overlap Therapy is Warfarin and Anticoagulant Meds if any: NOT Prescribed or Continued at Discharge
--- NOTE | 2017-07-18 11:11 | Discharge Summary ---
Visit Information Visit Dates Admission Date: 07/14/17 Discharge Date: 07/18/17 Hospital Course Course Attending Physician: Faith Marcelino MD Primary Care Physician: Sailaja Torres MD Consulting Request: 1 Consulting Specialty: Critical Care Consulting Request: 2 Consulting Specialty: Cardiology Consulting Request: 3 Consulting Specialty: Endocrinology Hospital Course: 61-year-old male with a past medical history of DM, hypertension, hyperlipidemia , seizure disorder alcohol dependence who presents to the ER with chief complaint of altered mental status. Reportedly patient was discharged from [facility] about 2 weeks ago ( unsure why he was at the rehab facility). He had some insurance issues and was not able to get insulin. Reportedly, patient lives by himself and had a visiting nurse come to his house for the first time on day of admission and found him confused. She called 911 and brought the patient in. Patient during most of the intervbiew, nods and is minimally verbal Vitals on admission blood pressure 148/82, respiratory rate of 18, pulse 97, afebrile saturating 99% on room air. Labs on admission pertinent for leukocytosis with a white blood cell count of 17 ,200, H&H of 15.5/46.2 and an MCV of 86.2 with a platelet count of 243. Serum chemistries pertinent for sodium of 141, potassium of 4.3, bicarbonate of 8, anion gap of 34, BUN 58 with a creatinine of 2.0 and serum glucose elevated to 718. Lactic acid was 1.6. LFTs pertinent for an AST/ALT of 19/16, total bili 0.5 and an alkaline phosphatase of 155. First set of troponin 0.11. Serum acetone was positive and serum alcohol was less than 10. UA not receive. Head CT showed no acute intracranial pathology. There is a small lacunar infarct within the upper part of the candi to the left middle which is unchanged from previous study. Echo done in June 2016 showed a normal left ventricular ejection fraction of 60% In the ER he received a normal saline bolus of 1 L and 10 units of subcutaneous Novolin R 8 units of IV. He was admit to ICU for managament of DKA. #DKA - Since blood sugar on admission were 718, he was started on insulin drip and subseuqently transitioned to levemir 12 units BID, and Novolog sliding scale as per Endo recommendations once his anion gap closed. His hemoglobin A1c was 12.7. He should follow-up with endocrinology after discharge for the adjustments of his blood sugars. His fingersticks should be checked 3 times a day. #AMS -Patient appeared little confused when he presented to the hospital. This was thought to be most likely secondary to 2/2 DKA. Patient mentation improved with resolution of his DKA. Of note he does have some dysarthia at baseline. #Elevated troponins - Patient had elevated troponins on admission 2/2 type II KS. His trop peaked at 0.18. He was seen by cardiology. Of note patient must has underlying CAD sicne he is a diabetic. F/U Echo to r/o RWMA revealed stage I diastolic dysfunction with a left ventricular ejection fraction of 60%. He should follow-up with cardiology within 2 weeks of discharge for an outpatient stress test. #AGMA - He had an elevated anion gap metabolic acidosis on admission was likely 2/2 DKA with underlying alcoholic ketosis given patient drinks 2 pints of vodka on a daily basis. #FAYE - He also had a FAYE on admission which subsequently resolved after hydration #HTN - He was continued on Coreg 12.5mg BID # BPH - He was continued on Finasteride. #Hypothyroidism - He as continued on Levothyroxine #Seizure disorder - He was continued on Phenytoin #Alcohol dependence - He was placed on Ativan per [facility] protocol. Social work consult and PT eval was placed. Of note wayne lives by himself, and has bruises all over, and there was concern regarding ? safe discharge planning - DVT prophylaxis - He was on heparin 5000IU TID SC Complications: None Allergies: Coded Allergies: NO KNOWN ALLERGIES (03/17/14) Significant Procedures: SERVICE DATE: 07/14/17- EXAM TYPE: CARD - ECHOCARDIOGRAM FINDINGS Left Ventricle Normal size left ventricle. Moderate concentric left ventricular hypertrophy. Normal left ventricular ejection fraction visually estimated at >60%. Abnormal relaxation filling pattern of the left ventricle for age (stage 1 diastolic dysfunction). Right Ventricle Normal right ventricular size and function. Right Atrium Normal right atrial size. Left Atrium Normal left atrial size. Mitral Valve Mild mitral annular calcification. Mitral valve thickened. Trace mitral regurgitation. Aortic Valve Aortic valve mildly thickened.no aortic regurgitation. Tricuspid Valve Tricuspid valve not well visualized, grossly normal. Trace tricuspid regurgitation. No evidence of pulmonary hypertension. Pulmonic Valve Pulmonic valve not well visualized, grossly normal. Mild pulmonic regurgitation. Pericardium No pericardial effusion. Great Vessels Normal size aortic root. CONCLUSIONS Normal size left ventricle. Moderate concentric left ventricular hypertrophy. Normal left ventricular ejection fraction visually estimated at > 60%. Abnormal relaxation filling pattern of the left ventricle for age (stage 1 diastolic dysfunction). Trace mitral regurgitation. Trace tricuspid regurgitation. Mild pulmonic regurgitation. SERVICE DATE: 07/14/17 EXAM TYPE: CAT - CT HEAD WO IV CONTRAST FINDINGS: There is no evidence of acute intracranial hemorrhage or territorial infarction. No abnormal mass effect or midline shift is seen. Wolf to white matter differentiation is well preserved. No extra-axial fluid collections are identified. The ventricles are normal in size. Age-appropriate mild diffuse cortical atrophy and mild chronic microvascular deep white matter ischemic changes are noted. Incidental note is made of a small lacunar infarction within the upper part of the candi to the left of the midline, similar to prior study (see the wasserman images). The osseous structures and soft tissues are normal. The mastoid air cells and visualized portions of the paranasal sinuses are well aerated. IMPRESSION: No acute intracranial pathology, unchanged since 07/17/2016. Disposition Summary Disposition Principal Diagnosis: - DKA - Type II KS - FAYE 2/2 dehydration - Alcohol dependence Additional Diagnosis: Hypothyroidism Seizure disorder Discharge Disposition: SNF Discharge Instructions General Discharge Information Code Status: Full Code Patient's Diet: Diabetic Patient's Activity: As tolerated Follow-Up Instructions/Appts: Please follow up with your primary care phsyician in one week. Please follow up with your metal cleaner in two weeks. Medications at Discharge Discharge Medications: Stop taking the following medications: Insulin Detemir (Levemir) 100 UNIT/ML VIAL Inject into fatty tissue TWICE DAILY Continue taking these medications: Finasteride (Finasteride) 5 MG TABLET 1 Tablet ORAL DAILY Qty = 30 Comments: GIVEN 07/21/16 @ 30 Montelukast Sodium (Montelukast Sodium) 10 MG TABLET 1 Tablet ORAL DAILY Qty = 30 Comments: GIVEN 07/20/16 @ 2109 Aspirin (Aspirin*) 81 MG TAB.CHEW 1 Tablet ORAL DAILY Comments: GIVEN 07/21/16 @ 0930 Furosemide (Furosemide) 40 MG TABLET 1 Tablet ORAL TWICE DAILY Qty = 30 Levothyroxine Sodium (Levothyroxine Sodium) 50 MCG TABLET 1 Tablet ORAL DAILY Qty = 30 Fexofenadine HCl (Fexofenadine HCl) 180 MG TABLET 1 Tablet ORAL DAILY Qty = 30 Carvedilol (Carvedilol) 12.5 MG TABLET 1 Tablet ORAL TWICE DAILY Qty = 60 Phenytoin Sodium Extended (Phenytoin Sodium Extended) 100 MG CAPSULE 1 Capsule ORAL 1300 Start taking the following new medications: Insulin Aspart (Novolog) 100 UNIT/ML VIAL 0 Inject into fatty tissue AAC Qty = 30 No Refills Comments: Before Each Meal: Bolus Insulin: Novolog < 80 mg/dl: no coverage 80-100 mg/dl: 6 units 101-120 mg/dl: 6 units 121-150 mg/dl: 6 units 151-200 mg/dl: 7 units 201-250 mg/dl: 8 units 251-300 mg/dl: 9 units 301-350 mg/dl: 10 units 351-400 mg/dl: 12 units > 400 mg/dl: 14 units Bedtime Bolus Insulin: Novolog < 80 mg/dl: no coverage 80-100 mg/dl: 0 units 101-120 mg/dl: 0 units 121-150 mg/dl: 0 units 151-200 mg/dl: 0 units 201-250 mg/dl: 0 units 251-300 mg/dl: 1 units 301-350 mg/dl: 2 units 351-400 mg/dl: 3 units > 400 mg/dl: 4 units Insulin Detemir (Levemir) 100 UNIT/ML VIAL 15 Units Inject into fatty tissue TWICE DAILY Qty = 30 No Refills Copies To: Melissa HERNANDEZ,Sailaja Vences; Ramses HERNANDEZ,Jacob; Juve Rainey MD Attending MD Review Statement Documenting Attending: Tiarra Finney MD
[2017-07-18] MEDS ORDERED: NOVOLOG100 UNIT/2 SC (11:17)
--- NOTE | 2017-07-18 11:40 | PN- Diabetes ---
Assessment/Plan Assessment: 61 y/o male with a hx of ETOH abuse, was in in 06/2016 for DKA. ANITRA 65 antibody was negative. He was supposed to be on Levemir 12 units twice a day, Novolog coverage before meals. However, as per patient, he wasn't taking insulin for the past two weeks. He was brought to ER for changes of mental status. In ER , his glucose level was 718, Cr 2.0, carbon dioxide 8, AG 34 , K 4.3 and Troponin 0.11. ABG showed pH 7.16.1 He was on IVF and iv insulin drip. Now he is on Levemir 15 units twice a day, Novolog coverage before meals, Novolog coverage at bedtime. His FSGs were 232, 264, 250, 330 and 162. Plan: will continue the current insulin regimen for now; monitor FSGs. will follow. Subjective Subjective: Laboratory Tests 07/18 0600 Chemistry Sodium (137 - 145 mmol/L) 141 Potassium (3.5 - 5.1 mmol/L) 3.6 Chloride (98 - 107 mmol/L) 106 Carbon Dioxide (22 - 30 mmol/L) 27 Anion Gap (5 - 16) 9 BUN (9 - 20 mg/dL) 24 H Creatinine (0.7 - 1.2 mg/dL) 0.7 Estimated GFR (>60 ml/min) > 60 Glucose (65 - 99 mg/dL) 162 H Calcium (8.4 - 10.2 mg/dL) 8.6 Phosphorus (2.5 - 4.5 mg/dL) 2.5 Magnesium (1.6 - 2.3 mg/dL) 2.2 Total Bilirubin (0.2 - 1.3 mg/dL) 0.3 AST (17 - 59 U/L) 19 ALT (21 - 72 U/L) 19 L Albumin (3.5 - 5.0 g/dL) 3.0 L Hematology CBC w Diff NO MAN DIFF REQ WBC (4.8 - 10.8 /CUMM) 8.1 RBC (4.70 - 6.10 /CUMM) 4.38 L Hgb (14.0 - 18.0 G/DL) 12.6 L Hct (42 - 52 %) 37.5 L MCV (80.0 - 94.0 FL) 85.5 MCH (27.0 - 31.0 PG) 28.9 MCHC (33.0 - 37.0 G/DL) 33.8 RDW (11.5 - 14.5 %) 13.6 Plt Count (130 - 400 /CUMM) 129 L MPV (7.4 - 10.4 FL) 10.2 Gran % (42.2 - 75.2 %) 53.2 Lymphocytes % (20.5 - 51.1 %) 37.1 Monocytes % (1.7 - 9.3 %) 8.6 Eosinophils % (0 - 5 %) 0.7 Basophils % (0.0 - 2.0 %) 0.4 Absolute Granulocytes (1.4 - 6.5 /CUMM) 4.3 Absolute Lymphocytes (1.2 - 3.4 /CUMM) 3.0 Absolute Monocytes (0.10 - 0.60 /CUMM) 0.7 H Absolute Eosinophils (0.0 - 0.7 /CUMM) 0.1 Absolute Basophils (0.0 - 0.2 /CUMM) 0 Objective Last 24 Hrs of Vital Signs/I&O Laboratory Tests 07/18 0600 Chemistry Sodium (137 - 145 mmol/L) 141 Potassium (3.5 - 5.1 mmol/L) 3.6 Chloride (98 - 107 mmol/L) 106 Carbon Dioxide (22 - 30 mmol/L) 27 Anion Gap (5 - 16) 9 BUN (9 - 20 mg/dL) 24 H Creatinine (0.7 - 1.2 mg/dL) 0.7 Estimated GFR (>60 ml/min) > 60 Glucose (65 - 99 mg/dL) 162 H Calcium (8.4 - 10.2 mg/dL) 8.6 Phosphorus (2.5 - 4.5 mg/dL) 2.5 Magnesium (1.6 - 2.3 mg/dL) 2.2 Total Bilirubin (0.2 - 1.3 mg/dL) 0.3 AST (17 - 59 U/L) 19 ALT (21 - 72 U/L) 19 L Albumin (3.5 - 5.0 g/dL) 3.0 L Hematology CBC w Diff NO MAN DIFF REQ WBC (4.8 - 10.8 /CUMM) 8.1 RBC (4.70 - 6.10 /CUMM) 4.38 L Hgb (14.0 - 18.0 G/DL) 12.6 L Hct (42 - 52 %) 37.5 L MCV (80.0 - 94.0 FL) 85.5 MCH (27.0 - 31.0 PG) 28.9 MCHC (33.0 - 37.0 G/DL) 33.8 RDW (11.5 - 14.5 %) 13.6 Plt Count (130 - 400 /CUMM) 129 L MPV (7.4 - 10.4 FL) 10.2 Gran % (42.2 - 75.2 %) 53.2 Lymphocytes % (20.5 - 51.1 %) 37.1 Monocytes % (1.7 - 9.3 %) 8.6 Eosinophils % (0 - 5 %) 0.7 Basophils % (0.0 - 2.0 %) 0.4 Absolute Granulocytes (1.4 - 6.5 /CUMM) 4.3 Absolute Lymphocytes (1.2 - 3.4 /CUMM) 3.0 Absolute Monocytes (0.10 - 0.60 /CUMM) 0.7 H Absolute Eosinophils (0.0 - 0.7 /CUMM) 0.1 Absolute Basophils (0.0 - 0.2 /CUMM) 0 Vital Signs Date Time Temp Pulse Resp B/P B/P Pulse O2 O2 Flow FiO2 Mean Ox Delivery Rate 07/18 0843 81 118/66 07/18 0600 70 20 124/50 07/18 0400 70 20 120/60 07/18 0000 98.0 72 20 120/60 07/18 0000 98.0 72 20 120/60 96 Room Air 07/18 0000 96 Room Air 07/17 2201 84 136/74 07/17 1600 97.1 77 16 116/78 07/17 1600 98 Room Air 07/17 1600 97.1 77 16 116/78 98 Room Air 07/17 1510 Room Air 07/17 1458 Room Air Intake & Output 07/18 1600 07/18 0800 07/18 0000 Intake Total 200 650 Output Total 450 695 Balance -250 -45 Intake, Oral 200 650 Output, Urine 450 695
--- NOTE | 2017-07-18 11:44 | PN- Cardiology ---
Subjective Subjective: The patient is comfortable with no cardiac complaints. No chest pain. No shortness breath. No palpitations. No diaphoresis. Objective Vital Signs and I&Os Vital Signs Date Time Temp Pulse Resp B/P B/P Pulse O2 O2 Flow FiO2 Mean Ox Delivery Rate 07/18 0843 81 118/66 07/18 0600 70 20 124/50 07/18 0400 70 20 120/60 07/18 0000 98.0 72 20 120/60 07/18 0000 98.0 72 20 120/60 96 Room Air 07/18 0000 96 Room Air 07/17 2201 84 136/74 07/17 1600 97.1 77 16 116/78 07/17 1600 98 Room Air 07/17 1600 97.1 77 16 116/78 98 Room Air 07/17 1510 Room Air 07/17 1458 Room Air Intake & Output 07/18 1600 07/18 0800 07/18 0000 07/17 1600 07/17 0800 07/17 0000 Intake Total 200 650 940 240 450 Output Total 450 695 203 106 5682 Balance -250 -45 390 -410 -550 Intake, IV 20 Intake, Oral 200 650 920 240 450 Number 1 Bowel Movements Output, Stool 0 Output, Urine 450 695 853 780 0298 Physical Exam: Gen: NAD HEENT: normal Lungs: clear to auscultation, normal resp. effort Heart: RRR, S1, S2, no murmurs Abdomen: Soft, nontender, no masses Extremities: No clubbing, cyanosis, or edema. Neuro: Alert and oriented x 3, cranial nerves intact Current Medications: Current Medications Sig/Lorrie Start time Last Medication Dose Route Stop Time Status Admin Aspirin 81 MG DAILY 07/15 1000 AC 07/18 PO 0843 Carvedilol 12.5 MG BID 07/14 2199 AC 07/18 PO 0843 Docusate Sodium 100 MG DAILY PRN 07/17 2130 AC 07/18 PO 0650 Finasteride 5 MG DAILY 07/14 1919 AC 07/18 PO 0843 Folic Acid 1 MG DAILY 07/15 1000 AC 07/18 PO 0843 Heparin Sodium 5,000 UNIT Q8 07/14 2199 AC 07/18 (Porcine) SC 0644 Insulin Aspart 0 TIDAC/HS 07/15 1700 AC 07/18 SC 0837 Insulin Detemir 15 UNITS BID 07/17 1000 AC 07/18 SC 1052 Levothyroxine Sodium 0.05 MG DAILY AC 07/15 0700 AC 07/18 PO 0644 Lorazepam 0 Q1P PRN 07/14 1800 AC IV Multivitamins 1 TAB DAILY 07/15 1000 AC 07/18 PO 0843 Ondansetron HCl 4 MG Q6P PRN 07/14 2315 AC 07/15 IV 0124 Phenytoin 100 MG 1300 07/15 1300 AC 07/15 PO 1325 Polyethylene Glycol 17 GM DAILY PRN 07/17 2130 AC PO Senna 187 MG AT BEDTIME PRN 07/17 2200 AC PO Thiamine HCl 100 MG DAILY 07/15 1000 AC 07/18 PO 0843 Results Last 48 Hrs of Labs/Mics: Laboratory Tests 07/18/17 0600: Anion Gap 9, Estimated GFR > 60, Glucose 162 H, Calcium 8.6, Phosphorus 2.5, Magnesium 2.2, Total Bilirubin 0.3, AST 19, ALT 19 L, Albumin 3.0 L, CBC w Diff NO MAN DIFF REQ, RBC 4.38 L, MCV 85.5, MCH 28.9, MCHC 33.8, RDW 13.6, MPV 10.2, Gran % 53.2, Lymphocytes % 37.1, Monocytes % 8.6, Eosinophils % 0.7, Basophils % 0.4, Absolute Granulocytes 4.3, Absolute Lymphocytes 3.0, Absolute Monocytes 0.7 H, Absolute Eosinophils 0.1, Absolute Basophils 0 07/17/17 0400: Anion Gap 10, Estimated GFR > 60, Glucose 201 H, Calcium 8.4, Phosphorus 2.1 L , Magnesium 2.1, Total Bilirubin 0.3, AST 23, ALT 23, Albumin 2.7 L, CBC w Diff NO MAN DIFF REQ, RBC 3.98 L, MCV 85.6, MCH 29.3, MCHC 34.2, RDW 13.5, MPV 10.1, Gran % 47.7, Lymphocytes % 41.1, Monocytes % 10.3 H, Eosinophils % 0.5, Basophils % 0.4, Absolute Granulocytes 3.2, Absolute Lymphocytes 2.8, Absolute Monocytes 0.7 H, Absolute Eosinophils 0, Absolute Basophils 0 Recent Imaging Studies: Echocardiogram 07/14/17: Normal size left ventricle. Moderate concentric left ventricular hypertrophy. Normal left ventricular ejection fraction visually estimated at > 60%. Abnormal relaxation filling pattern of the left ventricle for age (stage 1 diastolic dysfunction). Trace mitral regurgitation. Trace tricuspid regurgitation. Mild pulmonic regurgitation. Assessment/Plan Assessment/Plan 1. DKA 2. Mild troponin elevation, likely secondary to type II [place]. No evidence of acute coronary syndrome at this time 3. Acute kidney injury 4. Hypertension 5. Essentially normal echocardiogram Plan: * Continue current cardiac medications * Okay for discharge from cardiac standpoint. * Follow up in the office in 2 weeks. Will consider nuclear stress test as outpatient for evaluation of positive troponin Continue telemetry? Yes
[2017-07-18] MEDS ORDERED: LEVEMIR100 UNIT/1 SC ×2 (13:52→14:00)
== END 2017-07-18 18:25 | DRG 420 ==
LOC: ERH 14:29 → ERHI 16:31 → CRI 16:31 → ENRESERV 19:11 → ENTRNSPT 22:39 → CRI 22:58
PROVIDERS: Internal Medicine; Internal Medicine Infectious Disease; Physician Assistant
DX: E10.10 Type 1 diabetes mellitus with ketoacidosis without coma (principal); Z79.4 Long term (current) use of insulin; E86.0 Dehydration; N17.9 Acute kidney failure, unspecified; G93.41 Metabolic encephalopathy; I21.A1 Myocardial infarction type 2; N40.0 Benign prostatic hyperplasia without lower urinary tract symptoms; E03.9 Hypothyroidism, unspecified; G40.909 Epilepsy, unspecified, not intractable, without status epilepticus; F10.20 Alcohol dependence, uncomplicated
CPT/HCPCS: CCU; 36415; 81001; 82436; 87040; 87086; 87147; 93005; 93010; 93306; 96361; 96372; 96374; 97110-GO; 97116-GO; 97161-GP; 99291; G0480; J1644; J1815; J2405; J3490; J7042

== ENCOUNTER 2017-10-05 21:44 | Inpatient (IN) | payer OTHER ==
[~2017-10-05] VITALS: Ht 170.2 cm; Wt 70.8 kg
[~2017-10-05 21:44] MED LIST changes: +CARVEDILOL12.5 M1 PO; +FEXOFENADINE H180 MG PO; +FUROSEMIDE40 M1 PO; +LEVOTHYROXINE50 MCG PO
--- NOTE | 2017-10-05 21:50 | ED NEURO DEFICIT/STROKE ---
History of Present Illness General Chief Complaint: General Adult Stated Complaint: FALL Source: patient Exam Limitations: no limitations Vital Signs & Intake/Output Vital Signs & Intake/Output Vital Signs Date Time Temp Pulse Resp B/P B/P Pulse O2 O2 Flow FiO2 Mean Ox Delivery Rate 10/06 0236 98.7 73 18 130/80 96 Room Air 10/06 0145 97.9 75 18 134/64 98 Room Air 10/05 2316 160/70 10/05 2316 98.4 74 18 96 Room Air 10/05 2157 98.5 78 18 200/90 96 Room Air ED Intake and Output 10/06 0000 10/05 1200 Intake Total Output Total 625 Balance -625 Output, Urine 625 Patient 181 lb Weight Weight Reported by Patient Measurement Method Allergies Coded Allergies: NO KNOWN ALLERGIES (03/17/14) Reconcile Medications Aspirin (Aspirin*) 81 MG TAB.CHEW 1 TAB PO DAILY Heart Health (Reported) Carvedilol 12.5 MG TABLET 1 TAB PO BID HEART/BP (Reported) Docusate Sodium (Colace) (Unknown Strength) CAPSULE (Unknown Dose) PO DAILY STOOL SOFTENER (Reported) Finasteride 5 MG TABLET 1 TAB PO DAILY HTN (Reported) Furosemide 40 MG TABLET 1 TAB PO BID WATER RETENTION (Reported) Insulin Aspart (Novolog) 100 UNIT/ML VIAL DM (Reported) Insulin Degludec (Tresiba Flextouch U-200) 200 UNIT/ML (3 ML) INSULN.PEN 46 UNITS SC QAM DM (Reported) Insulin Detemir (Levemir) 100 UNIT/ML VIAL 22 UNITS SC BID DM (Reported) Levothyroxine Sodium 50 MCG TABLET 1 TAB PO DAILY THYROID HEALTH (Reported) Loratadine (Claritin) 10 MG TABLET 1 TAB PO DAILY ALLERGIES (Reported) Metformin HCl (Glucophage) 1,000 MG TABLET 1 TAB PO BID DM (Reported) Montelukast Sodium 10 MG TABLET 1 TAB PO DAILY ALLERGY (Reported) Phenytoin Sodium Extended 100 MG CAPSULE 2 CAP PO TID SEIZURES (Reported) Rosuvastatin Calcium (Crestor) 5 MG TABLET 1 TAB PO DAILY CHOLESTEROL ( Reported) Triage Nurses Notes Reviewed? yes Onset: Gradual Duration: unknown down time Timing: unknown Severity: moderate Impaired Ability: difficult to speak Baseline: alert, oriented x 3 Associated Symptoms: confusion, diaphoresis HPI: 62 yo gentleman presents after a fall, where he pressed his life line. Per the medics, they arrived and found him seated against a wall on the floor. He was confused, diaphoretic, and could not speak, uttering nonsensical words. No focal weakness. No loss of bowel or bladder. Per the medics, it appeared that he had been trying to get out of his bed to a wheelchair to go to the bathroom. Per the patient, he denies focal pain, and is unable to articulate words. Unknown time when the event happened. Past History Travel History Traveled to [place] past 21 day No Medical History Any Pertinent Medical History? 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 MOTHER, , Age 60+. Relation not specified for: FH: dementia Hx Contributory? No Review of Systems Review of Systems Constitutional: Reports: no symptoms. EENTM: Reports: no symptoms. Respiratory: Reports: no symptoms. Cardiovascular: Reports: no symptoms. GI: Reports: no symptoms. Genitourinary: Reports: no symptoms. Musculoskeletal: Reports: no symptoms. Skin: Reports: no symptoms. Neurological/Psychological: Reports: no symptoms. Hematologic/Endocrine: Reports: no symptoms. Immunologic/Allergic: Reports: no symptoms. All Other Systems: Reviewed and Negative Physical Exam Physical Exam General Appearance: well developed/nourished, mild distress Head: atraumatic, normal appearance Eyes: Bilateral: normal appearance. Ears, Nose, Throat: normal ENT inspection, moist mucous membrane Neck: normal inspection, supple, full range of motion Respiratory: normal breath sounds, chest non-tender, no respiratory distress, quiet respiration Cardiovascular: regular rate/rhythm Gastrointestinal: normal bowel sounds, soft, non-tender, no organomegaly Extremities: normal range of motion Psychiatric: awake, alert Cranial Nerves: difficulty articulating words, slurred speech, with word finding difficulty. Motor/Sensory: strength in upper and lower extremities intact. light touch intact. dtr's symmetric 1+ in upper and lower extremities. Core Measures CVA/TIA Diagnosis: Yes NIH Stroke Scale NIH Stroke Scale Response Value Level of Consciousness alert 0 LOC Questions answers both correctly 0 LOC Commands obeys both correctly 0 Best Gaze normal 0 Visual [place]ard no visual loss 0 Facial Paresis normal 0 Motor Arm - Left no drift 0 Motor Arm - Right no drift 0 Motor Leg - Left no drift 0 Motor Leg - Right no drift 0 Limb Ataxia no ataxia 0 Sensory normal 0 Best Language mild to moderate aphasia 1 Dysarthria near to unintelligible 2 Extinction and Inattention no neglect 0 Total 3 Sepsis Present: No Sepsis Focused Exam Completed? No Progress Differential Diagnosis: tia vs cva vs seizure vs other. Plan of Care: Orders Procedure Date/time Status Nothing by Mouth 10/06 B Active MRI-HEAD W & W/O ANITRA 10/06 0700 Active LIPID PANEL 10/06 0600 Active CBC WITHOUT DIFFERENTIAL 10/06 0600 Active BASIC ELECTROLYTES PLUS BUN&CR 10/06 0600 Active TROPONIN LEVEL 10/06 0400 Active EKG 10/06 0400 Active Weight 10/06 0202 Active Teach/Educate 10/06 0202 Active Pain Treatment and Response 10/06 0202 Active Nutritional Intake, Monitor 10/06 0202 Active Isolation 10/06 0202 Active Patient Care Conference 10/06 0202 Active Activity/Ambulation 10/06 0202 Active CMS- Neurovascular Checks 10/06 0128 Active FingerStick- Glucose 10/06 0122 Active Pathway - chart 10/06 0049 Active Patient Data 10/06 0026 Active Saline Lock 10/06 0023 Active Misc Message 10/06 0023 Active ED Holding Orders 10/06 0023 Active Admit to inpatient 10/06 0023 Active Vital Signs 10/06 0023 Active Code Status 10/06 0023 Active PT Evaluate & Treat 10/06 UNK Active House Staff 10/06 UNK Active Occupational Tx Eval & Treat 10/06 UNK Active VTE Mechanical Prophylaxis 10/06 UNK Active Telemetry/Envelope Addresser 10/06 UNK Active Precautions 10/06 UNK Active NIH Stroke Scale 10/06 UNK Active ELECTROENCEPHALOGRAM 10/06 UNK Active Intake & Output 10/05 2225 Active URINE DRUG SCREEN FOR ER ONLY 10/05 2217 Complete URINALYSIS 10/05 2217 Active THYROID STIMULATING HORMONE 10/05 2201 Complete PROLACTIN 10/05 2201 Complete ETHANOL 10/05 2201 Complete DILANTIN 10/05 2201 Complete TROPONIN LEVEL 10/06 2151 Complete LIPASE 10/06 2151 Complete HEPATIC FUNCTION PANEL 10/06 2151 Complete CBC WITHOUT DIFFERENTIAL 10/06 2151 Complete BASIC METABOLIC PANEL 10/06 2151 Complete AMYLASE 10/06 2151 Complete EKG 10/06 2151 Active Current Medications Sig/Lorrie Start time Last Medication Dose Stop Time Status Admin Atorvastatin Calcium 20 MG 1700 10/06 1700 AC (Lipitor) Aspirin 81 MG DAILY 10/06 09 AC (Aspirin) Carvedilol 12.5 MG BID 10/06 09 AC (Coreg) Finasteride 5 MG DAILY 10/06 09 AC (Proscar) Insulin Detemir 22 UNITS BID 10/06 09 AC (Levemir) Loratadine 10 MG DAILY 10/06 09 AC (Claritin) Montelukast Sodium 10 MG DAILY 10/06 09 AC (Singulair) Insulin Aspart 0 TIDAC 10/06 08 AC (NovoLOG) Furosemide 40 MG 7:30 AM, & 4:30 PM 10/06 0730 AC (Lasix) Levothyroxine Sodium 0.05 MG DAILY AC 10/06 0700 AC (Synthroid) Heparin Sodium 5,000 UNIT Q8 10/06 06 AC (Porcine) Laboratory Tests 10/05/172217: Urine Opiates Screen < 100, Methadone Screen < 40, Barbiturate Screen 68, Ur Phencyclidine Scrn < 6.00, Amphetamines Screen < 100, U Benzodiazepines Scrn < 85, Urine Cocaine Screen < 50, Urine Cannabis Screen < 5.00, Urine Color YEL, Urine Clarity HAZY H, Urine pH 7.0, Ur Specific [place] 1.015, Urine Protein TRACE H, Urine Ketones NEG, Urine Nitrite NEG, Urine Bilirubin NEG, Urine Urobilinogen 0.2, Ur Leukocyte Esterase SMALL H, Ur Microscopic SEDIMENT EXAMINED, Urine RBC Pending, Urine WBC 25-50 H, Ur Epithelial Cells RARE, Urine Bacteria RARE H, Hyaline Casts FEW H, Urine Hemoglobin NEG, Urine Glucose NEG 10/05/172201: Anion Gap 16, Estimated GFR > 60, BUN/Creatinine Ratio 34.3 H, Glucose 185 H, Calcium 9.6, Total Bilirubin 0.5, Direct Bilirubin 0.5 H, AST 21, ALT 9 L, Alkaline Phosphatase 139 H, Troponin I 0.02, Total Protein 7.8, Albumin 4.7, Amylase 39, Lipase 112, TSH 3.270, Prolactin 19.4 H, CBC w Diff NO MAN DIFF REQ , RBC 4.69 L, MCV 88.1, MCH 28.6, MCHC 32.4 L, RDW 13.8, MPV 8.3, Gran % 55.7, Lymphocytes % 33.9, Monocytes % 8.5, Eosinophils % 1.3, Basophils % 0.6, Absolute Granulocytes 4.9, Absolute Lymphocytes 3.0, Absolute Monocytes 0.7 H, Absolute Eosinophils 0.1, Absolute Basophils 0.1, Phenytoin 41.0 H, Serum Alcohol < 10.0 10/05/172157: TSH Cancelled, Prolactin Cancelled, Phenytoin Cancelled 10/05/172154: Serum Alcohol Cancelled 10/05/172151: D-Dimer High Sensitivty Cancelled Diagnostic Imaging: Viewed by Me: CT Scan. Discussed w/RAD: CT Scan. Radiology Impression: PATIENT: JENNA GIBBONS PRESENT AGE: 62 PATIENT ACCOUNT NO: [id number] : 54 LOCATION: [facility] ORDERING PHYSICIAN: Rodney Orellana MD SERVICE DATE: 10/05/17-2154 EXAM TYPE: CAT - CT HEAD ANGIOGRAM; CT NECK ANGIOGRAM EXAMINATION: CTA OF THE HEAD/NECK CT CERVICAL SPINE CLINICAL INFORMATION: CVA. Cervical spine trauma. COMPARISON: Head CT from 07/14/2017 TECHNIQUE: A routine non contrast head CT was performed followed by a 98 mL bolus of Optiray 320. Subsequent multidetector helical imaging was performed of the head and neck. Delayed post contrast imaging was also performed through the head. Multiplanar reformats and MIP were also obtained. Internal carotid artery stenoses are assessed in accordance with NASCET criteria unless otherwise indicated. DLP: 1676 mGy-cm. FINDINGS: CT HEAD: No evidence of acute intracranial hemorrhage or territorial infarction. No abnormal mass effect or midline shift. Wolf to white matter differentiation is preserved. No extra-axial fluid collections are identified. No hydrocephalus. Mild global cerebral volume loss. Patchy periventricular and deep white matter hypoattenuation is consistent with small vessel ischemic change. There is a chronic lacunar infarct in the left candi. On postcontrast images, there is a 0.9 cm extra-axial enhancing lesion along the right aspect of the inferior falx anteriorly. This is suggestive of a meningioma. No adjacent parenchymal changes. The osseous structures and soft tissues are normal. The mastoid air cells and visualized portions of the paranasal sinuses are well aerated. CTA NECK: Bolus timing is suboptimal. The aortic arch is of normal caliber and the origins of the great vessels are patent without evidence of significant stenosis. There may be mild stenosis at the origin of the right vertebral artery. The left vertebral artery origin is not well visualized. The cervical portion of the vertebral arteries are patent bilaterally. No luminal irregularities in the common carotid arteries. There is atherosclerotic disease at the origin of the right internal carotid artery with less than 50% stenosis. There is atherosclerotic disease at the origin of the left internal carotid artery with less than 50% stenosis. The cervical portion of the internal carotid arteries are of normal caliber. The laryngeal structures and pharyngeal mucosal spaces are unremarkable. The oral cavity appears normal. The parotid and submandibular glands are normal. No pathologically enlarged lymph nodes. 0.9 cm hypoattenuating nodule in the right lobe of the thyroid gland.. The lung apices are clear without evidence of pneumothorax. There is straightening of the normal cervical lordosis. There is slight anterolisthesis of C4 on C5. Slight retrolisthesis of C6 on C7. This appears degenerative. There is multilevel disc space narrowing with multilevel facet arthropathy. Multilevel endplate osteophytes are present. The atlantoaxial and atlantooccipital articulations are intact. No acute fracture or malalignment of the cervical spine. CTA HEAD: The intradural portion of the left vertebral artery is diminutive, not feeding the basilar artery. Scattered calcifications of the intradural right vertebral artery. The basilar, superior cerebellar, and posterior communicating arteries are patent. The left posterior cerebral artery is supplied by the posterior communicating artery. The intracranial segments of the internal carotid artery are fairly heavily calcified. The posterior, middle, and anterior cerebral arteries are of normal caliber without evidence of significant luminal irregularity. No definite intracranial aneurysms. IMPRESSION : 1. No acute intracranial findings. 0.9 cm frontal meningioma. 2. No acute fracture or malalignment of the cervical spine. Moderate multilevel degenerative changes. 3. Atherosclerotic disease throughout the cervical and intracranial vasculature without large vessel occlusion. DICTATED BY: Walker Young MD DATE/TIME DICTATED:10/05/172307 [employer] ATTENDANT:RAHEEL DATE/TIME TRANSCRIBED:10/05/172307 CONFIDENTIAL, DO NOT COPY WITHOUT APPROPRIATE AUTHORIZATION. <Electronically signed in Other Vendor System> SIGNED BY: Walker Young MD 10/05/17 4460, PATIENT: JENNA GIBBONS PRESENT AGE: 62 PATIENT ACCOUNT NO: [id number] : 54 LOCATION: [facility] ORDERING PHYSICIAN: Rodney Orellana MD SERVICE DATE: 10/05/17 EXAM TYPE: CAT - CT ABD & PELVIS W/O IV CONTRAS; CT CHEST WO IV CONTRAST EXAMINATION: CT CHEST WITHOUT CONTRAST CT ABDOMEN AND PELVIS WITHOUT CONTRAST CLINICAL INFORMATION: Trauma. CVA. COMPARISON: None. TECHNIQUE: Multidetector volumetric imaging was performed through the chest, abdomen and pelvis without contrast. Sagittal and coronal reformatted images were obtained on the technologist's workstation. Axial MIP volume rendering provided. DLP: 715 mGy- cm. FINDINGS: CHEST: Lungs: The central airways are patent. The lungs are clear with no evidence of consolidation. No pleural effusion or pneumothorax. There are no pulmonary parenchymal nodules. Mediastinum: The heart is normal in size. Coronary artery calcifications are present. No pericardial effusion. No mediastinal lymphadenopathy. The thyroid gland is unremarkable. Chest Wall/ Axilla: No lymphadenopathy. No chest wall mass. ABDOMEN/PELVIS: Liver, Gallbladder, Biliary Tree: The liver is normal in size with a nodular contour. No biliary ductal dilatation. There is a hypoattenuating lesion in segment 7 of the liver measuring 3.6 cm. This measures higher than simple fluid attenuation. The gallbladder is unremarkable with no evidence of radiopaque gallstones, gallbladder wall thickening, or pericholecystic inflammatory changes. Pancreas: Moderate atrophy of the pancreatic parenchyma. Scattered calcifications in the pancreatic head and neck suggestive of chronic pancreatitis. Spleen: Unremarkable. Adrenal Glands: Unremarkable. Kidneys and Ureters: The kidneys are normal in size, shape, and attenuation. No hydronephrosis, hydroureter or calculi seen. Bilateral symmetric perinephric stranding. Bladder: Unremarkable. Gastrointestinal Tract: The stomach is unremarkable. The small bowel is normal in caliber. No obstruction. There is no colonic wall thickening or inflammatory change. There is a moderate colonic stool burden. A normal appendix is noted. No free air or free fluid. Abdominal Wall: Fat-containing bilateral inguinal hernias. Lymphovascular Structures: Lymph nodes: Normal. Vascular: Normal caliber aorta. Moderate atherosclerotic calcifications. Pelvic Viscera: The prostate and seminal vesicles are unremarkable. OSSEOUS STRUCTURES: No suspicious sclerotic or lytic bone lesions are identified. Vertebral body heights are maintained. Vertebral body alignment is maintained. There is multilevel disc space narrowing with vacuum disc phenomenon. Multilevel endplate osteophytes with facet arthropathy. The sternum is intact. The ribs appear intact. There is a chronic healed left lateral fifth rib fracture. Healed lateral sixth, seventh, eighth, and ninth rib fractures are also noted. The pelvis is intact. Mild degenerative changes of the hips. IMPRESSION: No acute traumatic findings of the chest, abdomen, or pelvis. Nodular Contour of the liver is suspicious for cirrhosis. There is a hypoattenuating lesion in segment 7 of the liver which measures higher than simple fluid. Consider nonemergent dynamic liver MRI to further evaluate. Moderate colonic stool burden. DICTATED BY: Hannah HERNANDEZ,Walker DATE/TIME DICTATED:10/05/172253 [employer] ATTENDANT: RAHEEL DATE/TIME TRANSCRIBED:10/05/172253 CONFIDENTIAL, DO NOT COPY WITHOUT APPROPRIATE AUTHORIZATION. <Electronically signed in Other Vendor System> SIGNED BY: Hannah HERNANDEZ,Walker 10/05/17 3355 Initial ED EKG: nsr, no acute changes. Departure Departure Disposition: STILL A PATIENT Condition: Stable Clinical Impression Primary Impression: Altered mental status Secondary Impressions: Dilantin toxicity Referrals: Melissa HERNANDEZ,Sailaja Vences (PCP/Family) Departure Forms: Customer Survey General Discharge Information Comments unknown downtime, unknown if patient had seizure, unknown trauma/injury.... not a candidate for tpa due to aforementioned reasons. discussed with dr. miranda who concurs with plan... aspirin, admission. pt with likely dilantin toxicity.... will admit, supportive care. Admission Note Spoke With: Milton HERNANDEZ,Zuly Documentation of Exam: Documentation of any treatments & extenuating circumstances including Concerns Regarding Discharge (functional status, medication knowledge or non-compliance, living conditions, etc.) that warrant an admission rather than observation: pt with dysarthria, most consistent with dilantin toxicity vs tia... will hold dilantin, give aspirin, neuro to consult in AM, consider MRI.
[2017-10-05 22:14] LABS: ABSOLUTE BASOPHIL COUNT 0.1 /CUMM (0.0-0.2); ABSOLUTE EOSINOPHIL COUNT 0.1 /CUMM (0.0-0.7); ABSOLUTE GRANULOCYTE CT 4.9 /CUMM (1.4-6.5); ABSOLUTE MONOCYTE COUNT 0.7 /CUMM (0.10-0.60); BASOPHIL % 0.6 % (0.0-2.0); EOSINOPHIL % 1.3 % (0-5); GRANULOCYTE % 55.7 % (42.2-75.2); HEMATOCRIT 41.3 % (42-52); MEAN CORPUSCULAR HGB 28.6 PG (27.0-31.0); MEAN CORPUSCULAR HGB CONC 32.4 G/DL (33.0-37.0); MEAN CORPUSCULAR VOLUME 88.1 FL (80.0-94.0); MEAN PLATELET VOLUME 8.3 FL (7.4-10.4); PLATELET COUNT 264 /CUMM (130-400); RBC DISTRIBUTION WIDTH 13.8 % (11.5-14.5); RED BLOOD CELL CT 4.69 /CUMM (4.70-6.10); WHITE BLOOD CELL COUNT 8.8 /CUMM (4.8-10.8)
--- NOTE | 2017-10-05 23:05 | CT SCAN REPORT ---
EXAMINATION: CT CHEST WITHOUT CONTRAST CT ABDOMEN AND PELVIS WITHOUT CONTRAST CLINICAL INFORMATION: Trauma. CVA. COMPARISON: None. TECHNIQUE: Multidetector volumetric imaging was performed through the chest, abdomen and pelvis without contrast. Sagittal and coronal reformatted images were obtained on the technologist's workstation. Axial MIP volume rendering provided. DLP: 715 mGy-cm. FINDINGS: CHEST: Lungs: The central airways are patent. The lungs are clear with no evidence of consolidation. No pleural effusion or pneumothorax. There are no pulmonary parenchymal nodules. Mediastinum: The heart is normal in size. Coronary artery calcifications are present. No pericardial effusion. No mediastinal lymphadenopathy. The thyroid gland is unremarkable. Chest Wall/Axilla: No lymphadenopathy. No chest wall mass. ABDOMEN/PELVIS: Liver, Gallbladder, Biliary Tree: The liver is normal in size with a nodular contour. No biliary ductal dilatation. There is a hypoattenuating lesion in segment 7 of the liver measuring 3.6 cm. This measures higher than simple fluid attenuation. The gallbladder is unremarkable with no evidence of radiopaque gallstones, gallbladder wall thickening, or pericholecystic inflammatory changes. Pancreas: Moderate atrophy of the pancreatic parenchyma. Scattered calcifications in the pancreatic head and neck suggestive of chronic pancreatitis. Spleen: Unremarkable. Adrenal Glands: Unremarkable. Kidneys and Ureters: The kidneys are normal in size, shape, and attenuation. No hydronephrosis, hydroureter or calculi seen. Bilateral symmetric perinephric stranding. Bladder: Unremarkable. Gastrointestinal Tract: The stomach is unremarkable. The small bowel is normal in caliber. No obstruction. There is no colonic wall thickening or inflammatory change. There is a moderate colonic stool burden. A normal appendix is noted. No free air or free fluid. Abdominal Wall: Fat-containing bilateral inguinal hernias. Lymphovascular Structures: Lymph nodes: Normal. Vascular: Normal caliber aorta. Moderate atherosclerotic calcifications. Pelvic Viscera: The prostate and seminal vesicles are unremarkable. OSSEOUS STRUCTURES: No suspicious sclerotic or lytic bone lesions are identified. Vertebral body heights are maintained. Vertebral body alignment is maintained. There is multilevel disc space narrowing with vacuum disc phenomenon. Multilevel endplate osteophytes with facet arthropathy. The sternum is intact. The ribs appear intact. There is a chronic healed left lateral fifth rib fracture. Healed lateral sixth, seventh, eighth, and ninth rib fractures are also noted. The pelvis is intact. Mild degenerative changes of the hips. IMPRESSION: No acute traumatic findings of the chest, abdomen, or pelvis. Nodular Contour of the liver is suspicious for cirrhosis. There is a hypoattenuating lesion in segment 7 of the liver which measures higher than simple fluid. Consider nonemergent dynamic liver MRI to further evaluate. Moderate colonic stool burden.
[2017-10-05] MEDS ORDERED: CLARITIN10 M1 PO (23:21)
[2017-10-05] MEDS ORDERED: CRESTOR5 M1 PO (23:22)
[2017-10-05] MEDS ORDERED: GLUCOPHAGE1000 M1 PO (23:22)
[2017-10-05] MEDS ORDERED: TRESIBA FL200 UNIT/1 SC (23:23)
[2017-10-05] MEDS ORDERED: LEVEMIR100 UNIT/1 SC (23:24)
[2017-10-05] MEDS ORDERED: NOVOLOG100 UNIT/2 SC (23:24)
[2017-10-05] MEDS ORDERED: COLACE100 M1 PO (23:26)
--- NOTE | 2017-10-05 23:46 | CT SCAN REPORT ---
EXAMINATION: CTA OF THE HEAD/NECK CT CERVICAL SPINE CLINICAL INFORMATION: CVA. Cervical spine trauma. COMPARISON: Head CT from 07/14/2017 TECHNIQUE: A routine non contrast head CT was performed followed by a 98 mL bolus of Optiray 320. Subsequent multidetector helical imaging was performed of the head and neck. Delayed post contrast imaging was also performed through the head. Multiplanar reformats and MIP were also obtained. Internal carotid artery stenoses are assessed in accordance with NASCET criteria unless otherwise indicated. DLP: 1676 mGy-cm. FINDINGS: CT HEAD: No evidence of acute intracranial hemorrhage or territorial infarction. No abnormal mass effect or midline shift. Wolf to white matter differentiation is preserved. No extra-axial fluid collections are identified. No hydrocephalus. Mild global cerebral volume loss. Patchy periventricular and deep white matter hypoattenuation is consistent with small vessel ischemic change. There is a chronic lacunar infarct in the left candi. On postcontrast images, there is a 0.9 cm extra-axial enhancing lesion along the right aspect of the inferior falx anteriorly. This is suggestive of a meningioma. No adjacent parenchymal changes. The osseous structures and soft tissues are normal. The mastoid air cells and visualized portions of the paranasal sinuses are well aerated. CTA NECK: Bolus timing is suboptimal. The aortic arch is of normal caliber and the origins of the great vessels are patent without evidence of significant stenosis. There may be mild stenosis at the origin of the right vertebral artery. The left vertebral artery origin is not well visualized. The cervical portion of the vertebral arteries are patent bilaterally. No luminal irregularities in the common carotid arteries. There is atherosclerotic disease at the origin of the right internal carotid artery with less than 50% stenosis. There is atherosclerotic disease at the origin of the left internal carotid artery with less than 50% stenosis. The cervical portion of the internal carotid arteries are of normal caliber. The laryngeal structures and pharyngeal mucosal spaces are unremarkable. The oral cavity appears normal. The parotid and submandibular glands are normal. No pathologically enlarged lymph nodes. 0.9 cm hypoattenuating nodule in the right lobe of the thyroid gland.. The lung apices are clear without evidence of pneumothorax. There is straightening of the normal cervical lordosis. There is slight anterolisthesis of C4 on C5. Slight retrolisthesis of C6 on C7. This appears degenerative. There is multilevel disc space narrowing with multilevel facet arthropathy. Multilevel endplate osteophytes are present. The atlantoaxial and atlantooccipital articulations are intact. No acute fracture or malalignment of the cervical spine. CTA HEAD: The intradural portion of the left vertebral artery is diminutive, not feeding the basilar artery. Scattered calcifications of the intradural right vertebral artery. The basilar, superior cerebellar, and posterior communicating arteries are patent. The left posterior cerebral artery is supplied by the posterior communicating artery. The intracranial segments of the internal carotid artery are fairly heavily calcified. The posterior, middle, and anterior cerebral arteries are of normal caliber without evidence of significant luminal irregularity. No definite intracranial aneurysms. IMPRESSION: 1. No acute intracranial findings. 0.9 cm frontal meningioma. 2. No acute fracture or malalignment of the cervical spine. Moderate multilevel degenerative changes. 3. Atherosclerotic disease throughout the cervical and intracranial vasculature without large vessel occlusion.
--- NOTE | 2017-10-06 00:40 | History & Physical ---
Giselle HERNANDEZ,[facility] 10/06/17 0040: General Information and HPI MD Statement: I have seen and personally examined JENNA GIBBONS and documented this H&P. The patient is a 62 year old M who presented with a patient stated chief complaint of [dizziness, fall]. Source of Information: patient, EMS Exam Limitations: poor historian History of Present Illness: 61 year old male with a past medical history of diabetes, hypertension, hyperlipidemia, seizure disorder, BPH, and hypothyroidism was brought to the ER after having a fall. The patient was recently discharged from [facility] 07/18/17 after being admitted for DKA. The patient is not a reliable historian. He states that earlier this evening around 6pm he went to the bathroom and when he tried to get out of his wheelchair he got dizzy and fell down. He was unable to get back up and into the wheelchair and hence he pressed the lifeline. He denies any lightheadedness, chest pain or palpitations preceeding the fall. Denies having seizure. He did not hit his head or lose consciousness. He is mostly wheelchair bound and occasionally uses a walker to move around. He states he is compliant with his medications and has visiting nurses. He mentions that he was in the ER 3 weeks ago after a seizure, however, no recent ER records confirm this. By the end of the interview while summarizing the events of the evening, the patient denied that having dizziness and that he fell simply because he slipped out of the wheelchair. Allergies/Medications Allergies: Coded Allergies: NO KNOWN ALLERGIES (03/17/14) Home Med list Aspirin (Aspirin*) 81 MG TAB.CHEW 1 TAB PO DAILY Heart Health (Reported) Carvedilol 12.5 MG TABLET 1 TAB PO BID HEART/BP (Reported) Docusate Sodium (Colace) (Unknown Strength) CAPSULE (Unknown Dose) PO DAILY STOOL SOFTENER (Reported) Finasteride 5 MG TABLET 1 TAB PO DAILY HTN (Reported) Furosemide 40 MG TABLET 1 TAB PO BID WATER RETENTION (Reported) Insulin Aspart (Novolog) 100 UNIT/ML VIAL DM (Reported) Insulin Degludec (Tresiba Flextouch U-200) 200 UNIT/ML (3 ML) INSULN.PEN 46 UNITS SC QAM DM (Reported) Insulin Detemir (Levemir) 100 UNIT/ML VIAL 22 UNITS SC BID DM (Reported) Levothyroxine Sodium 50 MCG TABLET 1 TAB PO DAILY THYROID HEALTH (Reported) Loratadine (Claritin) 10 MG TABLET 1 TAB PO DAILY ALLERGIES (Reported) Metformin HCl (Glucophage) 1,000 MG TABLET 1 TAB PO BID DM (Reported) Montelukast Sodium 10 MG TABLET 1 TAB PO DAILY ALLERGY (Reported) Phenytoin Sodium Extended 100 MG CAPSULE 2 CAP PO TID SEIZURES (Reported) Rosuvastatin Calcium (Crestor) 5 MG TABLET 1 TAB PO DAILY CHOLESTEROL ( Reported) Past History Travel History Traveled to [place] past 21 day No Medical History Neurological: NONE EENT: NONE Cardiovascular: hypertension, hyperlipidemia Respiratory: NONE Gastrointestinal: NONE Hepatic: NONE Renal: NONE Musculoskeletal: AMBULATES WITH WALKER Psychiatric: by history, alcohol abuse Endocrine: diabetes, DIABETES (PATIENT DENIES) Blood Disorders: NONE Cancer(s): NONE 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 MOTHER, , Age 60+. Relation not specified for: FH: dementia Psychosocial History Who Do You Live With? self Services at Home: Nursing ETOH Use: denies use Illicit Drug Use: denies illicit drug use Functional Ability ADLs Independent: dressing, eating, toileting, bathing. Ambulation: independent IADLs Independent: shopping, housework, finances, food prep, telephone, transportation , medication admin. Review of Systems Review of Systems Constitutional: Denies: chills, fever, weakness. EENTM: Reports: no symptoms. Cardiovascular: Denies: chest pain, palpitations. Respiratory: Denies: short of breath. GI: Reports: no symptoms. Genitourinary: Reports: no symptoms. Musculoskeletal: Denies: joint pain. Skin: Reports: no symptoms. Neurological/Psychological: Denies: headache, numbness, tingling. Exam & Diagnostic Data Last 24 Hrs of Vital Signs/I&O Vital Signs Date Time Temp Pulse Resp B/P B/P Pulse O2 O2 Flow FiO2 Mean Ox Delivery Rate 10/06 0145 97.9 75 18 134/64 98 Room Air 10/056 160/70 10/06 2315 98.4 74 18 96 Room Air 04/19 2157 98.5 78 18 200/90 96 Room Air Intake & Output 10/06 0800 10/06 0000 10/05 1600 Intake Total Output Total 225 625 Balance -225 -625 Output, Urine 225 625 Patient 181 lb 181 lb Weight Weight Reported by Patient Reported by Patient Measurement Method Physical Exam General Appearance Alert, Oriented X3, Cooperative, No Acute Distress Skin No Rashes, No Breakdown Skin Temp/Moisture Exam: Warm/Dry Sepsis Skin Exam (color): Normal for Ethnicity HEENT Atraumatic Cardiovascular Normal S1, Normal S2, No Murmurs Lungs Clear to Auscultation, Normal Air Movement Abdomen Soft, No Tenderness Neurological Strength at 5/5 X4 Ext, Normal Tone, Sensation Intact, Cranial Nerves 3-12 NL, slurred speech (baseline), normal cerebellar function, no pronator drift, gait not assessed Extremities No Edema Last 24 Hrs of Labs/Elmer: Laboratory Tests 10/05/172217: Urine Opiates Screen < 100, Methadone Screen < 40, Barbiturate Screen 68, Ur Phencyclidine Scrn < 6.00, Amphetamines Screen < 100, U Benzodiazepines Scrn < 85, Urine Cocaine Screen < 50, Urine Cannabis Screen < 5.00, Urine Color YEL, Urine Clarity HAZY H, Urine pH 7.0, Ur Specific [place] 1.015, Urine Protein TRACE H, Urine Ketones NEG, Urine Nitrite NEG, Urine Bilirubin NEG, Urine Urobilinogen 0.2, Ur Leukocyte Esterase SMALL H, Ur Microscopic SEDIMENT EXAMINED, Urine RBC Pending, Urine WBC 25-50 H, Ur Epithelial Cells RARE, Urine Bacteria RARE H, Hyaline Casts FEW H, Urine Hemoglobin NEG, Urine Glucose NEG 10/05/172: Anion Gap 16, Estimated GFR > 60, BUN/Creatinine Ratio 34.3 H, Glucose 185 H, Calcium 9.6, Total Bilirubin 0.5, Direct Bilirubin 0.5 H, AST 21, ALT 9 L, Alkaline Phosphatase 139 H, Troponin I 0.02, Total Protein 7.8, Albumin 4.7, Amylase 39, Lipase 112, TSH 3.270, Prolactin 19.4 H, CBC w Diff NO MAN DIFF REQ , RBC 4.69 L, MCV 88.1, MCH 28.6, MCHC 32.4 L, RDW 13.8, MPV 8.3, Gran % 55.7, Lymphocytes % 33.9, Monocytes % 8.5, Eosinophils % 1.3, Basophils % 0.6, Absolute Granulocytes 4.9, Absolute Lymphocytes 3.0, Absolute Monocytes 0.7 H, Absolute Eosinophils 0.1, Absolute Basophils 0.1, Phenytoin 41.0 H, Serum Alcohol < 10.0 10/05/172157: TSH Cancelled, Prolactin Cancelled, Phenytoin Cancelled 10/05/172154: Serum Alcohol Cancelled 10/05/172151: D-Dimer High Sensitivty Cancelled Diagnostic Data EKG Results rate 72, QTc 421, NSR, narrow QRS, no pathological Q waves, no ST segment changes Assessment/Plan Assessment: 61 year old male with a past medical history of diabetes, hypertension, hyperlipidemia, seizure disorder, BPH, and hypothyroidism was brought to the ER after having a fall. Assessment: 1. Elevated Phenytoin levels 2. New Meningioma 3. Fall 4. Nodular Contour of liver concerning for cirrhosis 5. History of Hypertension, Diabetes, Seizures Patient presented after a fall. It is unclear at this time if this was a mechanical fall or if he had a seizure. He does have a 0.9cm Meningioma which appears to be a new finding compared to his CT Head from 07/06. He has slurred speech which is his baseline and not a new finding. Plan: * Admit patient to telemetry to monitor for arrhythmias. * R/o ACS with serial trops and EKGs * Neurology consult in am for management of elevated phenytoin level and meningioma * MRI in am to better assess the tumor * EEG * Fall precautions * Seizure precautions * Neurochecks q2. * Hold phenytoin for now. * Insulin SS with Accucheks * Continue home dose Levemir 22units BID * He can likely have outpatient workup of ?Cirrhosis * Diet: Diabetic * DVT prophylaxis: SC Lovenox * Code: Full Code * I tried contacting his friend Ezekiel [phone], however, was unable to reach him. Would advise to reach out to him in the morning to obtain further details regarding the patient since his last discharge from [facility] end june. As Ranked By This Provider Problem List: 1. Diabetes Core Measures/Misc (03/05) Acute Coronary Syndrome ACS Diagnosis: No Congestive Heart Failure Congestive Heart Failure Diagnosis No Cerebrovascular Accident CVA/TIA Diagnosis: No VTE (View Protocol) VTE Risk Factors Age>40 No Mechanical VTE Prophylaxis d/t N/A MechProphylax Ordered No VTE Pharm Prophylaxis d/t NA PharmProphylax ordered Sepsis (View protocol) Sepsis Present: Weston Osborne 10/06/17 0148: Resident Review Statement Resident Statement: examined this patient, discussed with collector of internal revenue, agreed with collector of internal revenue, discussed with family, reviewed EMR data (avail), discussed with nursing , discussed with case mgmt, reviewed images Other Findings: 61-year-old male with a past medical history of DM, hypertension, hyperlipidemia , seizure disorder alcohol dependence who presents to the ER with chief complaint of fall. Today patient was on his weelchair attempting to reach urinal , he forgot to lock chair break, so he slipt and fell from the chair. He pressed life line. Initially he report feeling dizzy but later he denied that. He denies any chest pain, Palpitation, seizure activity, head strike, other injuries, and no change in urinary or bowel habits. Offnote: Patient does have some dysarthia at baseline. He attributed that to Dilantin many years ago. He is complaint with his medications, he lives in long term, he has visiting nurse 4 times a week. He quite alcohol years ago. Vitals: blood pressure 200/90 which improved to 134/64, respiratory rate of 18, pulse 75, afebrile saturating 98% on room air. On examination: He is a wake, alert, orinted x3 Dysarthria noted, no focal neurological deficit, CNI-XII intact Heart: S1, S2, no added sound Chest: normal entry B/L LE: normal pulse no edema Labs Pertinent to: Imaging: pertinent for 0.9 meningeoma and nodular contour of the liver Will admit the patient to telemetry floor, Will hold Dilantin, serial troponin and EKG, will continue his other home meds as ordered, will repeat labs tomorrow , PT evaluation, accucheck and insulin sliding scale, Levemir 22units BID. Nothing mentioned about meningeoma in his previous CT-head, will place neurological consult, will obtain EEG, and MRI- head. Will repeat Dilantin level tomorrow, DVT ppx: SC heparin, FC Milton HERNANDEZ, [facility] 10/06/17 0503: Attending MD Review Statement Attending Statement Attending MD Statement: examined this patient, discuss w/resident/PA/PATTERN CARRIER, agreed w/resident/PA/PATTERN CARRIER, reviewed images, amended to note Attending Assessment/Plan: 62 yo M with h/o HTN, HLD, T1DM with h/o DKA, seizure disorder, alcohol abuse, baseline dysarthria, recently admitted (Jun 2017) for DKA, is brought in by ambulance after a fall. Patient states, he was trying to get out of his bed to the wheelchair to go to the bathroom, when he slid and fell to the ground. He then pressed his life alert. History is very variable. The history told to residents was that he got dizzy and fell down, whereas he denied dizziness to me. This was an unwitnessed fall. He denies head strike or LOC. He is not sure if he had a seizure, although he reports his last seizure was 3 weeks ago and he had come to the ER, but I did not find any records of this. When asked about his speech/dysarthria, he states this is ongoing for the past 2 weeks and his visiting nurse attributed it to his high dilantin levels and dry mouth. On review of records, he has baseline dysarthria. He also c/o double vision which resolved when I started to examine the patient. He denied headache or paresis. Patient is mostly wheelchair bound but is able to pivot/stand with assistance for transfers, can ambulate few steps with walker. He feels wobbly on his feet for the past 2 days. His last alcohol drink was 4 weeks ago. While in the ER, it was noted that patient was using his urinal frequently, but denied dysuria or hematuria. Vitals stable. Mucosa very dry. Neuro exam: awake, alert, oriented x 3 (could not say the date but said its September 2017), dysarthria+, garbled speech, slightly slurred, no facial droop, PERRL, no double vision or nysagmus, visual johnson normal, tongue and uvula central, cranial nerves intact, no pronator drift, motor power 5/5 all extremities, tone good, sensation intact, hyperreflexia, plantars downgoing, gait not assessed. No dysdiadochokinesia. Finger nose testing was abnormal although that could be because he did not have his glasses, no past pointing. Labs: CBC normal, bicarb 31, BUN 24, creat 0.7, glucose 185, LFT normal, trop neg, TSH normal, prolactin 19.4 (nonspecific). UA trace proteinuria, small LE, WBC 25-50, bacteria rare. Urine tox negative. Alcohol <10. Dilantin level 41. CT CAP: no acute findings. Liver appears cirrhotic, with hypoattenuating lesion+ , consider MRI. Moderate stool burden. CTA head/neck: no acute findings. 0.9 cm frontal meningioma noted which is new compared to previous CT in Jun 2017. Multilevel cervical degenerative changes, no acute fracture. No vascular occlusion. EKG: sinus rhythm, no acute changes. Echo (2018): EF > 60%, stage 1 diastolic dysfunction, moderate concentric LVH. Assessment and plan: 1. Confusion, toxic encephalopathy, gait instability, mechanical fall 2. Dilantin toxicity (levels >40 mg/L) his symptoms could be attributed to this, however it is difficult to exclude a seizure episode. Stroke seems less likely, although I am unable to state that his dysarthria is worse or at baseline. 3. Frontal meningioma on CT imaging 4. History of seizure disorder 5. Type 1 diabetes not in DKA 6. Essential hypertension 7. Metabolic alkalosis likely diuretic induced 8. Urinary frequency, UA not impressive for UTI - Admit to Telemetry - Neurochecks Q2 - Fall, seizure precautions - NPO, ok for ice chips - Serial EKG and troponin - Gentle hydration - Hold dilantin, trend dilantin levels - Watch for arrhythmias - Obtain EEG - Obtain MRI brain - Neuro consult - PT/ OT eval - Diabetes management, insulin NPO SS, levemir resume full dose when eating. - Patient may need outpatient work up with MRI of abdomen to further assess liver cirrhosis and changes. DVT ppx Hep SC. Full code.
[2017-10-06 02:36] VITALS: BP 130/80
[2017-10-06 05:00] LABS: ABSOLUTE BASOPHIL COUNT 0 /CUMM (0.0-0.2); ABSOLUTE EOSINOPHIL COUNT 0.1 /CUMM (0.0-0.7); ABSOLUTE GRANULOCYTE CT 5.2 /CUMM (1.4-6.5); ABSOLUTE MONOCYTE COUNT 0.8 /CUMM (0.10-0.60); BASOPHIL % 0.4 % (0.0-2.0); EOSINOPHIL % 0.8 % (0-5); GRANULOCYTE % 56.6 % (42.2-75.2); HEMATOCRIT 38.3 % (42-52); MEAN CORPUSCULAR HGB 29.4 PG (27.0-31.0); MEAN CORPUSCULAR HGB CONC 33.3 G/DL (33.0-37.0); MEAN CORPUSCULAR VOLUME 88.4 FL (80.0-94.0); MEAN PLATELET VOLUME 8.3 FL (7.4-10.4); PLATELET COUNT 230 /CUMM (130-400); RBC DISTRIBUTION WIDTH 13.8 % (11.5-14.5); RED BLOOD CELL CT 4.33 /CUMM (4.70-6.10); WHITE BLOOD CELL COUNT 9.1 /CUMM (4.8-10.8)
--- NOTE | 2017-10-06 05:06 | Admission Certification ---
Admission Certification Certification Statement - As attending physician, I certify that at the time of - admission, based on clinical presentation, severity of - symptoms, need for further diagnostic testing and - therapeutic interventions, and risk of adverse outcomes - without in-hospital treatment, in my clinical assessment, - this patient requires an acute hospital stay for a minimum - of two nights or longer. I have also considered psychsocial - factors such as support system, advanced age, financial - issues, cognitive issues, and failed out-patient treatments, - past re-admission history, safety of patient, and lack of - compliance as applicable. Specific rationale supporting this admission is: Confusion, AMS in the setting of dilantin toxicity and possible seizure.
[2017-10-06 07:30] VITALS: BP 150/84
--- NOTE | 2017-10-06 10:09 | RADIOLOGY REPORT ---
EXAMINATION: XR UPPER AND LOWER EXTREMITIES, BILATERAL CLINICAL INFORMATION: 62-year-old male for pre-MRI screening. COMPARISON: None TECHNIQUE: Frontal view of both upper and lower extremities were obtained. FINDINGS: 1. Right Lower Extremity: Radiopaque intact hardware identified around the right ankle, specifically involving the medial malleolus and distal part of the right fibula showing intact hardware, consistent with ORIF of right ankle fracture. No other radiopaque densities seen. 2. Left Lower Extremity: No radiopaque foreign body is visualized. 3. Right Upper Extremity: No radiopaque foreign body is present. 4. Left Upper Extremity: No radiopaque foreign bodies is present. IMPRESSION: Radiopaque hardware are visualized around the right ankle.
--- NOTE | 2017-10-06 10:10 | RADIOLOGY REPORT ---
EXAMINATION: X-RAY BILATERAL HANDS CLINICAL INFORMATION: Pre-MRI COMPARISON: None TECHNIQUE: AP view bilateral hands FINDINGS: RIGHT IV catheter projecting upon the right hand. Bony osteopenia or osteoporosis. Degenerative changes multiple small joints. No acute fracture or dislocation. No suspicious metallic radiodense foreign bodies identified. Accessory ossicles or old avulsion in the region of the ulnar styloid. LEFT Bony osteopenia. No evidence of acute fracture or dislocation. Degenerative changes multiple small joints. No metallic radiodense foreign body identified. IMPRESSION: 1. No suspicious or metallic radiodense foreign body identified in the visualized bilateral hands. Intravenous catheter projecting upon the lateral right hand. 2. Degenerative changes multiple small joints.
--- NOTE | 2017-10-06 11:45 | MRI REPORT ---
EXAMINATION: MR BRAIN WITHOUT AND WITH CONTRAST CLINICAL INFORMATION: History of seizures. Meningioma. Dizziness. COMPARISON: Head CTA 10/05/2017. TECHNIQUE: Multiplanar, multisequence imaging of the brain was performed before and after the intravenous administration of 7 mL of Gadavist. The acquired images are degraded by motion artifact. Diagnostic information was still obtained. FINDINGS: There is no acute infarct, hemorrhage, or extra-axial collection. There is a 8 mm meningioma along the planum sphenoidale without mass effect or subjacent vasogenic edema. Otherwise, no abnormal intracranial enhancement is seen. There are numerous chronic infarcts within the bilateral cohen radiata and within the bilateral basal ganglia and thalami. There is a chronic lacunar infarct within the left basis pontis. There is moderate patchy T2 hyperintensity in the bilateral cerebral white matter reflecting small vessel ischemic changes. The major arterial flow voids are preserved at the skull base. The orbital contents appear normal. The extracranial structures are within normal limits. IMPRESSION: - No acute intracranial abnormality. - Redemonstration of 8 mm planum sphenoidale meningioma. - Chronic bilateral cohen radiata, basal ganglia, thalamic, and left lacunar pontine infarcts. - Moderate small vessel ischemic changes.
[2017-10-06 13:00] VITALS: BP 146/74
--- NOTE | 2017-10-06 18:18 | ELECTROENCEPHALOGRAM REPORT ---
Electroencephalogram Report Electroencephalogram Results Date of service: 10/06/17 Attending MD: Zuly Rose MD Wholesale Account Executive: Priyanka Dhaliwal Test Utilizes: 10-20 system, 21 lead 18 channel digital recording Pertinent Hx/Physical/Neuro Findings/Clin Diagnosis: mental status change Inpatient Medications: Current Medications Sig/Lorrie Start time Last Medication Dose Route Stop Time Status Admin Aspirin 81 MG DAILY 10/06 0900 AC PO Aspirin 0 .STK-MED ONE 10/06 0056 DC PO Aspirin 325 MG ONCE ONE 10/06 0030 DC 10/06 PO 10/06 0031 0051 Atorvastatin Calcium 20 MG 1700 10/06 1700 DC PO Atorvastatin Calcium 40 MG 1700 10/06 1700 AC 10/06 PO 1704 Carvedilol 12.5 MG BID 10/06 0900 AC PO Finasteride 5 MG DAILY 10/06 0900 AC PO Furosemide 40 MG 7:30 AM, & 4:30 PM 10/06 0730 AC 10/06 PO 1704 Heparin Sodium 5,000 UNIT Q8 10/06 0600 AC 10/06 (Porcine) SC 1447 Insulin Aspart 0 TIDAC 10/06 1700 AC 10/06 SC 1705 Insulin Aspart 0 TIDAC 10/06 0800 DC SC Insulin Detemir 22 UNITS BID 10/06 2100 AC SC Insulin Detemir 22 UNITS BID 10/06 0900 DC SC Insulin Human Regular 0 Q6 10/06 0832 DC 10/06 SC 1139 Levothyroxine Sodium 0.05 MG DAILY AC 10/06 0700 AC 10/06 PO 0624 Loratadine 10 MG DAILY 10/06 0900 AC PO Montelukast Sodium 10 MG DAILY 10/06 0900 AC PO Interpretation: Background 8 cps activity posteriorly In drowsy state, background 5-6 cps activity Photoc stim: no abnormalities No focal or epileptiform activity Impression: Normal EEG wake and drowsy states
--- NOTE | 2017-10-06 18:53 | PN- Att Addend ---
Attending Addendum Attending Brief Note Patient remains confused this am. Vital stable. Imaging results noted. MRI brain negative for acute pathology. EEG normal. Neuro exam: awake, alert, oriented x 3, cranial nerves intact, motor strength intact Patient admitted here for dilantin toxicity with improvement in dilantin levels. His toxic encephalopathy with mild improvement. frequent Neurochecks - Neuro consult Frontal meningioma on CT imaging and MRI imaging solitary meningoma likely benign. History of seizure disorder Type 1 diabetes not in DKA. - Diabetes management, insulin sliding scale. Essential hypertension with bp controlled Metabolic alkalosis likely diuretic induced. PT/ OT eval DVT ppx Hep SC. Full code. Continue plan of care as per admitting physician. Admission Lab Results I reviewed the following labs: Laboratory Tests 10/06 10/06 10/06 10/06 1151 0836 0430 0430 Chemistry Sodium (137 - 145 mmol/L) 140 Potassium (3.5 - 5.1 mmol/L) 3.7 Chloride (98 - 107 mmol/L) 96 L Carbon Dioxide (22 - 30 mmol/L) 28 Anion Gap (5 - 16) 15 BUN (9 - 20 mg/dL) 23 H Creatinine (0.7 - 1.2 mg/dL) 0.6 L Estimated GFR (>60 ml/min) > 60 BUN/Creatinine Ratio (7 - 25 %) 38.3 H Troponin I (<0.11 ng/ml) 0.03 0.04 Triglycerides (<150 mg/dL) 295 H Cholesterol (< 200 MG/DL) 219 H LDL Cholesterol, Calc (65 - 129 mg/dL) 116 HDL Cholesterol (40 - 60 mg/dL) 44 Cholesterol/HDL Ratio (0.00 - 4.88 %) 5 H Hematology CBC w Diff NO MAN DIFF REQ WBC (4.8 - 10.8 /CUMM) 9.1 RBC (4.70 - 6.10 /CUMM) 4.33 L Hgb (14.0 - 18.0 G/DL) 12.7 L Hct (42 - 52 %) 38.3 L MCV (80.0 - 94.0 FL) 88.4 MCH (27.0 - 31.0 PG) 29.4 MCHC (33.0 - 37.0 G/DL) 33.3 RDW (11.5 - 14.5 %) 13.8 Plt Count (130 - 400 /CUMM) 230 MPV (7.4 - 10.4 FL) 8.3 Gran % (42.2 - 75.2 %) 56.6 Lymphocytes % (20.5 - 51.1 %) 33.2 Monocytes % (1.7 - 9.3 %) 9.0 Eosinophils % (0 - 5 %) 0.8 Basophils % (0.0 - 2.0 %) 0.4 Absolute Granulocytes (1.4 - 6.5 /CUMM) 5.2 Absolute Lymphocytes (1.2 - 3.4 /CUMM) 3.0 Absolute Monocytes (0.10 - 0.60 /CUMM) 0.8 H Absolute Eosinophils (0.0 - 0.7 /CUMM) 0.1 Absolute Basophils (0.0 - 0.2 /CUMM) 0 Toxicology Phenytoin (10.0 - 20.0 ug/mL) 37.7 H 10/05 10/05 2218 2202 Chemistry Sodium (137 - 145 mmol/L) 139 Potassium (3.5 - 5.1 mmol/L) 4.0 Chloride (98 - 107 mmol/L) 92 L Carbon Dioxide (22 - 30 mmol/L) 31 H Anion Gap (5 - 16) 16 BUN (9 - 20 mg/dL) 24 H Creatinine (0.7 - 1.2 mg/dL) 0.7 Estimated GFR (>60 ml/min) > 60 BUN/Creatinine Ratio (7 - 25 %) 34.3 H Glucose (65 - 99 mg/dL) 185 H Calcium (8.4 - 10.2 mg/dL) 9.6 Total Bilirubin (0.2 - 1.3 mg/dL) 0.5 Direct Bilirubin (< 0.4 mg/dL) 0.5 H AST (17 - 59 U/L) 21 ALT (21 - 72 U/L) 9 L Alkaline Phosphatase (< 127 U/L) 139 H Troponin I (<0.11 ng/ml) 0.02 Total Protein (6.3 - 8.2 g/dL) 7.8 Albumin (3.5 - 5.0 g/dL) 4.7 Amylase (30 - 110 U/L) 39 Lipase (23 - 300 U/L) 112 TSH (0.270 - 4.200 uIU/mL) 3.270 Prolactin (3.7 - 17.9 ng/mL) 19.4 H Hematology CBC w Diff NO MAN DIFF REQ WBC (4.8 - 10.8 /CUMM) 8.8 RBC (4.70 - 6.10 /CUMM) 4.69 L Hgb (14.0 - 18.0 G/DL) 13.4 L Hct (42 - 52 %) 41.3 L MCV (80.0 - 94.0 FL) 88.1 MCH (27.0 - 31.0 PG) 28.6 MCHC (33.0 - 37.0 G/DL) 32.4 L RDW (11.5 - 14.5 %) 13.8 Plt Count (130 - 400 /CUMM) 264 MPV (7.4 - 10.4 FL) 8.3 Gran % (42.2 - 75.2 %) 55.7 Lymphocytes % (20.5 - 51.1 %) 33.9 Monocytes % (1.7 - 9.3 %) 8.5 Eosinophils % (0 - 5 %) 1.3 Basophils % (0.0 - 2.0 %) 0.6 Absolute Granulocytes (1.4 - 6.5 /CUMM) 4.9 Absolute Lymphocytes (1.2 - 3.4 /CUMM) 3.0 Absolute Monocytes (0.10 - 0.60 /CUMM) 0.7 H Absolute Eosinophils (0.0 - 0.7 /CUMM) 0.1 Absolute Basophils (0.0 - 0.2 /CUMM) 0.1 Toxicology Urine Opiates Screen (>2000 NG/ML) < 100 Methadone Screen (>300 NG/ML) < 40 Barbiturate Screen (>200 NG/ML) 68 Phenytoin (10.0 - 20.0 ug/mL) 41.0 H Ur Phencyclidine Scrn (>25 NG/ML) < 6.00 Amphetamines Screen (>1000 NG/ML) < 100 U Benzodiazepines Scrn (>200 NG/ML) < 85 Urine Cocaine Screen (>300 NG/ML) < 50 Urine Cannabis Screen (>50 NG/ML) < 5.00 Serum Alcohol (<10 MG/DL) < 10.0 Urines Urine Color (YEL,AMB,STR) YEL Urine Clarity (CLEAR) HAZY H Urine pH (5.0 - 8.0) 7.0 Ur Specific [place] (1.001 - 1.035) 1.015 Urine Protein (NEG,<30 MG/DL) TRACE H Urine Ketones (NEG) NEG Urine Nitrite (NEG) NEG Urine Bilirubin (NEG) NEG Urine Urobilinogen (0.1 - 1.0 EU/dl) 0.2 Ur Leukocyte Esterase (NEG) SMALL H Ur Microscopic SEDIMENT EXAMINED Urine WBC (0 - 2 /HPF) 25-50 H Ur Epithelial Cells (NONE,FEW) RARE Urine Bacteria (NEG/NONE) RARE H Hyaline Casts (0/LPF) FEW H Urine Hemoglobin (NEG) NEG Urine Glucose (N MG/DL) NEG 10/05 10/05 10/05 2158 2155 2152 Chemistry TSH Cancelled Prolactin Cancelled Coagulation D-Dimer High Sensitivty Cancelled Toxicology Phenytoin Cancelled Serum Alcohol Cancelled Admission Meds I reviewed the following Meds: Current Medications Sig/Lorrie Start time Last Medication Dose Stop Time Status Admin Aspirin 81 MG DAILY 10/06 0900 AC (Aspirin) Atorvastatin Calcium 40 MG 1700 10/06 1700 AC 10/06 (Lipitor) 1704 Carvedilol 12.5 MG BID 10/06 0900 AC (Coreg) Finasteride 5 MG DAILY 10/06 09 AC (Proscar) Furosemide 40 MG 7:30 AM, & 4:30 PM 10/06 0730 AC 10/06 (Lasix) 1704 Heparin Sodium 5,000 UNIT Q8 10/06 0600 AC 10/06 (Porcine) 1447 Insulin Aspart 0 TIDAC 10/06 1700 AC 10/06 (NovoLOG) 1705 Insulin Detemir 22 UNITS BID 10/06 2100 AC (Levemir) Levothyroxine Sodium 0.05 MG DAILY AC 10/06 0700 AC 10/06 (Synthroid) 0624 Loratadine 10 MG DAILY 10/06 09 AC (Claritin) Montelukast Sodium 10 MG DAILY 10/06 09 AC (Singulair)
[2017-10-06 21:34] VITALS: BP 140/90
[2017-10-06 21:46] VITALS: BP 140/90
[2017-10-07 06:39] VITALS: BP 130/84
[2017-10-07 08:15] LABS: ABSOLUTE BASOPHIL COUNT 0 /CUMM (0.0-0.2); ABSOLUTE EOSINOPHIL COUNT 0.1 /CUMM (0.0-0.7); ABSOLUTE GRANULOCYTE CT 3.5 /CUMM (1.4-6.5); ABSOLUTE LYMPH COUNT 2.8 /CUMM (1.2-3.4); ABSOLUTE MONOCYTE COUNT 0.6 /CUMM (0.10-0.60); BASOPHIL % 0.3 % (0.0-2.0); EOSINOPHIL % 1.2 % (0-5); GRANULOCYTE % 49.7 % (42.2-75.2); HEMATOCRIT 35.3 % (42-52); MEAN CORPUSCULAR HGB 29.1 PG (27.0-31.0); MEAN CORPUSCULAR HGB CONC 33.5 G/DL (33.0-37.0); MEAN CORPUSCULAR VOLUME 86.7 FL (80.0-94.0); MEAN PLATELET VOLUME 8.5 FL (7.4-10.4); PLATELET COUNT 229 /CUMM (130-400); RBC DISTRIBUTION WIDTH 13.5 % (11.5-14.5); RED BLOOD CELL CT 4.08 /CUMM (4.70-6.10)
--- NOTE | 2017-10-07 08:44 | PN- Housestaff ---
Haja HERNANDEZ,Adebayo 10/07/17 0844: Subjective Follow-up For: Altered mental status Elevated phenytoin levels Tele-Events Since Last Visit: Normal sinus rhythm HR 60s-80s Subjective: Patient was seen and examined at bedside. He is resting comfortably in a chair. He had no acute events overnight. He feels "great", and is alert and oriented Review of Systems Constitutional: Reports: no symptoms. EENTM: Reports: no symptoms. Cardiovascular: Reports: no symptoms. Respiratory: Reports: no symptoms. Gastrointestinal: Reports: no symptoms. Genitourinary: Reports: no symptoms. Musculoskeletal: Reports: no symptoms. Objective Last 24 Hrs of Vital Signs/I&O Vital Signs Date Time Temp Pulse Resp B/P B/P Pulse O2 O2 Flow FiO2 Mean Ox Delivery Rate 10/07 0639 98.4 81 20 130/84 96 Room Air 10/06 2146 98.8 80 18 140/90 97 Room Air 10/06 2136 80 140/90 10/06 2134 98.8 80 18 140/90 97 Room Air 10/06 1300 98.0 77 18 146/74 95 Intake & Output 10/07 1600 10/07 0800 10/07 0000 Intake Total 110 200 Output Total 300 350 Balance -190 -150 Intake, IV 10 Intake, Oral 100 200 Number 0 Bowel Movements Output, Urine 300 350 Patient 158 lb Weight Physical Exam General Appearance: Alert, Oriented X3, Cooperative, No Acute Distress Cardiovascular: Regular Rate, Normal S1, Normal S2 Lungs: diminished breath sounds Abdomen: Normal Bowel Sounds, Soft, No Tenderness Neurological: Normal Tone, Sensation Intact, Cranial Nerves 3-12 NL, mildly dysarthric speech, per previous notes the patient this is baseline Extremities: No Clubbing, No Cyanosis, No Edema Current Medications: Current Medications Sig/Lorrie Start time Last Medication Dose Route Stop Time Status Admin Aspirin 81 MG DAILY 10/06 09 AC PO Atorvastatin Calcium 20 MG 1700 10/06 1700 DC PO Atorvastatin Calcium 40 MG 1700 10/06 1700 AC 10/06 PO 170 Carvedilol 12.5 MG BID 10/06 09 AC 10/06 PO 2136 Finasteride 5 MG DAILY 10/06 09 AC PO Furosemide 40 MG 7:30 AM, & 4:30 PM 10/06 0730 AC 10/06 PO 170 Heparin Sodium 5,000 UNIT Q8 10/06 0600 AC 10/07 (Porcine) SC 0558 Insulin Aspart 0 TIDAC 10/06 1700 AC 10/06 SC 1705 Insulin Detemir 22 UNITS BID 10/06 2100 AC 10/06 SC 2137 Insulin Detemir 22 UNITS BID 10/06 0900 DC SC Insulin Human Regular 0 Q6 10/06 0832 DC 10/06 SC 1139 Levothyroxine Sodium 0.05 MG DAILY AC 10/06 0700 AC 10/07 PO 0558 Loratadine 10 MG DAILY 10/06 0900 AC PO Montelukast Sodium 10 MG DAILY 10/06 0900 AC PO Assessment/Plan Assessment: 61 year old male with a past medical history of diabetes, hypertension, hyperlipidemia, seizure disorder, BPH, and hypothyroidism was brought to the ER after having a fall. Assessment: 1. Elevated Phenytoin levels 2. New Meningioma 3. Fall 4. Nodular Contour of liver concerning for cirrhosis 5. History of Hypertension, Diabetes, Seizures Patient presented after a fall. It is unclear at this time if this was a mechanical fall or if he had a seizure. He does have a 0.9cm Meningioma which appears to be a new finding compared to his CT Head from 07/06. He has slurred speech which is his baseline and not a new finding. Plan: * continue on telemetry. * serial troponin and EKG negative for signs of ACS * Neurology consult called for elevated phenytoin levels: Altered mental status and new meningioma * EEG was normal * Fall precautions * Seizure precautions * Neurochecks q2. * Continue to hold phenytoin * Insulin SS with Accucheks * Continue home dose Levemir 22units BID * Diet: Diabetic * DVT prophylaxis: SC Lovenox * Code: Full Code Problem List: 1. Dilantin toxicity 2. Altered mental status Pain Ratin Pain Location: none Pain Goal: Remain pain free Pain Plan: pain pathway Tomorrow's Labs & Rationales: cbc, bep, phenytoin level Shayne Jay 10/07/17 1253: Attending MD Review Statement Attending Statement Attending MD Statement: examined this patient, discuss w/resident/PA/MUSIC AUTOGRAPHER, agreed w/resident/PA/MUSIC AUTOGRAPHER, discussed with family, reviewed EMR data (avail), discussed with nursing, discussed with case mgmt, reviewed images, amended to note Attending Assessment/Plan: Patient aaox3 oriented. Vital stable. MRI brain negative for acute pathology. EEG normal. Patient admitted here for dilantin toxicity with improvement in dilantin levels. His toxic encephalopathy with mild improvement. frequent Neurochecks - Neuro consult. Frontal meningioma on CT imaging and MRI imaging solitary meningoma likely benign. History of seizure disorder on dilantin. Type 1 diabetes not in DKA. - Diabetes management, insulin sliding scale. Basal insulin Essential hypertension with bp controlled. PT/ OT eval DVT ppx Hep SC. Full code. Patient sas he has only one brother/family who lives in [facility]. Need to establish care.
[2017-10-07 14:41] VITALS: BP 120/70
--- NOTE | 2017-10-07 14:47 | Cons- Neurology ---
General Information and HPI Consulting Request Date of Consult: 10/07/17 Requested By: Milton HERNANDEZ,Zuly History of Present Illness: 61-year-old male admitted to Hospital after a fall He is a poor historian States that he fell as he was either going to a coming out of the bathroom He was unable to get up from the ground He did have an alarm bracelet which he called There was no head trauma He did not lose consciousness He has had a history of seizure disorder although he denies it He has been on Dilantin apparently at a relatively high dose of 600 mg a day He noted mild imbalance but no vertigo Allergies/Medications Allergies: Coded Allergies: NO KNOWN ALLERGIES (03/17/14) Home Med List: Aspirin (Aspirin*) 81 MG TAB.CHEW 1 TAB PO DAILY Heart Health (Reported) Carvedilol 12.5 MG TABLET 1 TAB PO BID HEART/BP (Reported) Docusate Sodium (Colace) (Unknown Strength) CAPSULE (Unknown Dose) PO DAILY STOOL SOFTENER (Reported) Finasteride 5 MG TABLET 1 TAB PO DAILY HTN (Reported) Furosemide 40 MG TABLET 1 TAB PO BID WATER RETENTION (Reported) Insulin Aspart (Novolog) 100 UNIT/ML VIAL DM (Reported) Insulin Degludec (Tresiba Flextouch U-200) 200 UNIT/ML (3 ML) INSULN.PEN 46 UNITS SC QAM DM (Reported) Insulin Detemir (Levemir) 100 UNIT/ML VIAL 22 UNITS SC BID DM (Reported) Levothyroxine Sodium 50 MCG TABLET 1 TAB PO DAILY THYROID HEALTH (Reported) Loratadine (Claritin) 10 MG TABLET 1 TAB PO DAILY ALLERGIES (Reported) Metformin HCl (Glucophage) 1,000 MG TABLET 1 TAB PO BID DM (Reported) Montelukast Sodium 10 MG TABLET 1 TAB PO DAILY ALLERGY (Reported) Phenytoin Sodium Extended 100 MG CAPSULE 2 CAP PO TID SEIZURES (Reported) Rosuvastatin Calcium (Crestor) 5 MG TABLET 1 TAB PO DAILY CHOLESTEROL ( Reported) Current Medications: Current Medications Sig/Lorrie Start time Last Medication Dose Route Stop Time Status Admin Aspirin 81 MG DAILY 10/06 0900 AC 10/07 PO 0909 Atorvastatin Calcium 40 MG 1700 10/06 1700 AC 10/06 PO 1704 Carvedilol 12.5 MG BID 10/06 0900 AC 10/07 PO 0909 Finasteride 5 MG DAILY 10/06 0900 AC 10/07 PO 0909 Furosemide 40 MG 7:30 AM, & 4:30 PM 10/06 0730 AC 10/07 PO 0909 Heparin Sodium 5,000 UNIT Q8 10/06 0600 AC 10/07 (Porcine) SC 0558 Insulin Aspart 0 TIDAC 10/06 1700 AC 10/06 SC 1705 Insulin Detemir 22 UNITS BID 10/06 2100 AC 10/07 SC 0909 Levothyroxine Sodium 0.05 MG DAILY AC 10/06 0700 AC 10/07 PO 0558 Loratadine 10 MG DAILY 10/06 0900 AC 10/07 PO 0909 Montelukast Sodium 10 MG DAILY 10/06 09 AC 10/07 PO 0909 Review of Systems Review of Systems: Denies headache, vertigo, difficulty swallowing, fever, chest pain, breathing difficulties, incontinence, recent head trauma, significant swelling, diplopia Other systems reviewed and negative Past History Travel History Traveled to [place] past 21 day No Medical History Blood Transfusion Hx: No Neurological: NONE EENT: NONE Cardiovascular: hypertension, hyperlipidemia Respiratory: NONE Gastrointestinal: NONE Hepatic: NONE Renal: NONE Musculoskeletal: AMBULATES WITH WALKER Psychiatric: by history, alcohol abuse Endocrine: diabetes, DIABETES (PATIENT DENIES) Blood Disorders: NONE Cancer(s): NONE 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 MOTHER, , Age 60+. Relation not specified for: FH: dementia Psychosocial History Where Do You Live? Home Who Do You Live With? self Services at Home: Nursing Smoking Status: Former Smoker ETOH Use: denies use Illicit Drug Use: denies illicit drug use Functional Ability ADLs Independent: dressing, eating, toileting, bathing. Ambulation: independent IADLs Independent: shopping, housework, finances, food prep, telephone, transportation , medication admin. Exam & Diagnostic Data Vital Signs and I&O Vital Signs Date Time Temp Pulse Resp B/P B/P Pulse O2 O2 Flow FiO2 Mean Ox Delivery Rate 10/07 0909 81 130/84 10/07 0639 98.4 81 20 130/84 96 Room Air 10/06 2145 98.8 80 18 140/90 97 Room Air 10/07 2135 80 140/90 10/06 2133 98.8 80 18 140/90 97 Room Air Intake & Output 10/07 1600 10/07 0800 10/07 0000 Intake Total 110 200 Output Total 300 300 350 Balance -300 -190 -150 Intake, IV 10 Intake, Oral 100 200 Number 0 Bowel Movements Output, Urine 300 300 350 Patient 158 lb Weight Physical Exam: Alert Dysarthric Heart sounds normal No carotid bruit Distal pulses intact Extraocular movements full, pupils equal reactive, fundi could not be visualized , visual johnson intact, no facial weakness or facial sensory loss, palate tongue and shoulders intact, hearing grossly intact Normal tone and strength upper and lower extremities No sensory loss to light touch Coordination upper extremities intact Deep tendon reflexes 1+ bilateral Gait not assessed due to absence of walker Last 48 Hours of Lab Results: Laboratory Tests 10/07 10/06 10/06 10/06 0655 1151 0836 0430 Chemistry Sodium (137 - 145 mmol/L) 137 Potassium (3.5 - 5.1 mmol/L) 3.7 Chloride (98 - 107 mmol/L) 94 L Carbon Dioxide (22 - 30 mmol/L) 33 H Anion Gap (5 - 16) 10 BUN (9 - 20 mg/dL) 19 Creatinine (0.7 - 1.2 mg/dL) 0.6 L Estimated GFR (>60 ml/min) > 60 BUN/Creatinine Ratio (7 - 25 %) 31.7 H Total Bilirubin (0.2 - 1.3 mg/dL) 0.3 Direct Bilirubin (< 0.4 mg/dL) 0.3 AST (17 - 59 U/L) 17 ALT (21 - 72 U/L) 14 L Alkaline Phosphatase (< 127 U/L) 131 H Troponin I (<0.11 ng/ml) 0.03 0.04 Total Protein (6.3 - 8.2 g/dL) 6.8 Albumin (3.5 - 5.0 g/dL) 3.9 Hematology CBC w Diff NO MAN DIFF REQ WBC (4.8 - 10.8 /CUMM) 7.0 RBC (4.70 - 6.10 /CUMM) 4.08 L Hgb (14.0 - 18.0 G/DL) 11.9 L Hct (42 - 52 %) 35.3 L MCV (80.0 - 94.0 FL) 86.7 MCH (27.0 - 31.0 PG) 29.1 MCHC (33.0 - 37.0 G/DL) 33.5 RDW (11.5 - 14.5 %) 13.5 Plt Count (130 - 400 /CUMM) 229 MPV (7.4 - 10.4 FL) 8.5 Gran % (42.2 - 75.2 %) 49.7 Lymphocytes % (20.5 - 51.1 %) 40.1 Monocytes % (1.7 - 9.3 %) 8.7 Eosinophils % (0 - 5 %) 1.2 Basophils % (0.0 - 2.0 %) 0.3 Absolute Granulocytes (1.4 - 6.5 /CUMM) 3.5 Absolute Lymphocytes (1.2 - 3.4 /CUMM) 2.8 Absolute Monocytes (0.10 - 0.60 /CUMM) 0.6 Absolute Eosinophils (0.0 - 0.7 /CUMM) 0.1 Absolute Basophils (0.0 - 0.2 /CUMM) 0 Toxicology Phenytoin (10.0 - 20.0 ug/mL) 34.4 H 37.7 H 10/06 10/05 0430 2218 Chemistry Sodium (137 - 145 mmol/L) 140 Potassium (3.5 - 5.1 mmol/L) 3.7 Chloride (98 - 107 mmol/L) 96 L Carbon Dioxide (22 - 30 mmol/L) 28 Anion Gap (5 - 16) 15 BUN (9 - 20 mg/dL) 23 H Creatinine (0.7 - 1.2 mg/dL) 0.6 L Estimated GFR (>60 ml/min) > 60 BUN/Creatinine Ratio (7 - 25 %) 38.3 H Triglycerides (<150 mg/dL) 295 H Cholesterol (< 200 MG/DL) 219 H LDL Cholesterol, Calc (65 - 129 mg/dL) 116 HDL Cholesterol (40 - 60 mg/dL) 44 Cholesterol/HDL Ratio (0.00 - 4.88 %) 5 H Hematology CBC w Diff NO MAN DIFF REQ WBC (4.8 - 10.8 /CUMM) 9.1 RBC (4.70 - 6.10 /CUMM) 4.33 L Hgb (14.0 - 18.0 G/DL) 12.7 L Hct (42 - 52 %) 38.3 L MCV (80.0 - 94.0 FL) 88.4 MCH (27.0 - 31.0 PG) 29.4 MCHC (33.0 - 37.0 G/DL) 33.3 RDW (11.5 - 14.5 %) 13.8 Plt Count (130 - 400 /CUMM) 230 MPV (7.4 - 10.4 FL) 8.3 Gran % (42.2 - 75.2 %) 56.6 Lymphocytes % (20.5 - 51.1 %) 33.2 Monocytes % (1.7 - 9.3 %) 9.0 Eosinophils % (0 - 5 %) 0.8 Basophils % (0.0 - 2.0 %) 0.4 Absolute Granulocytes (1.4 - 6.5 /CUMM) 5.2 Absolute Lymphocytes (1.2 - 3.4 /CUMM) 3.0 Absolute Monocytes (0.10 - 0.60 /CUMM) 0.8 H Absolute Eosinophils (0.0 - 0.7 /CUMM) 0.1 Absolute Basophils (0.0 - 0.2 /CUMM) 0 Toxicology Urine Opiates Screen (>2000 NG/ML) < 100 Methadone Screen (>300 NG/ML) < 40 Barbiturate Screen (>200 NG/ML) 68 Ur Phencyclidine Scrn (>25 NG/ML) < 6.00 Amphetamines Screen (>1000 NG/ML) < 100 U Benzodiazepines Scrn (>200 NG/ML) < 85 Urine Cocaine Screen (>300 NG/ML) < 50 Urine Cannabis Screen (>50 NG/ML) < 5.00 Urines Urine Color (YEL,AMB,STR) YEL Urine Clarity (CLEAR) HAZY H Urine pH (5.0 - 8.0) 7.0 Ur Specific [place] (1.001 - 1.035) 1.015 Urine Protein (NEG,<30 MG/DL) TRACE H Urine Ketones (NEG) NEG Urine Nitrite (NEG) NEG Urine Bilirubin (NEG) NEG Urine Urobilinogen (0.1 - 1.0 EU/dl) 0.2 Ur Leukocyte Esterase (NEG) SMALL H Ur Microscopic SEDIMENT EXAMINED Urine WBC (0 - 2 /HPF) 25-50 H Ur Epithelial Cells (NONE,FEW) RARE Urine Bacteria (NEG/NONE) RARE H Hyaline Casts (0/LPF) FEW H Urine Hemoglobin (NEG) NEG Urine Glucose (N MG/DL) NEG 04/19 04/19 04/19 2202 2158 2155 Chemistry Sodium (137 - 145 mmol/L) 139 Potassium (3.5 - 5.1 mmol/L) 4.0 Chloride (98 - 107 mmol/L) 92 L Carbon Dioxide (22 - 30 mmol/L) 31 H Anion Gap (5 - 16) 16 BUN (9 - 20 mg/dL) 24 H Creatinine (0.7 - 1.2 mg/dL) 0.7 Estimated GFR (>60 ml/min) > 60 BUN/Creatinine Ratio (7 - 25 %) 34.3 H Glucose (65 - 99 mg/dL) 185 H Calcium (8.4 - 10.2 mg/dL) 9.6 Total Bilirubin (0.2 - 1.3 mg/dL) 0.5 Direct Bilirubin (< 0.4 mg/dL) 0.5 H AST (17 - 59 U/L) 21 ALT (21 - 72 U/L) 9 L Alkaline Phosphatase (< 127 U/L) 139 H Troponin I (<0.11 ng/ml) 0.02 Total Protein (6.3 - 8.2 g/dL) 7.8 Albumin (3.5 - 5.0 g/dL) 4.7 Amylase (30 - 110 U/L) 39 Lipase (23 - 300 U/L) 112 TSH (0.270 - 4.200 uIU/mL) 3.270 Cancelled Prolactin (3.7 - 17.9 ng/mL) 19.4 H Cancelled Hematology CBC w Diff NO MAN DIFF REQ WBC (4.8 - 10.8 /CUMM) 8.8 RBC (4.70 - 6.10 /CUMM) 4.69 L Hgb (14.0 - 18.0 G/DL) 13.4 L Hct (42 - 52 %) 41.3 L MCV (80.0 - 94.0 FL) 88.1 MCH (27.0 - 31.0 PG) 28.6 MCHC (33.0 - 37.0 G/DL) 32.4 L RDW (11.5 - 14.5 %) 13.8 Plt Count (130 - 400 /CUMM) 264 MPV (7.4 - 10.4 FL) 8.3 Gran % (42.2 - 75.2 %) 55.7 Lymphocytes % (20.5 - 51.1 %) 33.9 Monocytes % (1.7 - 9.3 %) 8.5 Eosinophils % (0 - 5 %) 1.3 Basophils % (0.0 - 2.0 %) 0.6 Absolute Granulocytes (1.4 - 6.5 /CUMM) 4.9 Absolute Lymphocytes (1.2 - 3.4 /CUMM) 3.0 Absolute Monocytes (0.10 - 0.60 /CUMM) 0.7 H Absolute Eosinophils (0.0 - 0.7 /CUMM) 0.1 Absolute Basophils (0.0 - 0.2 /CUMM) 0.1 Toxicology Phenytoin (10.0 - 20.0 ug/mL) 41.0 H Cancelled Serum Alcohol (<10 MG/DL) < 10.0 Cancelled 10/06 2151 Coagulation D-Dimer High Sensitivty Cancelled Imaging/Other Studies: MRI brain CTAIMPRESSION: - No acute intracranial abnormality. - Redemonstration of 8 mm planum sphenoidale meningioma. - Chronic bilateral cohen radiata, basal ganglia, thalamic, and left lacunar pontine infarcts. - Moderate small vessel ischemic changes. CTA IMPRESSION: 1. No acute intracranial findings. 0.9 cm frontal meningioma. 2. No acute fracture or malalignment of the cervical spine. Moderate multilevel degenerative changes. 3. Atherosclerotic disease throughout the cervical and intracranial vasculature without large vessel occlusion. Assessment/Plan Assessment: Dilantin toxicity Meningioma Recommendations: Monitor Dilantin levels If seizure history can be confirmed, would lower dose after levels under 20, 1 tablet 3 times a day Level should be monitored by his physician serially until it stabilizes between 10 and 20 Frontal meningioma is small in size and patient should in one years time Consult Acknowledgment - Thank you for your consult request.
[2017-10-07 22:49] VITALS: BP 142/92
[2017-10-08 06:51] VITALS: BP 150/90
[2017-10-08 08:16] LABS: ABSOLUTE BASOPHIL COUNT 0 /CUMM (0.0-0.2); ABSOLUTE EOSINOPHIL COUNT 0.1 /CUMM (0.0-0.7); ABSOLUTE GRANULOCYTE CT 3.6 /CUMM (1.4-6.5); ABSOLUTE MONOCYTE COUNT 0.7 /CUMM (0.10-0.60); BASOPHIL % 0.3 % (0.0-2.0); EOSINOPHIL % 1.3 % (0-5); GRANULOCYTE % 47.8 % (42.2-75.2); HEMATOCRIT 37.2 % (42-52); MEAN CORPUSCULAR HGB 29.5 PG (27.0-31.0); MEAN CORPUSCULAR VOLUME 86.8 FL (80.0-94.0); MEAN PLATELET VOLUME 8.6 FL (7.4-10.4); PLATELET COUNT 227 /CUMM (130-400); RBC DISTRIBUTION WIDTH 13.7 % (11.5-14.5); RED BLOOD CELL CT 4.28 /CUMM (4.70-6.10); WHITE BLOOD CELL COUNT 7.4 /CUMM (4.8-10.8)
[2017-10-08 15:02] VITALS: BP 140/76
--- NOTE | 2017-10-08 15:33 | PN- Housestaff ---
Inessa HERNANDEZ,Yadira 10/08/17 1533: Subjective Follow-up For: Altered mental status Elevated phenytoin levels Tele-Events Since Last Visit: off tele Subjective: patient states that he feels well, no complaints, no dizziness Review of Systems Constitutional: Reports: no symptoms. Objective Last 24 Hrs of Vital Signs/I&O Vital Signs Date Time Temp Pulse Resp B/P B/P Pulse O2 O2 Flow FiO2 Mean Ox Delivery Rate 10/08 1600 99 Room Air 10/08 1502 97.8 82 21 140/76 99 10/08 1004 69 150/90 10/08 0651 97.7 69 20 150/90 93 Room Air 10/07 2249 98.0 89 16 142/92 98 Room Air 10/07 2115 88 142/92 Intake & Output 10/08 1600 10/08 0800 10/08 0000 Intake Total 840 110 485 Output Total 1525 450 500 Balance -685 -340 -15 Intake, IV 10 10 Intake, Oral 840 100 475 Number 0 Bowel Movements Output, Urine 1525 450 500 Patient 173 lb Weight Weight Bed scale Measurement Method Physical Exam General Appearance: Alert, Oriented X3, Cooperative, No Acute Distress Skin: No Rashes, No Breakdown, No Significant Lesion Skin Temp/Moisture Exam: Warm/Dry Sepsis Skin Exam (color): Normal for Ethnicity HEENT: Atraumatic, PERRLA, EOMI, Mucous Membr. moist/pink, horizontal nystagmus Neck: Supple, No JVD Cardiovascular: Regular Rate, Normal S1, Normal S2, No Murmurs Lungs: Clear to Auscultation, Normal Air Movement Neurological: Normal Speech Extremities: No Clubbing, No Cyanosis, No Edema, Normal Pulses Current Medications: Current Medications Sig/Lorrie Start time Last Medication Dose Route Stop Time Status Admin Aspirin 81 MG DAILY 10/06 899 AC 10/08 PO 1004 Atorvastatin Calcium 40 MG 1700 10/06 1700 AC 10/08 PO 1632 Carvedilol 12.5 MG BID 10/06 899 AC 10/08 PO 1004 Docusate Sodium 100 MG DAILY PRN 10/08 1100 AC 10/08 PO 1150 Finasteride 5 MG DAILY 10/06 09 AC 10/08 PO 1004 Furosemide 40 MG 7:30 AM, & 4:30 PM 10/06 0730 AC 10/08 PO 1632 Heparin Sodium 5,000 UNIT Q8 10/06 0600 AC 10/08 (Porcine) SC 1510 Insulin Aspart 0 TIDAC 10/06 1700 AC 10/08 SC 1703 Insulin Detemir 22 UNITS BID 10/06 2100 AC 10/08 SC 1006 Levothyroxine Sodium 0.05 MG DAILY AC 10/06 0700 AC 10/08 PO 0619 Loratadine 10 MG DAILY 10/06 0900 AC 10/08 PO 1004 Montelukast Sodium 10 MG DAILY 10/06 0900 AC 10/08 PO 1004 Senna/Docusate Sodium 1 TAB BID PRN 10/08 1100 AC 10/08 PO 1149 Last 24 Hrs of Lab/Elmer Results Last 24 Hrs of Labs/Mics: Laboratory Tests 10/08/17 0625: Anion Gap 13, Estimated GFR > 60, BUN/Creatinine Ratio 30.0 H, CBC w Diff NO MAN DIFF REQ, RBC 4.28 L, MCV 86.8, MCH 29.5, MCHC 34.0, RDW 13.7, MPV 8.6, Gran % 47.8, Lymphocytes % 40.8, Monocytes % 9.8 H, Eosinophils % 1.3, Basophils % 0.3, Absolute Granulocytes 3.6, Absolute Lymphocytes 3.0, Absolute Monocytes 0.7 H, Absolute Eosinophils 0.1, Absolute Basophils 0, Phenytoin 22.8 H Assessment/Plan Assessment: 61 year old male with a past medical history of diabetes, hypertension, hyperlipidemia, seizure disorder, BPH, and hypothyroidism was brought to the ER after having a fall. Assessment: 1. Elevated Phenytoin levels 2. New Meningioma 3. Fall 4. Nodular Contour of liver concerning for cirrhosis 5. History of Hypertension, Diabetes, Seizures Patient presented after a fall. It is unclear at this time if this was a mechanical fall or if he had a seizure. He does have a 0.9cm Meningioma which appears to be a new finding compared to his CT Head from 07/06. He has slurred speech which is his baseline and not a new finding. Plan: * continue on telemetry. * serial troponin and EKG negative for signs of ACS * Neurology consult called for elevated phenytoin levels: Altered mental status and new meningioma * EEG was normal * Fall precautions * Seizure precautions * Neurochecks q2. * Continue to hold phenytoin, level is 27.8 today, nystagmus persists * Insulin SS with Accucheks * Continue home dose Levemir 22units BID * Diet: Diabetic * DVT prophylaxis: SC Lovenox * Code: Full Code Problem List: 1. Dilantin toxicity Pain Ratin Pain Location: na Pain Goal: Remain pain free Pain Plan: na Tomorrow's Labs & Rationales: cbc bep phenytoin level Shayne Jay 10/08/17 1542: Attending MD Review Statement Attending Statement Attending MD Statement: examined this patient, discuss w/resident/PA/RAND SEWER, agreed w/resident/PA/RAND SEWER, discussed with family, reviewed EMR data (avail), discussed with nursing, discussed with case mgmt, reviewed images, amended to note Attending Assessment/Plan: Patient aaox3 oriented. Vital stable. MRI brain negative for acute pathology. EEG normal. Patient admitted here for dilantin toxicity with improvement in dilantin levels. His toxic encephalopathy with improvement. Neurology consulted, cont current care. Recheck dilantin levels. AED as per neurology. Frontal meningioma on CT imaging and MRI imaging solitary meningoma likely benign. History of seizure disorder on dilantin. Type 1 diabetes not in DKA. - Diabetes management, insulin sliding scale. Basal insulin Essential hypertension with bp controlled. PT/ OT eval DVT ppx Hep SC. Full code. Patient sas he has only one brother/family who lives in [facility]. Need to establish care. Discontinue telemetry and possible transfer to [facility].
[2017-10-08 23:03] VITALS: BP 136/80
[2017-10-09 06:34] VITALS: BP 126/78
--- NOTE | 2017-10-09 08:35 | PN- Housestaff ---
See Addendum Subjective Follow-up For: Encephalopathy/confusion-resolved Meningioma Subjective: The patient was seen and examined. He offers no complaints. Denies any complaints. He denies any CP, SOB, n/v/abd pain, visual symptoms. States that he was trying to use the restroom on the day of admission, tripped and fell. Has visiting nurse who helps arrange his pills for the week and put it in the pill box. He states that there is no pissibility that he could have taken extra dilantin. VSS. No events reported. Review of Systems Constitutional: Denies: chills, diaphoresis, fever, malaise, weakness, unexplained weight loss. Objective Last 24 Hrs of Vital Signs/I&O Vital Signs Date Time Temp Pulse Resp B/P B/P Pulse O2 O2 Flow FiO2 Mean Ox Delivery Rate 10/09 1521 Room Air 10/09 1421 98.9 83 20 100/80 96 Room Air 10/09 0800 97 Room Air 10/09 0634 97.6 78 20 126/78 97 Room Air 10/08 2303 98.6 77 18 136/80 96 Room Air Intake & Output 10/09 1600 10/09 0800 10/09 0000 Intake Total 200 200 Output Total 450 300 250 Balance -450 -100 -50 Intake, Oral 200 200 Number 1 Bowel Movements Output, Urine 450 300 250 Patient 143 lb 168 lb Weight Weight Bed scale Measurement Method Physical Exam General Appearance: Alert, Oriented X3, Cooperative, No Acute Distress Skin: No Rashes HEENT: Atraumatic, PERRLA, EOMI, Mucous Membr. moist/pink Neck: Supple Lymphatic: Axillary nl Cardiovascular: Regular Rate, Normal S1, Normal S2, No Murmurs, Gallops, Rubs Lungs: Clear to Auscultation, Normal Air Movement Abdomen: Normal Bowel Sounds, Soft, No Tenderness, No Hepatospenomegaly, No Masses Neurological: Strength at 5/5 X4 Ext, Normal Tone, Sensation Intact, Cranial Nerves 3-12 NL, Reflexes 2+, dysarthric speech, sensation intact, peripheral visual field intact Extremities: No Clubbing, No Cyanosis, No Edema, Normal Pulses, No Tenderness/ Swelling Vascular: Normal Pulses, Pulses Symmetrical Current Medications: Current Medications Sig/Lorrie Start time Last Medication Dose Route Stop Time Status Admin Aspirin 81 MG DAILY 10/06 0900 AC 10/09 PO 0828 Atorvastatin Calcium 40 MG 1700 10/06 1700 AC 10/09 PO 1628 Carvedilol 12.5 MG BID 10/06 0900 AC 10/09 PO 0828 Docusate Sodium 100 MG DAILY PRN 10/08 1100 AC 10/08 PO 1150 Finasteride 5 MG DAILY 10/06 0900 AC 10/09 PO 0828 Furosemide 40 MG 7:30 AM, & 4:30 PM 10/06 0730 AC 10/09 PO 1456 Heparin Sodium 5,000 UNIT Q8 10/06 0600 AC 10/09 (Porcine) SC 1452 Insulin Aspart 0 TIDAC 10/06 1700 AC 10/09 SC 1628 Insulin Detemir 22 UNITS BID 10/06 2100 AC 10/09 SC 0950 Levothyroxine Sodium 0.05 MG DAILY AC 10/06 0700 AC 10/09 PO 0537 Loratadine 10 MG DAILY 10/06 0900 AC 10/09 PO 0828 Montelukast Sodium 10 MG DAILY 10/06 0900 AC 10/09 PO 0828 Nicotine 2 MG DAILY 10/09 1022 AC 10/09 PO 1457 Phenytoin 100 MG Q8 10/09 1400 AC 10/09 PO 1455 Senna/Docusate Sodium 1 TAB BID PRN 10/08 1100 AC 10/08 PO 1149 Last 24 Hrs of Lab/Elmer Results Last 24 Hrs of Labs/Mics: Laboratory Tests 10/09/17 0801: Anion Gap 14, Estimated GFR > 60, BUN/Creatinine Ratio 30.0 H, CBC w Diff NO MAN DIFF REQ, RBC 4.33 L, MCV 87.8, MCH 29.4, MCHC 33.5, RDW 14.0, MPV 8.5, Gran % 64.5, Lymphocytes % 25.8, Monocytes % 8.9, Eosinophils % 0.6, Basophils % 0.2, Absolute Granulocytes 5.1, Absolute Lymphocytes 2.0, Absolute Monocytes 0.7 H, Absolute Eosinophils 0, Absolute Basophils 0, Phenytoin 13.4 Assessment/Plan Assessment: 61 year old male with a past medical history of diabetes, hypertension, hyperlipidemia, seizure disorder, BPH, and hypothyroidism was brought to the ER after having a fall. Assessment: 1. Elevated Phenytoin levels-resolved 2. New Meningioma 3. Fall 4. Nodular Contour of liver concerning for cirrhosis 5. History of Hypertension, Diabetes, Seizures Patient presented after a fall. It is unclear at this time if this was a mechanical fall or if he had a seizure. He does have a 0.9cm Meningioma which appears to be a new finding compared to his CT Head from 07/06. He has slurred speech which is his baseline and not a new finding. Plan: * serial troponin and EKG negative for signs of ACS * Neurology consult called for elevated phenytoin levels: Altered mental status and new meningioma * EEG was normal * Fall precautions * Seizure precautions * Neurochecks q2. * Phenytoin level 13.4 * Phenytoin resumed at a lower dose * Insulin SS with Accucheks * Continue home dose Levemir 22units BID * Diet: Diabetic * DVT prophylaxis: SC Lovenox * Code: Full Code Problem List: 1. Altered mental status 2. Dilantin toxicity Pain Ratin Pain Location: NA Pain Goal: Remain pain free Pain Plan: NA Tomorrow's Labs & Rationales: CBC, BEP, phenytoin level to monitor
[2017-10-09 09:09] LABS: ABSOLUTE BASOPHIL COUNT 0 /CUMM (0.0-0.2); ABSOLUTE EOSINOPHIL COUNT 0 /CUMM (0.0-0.7); ABSOLUTE GRANULOCYTE CT 5.1 /CUMM (1.4-6.5); ABSOLUTE MONOCYTE COUNT 0.7 /CUMM (0.10-0.60); BASOPHIL % 0.2 % (0.0-2.0); EOSINOPHIL % 0.6 % (0-5); GRANULOCYTE % 64.5 % (42.2-75.2); MEAN CORPUSCULAR HGB 29.4 PG (27.0-31.0); MEAN CORPUSCULAR HGB CONC 33.5 G/DL (33.0-37.0); MEAN CORPUSCULAR VOLUME 87.8 FL (80.0-94.0); MEAN PLATELET VOLUME 8.5 FL (7.4-10.4); PLATELET COUNT 221 /CUMM (130-400); RED BLOOD CELL CT 4.33 /CUMM (4.70-6.10); WHITE BLOOD CELL COUNT 7.8 /CUMM (4.8-10.8)
[2017-10-09] MEDS ORDERED: DILANTIN100 M1 PO (11:31)
--- NOTE | 2017-10-09 11:34 | Patient Discharge Instructions ---
Discharge Instructions General Discharge Information You were seen/treated for: 1. Dilantin toxicity Watch for these problems: 1. Severe headache 2. Seizure 3. Chest pain Special Instructions: Please follow up with your PCP within a week of discharge. Appointment made on . Please make an appointment to see Neurolgist Dr. Black within a week of discharge. Please make an appointment to see Spiritual Counselor Dr. Pearce within a week of discharge. Please start your Dilantin at the new dose You need close monitoring of Dilantin level. Check Dilantin level on 10/12/17. Please return to ED if your symptoms return Diet Recommended Diet: Diabetic, Heart Healthy Activity Activity Self Limited: Yes Additional ACTIVITY Info: Use walker/wheelchair Acute Coronary Syndrome Inclusion Criteria At DC or during hospital stay patient has or had the following: ACS DIAGNOSIS No Discharge Core Measures Meds if any: Prescribed or Continued at Discharge Meds if any: NOT Prescribed or Continued at Discharge Congestive Heart Failure Inclusion Criteria At DC or during hospital stay patient has or had the following: CHF DIAGNOSIS No Discharge Core Measures Meds if any: Prescribed or Continued at Discharge Meds if any: NOT Prescribed or Continued at Discharge Cerebrovascular accident Inclusion Criteria At DC or during hospital stay patient has or had the following: CVA/TIA Diagnosis No Discharge Core Measures Meds if any: Prescribed or Continued at Discharge Meds if any: NOT Prescribed or Continued at Discharge Venous thromboembolism Inclusion Criteria VTE Diagnosis No VTE Type NONE VTE Confirmed by (Test) NONE Discharge Core Measures - Per Current guidelines, there needs to be overlap - treatment for the first 5 days of Warfarin therapy. - If discharged on Warfarin prior to 5 days of - overlap therapy, the patient will need to be - assessed for post discharge needs including - *Post discharge parental anticoagulation - *Warfarin and/or parental anticoagulation education - *Follow up date to check INR post discharge At least 5 days overlap therapy as Inpatient No Meds if any: Prescribed or Continued at Discharge Note: Overlap Therapy is Warfarin and Anticoagulant Meds if any: NOT Prescribed or Continued at Discharge
--- NOTE | 2017-10-09 13:15 | Discharge Summary ---
Visit Information Visit Dates Admission Date: 10/05/17 Discharge Date: 10/09/2017 Hospital Course Course Attending Physician: Qasim Vasquez MD Primary Care Physician: Melissa HERNANDEZ,Sailaja Vences Consulting Request: Consulting Specialty: Palliative Care Hospital Course: This is a 61 year old male with a past medical history of diabetes, hypertension , hyperlipidemia, seizure disorder, BPH, and hypothyroidism was brought to the ER after having a fall. Initially etiology of fall was unclear, mechanical vs, syncope vs seizure. On work up he was found to have elevated phenytoin levels up to 41 and phenytoin toxicity was implicated for etiology of fall. He was evaluated by neurology service who suggested decreasing dose of phenytoin. His EEG was normal. Note that a CT/MRI schowed a .9 cm meningioma without any evidence of symptoms. He will require outpt follow up for this lesion. His phenytoin level was trended down to normal, the lower dose of phenytoin was started as per neurology recs, next day level was subtherapeutic. Phenytoin dose was adjusted before discharge. Allergies: Coded Allergies: NO KNOWN ALLERGIES (03/17/14) Pertinent Lab Results: [place] [address] DEPARTMENT OF NEUROLOGY ELECTROENCEPHALOGRAM REPORT Patient Name: JENNA GIBBONS Location: [facility] Date of : 53 Unit Number: [id number] Sex: M Age: 62 Electroencephalogram Report Electroencephalogram Results Date of service: 10/06/17 Attending MD: Milton HERNANDEZ,Zuly Executive Coach: Priyanka Dhaliwal Test Utilizes: 10-20 system, 21 lead 18 channel digital recording Pertinent Hx/Physical/Neuro Findings/Clin Diagnosis: mental status change Inpatient Medications: Current Medications Sig/Lorrie Start time Last Medication Dose Route Stop Time Status Admin Aspirin 81 MG DAILY 10/06 899 AC PO Aspirin 0 .STK-MED ONE 10/06 0056 DC PO Aspirin 325 MG ONCE ONE 10/06 0030 DC 10/06 PO 10/06 0031 0051 Atorvastatin Calcium 20 MG 1700 10/06 1700 DC PO Atorvastatin Calcium 40 MG 1700 10/06 1700 AC 10/06 PO 1704 Carvedilol 12.5 MG BID 10/06 09 AC PO Finasteride 5 MG DAILY 10/06 899 AC PO Furosemide 40 MG 7:30 AM, & 4:30 PM 10/06 0730 AC 10/06 PO 1704 Heparin Sodium 5,000 UNIT Q8 10/06 0600 AC 10/06 (Porcine) SC 1447 Insulin Aspart 0 TIDAC 10/06 1700 AC 10/06 SC 1705 Insulin Aspart 0 TIDAC 10/06 0800 DC SC Insulin Detemir 22 UNITS BID 10/06 2100 AC SC Insulin Detemir 22 UNITS BID 10/06 0900 DC SC Insulin Human Regular 0 Q6 10/06 0832 DC 10/06 SC 1139 Levothyroxine Sodium 0.05 MG DAILY AC 10/06 0700 AC 10/06 PO 0624 Loratadine 10 MG DAILY 10/06 0900 AC PO Montelukast Sodium 10 MG DAILY 10/06 09 AC PO Interpretation: Background 8 cps activity posteriorly In drowsy state, background 5-6 cps activity Photoc stim: no abnormalities No focal or epileptiform activity Impression: Normal EEG wake and drowsy states DICTATED BY: Sofia HERNANDEZ,Aubrey Vences DATE/TIME DICTATED:10/06/171813 TELECOMMUNICATIONS CLERK:CHAVEZ DATE/TIME TRANSCRIBED:10/06/171813 REPORT NUMBER:[id number] CONFIDENTIAL, DO NOT COPY WITHOUT APPROPRIATE AUTHORIZATION. <Electronically signed by Aubrey Black MD> 10/06/171817 CC: Sailaja Torres MD Order #: Accession #: Report #: [id number] Page[p pg] PATIENT: JENNA GIBBONS PRESENT AGE: 62 PATIENT ACCOUNT NO: [id number] : 53 LOCATION: [facility] ORDERING PHYSICIAN: Shahida Pritchard MD SERVICE DATE: 10/06/17- EXAM TYPE: MRI - MRI-HEAD W & W/O ANITRA EXAMINATION: MR BRAIN WITHOUT AND WITH CONTRAST CLINICAL INFORMATION: History of seizures. Meningioma. Dizziness. COMPARISON: Head CTA 10/05/2017. TECHNIQUE: Multiplanar, multisequence imaging of the brain was performed before and after the intravenous administration of 7 mL of Gadavist. The acquired images are degraded by motion artifact. Diagnostic information was still obtained. FINDINGS: There is no acute infarct, hemorrhage, or extra-axial collection. There is a 8 mm meningioma along the planum sphenoidale without mass effect or subjacent vasogenic edema. Otherwise, no abnormal intracranial enhancement is seen. There are numerous chronic infarcts within the bilateral cohen radiata and within the bilateral basal ganglia and thalami. There is a chronic lacunar infarct within the left basis pontis. There is moderate patchy T2 hyperintensity in the bilateral cerebral white matter reflecting small vessel ischemic changes. The major arterial flow voids are preserved at the skull base. The orbital contents appear normal. The extracranial structures are within normal limits. IMPRESSION: - No acute intracranial abnormality. - Redemonstration of 8 mm planum sphenoidale meningioma. - Chronic bilateral cohen radiata, basal ganglia, thalamic, and left lacunar pontine infarcts. - Moderate small vessel ischemic changes. DICTATED BY: Le Tello MD DATE/TIME DICTATED:10/06/171135 TELECOMMUNICATIONS CLERK:RAHEEL DATE/TIME TRANSCRIBED:10/06/171135 CONFIDENTIAL, DO NOT COPY WITHOUT APPROPRIATE AUTHORIZATION. <Electronically signed in Other Vendor System> SIGNED BY: Le Tello MD 10/06/17 1145 PATIENT: JENNA GIBBONS PRESENT AGE: 62 PATIENT ACCOUNT NO: [id number] : 53 LOCATION: [facility] ORDERING PHYSICIAN: Rodney Orellana MD SERVICE DATE: 10/05/17 EXAM TYPE: CAT - CT HEAD ANGIOGRAM; CT NECK ANGIOGRAM EXAMINATION: CTA OF THE HEAD/NECK CT CERVICAL SPINE CLINICAL INFORMATION: CVA. Cervical spine trauma. COMPARISON: Head CT from 07/14/2017 TECHNIQUE: A routine non contrast head CT was performed followed by a 98 mL bolus of Optiray 320. Subsequent multidetector helical imaging was performed of the head and neck. Delayed post contrast imaging was also performed through the head. Multiplanar reformats and MIP were also obtained. Internal carotid artery stenoses are assessed in accordance with NASCET criteria unless otherwise indicated. DLP: 1676 mGy-cm. FINDINGS: CT HEAD: No evidence of acute intracranial hemorrhage or territorial infarction. No abnormal mass effect or midline shift. Wolf to white matter differentiation is preserved. No extra-axial fluid collections are identified. No hydrocephalus. Mild global cerebral volume loss. Patchy periventricular and deep white matter hypoattenuation is consistent with small vessel ischemic change. There is a chronic lacunar infarct in the left candi. On postcontrast images, there is a 0.9 cm extra-axial enhancing lesion along the right aspect of the inferior falx anteriorly. This is suggestive of a meningioma. No adjacent parenchymal changes. The osseous structures and soft tissues are normal. The mastoid air cells and visualized portions of the paranasal sinuses are well aerated. CTA NECK: Bolus timing is suboptimal. The aortic arch is of normal caliber and the origins of the great vessels are patent without evidence of significant stenosis. There may be mild stenosis at the origin of the right vertebral artery. The left vertebral artery origin is not well visualized. The cervical portion of the vertebral arteries are patent bilaterally. No luminal irregularities in the common carotid arteries. There is atherosclerotic disease at the origin of the right internal carotid artery with less than 50% stenosis. There is atherosclerotic disease at the origin of the left internal carotid artery with less than 50% stenosis. The cervical portion of the internal carotid arteries are of normal caliber. The laryngeal structures and pharyngeal mucosal spaces are unremarkable. The oral cavity appears normal. The parotid and submandibular glands are normal. No pathologically enlarged lymph nodes. 0.9 cm hypoattenuating nodule in the right lobe of the thyroid gland.. The lung apices are clear without evidence of pneumothorax. There is straightening of the normal cervical lordosis. There is slight anterolisthesis of C4 on C5. Slight retrolisthesis of C6 on C7. This appears degenerative. There is multilevel disc space narrowing with multilevel facet arthropathy. Multilevel endplate osteophytes are present. The atlantoaxial and atlantooccipital articulations are intact. No acute fracture or malalignment of the cervical spine. CTA HEAD: The intradural portion of the left vertebral artery is diminutive, not feeding the basilar artery. Scattered calcifications of the intradural right vertebral artery. The basilar, superior cerebellar, and posterior communicating arteries are patent. The left posterior cerebral artery is supplied by the posterior communicating artery. The intracranial segments of the internal carotid artery are fairly heavily calcified. The posterior, middle, and anterior cerebral arteries are of normal caliber without evidence of significant luminal irregularity. No definite intracranial aneurysms. IMPRESSION: 1. No acute intracranial findings. 0.9 cm frontal meningioma. 2. No acute fracture or malalignment of the cervical spine. Moderate multilevel degenerative changes. 3. Atherosclerotic disease throughout the cervical and intracranial vasculature without large vessel occlusion. DICTATED BY: Hannah HERNANDEZ,Walker DATE/TIME DICTATED:10/05/172307 TELECOMMUNICATIONS CLERK:RAHEEL DATE/TIME TRANSCRIBED:10/05/172307 CONFIDENTIAL, DO NOT COPY WITHOUT APPROPRIATE AUTHORIZATION. <Electronically signed in Other Vendor System> SIGNED BY: Walker Young MD 10/05 PATIENT: JENNA GIBBONS PRESENT AGE: 62 PATIENT ACCOUNT NO: [id number] : 53 LOCATION: [facility] ORDERING PHYSICIAN: Rodney Orellana MD SERVICE DATE: 10/05/17 EXAM TYPE: CAT - CT ABD & PELVIS W/O IV CONTRAS; CT CHEST WO IV CONTRAST EXAMINATION: CT CHEST WITHOUT CONTRAST CT ABDOMEN AND PELVIS WITHOUT CONTRAST CLINICAL INFORMATION: Trauma. CVA. COMPARISON: None. TECHNIQUE: Multidetector volumetric imaging was performed through the chest, abdomen and pelvis without contrast. Sagittal and coronal reformatted images were obtained on the technologist's workstation. Axial MIP volume rendering provided. DLP: 715 mGy-cm. FINDINGS: CHEST: Lungs: The central airways are patent. The lungs are clear with no evidence of consolidation. No pleural effusion or pneumothorax. There are no pulmonary parenchymal nodules. Mediastinum: The heart is normal in size. Coronary artery calcifications are present. No pericardial effusion. No mediastinal lymphadenopathy. The thyroid gland is unremarkable. Chest Wall/Axilla: No lymphadenopathy. No chest wall mass. ABDOMEN/PELVIS: Liver, Gallbladder, Biliary Tree: The liver is normal in size with a nodular contour. No biliary ductal dilatation. There is a hypoattenuating lesion in segment 7 of the liver measuring 3.6 cm. This measures higher than simple fluid attenuation. The gallbladder is unremarkable with no evidence of radiopaque gallstones, gallbladder wall thickening, or pericholecystic inflammatory changes. Pancreas: Moderate atrophy of the pancreatic parenchyma. Scattered calcifications in the pancreatic head and neck suggestive of chronic pancreatitis. Spleen: Unremarkable. Adrenal Glands: Unremarkable. Kidneys and Ureters: The kidneys are normal in size, shape, and attenuation. No hydronephrosis, hydroureter or calculi seen. Bilateral symmetric perinephric stranding. Bladder: Unremarkable. Gastrointestinal Tract: The stomach is unremarkable. The small bowel is normal in caliber. No obstruction. There is no colonic wall thickening or inflammatory change. There is a moderate colonic stool burden. A normal appendix is noted. No free air or free fluid. Abdominal Wall: Fat-containing bilateral inguinal hernias. Lymphovascular Structures: Lymph nodes: Normal. Vascular: Normal caliber aorta. Moderate atherosclerotic calcifications. Pelvic Viscera: The prostate and seminal vesicles are unremarkable. OSSEOUS STRUCTURES: No suspicious sclerotic or lytic bone lesions are identified. Vertebral body heights are maintained. Vertebral body alignment is maintained. There is multilevel disc space narrowing with vacuum disc phenomenon. Multilevel endplate osteophytes with facet arthropathy. The sternum is intact. The ribs appear intact. There is a chronic healed left lateral fifth rib fracture. Healed lateral sixth, seventh, eighth, and ninth rib fractures are also noted. The pelvis is intact. Mild degenerative changes of the hips. IMPRESSION: No acute traumatic findings of the chest, abdomen, or pelvis. Nodular Contour of the liver is suspicious for cirrhosis. There is a hypoattenuating lesion in segment 7 of the liver which measures higher than simple fluid. Consider nonemergent dynamic liver MRI to further evaluate. Moderate colonic stool burden. DICTATED BY: Walker Young MD DATE/TIME DICTATED:10/05/172253 TELECOMMUNICATIONS CLERK:RAHEEL DATE/TIME TRANSCRIBED:10/05/172253 CONFIDENTIAL, DO NOT COPY WITHOUT APPROPRIATE AUTHORIZATION. <Electronically signed in Other Vendor System> SIGNED BY: Walker Young MD 10/05 4077 Disposition Summary Disposition Principal Diagnosis: phenytoin toxicity,mechanical fall Additional Diagnosis: Diabetes Discharge Disposition: SNF Discharge Instructions General Discharge Information Code Status: Full Code Patient's Diet: DM, Heart healthy Patient's Activity: As tolerated. Use walker/wheelchair Follow-Up Instructions/Appts: Please follow up with your PCP within a week of discharge. Please make an appointment to see Neurolgist Dr. Black within a week of discharge. Please make an appointment to see Shift Lab Technician Dr. Pearce within a week of discharge. Please start your Dilantin at the new dose You need close monitoring of Dilantin level. Please return to ED if your symptoms return. Medications at Discharge Discharge Medications: Stop taking the following medications: Phenytoin Sodium Extended (Phenytoin Sodium Extended) 100 MG CAPSULE ORAL THREE TIMES DAILY Qty = 30 Continue taking these medications: Finasteride (Finasteride) 5 MG TABLET 1 Tablet ORAL DAILY Qty = 30 Comments: Last Taken:10/11/17 Time:10 AM Montelukast Sodium (Montelukast Sodium) 10 MG TABLET 1 Tablet ORAL DAILY Qty = 30 Comments: Last Taken:10/11/17 Time:10 AM Aspirin (Aspirin*) 81 MG TAB.CHEW 1 Tablet ORAL DAILY Comments: Last Taken:10/11/17 Time:10 AM Furosemide (Furosemide) 40 MG TABLET 1 Tablet ORAL TWICE DAILY Qty = 30 Comments: Last Taken:10/11/17 Time:0600 AM Levothyroxine Sodium (Levothyroxine Sodium) 50 MCG TABLET 1 Tablet ORAL DAILY Qty = 30 Comments: Last Taken:10/11/17 Time:0630 AM Carvedilol (Carvedilol) 12.5 MG TABLET 1 Tablet ORAL TWICE DAILY Comments: Last Taken:10/11/17 Time:10 AM Loratadine (Claritin) 10 MG TABLET 1 Tablet ORAL DAILY Comments: Last Taken:10/11/17 Time:10 AM Metformin HCl (Glucophage) 1,000 MG TABLET 1 Tablet ORAL TWICE DAILY Comments: DID NOT ADMINISTER IN THE HOSPITAL Rosuvastatin Calcium (Crestor) 5 MG TABLET 1 Tablet ORAL DAILY Qty = 30 Comments: Last Taken:10/10/17 Time:5 PM ATROVASTATIN USED A REPLACEMENT Insulin Degludec (Tresiba Flextouch U-200) 200 UNIT/ML (3 ML) INSULN.PEN 46 Units Inject into fatty tissue Every Morning Qty = 9 Comments: DID NOT ADMINISTER AT THE HOSPITAL Insulin Detemir (Levemir) 100 UNIT/ML VIAL 22 Units Inject into fatty tissue TWICE DAILY Comments: Last Taken:10/11/17 Time:10 AM Insulin Aspart (Novolog) 100 UNIT/ML VIAL Units Inject into fatty tissue BEFORE MEALS AND AT BEDTIME Comments: DID NOT ADMINISTER TODAY Docusate Sodium (Colace) 100 MG CAPSULE 100 Milligram ORAL DAILY Qty = 30 Comments: Last Taken:10/08/17 Time:1150 AM Start taking the following new medications: Phenytoin (Dilantin) 100 MG CAPSULE 1 Tablet ORAL SEE INSTRUCTIONS Qty = 120 No Refills Instructions: Take 100MG 6 am,100MG 2 pm,200 MG 10PM. Comments: Last Taken:10/11/17 Time:0600 AM Copies To: Nandini HERNANDEZ,Karen Heredia Attending MD Review Statement Documenting Attending: Vasquez MD,Qasim Other Findings: The patient was seen on the day of discharge. PCP is Dr. Karen Delatorre (was incorrect originally in chart).
[2017-10-09 14:21] VITALS: BP 100/80
[2017-10-09 21:48] VITALS: BP 130/76
[2017-10-10 06:52] VITALS: BP 126/84
--- NOTE | 2017-10-10 08:05 | PN- Housestaff ---
See Addendum Subjective Follow-up For: Encephalopathy/confusion-resolved Meningioma Subjective: The patient was seen and examined. He offers no complaints. The patient denies any CP, SOB, n/v/abd pain, visual symptoms. VSS. No events reported. Has a walker and a wheelchair at home. PT recommended rehab, he wants to go home. Review of Systems Constitutional: Denies: chills, diaphoresis, fever, malaise, weakness, unexplained weight loss. Objective Last 24 Hrs of Vital Signs/I&O Vital Signs Date Time Temp Pulse Resp B/P B/P Pulse O2 O2 Flow FiO2 Mean Ox Delivery Rate 10/10 0923 126/84 10/10 0652 97.8 76 18 126/84 96 Room Air 10/09 2148 98.7 72 18 130/76 97 10/09 2147 72 130/76 10/09 1521 Room Air 10/09 1421 98.9 83 20 100/80 96 Room Air Intake & Output 10/10 1600 10/10 0800 10/10 0000 Intake Total 200 120 Output Total 100 200 Balance 100 -80 Intake, Oral 200 120 Number 1 Bowel Movements Output, Urine 100 200 Patient 156 lb 142 lb Weight Physical Exam General Appearance: Alert, Oriented X3, Cooperative, No Acute Distress Other Physical Findings: Skin: No Rashes HEENT: Atraumatic, PERRLA, EOMI, Mucous Membr. moist/pink Neck: Supple Lymphatic: Axillary nl Cardiovascular: Regular Rate, Normal S1, Normal S2, No Murmurs, Gallops, Rubs Lungs: Clear to Auscultation, Normal Air Movement Abdomen: Normal Bowel Sounds, Soft, No Tenderness, No Hepatospenomegaly, No Masses Neurological: Strength at 5/5 X4 Ext, Normal Tone, Sensation Intact, Cranial Nerves 3-12 NL, Reflexes 2+, dysarthric speech, sensation intact, peripheral visual field intact Extremities: No Clubbing, No Cyanosis, No Edema, Normal Pulses, No Tenderness/ Swelling Vascular: Normal Pulses, Pulses Symmetrical Current Medications: Current Medications Sig/Lorrie Start time Last Medication Dose Route Stop Time Status Admin Aspirin 81 MG DAILY 10/06 09 AC 10/10 PO 0922 Atorvastatin Calcium 40 MG 1700 10/06 1700 AC 10/09 PO 1628 Carvedilol 12.5 MG BID 10/06 0900 AC 10/10 PO 0923 Docusate Sodium 100 MG DAILY PRN 10/08 1100 AC 10/08 PO 1150 Finasteride 5 MG DAILY 10/06 0900 AC 10/10 PO 0923 Furosemide 40 MG .STK-MED ONE 10/09 1456 DC PO 10/09 1457 Furosemide 40 MG 7:30 AM, & 4:30 PM 10/06 0730 AC 10/10 PO 0922 Heparin Sodium 5,000 UNIT Q8 10/06 0600 AC 10/10 (Porcine) SC 0551 Insulin Aspart 0 TIDAC 10/06 1700 AC 10/09 SC 1628 Insulin Detemir 22 UNITS BID 10/06 2100 AC 10/10 SC 0922 Levothyroxine Sodium 0.05 MG DAILY AC 10/06 0700 AC 10/10 PO 0551 Loratadine 10 MG DAILY 10/06 0900 AC 10/10 PO 0923 Montelukast Sodium 10 MG DAILY 10/06 0900 AC 10/10 PO 0922 Nicotine 2 MG DAILY 10/09 1022 AC 10/10 PO 0923 Phenytoin 100 MG Q8 10/09 1400 AC 10/10 PO 0551 Senna/Docusate Sodium 1 TAB BID PRN 10/08 1100 AC 10/08 PO 1149 Last 24 Hrs of Lab/Elmer Results Last 24 Hrs of Labs/Mics: Laboratory Tests 10/10/17 0805: Sodium Pending, Potassium Pending, Chloride Pending, Carbon Dioxide Pending, Anion Gap Pending, BUN Pending, Creatinine Pending, BUN/Creatinine Ratio Pending , CBC w Diff NO MAN DIFF REQ, RBC 3.95 L, MCV 88.4, MCH 30.0, MCHC 34.0, RDW 14.5, MPV 8.3, Gran % 61.7, Lymphocytes % 28.7, Monocytes % 8.7, Eosinophils % 0.5, Basophils % 0.4, Absolute Granulocytes 4.4, Absolute Lymphocytes 2.0, Absolute Monocytes 0.6, Absolute Eosinophils 0, Absolute Basophils 0, Phenytoin Pending Assessment/Plan Assessment: 61 year old male with a past medical history of diabetes, hypertension, hyperlipidemia, seizure disorder, BPH, and hypothyroidism was brought to the ER after having a fall. Problem list: 1. Elevated Phenytoin levels-resolved 2. New Meningioma 3. Fall 4. Nodular Contour of liver concerning for cirrhosis 5. History of Hypertension, Diabetes, Seizures Patient presented after a fall. It is unclear at this time if this was a mechanical fall or if he had a seizure. He does have a 0.9cm Meningioma which appears to be a new finding compared to his CT Head from 07/06. He has slurred speech which is his baseline and not a new finding. Plan: * serial troponin and EKG negative for signs of ACS * Neurology consult called for elevated phenytoin levels: Altered mental status and new meningioma * EEG was normal * Fall precautions * Seizure precautions * Neurochecks q2. * Phenytoin level 13.4 yesterday; today's level is pending. * Will wait for the levels and call neurology for dose adjustment if levels low. * If discharged today needs to check phenytoin levels within few days;On Monday * Phenytoin resumed at a lower dose as per neuro recs. * Insulin SS with Accucheks * Continue home dose Levemir 22units BID * Diet: Diabetic * DVT prophylaxis: SC Lovenox * Code: Full Code * PT recommended rehab but wants to go home, has visiting nurse who comes 3 times per week. Problem List: 1. Dilantin toxicity Pain Ratin Pain Location: NA Pain Goal: Remain pain free Pain Plan: NA Tomorrow's Labs & Rationales: TBD Consulting Request: Consulting Specialty: Palliative Care
[2017-10-10 09:19] LABS: ABSOLUTE BASOPHIL COUNT 0 /CUMM (0.0-0.2); ABSOLUTE EOSINOPHIL COUNT 0 /CUMM (0.0-0.7); ABSOLUTE GRANULOCYTE CT 4.4 /CUMM (1.4-6.5); ABSOLUTE MONOCYTE COUNT 0.6 /CUMM (0.10-0.60); BASOPHIL % 0.4 % (0.0-2.0); EOSINOPHIL % 0.5 % (0-5); GRANULOCYTE % 61.7 % (42.2-75.2); HEMATOCRIT 34.9 % (42-52); MEAN CORPUSCULAR VOLUME 88.4 FL (80.0-94.0); MEAN PLATELET VOLUME 8.3 FL (7.4-10.4); PLATELET COUNT 212 /CUMM (130-400); RBC DISTRIBUTION WIDTH 14.5 % (11.5-14.5); RED BLOOD CELL CT 3.95 /CUMM (4.70-6.10); WHITE BLOOD CELL COUNT 7.1 /CUMM (4.8-10.8)
[2017-10-10 14:13] VITALS: BP 125/70
[2017-10-10] MEDS ORDERED: DILANTIN100 M1 PO ×2 (15:36→16:06)
--- NOTE | 2017-10-10 16:29 | Event Note ---
Event Note Event Note: Called neurology [employer] service, asking for call back 3 times since this morning, has not received any call back from neurology. Question was regarding adjustment of dosing of phenytoin now that the phenytoin level is subtherapeutic. The patient was on phenytoin 200 mg 3 times a day at home, initially Dr. Roberts recommended to decrease the dose of to 100 mg 3 times a day with a goal levels 1020. Patient was started on phenytoin yesterday when his phenytoin level was 13.4. Today phenytoin level is 7.5. Discussed attending Dr. Vasquez. Will adjust the dose to 100 mg 6 AM, 100 mg 2 PM, and 200 mg 10 PM. Nursing staff made an appointment for the patient to see his PCP Dr. Delatorre on 10/13/2017. Prescriptions will be given to the patient to check his blood on , 10/12. Plan was discussed with the patient expressed understanding and was agreeable. He has a visiting nurse 3 times a week.
[2017-10-10 22:39] VITALS: BP 120/60
[2017-10-11 05:49] VITALS: BP 130/82
--- NOTE | 2017-10-11 08:41 | PN- Housestaff ---
Wale HERNANDEZ,Brandon 10/11/17 0841: Subjective Follow-up For: Encephalopathy/confusion-resolved Meningioma Complaints: no complaints Subjective: I followed up and examined the patient today. He is resting comfortably by the side of his bed, not in distress, is able to comminucate without any hesitancy. He can use walker by himself as well. He does not wish to go to any short term rehab facilities. Review of Systems Constitutional: Reports: no symptoms. Objective Last 24 Hrs of Vital Signs/I&O Vital Signs Date Time Temp Pulse Resp B/P B/P Pulse O2 O2 Flow FiO2 Mean Ox Delivery Rate 10/11 0950 82 130/82 10/11 0549 97.7 82 20 130/82 98 Room Air 10/10 2239 98.1 77 20 120/60 99 Room Air 10/10 2111 77 120/60 Intake & Output 10/11 1600 10/11 0800 10/11 0000 Intake Total 240 120 Output Total 550 550 Balance -310 -430 Intake, Oral 240 120 Output, Urine 550 550 Patient 70.76 kg Weight Physical Exam General Appearance: Alert, Oriented X3, Cooperative, No Acute Distress Other Physical Findings: Skin: No Rashes HEENT: Atraumatic, PERRLA, EOMI, Mucous Membr. moist/pink Neck: Supple Lymphatic: Axillary nl Cardiovascular: Regular Rate, Normal S1, Normal S2, No Murmurs, Gallops, Rubs Lungs: Clear to Auscultation, Normal Air Movement Abdomen: Normal Bowel Sounds, Soft, No Tenderness Neurological: grossly intact Extremities: No Clubbing, No Cyanosis, No Edema, Normal Pulses, No Tenderness/ Swelling Vascular: Normal Pulses, Pulses Symmetrical Current Medications: Current Medications Sig/Lorrie Start time Last Medication Dose Route Stop Time Status Admin Aspirin 81 MG DAILY 10/06 899 DCD 10/11 PO 0950 Atorvastatin Calcium 40 MG 1700 10/06 1700 DCD 10/10 PO 1700 Carvedilol 12.5 MG BID 10/06 899 DCD 10/11 PO 0950 Docusate Sodium 100 MG DAILY PRN 10/08 1100 DCD 10/08 PO 1150 Finasteride 5 MG DAILY 10/06 09 DCD 10/11 PO 0950 Furosemide 40 MG 7:30 AM, & 4:30 PM 10/06 0730 DCD 10/11 PO 0638 Heparin Sodium 5,000 UNIT Q8 10/06 0600 DCD 10/11 (Porcine) SC 0639 Insulin Aspart 0 TIDAC 10/06 1700 DCD 10/09 SC 1628 Insulin Detemir 22 UNITS BID 10/06 2100 DCD 10/11 SC 0951 Levothyroxine Sodium 0.05 MG DAILY AC 10/06 0700 DCD 10/11 PO 0638 Loratadine 10 MG DAILY 10/06 0900 DCD 10/11 PO 0950 Montelukast Sodium 10 MG DAILY 10/06 0900 DCD 10/11 PO 0950 Nicotine 2 MG DAILY 10/09 1022 DCD 10/11 PO 0950 Phenytoin 100 MG Q8 10/09 1400 DCD 10/11 PO 0638 Senna/Docusate Sodium 1 TAB BID PRN 10/08 1100 DCD 10/08 PO 1149 Assessment/Plan Assessment: 62 year old male with a past medical history of diabetes, hypertension, hyperlipidemia, seizure disorder, BPH, and hypothyroidism was brought to the ER after having a fall and confusion, which ahs resolved now. Problem list: 1. Elevated Phenytoin levels-resolved 2. New Meningioma 3. Fall 4. Nodular Contour of liver concerning for cirrhosis 5. History of Hypertension, Diabetes, Seizures Patient presented after a fall. It is unclear at this time if this was a mechanical fall or if he had a seizure. He does have a 0.9cm Meningioma which appears to be a new finding compared to his CT Head from 07/06. He has slurred speech which is his baseline and not a new finding. Plan: * serial troponin and EKG negative for signs of ACS * Neurology consult called for elevated phenytoin levels: Altered mental status and new meningioma * EEG was normal * Fall precautions * Seizure precautions * Neurochecks q2. * Phenytoin level 13.4 the day before; today not checked as he was supposed to leave yesterday and also get his out-pt dose, which is 200 mg-at nighttime). * If discharged today needs to check phenytoin levels within few days; On Monday * Phenytoin resumed at a lower dose as per neuro recs. * Insulin SS with Accucheks * Continue home dose Levemir 22units BID * Diet: Diabetic * DVT prophylaxis: SC Lovenox * Code: Full Code * PT recommended rehab but he wants to go home, has visiting nurse who comes 3 times per week. Problem List: 1. Dilantin toxicity 2. Meningioma 3. Fall 4. Cirrhosis Pain Ratin Pain Location: - Pain Goal: Pain 4 or less (-) Pain Plan: - Tomorrow's Labs & Rationales: - Consulting Request: Consulting Specialty: Palliative Care Qasim Vasquez MD 10/11/17 1931: Attending MD Review Statement Attending Statement Attending MD Statement: examined this patient, discuss w/resident/PA/A[employer] UNIT TESTER, agreed w/resident/PA/A[employer] CONDITIONING UNIT TESTER, reviewed EMR data (avail), discussed with nursing, discussed with case mgmt, amended to note Attending Assessment/Plan: The patient was seen and discussed with house staff, nursing, and case management. He did not go home last pm due to lack of ride. Of note, he did not receive 200 mg dose of Dilantin last pm as it was expected that he would have taken if home. Will discharge today with home services. PCP is Dr. Karen Delatorre (was listed incorrectly on admission).
[2017-10-11 09:50] VITALS: BP 130/82
== END 2017-10-11 13:02 | disposition home health service (06) | DRG 52 ==
LOC: ERH 21:44 → 1NO 10-06 00:23 → ERHI 10-06 00:23 → 2NA 10-06 00:23 → ENRESERV 10-06 00:58 → CANRESERV 10-06 00:58 → ENRESERV 10-06 01:01 → 1NO 10-06 02:11 → 2NA 10-08 22:06 → ENPENDDIS 10-11 10:33 → ENTRNSPT 10-11 12:12 → EDTRNSPTSTS 10-11 12:50 → EDTRNSPT 10-11 12:50 → 2NA 10-11 13:02 → CMPTRNSPT 10-11 13:05
PROVIDERS: Dermatology; Internal Medicine; Pediatrics; Student in an Organized Health Care Education/Training Program
DX: G92 Toxic encephalopathy (principal); T42.0X5A Adverse effect of hydantoin derivatives, initial encounter; G40.909 Epilepsy, unspecified, not intractable, without status epilepticus; D32.9 Benign neoplasm of meninges, unspecified; E10.9 Type 1 diabetes mellitus without complications; Z79.4 Long term (current) use of insulin; E87.3 Alkalosis; E78.5 Hyperlipidemia, unspecified; I10 Essential (primary) hypertension; N40.0 Benign prostatic hyperplasia without lower urinary tract symptoms; E03.9 Hypothyroidism, unspecified; W05.0XXA Fall from non-moving wheelchair, initial encounter; Y92.009 Unspecified place in unspecified non-institutional (private) residence as the place of occurrence of the external cause; R47.1 Dysarthria and anarthria; Z79.82 Long term (current) use of aspirin
CPT/HCPCS: 1NP; 2NAP; 70552; 36415; 36592; 70553; 73060-LT; 73060-RT; 73090-LT; 73090-RT; 73120-LT; 73120-RT; 73552; 73590-LT; 73590-RT; 73620-LT; 73620-RT; 74176; 80307; 81001; 82436; 93005; 93010; 95816; 97110-GO; 97116-GO; 97161-GP; 97165-GO; 97530-GO; A9579; G0480; J1644; J3490